=== PATIENT | male | born 1940 | race Caucasian/White ===

== ENCOUNTER 2021-05-03 11:02 | Inpatient (IN) ==
[~2021-05-03 11:02] MED LIST: LORazepam 2 MG/ML VIAL (IM USE) IM STA
--- NOTE | 2021-05-03 11:22 | Emergency Department Note ---
History of Present Illness General Chief complaint: Cardiac Assessment Source: patient and EMS Mode of arrival: EMS History of Present Illness Provider complaint: Dizziness Onset (ago): day(s) Location: head Severity: moderate Pain Consistency: + intermittent Maximum Pain Intensity: 0 Quality: + other (Lightheaded) Relieved By: + none Associated symptoms: no chest pain, no cough, no fever/chills, no headaches, no nausea/vomiting, no shortness of breath or no syncope This is an 80-year-old male who is brought in for a dysrhythmia by EMS. The p atient was altered this morning and so his daughter thought she was having a stroke. She called the ambulance and when paramedics arrived his heart rate was at 240 with a wide-complex rhythm. He was not coherent and his systolic blood pressure was 90 so he was given a synchronized shock with 100 J and he cardioverted back into normal sinus rhythm. He then became awake and alert. They did call for medical command and I did provide this. He was given amiodarone 150 mg IV. He states that he was feeling dizzy yesterday. He felt lightheaded. He otherwise had no symptoms. This morning he is not sure what happened. He denies falling down. He states that he has had no fever, cough or cold symptoms, chest discomfort or pain, shortness of breath, palpitations, abdominal pain, vomiting or urinary symptoms. He is being treated for prostate cancer with radiation. He does state that he had diarrhea last night without hematochezia. He denies any prior history of cardiac disease. He has no symptoms at this time. Home Medications Medication Instructions Recorded Confirmed Type acetaminophen 500 mg tablet 500 mg PO Q6H PRN 01/07/21 05/03/21 History (Tylenol Extra Strength) arginine (L-arginine) 500 mg tablet 850 mg PO DAILY tab 01/07/21 05/03/21 History atorvastatin 20 mg tablet 20 mg PO QAM 01/07/21 05/03/21 History cinnamon bark 500 mg capsule 500 mg PO QAM 01/07/21 05/03/21 History (Cinnamon) glimepiride 1 mg tablet 1 mg PO QAM 01/07/21 05/03/21 History mecobalamin (vitamin B12) 1,000 1,000 mcg SUBLINGUAL DAILY 01/07/21 05/03/21 History mcg disintegrating tablet,sublingual melatonin 10 mg capsule 10 mg PO HS PRN 01/07/21 05/03/21 History metformin 500 mg tablet 1,000 mg PO BID tab 01/07/21 05/03/21 History metoprolol succinate 25 mg 25 mg PO QAM 01/07/21 05/03/21 History tablet,extended release 24 hr leuprolide 7.5 mg (1 month) 7.5 mg SUBCUT ONCE #1 ea 04/13/21 05/03/21 Rx subcutaneous syringe (EliTirendod) leuprolide (3 month) 22.5 mg (3 22.5 mg SUBCUT ONCE #1 ea 04/30/21 05/03/21 Rx month) subcutaneous syringe (EliTirendod) aspirin 81 mg chewable tablet 81 mg PO QAM 05/03/21 05/03/21 History clopidogrel 75 mg tablet 75 mg PO QAM 05/03/21 05/03/21 History fenofibrate micronized 134 mg 134 mg PO QAM 05/03/21 05/03/21 History capsule finasteride 5 mg tablet 5 mg PO QAM 05/03/21 05/03/21 History lisinopril 10 mg tablet 10 mg PO DAILY 05/03/21 05/03/21 History Allergies Allergy/AdvReac Type Severity Reaction Status Date / Time No Known Allergies Allergy Verified 04/26/21 15:15 Past Med/Surg History Medical History CVA (cerebral vascular accident) Diabetes Dyslipidemia Hypertension Incontinence Osteoarthritis Surgical History H/O cystoscopy In 2005 with cryoablation of prostate for prostate cancer History of prostate surgery S/P colonoscopy S/P hernia repair Right inguinal hernia repair Left inguinal hernia repair Umbilical hernia repair S/P rotator cuff surgery Right Family History Father , 83yo Prostate cancer Brother Cancer Pt uncertain of type of cancer Stroke Grandfather Leukemia Grandmother Diabetes Mother , 88yo Diabetes Hypertension Heart disease Daughter Thyroid disorder Brother Cancer Pt uncertain of type of cancer Brother No problems noted. Daughter No problems noted. Son No problems noted. Social History Smoking Status: Current some day smoker Tobacco Type: Cigarettes Cigarettes Per Day: Social smoker when at the bars;Started at 16yo; Hx Alcohol Use: Yes Alcohol type: hard liquor Hx Substance Use: No Preferred Language: Lithuanian Communication Ability: Effective Visual Impairment: No Limitations Hearing Ability: Normal Senior Sous [employer] Required: No Beliefs That Will Affect Care: None marital status: Current Living Situation Comment: Daughter living with him currently current occupational status: retired current occupation: Worked at [employer] Feels Safe at Home: Yes caffeine: Yes (1/2 pot/day) during the past year weight has: remained stable Review of Systems See HPI for pertinent positives & negatives. and A total of 10 systems reviewed and were otherwise negative Physical Exam Vital Signs Vital Signs - 24 hr 05/03/21 11:05 05/03/21 11:17 05/03/21 11:35 Temperature 36.9 C Temperature Source Oral Pulse Rate 75 Pulse Rate [Finger] 86 Pulse Rhythm [Finger] Pulse Strength [Finger] Respiratory Rate 20 20 16 Respiratory Effort / Characteristics Non-Labored Non-Labored Respiratory Depth Normal Normal Respiratory Pattern Blood Pressure 139/78 Blood Pressure [Right Arm] 137/88 151/108 H Blood Pressure Mean 98 Blood Pressure Mean [Right Arm] 104 122 Blood Pressure Position [Right Arm] Pulse Oximetry 97 95 94 Oxygen Delivery Method Room Air Sepsis Recent Fever Within 48 Hours No Sepsis New/Unexplained Change in Mental Status No Sepsis Action Taken by Nursing No Action Required 05/03/21 11:46 05/03/21 13:00 05/03/21 13:35 Temperature Temperature Source Pulse Rate Pulse Rate [Finger] 87 84 72 Pulse Rhythm [Finger] Pulse Strength [Finger] Respiratory Rate 18 16 20 Respiratory Effort / Characteristics Respiratory Depth Respiratory Pattern Blood Pressure Blood Pressure [Right Arm] 152/100 H 146/106 H 165/97 H Blood Pressure Mean Blood Pressure Mean [Right Arm] 117 119 119 Blood Pressure Position [Right Arm] Pulse Oximetry 95 96 96 Oxygen Delivery Method Room Air Sepsis Recent Fever Within 48 Hours Sepsis New/Unexplained Change in Mental Status Sepsis Action Taken by Nursing 05/03/21 14:33 05/03/21 16:30 Temperature Temperature Source Pulse Rate Pulse Rate [Finger] 66 64 Pulse Rhythm [Finger] Regular Pulse Strength [Finger] Normal Respiratory Rate 20 18 Respiratory Effort / Characteristics Non-Labored Non-Labored Respiratory Depth Normal Normal Respiratory Pattern Regular Blood Pressure Blood Pressure [Right Arm] 136/92 136/79 Blood Pressure Mean Blood Pressure Mean [Right Arm] 106 98 Blood Pressure Position [Right Arm] Lying Pulse Oximetry 97 97 Oxygen Delivery Method Room Air Sepsis Recent Fever Within 48 Hours Sepsis New/Unexplained Change in Mental Status Sepsis Action Taken by Nursing Constitutional: Vital signs reviewed. Eyes: Pupils are equal round reactive to light. Conjunctiva are noninjected. ENT: Pharynx is clear without erythema or exudate. Mucous membranes are moist. Neck supple without meningeal signs. Respiratory: Clear to auscultation bilaterally. Breath sounds are equal bilaterally. Cardiovascular: Regular rate and rhythm. No rubs or gallops. GI: Soft, nondistended and nontender. Bowel sounds are present. Musculoskeletal: No peripheral edema. No lower extremity tenderness. Integumentary: No cyanosis. or jaundice. Neurological: The patient is awake and alert. No focal deficits. Psychiatric: Normal affect. Not anxious appearing. Very talkative. Course Administered Medications Discontinued Medications Aspirin (Aspirin 81 Mg Chew) 324 mg PO NOW STA Stop: 05/03/21 12:30 Last Admin: 05/03/21 12:53 Dose: 324 mg Documented by: [id number] Famotidine (Famotidine 20mg/5ml Iv Push) Confirm Administered Dose 20 mg IV .STK-MED ONE Stop: 05/03/21 13:26 Last Admin: 05/03/21 14:39 Dose: Not Given Documented by: [id number] Fentanyl Citrate (Fentanyl Citrate 100 Mcg/2 Ml Vial) Confirm Administered Dose 100 mcg .ROUTE .STK-MED ONE Stop: 05/03/21 15:29 Last Increment: 05/03/21 16:17 Dose: 75 mcg Documented by: [id number] Fentanyl Citrate (Fentanyl Citrate 100 Mcg/2 Ml Vial) Confirm Administered Dose 100 mcg .ROUTE .STK-MED ONE Stop: 05/03/21 16:09 Last Increment: 05/03/21 16:25 Dose: 75 mcg Documented by: [id number] Heparin Sodium (Porcine) (Heparin Sod (Porcine) 1000 Unit/Ml) 1 units IV NOW ONE Stop: 05/03/21 12:45 Last Admin: 05/03/21 12:51 Dose: 6,000 units Documented by: [id number] Cosigned by: [id number] Heparin Sodium/Dextrose (Heparin Iv Adult Wt-Based Standard With Bolus Protocol) 1 ea IV NOW STA; Protocol Stop: 05/03/21 12:30 Last Admin: 05/03/21 13:17 Dose: 1 ea Documented by: [id number] Heparin Sodium/Dextrose (Heparin Sodium/Dextrose) 25,000 units in 500 mls @ 0.02 mls/hr IV .Q24H YUMIKO; Protocol Stop: 06/02/21 12:44 Last Admin: 05/03/21 12:52 Dose: 1,300 units/hr, 26 mls/hr Documented by: [id number] Cosigned by: [id number] Amiodarone HCl/Dextrose (Nexterone / D5w) 360 mg in 200 mls @ 33.333 mls/hr IV ONE ONE; Protocol Stop: 05/03/21 18:28 Last Admin: 05/03/21 12:52 Dose: 1 mg/min, 33.3 mls/hr Documented by: [id number] Cosigned by: [id number] Magnesium Sulfate/Dextrose (Magnesium Sulfate / D5w) 1 gm in 100 mls @ 100 mls/hr IV Q1H YUMIKO Stop: 05/03/21 14:33 Last Admin: 05/03/21 14:40 Dose: 100 mls/hr Documented by: [id number] Infusion: 05/03/21 14:40 Dose: 0 mls/hr Documented by: [id number] Admin: 05/03/21 13:32 Dose: 100 mls/hr Documented by: [id number] Famotidine 20 mg/ Syringe 5 mls @ 2.5 mls/min IV ONE ONE Stop: 05/03/21 13:16 Last Admin: 05/03/21 13:33 Dose: 2.5 mls/min Documented by: [id number] Insulin Human Regular (Novolin-R Insulin Per Unit Charge) 7 units IV NOW STA Stop: 05/03/21 12:34 Last Admin: 05/03/21 13:12 Dose: 7 units Documented by: [id number] Cosigned by: [id number] Lidocaine HCl (Lidocaine 1% Local 20 Ml Vial) Confirm Administered Dose 20 ml .ROUTE .STK-MED ONE Stop: 05/03/21 14:56 Last Admin: 05/03/21 16:12 Dose: 20 ml Documented by: [id number] Lorazepam (Lorazepam 2 Mg/Ml Vial (Im Use)) 2 mg IM NOW STA Stop: 05/03/21 10:57 Last Admin: 05/03/21 11:19 Dose: Not Given Documented by: [id number] Midazolam HCl (Midazolam Hcl 1 Mg/Ml 2ml Vial) Confirm Administered Dose 2 mg .ROUTE .STK-MED ONE Stop: 05/03/21 15:28 Last Admin: 05/03/21 16:18 Dose: 2 mg Documented by: [id number] Nicardipine HCl (Nicardipine Hcl Inj 2.5 Mg/Ml 10 Ml Amp) Confirm Administered Dose 25 mg .ROUTE .STK-MED ONE Stop: 05/03/21 15:28 Last Admin: 05/03/21 16:10 Dose: 25 mg Documented by: [id number] Nitroglycerin/Dextrose (Nitroglycerin/D5w 100mcg/Ml 20ml Syr) Confirm Administered Dose 2,000 mcg .ROUTE .STK-MED ONE Stop: 05/03/21 15:29 Last Admin: 05/03/21 16:10 Dose: 2,000 mcg Documented by: [id number] Critical Care Time Critical Care Time: Yes Total Critical Care Time: 45 I have personally spent approximately 45 minutes of critical care time in the direct management of this patient. This includes bedside care, interpretation of diagnostic studies, and testing, discussion with consultants, patient, and family members, and other required patient management activities. These minutes are in excess of all separately billable procedures. Medical Decision Making Differential Diagnosis Unstable ventricular tachycardia, SVT with aberrancy, metabolic derangement, electrolyte abnormality, ischemic heart disease Medical Records Attestation: I reviewed the patient's medical records. I did perform a limited focused review of portions of the patient's old chart on the electronic medical record. The patient has had no recent pertinent visits to this hospital. He is followed by radiation oncology for treatment of prostate cancer. Home Medications Current Medication List: was personally reviewed by me Laboratory Data Attestation: I reviewed the patient's lab results. Result diagrams: 05/03/21 11:05 05/03/21 12:26 Lab Results 05/03/21 05/03/21 05/03/21 Range/Units 11:05 11:05 11:05 WBC 9.60 (4.8-10.8) K/uL RBC 4.22 L (4.7-6.1) M/uL Hgb 13.1 L (14.0-18.0) g/dL POC Hgb (14.0-18.0) g/dl Hct 41.2 L (42-52) % POC Hct (42-52) % MCV 97.6 (80-100) fL MCH 31.0 (25-34) pg MCHC 31.8 L (32-36) g/dL RDW Std Deviation 52.5 H (36.4-46.3) fL RDW Coeff of Dylan 14.8 H (11.5-14.5) % Plt Count 206 (130-400) K/uL MPV 10.7 H (7.4-10.4) fL Immature Gran % (Auto) 1.6 % Neut % (Auto) 84.5 % Lymph % (Auto) 5.4 % [place] % (Auto) 8.3 % Eos % (Auto) 0.0 % Baso % (Auto) 0.2 % Neut # (Auto) 8.11 H (1.4-6.5) K/uL Lymph # (Auto) 0.52 L (1.2-3.4) K/uL [place] # (Auto) 0.80 H (0.11-0.59) K/uL Eos # (Auto) 0.00 (0-0.5) K/uL Baso # (Auto) 0.02 (0-0.2) K/uL Immature Gran # (Auto) 0.15 H (0.00-0.02) K/uL PT (9.0-12.0) Seconds INR (0.9-1.1) APTT (21.0-31.0) Seconds PTT Ratio POC Sodium (135-144) mmol/L Sodium 137 (136-145) mmol/L POC Potassium (3.3-5.0) mmol/L Potassium (3.5-5.1) mmol/L POC Chloride (101-112) mmol/L Chloride 100 (98-107) mmol/L Carbon Dioxide 17 L (21-32) mmol/L POC Total CO2 (24-31) mmol/L Anion Gap 20 H (3-11) POC Anion Gap (16-25) mmol/L POC BUN (7-18) mg/dl BUN 41 H (6-23) mg/dl Creatinine 1.98 H (0.6-1.4) mg/dl POC Creatinine (0.6-1.3) mg/dl Est Cr Clr Drug Dosing 29.3 ml/min Est GFR ( Amer) 35.9 ml/min Est GFR (Non-Af Amer) 31.0 ml/min BUN/Creatinine Ratio 20.7 H (10-20) Glucose 397 H* (70-99(Fasting)) mg/dl POC Glucose (70-99) mg/dl POC Glucose (other) (70-99) mg/dl Calcium 9.2 (8.5-10.1) mg/dl POC Ioniz Calcium Wolf (1.12-1.32) mmol/l Magnesium 1.6 L (1.7-2.4) mg/dl Total Bilirubin 1.2 H (0.2-1.0) mg/dl AST (13-39) U/L ALT 428 H (7-52) U/L Alkaline Phosphatase 42 (34-104) U/L Troponin I 1.38 H* (0-0.04) ng/ml Total Protein 6.6 (6.0-8.3) gm/dl Albumin 3.8 (3.4-5.0) gm/dl Globulin 2.8 (2.5-4.0) gm/dl Albumin/Globulin Ratio 1.4 (0.9-2) TSH 2.510 (0.300-4.500) uIu/ml SARS-CoV-2, RNA, NAAT (NEGATIVE) 05/03/21 05/03/21 05/03/21 Range/Units 11:05 11:14 11:23 WBC (4.8-10.8) K/uL RBC (4.7-6.1) M/uL Hgb (14.0-18.0) g/dL POC Hgb 14.3 (14.0-18.0) g/dl Hct (42-52) % POC Hct 42 (42-52) % MCV (80-100) fL MCH (25-34) pg MCHC (32-36) g/dL RDW Std Deviation (36.4-46.3) fL RDW Coeff of Dylan (11.5-14.5) % Plt Count (130-400) K/uL MPV (7.4-10.4) fL Immature Gran % (Auto) % Neut % (Auto) % Lymph % (Auto) % [place] % (Auto) % Eos % (Auto) % Baso % (Auto) % Neut # (Auto) (1.4-6.5) K/uL Lymph # (Auto) (1.2-3.4) K/uL [place] # (Auto) (0.11-0.59) K/uL Eos # (Auto) (0-0.5) K/uL Baso # (Auto) (0-0.2) K/uL Immature Gran # (Auto) (0.00-0.02) K/uL PT 14.3 H (9.0-12.0) Seconds INR 1.5 H (0.9-1.1) APTT 27.3 (21.0-31.0) Seconds PTT Ratio 1.0 POC Sodium 138 (135-144) mmol/L Sodium (136-145) mmol/L POC Potassium 5.1 H (3.3-5.0) mmol/L Potassium (3.5-5.1) mmol/L POC Chloride 103 (101-112) mmol/L Chloride (98-107) mmol/L Carbon Dioxide (21-32) mmol/L POC Total CO2 20 L (24-31) mmol/L Anion Gap (3-11) POC Anion Gap 22.0 (16-25) mmol/L POC BUN 48 H (7-18) mg/dl BUN (6-23) mg/dl Creatinine (0.6-1.4) mg/dl POC Creatinine 1.7 H (0.6-1.3) mg/dl Est Cr Clr Drug Dosing ml/min Est GFR ( Amer) ml/min Est GFR (Non-Af Amer) ml/min BUN/Creatinine Ratio (10-20) Glucose (70-99(Fasting)) mg/dl POC Glucose (70-99) mg/dl POC Glucose (other) 383 H* (70-99) mg/dl Calcium (8.5-10.1) mg/dl POC Ioniz Calcium Wolf 1.18 (1.12-1.32) mmol/l Magnesium (1.7-2.4) mg/dl Total Bilirubin (0.2-1.0) mg/dl AST (13-39) U/L ALT (7-52) U/L Alkaline Phosphatase (34-104) U/L Troponin I (0-0.04) ng/ml Total Protein (6.0-8.3) gm/dl Albumin (3.4-5.0) gm/dl Globulin (2.5-4.0) gm/dl Albumin/Globulin Ratio (0.9-2) TSH (0.300-4.500) uIu/ml SARS-CoV-2, RNA, NAAT NEGATIVE (NEGATIVE) 05/03/21 05/03/21 05/03/21 Range/Units 12:26 13:47 13:48 WBC (4.8-10.8) K/uL RBC (4.7-6.1) M/uL Hgb (14.0-18.0) g/dL POC Hgb (14.0-18.0) g/dl Hct (42-52) % POC Hct (42-52) % MCV (80-100) fL MCH (25-34) pg MCHC (32-36) g/dL RDW Std Deviation (36.4-46.3) fL RDW Coeff of Dylan (11.5-14.5) % Plt Count (130-400) K/uL MPV (7.4-10.4) fL Immature Gran % (Auto) % Neut % (Auto) % Lymph % (Auto) % [place] % (Auto) % Eos % (Auto) % Baso % (Auto) % Neut # (Auto) (1.4-6.5) K/uL Lymph # (Auto) (1.2-3.4) K/uL [place] # (Auto) (0.11-0.59) K/uL Eos # (Auto) (0-0.5) K/uL Baso # (Auto) (0-0.2) K/uL Immature Gran # (Auto) (0.00-0.02) K/uL PT (9.0-12.0) Seconds INR (0.9-1.1) APTT (21.0-31.0) Seconds PTT Ratio POC Sodium (135-144) mmol/L Sodium (136-145) mmol/L POC Potassium (3.3-5.0) mmol/L Potassium 4.7 (3.5-5.1) mmol/L POC Chloride (101-112) mmol/L Chloride (98-107) mmol/L Carbon Dioxide (21-32) mmol/L POC Total CO2 (24-31) mmol/L Anion Gap (3-11) POC Anion Gap (16-25) mmol/L POC BUN (7-18) mg/dl BUN (6-23) mg/dl Creatinine (0.6-1.4) mg/dl POC Creatinine (0.6-1.3) mg/dl Est Cr Clr Drug Dosing ml/min Est GFR ( Amer) ml/min Est GFR (Non-Af Amer) ml/min BUN/Creatinine Ratio (10-20) Glucose (70-99(Fasting)) mg/dl POC Glucose 283 H 291 H (70-99) mg/dl POC Glucose (other) (70-99) mg/dl Calcium (8.5-10.1) mg/dl POC Ioniz Calcium Wolf (1.12-1.32) mmol/l Magnesium (1.7-2.4) mg/dl Total Bilirubin (0.2-1.0) mg/dl AST 990 H (13-39) U/L ALT (7-52) U/L Alkaline Phosphatase (34-104) U/L Troponin I (0-0.04) ng/ml Total Protein (6.0-8.3) gm/dl Albumin (3.4-5.0) gm/dl Globulin (2.5-4.0) gm/dl Albumin/Globulin Ratio (0.9-2) TSH (0.300-4.500) uIu/ml SARS-CoV-2, RNA, NAAT (NEGATIVE) Imaging Data Radiologist's Impression: Chest X-Ray 05/03/21 11:14 XR chest 1V portable CLINICAL HISTORY: Dysrhythmia TECHNIQUE: Single frontal radiograph of the chest was obtained. Comparison: Comparison is made to chest one view 03/10/2016 FINDINGS: No lines and tubes are seen. The cardiomediastinal silhouette is normal. The lungs are clear. No evidence of pleural effusion or pneumothorax. IMPRESSION: No acute chest disease. ACT 112: Negative or not required by law. Electronically signed by: Ricco Sheehan M.D. 05/03/2021 11:31 AM ECG Data Attestation: I personally reviewed and interpreted this ECG as follows: Indication: + altered mental status Rate (beats per minute): 86 Rhythm: + normal sinus ECG Intervals/blocks: + First degree AV block and + Prolonged QT ECG ST segments: + ST depression (Lateral) ECG Findings: + PVCs Comparison ECG Date: from (March 12, 2016) Change: the following changes noted (ST depressions are new. Prolonged QT was present previously with a QTC of 520) MDM Narrative I did provide prehospital medical command for the patient my review of the EKG prior to arrival demonstrates ventricular tachycardia at a rate of 234 bpm. He had been electrically cardioverted prior to the phone call with 100 J and is now in normal sinus rhythm. I did recommend treatment with amiodarone and he was given 150 mg prior to arrival here. I did immediately evaluate the patient as noted above. He is awake and alert and without symptoms at this time. He does not even complain of any chest pain even after being cardioverted. He states that his only symptoms recently he was feeling lightheaded yesterday. Additional IV access was established. I did place an order for continuous cardiac monitoring. The monitor showed normal sinus rhythm at a rate of 68 bpm with PVCs. did order and personally review the patient's 12-lead EKG as described above. His EKG is concerning for ST depressions in the lateral leads. He has no ST elevations. He does have PVCs. He also has a prolonged QT which was present on his previous EKG. I did order and personally reviewed the images of the patient's chest x-ray as described above. He has no acute process within the chest. I did order and review the patient's blood work as noted in the electronic medical record. CBC demonstrates a mild anemia with a hemoglobin of 13. He has no leukocytosis or thrombocytopenia. Electrolytes are unremarkable other than a CO2 of 17. BUN and creatinine are elevated at 41 and 1.98 respectively. His last creatinine was 1. Glucose was elevated at 397. LFTs were abnormal with a AST of 990 and an ALT of 428. Troponin was elevated at 1.38. I did discuss case with Dr. Snyder of cardiology. He recommended starting the patient on an amiodarone drip. He felt the risk of torsades did not outweigh the risk of recurrent V. tach. He also recommended heparin. I did discuss this with the patient. He has no prior history of major bleed and denies any black or bloody stools. He is agreeable with heparinization. I did treat him with standard bolus heparin as well as a continuous drip. He was placed on an amiodarone drip at 1 mg/min. He was also given an aspirin p.o. He was also given magnesium 2 g IV. Finally he was given regular insulin 7 units IV for his hyperglycemia. COVID-19 testing was negative. I did discuss case with the hospitalist and case consultant. The patient was seen in emergency department by cardiology and he was eventually taken to the cardiac [facility]. Impression & Plan Ventricular tachycardia, sustained, Non-ST elevation [place] (NSTEMI), ROCKY (acute kidney injury), Hypomagnesemia, Prolonged Q-T interval on ECG, Abnormal LFTs, Acute hyperglycemia Discharge Plan Visit Data Chief Complaint: Cardiac Assessment ED Provider: Rudy Alcocer Discharge Problem: Ventricular tachycardia, sustained, Non-ST elevation [place] (NSTEMI), ROCKY (acute kidney injury), Hypomagnesemia, Prolonged Q-T interval on ECG, Abnormal LFTs, Acute hyperglycemia Patient Disposition: Being Evaluated by Hospitalist Discharge Instructions Interventions: ED Discharge Assessment Last Done: 05/03/21 14:55
[2021-05-03 11:26] LABS: iSTAT Creatinine 1.7 mg/dl (0.6-1.3); iSTAT Hemoglobin 14.3 g/dl (14.0-18.0); iSTAT Ionized Calcium 1.18 mmol/l (1.12-1.32); iSTAT Potassium 5.1 mmol/L (3.3-5.0)
--- NOTE | 2021-05-03 11:33 | XRay Report ---
XR chest 1V portable CLINICAL HISTORY: Dysrhythmia TECHNIQUE: Single frontal radiograph of the chest was obtained. Comparison: Comparison is made to chest one view 03/10/2016 FINDINGS: No lines and tubes are seen. The cardiomediastinal silhouette is normal. The lungs are clear. No evid ence of pleural effusion or pneumothorax. IMPRESSION: No acute chest disease. ACT 112: Negative or not required by law. Electronically signed by: Ricco Sheehan M.D. 05/03/2021 11:31 AM
[2021-05-03 11:34] LABS: Basophils # (auto) 0.02 K/uL (0-0.2); Basophils % (auto) 0.2 %; Hematocrit (blood only) 41.2 % (42-52); Hemoglobin 13.1 g/dL (14.0-18.0); Immature Granulocytes # (auto) 0.15 K/uL (0.00-0.02); Immature Granulocytes % (auto) 1.6 %; Lymphocytes # (auto) 0.52 K/uL (1.2-3.4); Lymphocytes % (auto) 5.4 %; Mean Corpuscular Hgb Conc 31.8 g/dL (32-36); Mean Corpuscular Volume 97.6 fL (80-100); Mean Platelet Volume 10.7 fL (7.4-10.4); Monocytes % (auto) 8.3 %; Neutrophils # (auto) 8.11 K/uL (1.4-6.5); Neutrophils % (auto) 84.5 %; Platelet Count 206 K/uL (130-400); RDW Coefficient of Variation 14.8 % (11.5-14.5); RDW Standard Deviation 52.5 fL (36.4-46.3); Red Blood Count 4.22 M/uL (4.7-6.1)
[2021-05-03 11:53] LABS: Troponin I 1.38 ng/ml (0-0.04)
[2021-05-03 12:22] LABS: Albumin Globulin Ratio 1.4 (0.9-2); Albumin Level 3.8 gm/dl (3.4-5.0); BUN Creatinine Ratio 20.7 (10-20); Bilirubin,Total 1.2 mg/dl (0.2-1.0); Calcium 9.2 mg/dl (8.5-10.1); Creatinine Clr Calc Pharmacy 29.3 ml/min; Est GFR (African American) 35.9 ml/min; Globulin 2.8 gm/dl (2.5-4.0); Magnesium 1.6 mg/dl (1.7-2.4); Total Protein 6.6 gm/dl (6.0-8.3)
[2021-05-03] MEDS ORDERED: AMIODARONE / D5W 360 MG/200 ML BAG IV ONE ×2 (12:29→16:25)
[2021-05-03] MEDS ORDERED: Heparin IV Adult Wt-Based Standard WITH Bolus Protocol IV STA (12:29)
[2021-05-03] MEDS ORDERED: ASPIRIN 81 MG CHEW PO STA (12:29)
[2021-05-03] MEDS ORDERED: 0.2 MICRON FILTER SET 1 EA IV ONE ×2 (12:29→16:25)
[2021-05-03] MEDS ORDERED: NovoLIN-R INSULIN PER UNIT CHARGE IV STA (12:33)
[2021-05-03] MEDS ORDERED: HEPARIN SOD (PORCINE) 1000 UNIT/ML IV ONE (12:44)
[2021-05-03] MEDS ORDERED: HEPARIN SODIUM/DEXTROSE 25,000 UNITS/500 ML BAG IV SCH (12:45)
[2021-05-03 13:06] LABS: Potassium 4.7 mmol/L (3.5-5.1)
[2021-05-03] MEDS ORDERED: FAMOTIDINE 20 MG in SYRINGE 3 ML IV ONE (13:15)
--- NOTE | 2021-05-03 13:24 | History & Physical Report ---
Date of Service May 03, 2021 Assessment & Plan (1) NSTEMI (non-ST elevated myocardial infarction): (2) V-tach: (3) ROCKY (acute kidney injury): (4) Transaminitis: (5) Diabetes: (6) Hypertension: (7) Dyslipidemia: (8) Prostate CA: (9) Hypomagnesemia: Plan: This is an 80-year-old male who has significant past medical history of T2DM, HTN, HLD, history of CVA in 2016, history of recurrent prostate cancer currently under going radiation therapy, alcohol use who presents to ED via EMS secondary to V. tach in the field. Acute coronary Syndrome, NSTEMI Sustained V. tach status post synchronized cardioversion, 100 J Cardiology consulted Echocardiogram ordered -waiting initial interpretation Cardiology to determine cath now or delayed till tomorrow secondary to ROCKY IV amiodarone and IV heparin initiated Continue metoprolol, aspirin Hold statin in setting of transaminitis, lisinopril secondary to ROCKY Cycle troponins ROCKY Baseline creatinine 1, BUN/creatinine 41 and 1.98 Likely in setting of poor perfusion due to arrhythmia Hold Metformin, lisinopril, avoid nephrotoxic agents as able Will receive gentle hydration Transaminitis AST 990, ALT 420, total bili 1.2 Possibly in setting of shock liver due to poor perfusion Obtain right upper quadrant ultrasound after ACS addressed Hold hepatotoxic agents including statin Cycle LFTs T2DM hyperglycemia A1c 02/2021 7.6 On Metformin and glimepiride as outpatient BSG 383 in ED, received 7 units regular insulin Lantus/novolog per protocol, if unable to control will need insulin gtt Hypomagnesemia mag 1.6 2g mag sulfate ordered, keep > 2.0 repeat mag at 1600 Hx of CVA on asa/plavix/statin as OP Prostate ca currently undergoing XRT tx, last 04/19/21. 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 Morgan, please see addendum History of Present Illness Chief Complaint: Dizziness x 1 day; VTACH in field. Primary Care Provider: Lizabeth Ying, DO This is an 80-year-old male who has significant past medical history of T2DM, HTN, HLD, history of CVA in 2016, history of recurrent prostate cancer currently under going radiation therapy, alcohol use who presents to ED via EMS secondary to V. tach in the field. Patient is a poor historian. He states for the past day he has been feeling dizzy and lightheaded and overall, "not well." His daughter found him this morning and felt that he was altered and pale. When EMS arrived the patient he was pale and diaphoretic. His heart rate was in the 240s consistent with V. tach. He underwent synchronized cardioversion at 100 J and returned to normal sinus rhythm. In route EMS was instructed to give 150 mg of amiodarone. Upon arrival to ED patient was awake alert talking normally. Currently he has no acute complaints but does complain of, "heartburn. "He describes as a burning in his central chest. He denies any yfn chest pain, shortness of breath, palpitations, dizziness, lightheadedness, headache, change in vision or hearing, cough, URI symptoms, recent illness, nausea, vomiting, abdominal pain. He has recently had increased urinary frequency secondary to undergoing cancer treatment for prostate cancer. He denies any hematuria, melena or hematochezia. Of significance he is on aspirin and Plavix secondary to history of stroke. He does complain of frequent loose stools approximately 8-10 a day. He attributes it to his Metformin. In ED patient has remained hemodynamically stable with no further evidence of recurrent dysrhythmia. He does have significant lab abnormalities including H&H 13.1 and 41.2, BUN 41, creatinine 1.9, anion gap 20, CO2 17, glucose 397, AST 990, ALT 420, initial troponin I 0.38, magnesium 1.6 His EKG was consistent with lateral ischemia. Cardiology was consulted and echocardiogram was ordered stat. He was started on IV amiodarone drip and IV heparin drip. Allergies Allergy/AdvReac Type Severity Reaction Status Date / Time No Known Allergies Allergy Verified 04/26/21 15:15 Home Medications Medication Instructions Recorded Confirmed Type acetaminophen 500 mg tablet 500 mg PO Q6H PRN 01/07/21 05/03/21 History (Tylenol Extra Strength) arginine (L-arginine) 500 mg tablet 850 mg PO DAILY tab 01/07/21 05/03/21 History atorvastatin 20 mg tablet 20 mg PO QAM 01/07/21 05/03/21 History cinnamon bark 500 mg capsule 500 mg PO QAM 01/07/21 05/03/21 History (Cinnamon) glimepiride 1 mg tablet 1 mg PO QAM 01/07/21 05/03/21 History mecobalamin (vitamin B12) 1,000 1,000 mcg SUBLINGUAL DAILY 01/07/21 05/03/21 History mcg disintegrating tablet,sublingual melatonin 10 mg capsule 10 mg PO HS PRN 01/07/21 05/03/21 History metformin 500 mg tablet 1,000 mg PO BID tab 01/07/21 05/03/21 History metoprolol succinate 25 mg 25 mg PO QAM 01/07/21 05/03/21 History tablet,extended release 24 hr leuprolide 7.5 mg (1 month) 7.5 mg SUBCUT ONCE #1 ea 04/13/21 05/03/21 Rx subcutaneous syringe ([employer]) leuprolide (3 month) 22.5 mg (3 22.5 mg SUBCUT ONCE #1 ea 04/30/21 05/03/21 Rx month) subcutaneous syringe ([employer]) aspirin 81 mg chewable tablet 81 mg PO QAM 05/03/21 05/03/21 History clopidogrel 75 mg tablet 75 mg PO QAM 05/03/21 05/03/21 History fenofibrate micronized 134 mg 134 mg PO QAM 05/03/21 05/03/21 History capsule finasteride 5 mg tablet 5 mg PO QAM 05/03/21 05/03/21 History lisinopril 10 mg tablet 10 mg PO DAILY 05/03/21 05/03/21 History Past Med/Surg History Medical History CVA (cerebral vascular accident) Diabetes Dyslipidemia Hypertension Incontinence Osteoarthritis Surgical History H/O cystoscopy In 2005 with cryoablation of prostate for prostate cancer History of prostate surgery S/P colonoscopy S/P hernia repair Right inguinal hernia repair Left inguinal hernia repair Umbilical hernia repair S/P rotator cuff surgery Right Family History Father , 83yo Prostate cancer Brother Cancer Pt uncertain of type of cancer Stroke Grandfather Leukemia Grandmother Diabetes Mother , 88yo Diabetes Hypertension Heart disease Daughter Thyroid disorder Brother Cancer Pt uncertain of type of cancer Brother No problems noted. Daughter No problems noted. Son No problems noted. Social History Smoking Status: Current some day smoker Tobacco Type: Cigarettes Cigarettes Per Day: Social smoker when at the bars;Started at 16yo; Hx Alcohol Use: Yes Alcohol type: hard liquor Hx Substance Use: No Preferred Language: Amharic Communication Ability: Effective Visual Impairment: No Limitations Hearing Ability: Normal Wellness Rn Required: No Beliefs That Will Affect Care: None marital status: Current Living Situation Comment: Daughter living with him currently current occupational status: retired current occupation: Worked at [employer] Feels Safe at Home: Yes caffeine: Yes (1/2 pot/day) during the past year weight has: remained stable Review of Systems Review of Systems: All systems reviewed & are unremarkable except as noted in HPI & below Physical Exam Physical Exam: Constitutional: WD/WN, Pale, Elderly M, appears critically ill, vitals as above, NAD, sitting up in bed, pleasant, conversing easily Head: Normocephalic, Atraumatic Eyes: PERRL, conjunctivae normal, anicteric sclerae ENMT: external ear and nose normal, oropharynx normal Neck: trachea midline, no thyromegaly normal visual inspection Respiratory: normal respiratory effort, lungs clear to auscultation, no wheeze, rales, rhonchi. Normal insp/exp effort, no accessory muscle use Cardiovascular: RRR, no murmur, no edema Vessels: no JVD or carotid bruit Chest: normal inspection of chest Abdomen: normal bowel sounds, soft, nontender, no hepatosplenomegaly Musculoskeletal: no cyanosis or clubbing, extremities motor strength 5/5 Skin: no rashes, warm and dry normal turgor Neurologic: PERRL, EOMI, accommodation nl, no face palsy, no dysarthria CN's II-XI intact bilaterally and moves all extremities Psychiatric: A+Ox3, euthymic affect Lymphatic: no cervical or axillary lymphadenopathy : deferred Results & Data Results & Data ([facility]) Vital Signs (Past 12 Hours) Vital Signs Temp Pulse Pulse Resp BP BP Pulse Ox 05/03/21 13:00 84 16 146/106 H 96 05/03/21 11:46 87 18 152/100 H 95 05/03/21 11:35 16 151/108 H 94 05/03/21 11:17 86 20 137/88 95 05/03/21 11:05 36.9 C 75 20 139/78 97 Diagnostic Findings Chest X-Ray 05/03/21 11:14 XR chest 1V portable CLINICAL HISTORY: Dysrhythmia TECHNIQUE: Single frontal radiograph of the chest was obtained. Comparison: Comparison is made to chest one view 03/10/2016 FINDINGS: No lines and tubes are seen. The cardiomediastinal silhouette is normal. The lungs are clear. No evidence of pleural effusion or pneumothorax. IMPRESSION: No acute chest disease. ACT 112: Negative or not required by law. Electronically signed by: Ricco Sheehan M.D. 05/03/2021 11:31 AM Medications Administered Medication List Heparin Sodium/Dextrose (Heparin Sodium/Dextrose) 25,000 units in 500 mls @ 0.02 mls/hr IV .Q24H [id number]; Protocol Stop: 06/02/21 12:44 Last Admin: 05/03/21 12:52 Dose: 1,300 units/hr, 26 mls/hr Documented by: [id number] Cosigned by: [id number] Amiodarone HCl/Dextrose (Nexterone / D5w) 360 mg in 200 mls @ 33.333 mls/hr IV ONE ONE; Protocol Stop: 05/03/21 18:28 Last Admin: 05/03/21 12:52 Dose: 1 mg/min, 33.3 mls/hr Documented by: [id number] Cosigned by: [id number] Discontinued Medications Aspirin (Aspirin 81 Mg Chew) 324 mg PO NOW STA Stop: 05/03/21 12:30 Last Admin: 05/03/21 12:53 Dose: 324 mg Documented by: [id number] Heparin Sodium (Porcine) (Heparin Sod (Porcine) 1000 Unit/Ml) 1 units IV NOW ONE Stop: 05/03/21 12:45 Last Admin: 05/03/21 12:51 Dose: 6,000 units Documented by: [id number] Cosigned by: [id number] Heparin Sodium/Dextrose (Heparin Iv Adult Wt-Based Standard With Bolus Protocol) 1 ea IV NOW STA; Protocol Stop: 05/03/21 12:30 Last Admin: 05/03/21 13:17 Dose: 1 ea Documented by: [id number] Insulin Human Regular (Novolin-R Insulin Per Unit Charge) 7 units IV NOW STA Stop: 05/03/21 12:34 Last Admin: 05/03/21 13:12 Dose: 7 units Documented by: [id number] Cosigned by: [id number] Lorazepam (Lorazepam 2 Mg/Ml Vial (Im Use)) 2 mg IM NOW STA Stop: 05/03/21 10:57 Last Admin: 05/03/21 11:19 Dose: Not Given Documented by: [id number] ECG Rate (beats per minute): 87 Rhythm: normal sinus Findings: + ST depression and + prolonged QT Additional Comments: Pt with ST depression laterally, not improved from previous COVID-19 Results Results COVID-19 Adm Lab Results: RBC 4.22 M/uL (4.7-6.1) L 05/03/21 WBC 9.60 K/uL (4.8-10.8) 05/03/21 Hgb 13.1 g/dL (14.0-18.0) L 05/03/21 Hct 41.2 % (42-52) L 05/03/21 Plt Count 206 K/uL (130-400) 05/03/21 Neutrophils (%) (Auto) 84.5 % 05/03/21 Lymphocytes (%) (Auto) 5.4 % 05/03/21 Monocytes # (Auto) 0.80 K/uL (0.11-0.59) H 05/03/21 Eosinophils # (Auto) 0.00 K/uL (0-0.5) 05/03/21 Immature Granulocyte % (Auto) 1.6 % 05/03/21 Neutrophils # (Auto) 8.11 K/uL (1.4-6.5) H 05/03/21 Lymphocytes # (Auto) 0.52 K/uL (1.2-3.4) L 05/03/21 Monocytes # (Auto) 0.80 K/uL (0.11-0.59) H 05/03/21 Eosinophils # (Auto) 0.00 K/uL (0-0.5) 05/03/21 Basophils # (Auto) 0.02 K/uL (0-0.2) 05/03/21 Immature Granulocyte # (Auto) 0.15 K/uL (0.00-0.02) H 05/03/21 Na 137 mmol/L (136-145) 05/03/21 K 4.7 mmol/L (3.5-5.1) 05/03/21 Cl 100 mmol/L (98-107) 05/03/21 CO2 17 mmol/L (21-32) L 05/03/21 Anion Gap 20 (3-11) H 05/03/21 BUN 41 mg/dl (6-23) H 05/03/21 Creatinine 1.98 mg/dl (0.6-1.4) H 05/03/21 BUN/Creatinine Ratio 20.7 (10-20) H 05/03/21 Glucose Level 397 mg/dl (70-99(Fasting)) H* 05/03/21 Ca 9.2 mg/dl (8.5-10.1) 05/03/21 Total Bilirubin 1.2 mg/dl (0.2-1.0) H 05/03/21 AST/SGOT 990 U/L (13-39) H 05/03/21 ALT/SGPT 428 U/L (7-52) H 05/03/21 Alkaline Phosphatase 42 U/L (34-104) 05/03/21 Total Protein 6.6 gm/dl (6.0-8.3) 05/03/21 Albumin 3.8 gm/dl (3.4-5.0) 05/03/21 Globulin 2.8 gm/dl (2.5-4.0) 05/03/21 Albumin/Globulin Ratio 1.4 (0.9-2) 05/03/21 Troponin I 1.38 ng/ml (0-0.04) H* 05/03/21 PTT 27.3 Seconds (21.0-31.0) 05/03/21 INR 1.5 (0.9-1.1) H 05/03/21 SARS-CoV-2, RNA, NAAT NEGATIVE (NEGATIVE) 05/03/21 Chest X-Ray 05/03/21 Code Status & VTE Plan Code Status FULL CODE VTE Prophylaxis Plan VTE Prophylaxis will be ordered: No Supervising Physician Co-Signing Physician Notes Patient is an 80-year-old male with history of diabetes mellitus, hypertension, hyperlipidemia, prostate cancer currently undergoing radiation therapy and other medical problems presents with history of dizziness. He was found to be in V. tach by EMS and underwent synchronized cardioversion and currently in sinus rhythm while in ED. Patient states having dizziness which started yesterday. He denies any chest pain but admits to having heartburn-like sensation. He denies any loss of consciousness, shortness of breath, fever, chills, recent infection. Patient states that he has been having diarrhea multiple times which is usual for him secondary to Metformin. Blood pressure slightly elevated while in ED. Blood work suggestive of ROCKY creatinine 1.98, hypomagnesemia 1.6, anion gap metabolic acidosis with bicarbonate 17. Also noted elevated AST, ALT. EKG showed ST depression in lateral precordial leads. Troponin elevated at 1.38. Hyperglycemia noted at 383. Chest x-ray showed no acute findings. On exam patient is moderately built and nourished, no apparent distress, normocephalic atraumatic, EOMI, clear to auscultation, normal breath sounds, irregularly irregular, no murmur, no pedal edema, abdomen soft, nontender, normal bowel sounds, alert, awake, oriented, grossly no focal deficits. Patient is being admitted for V. tach, NSTEMI, acute kidney injury, anion gap metabolic acidosis, hypomagnesemia. Also transaminitis. Patient is started on amiodarone, IV heparin drip while in ED. Patient is being planned for cardiac catheterization today. Avoid any nephrotoxic agents. Monitor renal function. Obtain right upper quadrant ultrasound and monitor LFTs. Continue aspirin, Plavix, metoprolol. Will trend cardiac enzymes and check resting echo. Will give insulin therapy to manage diabetes mellitus. Replace magnesium. Cardiology consulted. I personally reviewed the record. Patient is interviewed and examined at bedside. Patient's care is coordinated with Pattie Haney PA-C. Please refer to the documentation above for details of patient's presentation and for discussion of other issues.
[2021-05-03] MEDS ORDERED: FAMOTIDINE 20MG/5ML IV PUSH IV ONE (13:25)
[2021-05-03] MEDS: MAGNESIUM SULFATE / D5W 1 GM/100 ML BAG IV SCH ×2 (13:32→14:40)
[2021-05-03 13:51] LABS: INR 1.5 (0.9-1.1); Partial Thromboplastin Time 27.3 Seconds (21.0-31.0); Prothrombin Time 14.3 Seconds (9.0-12.0)
--- NOTE | 2021-05-03 14:22 | Cardiology Consultation ---
Date of Consultation May 03, 2021 Assessment & Plan (1) V-tach: (2) NSTEMI (non-ST elevated myocardial infarction): (3) ROCKY (acute kidney injury): Patient presents with having had onset of dizziness 12 hours prior to being found to be in sustained ventricular tachycardia with very rapid ventricular response of over 200 bpm. He had associated shortness of breath. He underwent synchronized cardioversion to sinus rhythm first-degree AV block, frequent unifocal PVCs, and lateral ST depression consistent with ischemia. His magnesium was mildly low at 1.6 and he has received IV replacement. He describes a vague discomfort in his chest that he describes as "heartburn "with no troponin level of 1.38, AST of 990 units/L, ALT 428 units/L. ROCKY noted, with creatinine level of 1.98, up from his previous baseline of 1 mg/dL in January,. The morphology of the EKG suggests possible right ventricular outflow tract ventricular tachycardia. This would fit well with his history of longstanding frequent PVCs and nonsustained ventricular tachycardia noted back in 2016. He has been on metoprolol in the meantime. He is however at risk for underlying significant underlying coronary heart disease given his risk factors. Bedside echocardiogram reveals moderate concentric left ventricular hypertrophy, moderate global left ventricular hypokinesis with ejection fraction in the range of 30 to 35%. We will plan on discussing the case with interventional cardiology with regards to timing of cardiac catheterization with taking his renal insufficiency into account. I attempted to reach the patient's daughter by phone who had already left the emergency room I was unable to reach her, but will continue to try again. History of Present Illness History of Present Illness Mayito Kiran is an 80 year old male seen in cardiology consultation per the request of Dr Alcocer of Emergency Medicine. Patient was reportedly in his normal state of health and while doing laundry last night at 7 to 8:00 at night he initially noticed dizziness. He had associated difficulty with his breathing. He laid down to go to sleep on the couch and noted heavy perspiration he actually put a cool towel on his head, and slept poorly. His daughter, Annabella, who lives with him, but he was confused and not himself this morning. EMS was subsequently summoned, and upon their arrival, an EKG performed at 1022 this morning revealed the presence of a wide- complex tachycardia with ventricular rate of 234 bpm, consistent with ventricular tachycardia. His systolic blood pressure was in the 90s. After the paramedics discussed his case with medical command, he underwent cardioversion receiving a synchronized shock of 100 J with conversion to sinus rhythm with first-degree AV block, frequent PVCs, and noted [address] segment depression in the lateral precordial leads. The patient was started on amiodarone infusion. Upon arrival to the emergency department repeat EKG was performed at 1108 this morning, with persistent [address] segment depression noted in the lateral precordial leads, and frequent unifocal PVCs including ventricular couplets and short ventricular runs are present at the time of my assessment in the emergency room with the patient currently receiving amiodarone and unfractioned heparin by infusion. The patient notes an ongoing mild midline chest discomfort that he describes as being "heartburn ". His blood pressure is stable with systolic readings in the 150s to 160s at present. No distress. Patient has a history of admission in late 2015 as part of a stroke work-up. Ejection fraction was normal on echo at that time, a follow-up watcher [employer] revealed frequent PVCs and short runs of nonsustained ventricular tachycardia. He was seen once as an outpatient by cardiology, but was lost to follow-up. Recently, he has been followed closely by urology and radiation oncology for recurrent prostate carcinoma and is receiving radiation therapy, most recent treatment 04/19/2020. A PET scan performed 04/07/2021 revealed a small stable lingular pulmonary nodule, with no significant FDG uptake with the exception of in the prostate gland. The patient's past medical history is otherwise notable for type 2 diabetes mellitus, hypertension and dyslipidemia. Allergies Allergy/AdvReac Type Severity Reaction Status Date / Time No Known Allergies Allergy Verified 04/26/21 15:15 Home Medications Medication Instructions Recorded Confirmed Type acetaminophen 500 mg tablet 500 mg PO Q6H PRN 01/07/21 05/03/21 History (Tylenol Extra Strength) arginine (L-arginine) 500 mg tablet 850 mg PO DAILY tab 01/07/21 05/03/21 History atorvastatin 20 mg tablet 20 mg PO QAM 01/07/21 05/03/21 History cinnamon bark 500 mg capsule 500 mg PO QAM 01/07/21 05/03/21 History (Cinnamon) glimepiride 1 mg tablet 1 mg PO QAM 01/07/21 05/03/21 History mecobalamin (vitamin B12) 1,000 1,000 mcg SUBLINGUAL DAILY 01/07/21 05/03/21 History mcg disintegrating tablet,sublingual melatonin 10 mg capsule 10 mg PO HS PRN 01/07/21 05/03/21 History metformin 500 mg tablet 1,000 mg PO BID tab 01/07/21 05/03/21 History metoprolol succinate 25 mg 25 mg PO QAM 01/07/21 05/03/21 History tablet,extended release 24 hr leuprolide 7.5 mg (1 month) 7.5 mg SUBCUT ONCE #1 ea 04/13/21 05/03/21 Rx subcutaneous syringe ([employer]) leuprolide (3 month) 22.5 mg (3 22.5 mg SUBCUT ONCE #1 ea 04/30/21 05/03/21 Rx month) subcutaneous syringe ([employer]) aspirin 81 mg chewable tablet 81 mg PO QAM 05/03/21 05/03/21 History clopidogrel 75 mg tablet 75 mg PO QAM 05/03/21 05/03/21 History fenofibrate micronized 134 mg 134 mg PO QAM 05/03/21 05/03/21 History capsule finasteride 5 mg tablet 5 mg PO QAM 05/03/21 05/03/21 History lisinopril 10 mg tablet 10 mg PO DAILY 05/03/21 05/03/21 History Patient History Medical History CVA (cerebral vascular accident) Diabetes Dyslipidemia Hypertension Incontinence Osteoarthritis Surgical History H/O cystoscopy In 2005 with cryoablation of prostate for prostate cancer History of prostate surgery S/P colonoscopy S/P hernia repair Right inguinal hernia repair Left inguinal hernia repair Umbilical hernia repair S/P rotator cuff surgery Right Family History Father , 83yo Prostate cancer Brother Cancer Pt uncertain of type of cancer Stroke Grandfather Leukemia Grandmother Diabetes Mother , 88yo Diabetes Hypertension Heart disease Daughter Thyroid disorder Brother Cancer Pt uncertain of type of cancer Brother No problems noted. Daughter No problems noted. Son No problems noted. Social History Smoking Status: Current some day smoker Tobacco Type: Cigarettes Cigarettes Per Day: Social smoker when at the bars;Started at 16yo; Hx Alcohol Use: Yes Alcohol type: hard liquor Hx Substance Use: No Preferred Language: Indonesian Communication Ability: Effective Visual Impairment: No Limitations Hearing Ability: Normal [employer] Required: No Beliefs That Will Affect Care: None marital status: Current Living Situation Comment: Daughter living with him currently current occupational status: retired current occupation: Worked at [employer] Feels Safe at Home: Yes caffeine: Yes (1/2 pot/day) during the past year weight has: remained stable Review of Systems Review of Systems: All systems reviewed & are unremarkable except as noted in HPI & below Genitourinary: no dysuria Physical Exam 2 Constitutional: WD/WN, vitals as above Respiratory: normal respiratory effort, lungs clear to auscultation Cardiovascular: Irregular rhythm No murmurs No edema Gastrointestinal (Abdomen): normal bowel sounds, soft, nontender, no hepatosplenomegaly Skin: Patient with skin lesion over his forehead and scalp, that he states is from a previous course of shingles Neurologic: PERRL, EOMI, accommodation nl, no face palsy, no dysarthria Results & Data ([facility]) Vital Signs (Past 12 Hours) Vital Signs Temp Pulse Pulse Resp BP BP Pulse Ox 05/03/21 13:35 72 20 165/97 H 96 05/03/21 13:00 84 16 146/106 H 96 05/03/21 11:46 87 18 152/100 H 95 05/03/21 11:35 16 151/108 H 94 05/03/21 11:17 86 20 137/88 95 05/03/21 11:05 36.9 C 75 20 139/78 97 Laboratory Results EKG tracings as outlined above Cardiac Enzymes 05/03/21 05/03/21 Range/Units 11:05 12:26 AST 990 H (13-39) U/L Troponin I 1.38 H* (0-0.04) ng/ml Coagulation 05/03/21 Range/Units 11:05 PT 14.3 H (9.0-12.0) Seconds APTT 27.3 (21.0-31.0) Seconds CBC 05/03/21 Range/Units 11:05 WBC 9.60 (4.8-10.8) K/uL RBC 4.22 L (4.7-6.1) M/uL Hgb 13.1 L (14.0-18.0) g/dL Hct 41.2 L (42-52) % Plt Count 206 (130-400) K/uL Neut # (Auto) 8.11 H (1.4-6.5) K/uL Lymph # (Auto) 0.52 L (1.2-3.4) K/uL Stone # (Auto) 0.80 H (0.11-0.59) K/uL Eos # (Auto) 0.00 (0-0.5) K/uL Baso # (Auto) 0.02 (0-0.2) K/uL Comprehensive Metabolic Panel 05/03/21 05/03/21 Range/Units 11:05 12:26 Sodium 137 (136-145) mmol/L Potassium 4.7 (3.5-5.1) mmol/L Chloride 100 (98-107) mmol/L Carbon Dioxide 17 L (21-32) mmol/L BUN 41 H (6-23) mg/dl Creatinine 1.98 H (0.6-1.4) mg/dl Glucose 397 H* (70-99(Fasting)) mg/dl Calcium 9.2 (8.5-10.1) mg/dl AST 990 H (13-39) U/L ALT 428 H (7-52) U/L Alkaline Phosphatase 42 (34-104) U/L Total Protein 6.6 (6.0-8.3) gm/dl Albumin 3.8 (3.4-5.0) gm/dl Intake and Output 05/02/21 05/03/21 05/03/21 22:59 06:59 14:59 Other: Weight 77.3 kg Weight Measurement Method Chair Scale Patient Weight 05/04/21 06:59 Weight 77.3 kg
[2021-05-03] MEDS ORDERED: LIDOCAINE 1% LOCAL 20 ML VIAL ONE (14:55)
[2021-05-03] MEDS ORDERED: HEPARIN (PORCINE) 1000 UNIT/ML 10 ML (CATH LAB USE ONLY) ONE (15:27)
[2021-05-03] MEDS ORDERED: niCARdipine HCL INJ 2.5 MG/ML 10 ML AMP ONE (15:27)
[2021-05-03] MEDS ORDERED: MIDAZOLAM HCL 1 MG/ML 2ML VIAL ONE ×2 (15:27→16:08)
[2021-05-03] MEDS ORDERED: fentaNYL citrate 100 MCG/2 ML VIAL ONE ×2 (15:28→16:08)
[2021-05-03] MEDS ORDERED: NITROGLYCERIN/D5W 100MCG/ML 20ML SYR ONE (15:28)
--- NOTE | 2021-05-03 15:53 | Pre Anesthesia Assessment ---
Date of Service May 03, 2021 Pre Sedation Assessment Vital Signs Temp Pulse Pulse Resp BP BP Pulse Ox 05/03/21 14:33 66 20 136/92 97 05/03/21 13:35 72 20 165/97 H 96 05/03/21 13:00 84 16 146/106 H 96 05/03/21 11:46 87 18 152/100 H 95 05/03/21 11:35 16 151/108 H 94 05/03/21 11:17 86 20 137/88 95 05/03/21 11:05 98.4 F 75 20 139/78 97 Cardiovascular RRR, no murmur, no edema Respiratory normal respiratory effort, lungs clear to auscultation Pre-Sedation Airway Assessment Smoking Status: Current some day smoker Hx Sleep Apnea: No Hx Difficult Intubation: No Short, Thick Neck: No Thyromental Distance: > or= 3.5 Finger Breadths Oral Cavity: + WNL Mallampati Class: III ASA: ASA3 Procedure Planning Contraindications for Sedation: none Current Medications Reviewed: Yes Notes The planned sedation has been discussed with the patient. Informed Consent was obtained. I have identified the patient, determined the appropriateness of sedation and have assessed the patient immediately prior to the procedure. All medicine(s) and interventions are by my order.
--- NOTE | 2021-05-03 16:32 | Cardiac Catheterization ---
[facility] Data: Pourer Buggy Ladle Cardiac Status Clinical evaluation leading to the procedure CAD Presenation: Unstable angina Anginal Classification: CCS III Heart Failure: No Cardiogenic Shock within 24 Hours: No Cardiac Arrest within 24 Hours: No Imaging Studies Past 6 Months: Yes Stress Studies Past 6 Months: No Diagnostic Physicians Name: Santosh Anderson MD Status: Elective Closure Device Percutaneous Entry Location: Radial Closure Device: Radial Band Recommendations: Medical Therapy and/or Counseling Intraprocedure Events Significant Disection: No Perforation: No Cardiac Cath Procedure Full Procedure Date May 03, 2021 Pre-Procedure Diagnosis Pre-Procedure Diagnosis: Arrhythmia AUC Score AUC Score: 7 Post-Procedure Diagnosis Post-Procedure Diagnosis: Moderate CAD Procedure(s) Performed Procedure(s) Performed: Coronary Angiography and Ultrasound Guided Vascular Access Director Of Environmental Services Santosh Anderson MD [employer] Enterprise Architect(s) Showers Estimated Blood Loss Estimated Blood Loss: 10 Medication(s) Medication(s): Fentanyl, Lidocaine 1%, Nicardipine, Nitroglycerin and Versed Summary of Findings Indication: Sustained VT Access: 6 Fr right radial artery under ultrasound guidance Catheters: [place] Findings: LM -normal caliber, no significant disease LAD -after takeoff of high D1 60% stenosis with small caliber vessel tapering prior to apex. Large D1 with 40% proximal stenosis Circumflex -medium caliber, 40% mid segment disease, small AV groove distal circumflex without disease. Small high OM1 with 80% proximal stenosis. Medium OM2 50% proximal stenosis. RCA -moderate caliber, dominant, diffuse proximal to mid up to 40% disease, 30% distal disease. PDA without significant disease. Small PLB's with mild diffuse disease. Arterial Closure: TR band Summary: 1. Non-obstructive major epicardial coronary artery disease -60% proximal small LAD. 40% mid circumflex 40% diffuse mid, 30% distal RCA 2. Moderate to severe branch vessel disease 80% small high OM1 -40% proximal large D1 50% proximal medium OM 2 Recommendations: No high-grade CAD to explain ventricular arrhythmia, cardiomyopathy. Antiarrhythmics, guideline directed medical therapy per Dr. Pitt. Hemodynamics Rest Ao:: 121/70/90 Final Ao: 136/83/104 LV: -- Recommendations Recommendations: Medical Therapy and/or Counseling Specimens Specimens: None Radiation Exposure (mGy) 820 Contrast (mls) 35 Fluids (cc crystalloids) Fluids (cc crystalloids): 50 Drains Drains: none Anesthesia moderate 7911-7551 Procedural Complication(s) None Disposition PCU I attest to the content of the Intraoperative Record and any orders documented therein. Any exceptions are noted below. [facility] Card Cath Procedure Codes Cardiac Catheterization Procedure 1: Cardiovascular Cath Procedures: 01265 Coronaries Therapeutic Services & Ancillary Proc Procedure 1: Cardiovascular Tx and Anc Procedures: 82508 Ultrasonic Guidance Vascular Access Moderate Sedation Procedure 1: Sedation/Anesthesia: 12259 Mod Sedation by the same physician;Init15 Min Child Age 5 & Up PG Care Time/CCT Total # of Minutes Spent Total Time Spent with Patient: Total time spent is greater than 50% in coordination of care (as documented) at patient's floor/unit and/or counseling patient:
[2021-05-03] MEDS ORDERED: SODIUM CHLORIDE 0.9% 500 ML IV SCH (16:45)
[2021-05-03] MEDS: Heparin IV Adult Wt-Based Standard WITH Bolus Protocol IV SCH ×2 (17:48→17:49)
[2021-05-03] MEDS ORDERED: PHARMACY GLYCEMIC MGMT CONSULT PRN (17:50)
[2021-05-03] MEDS ORDERED: POLYETHYLENE (MIRALAX) 17 GM PACK PO PRN (17:50)
[2021-05-03] MEDS ORDERED: DEXTROSE 50% 50 ML SYRINGE IV PRN (17:50)
[2021-05-03] MEDS ORDERED: GLUCOSE 10 TABS/TUBE PO PRN (17:50)
[2021-05-03] MEDS ORDERED: MAGNESIUM HYDROXIDE SUSP 30 ML UDC PO PRN (17:50)
[2021-05-03] MEDS ORDERED: GLUCOSE 40% GEL 15 GM TUBE PO PRN (17:50)
[2021-05-03] MEDS ORDERED: ONDANSETRON INJ 2 MG/ML 2 ML VIAL IV PRN (17:50)
[2021-05-03] MEDS ORDERED: ALUMINUM/MAGNESIUM SUSP 30 ML UDC PO PRN (17:50)
[2021-05-03] MEDS ORDERED: CARBOHYDRATES FOR HYPOGLYCEMIA PO PRN (17:50)
[2021-05-03] MEDS ORDERED: GLUCAGON FOR INJ 1 MG VIAL SQ PRN (17:50)
[2021-05-03 18:09] LABS: BUN Creatinine Ratio 25.3 (10-20); Calcium 9.3 mg/dl (8.5-10.1); Creatinine Clr Calc Pharmacy 34.1 ml/min; Est GFR (African American) 43.2 ml/min; Est GFR (Non-African American) 37.3 ml/min; Potassium 4.6 mmol/L (3.5-5.1)
[2021-05-03 18:12] LABS: Troponin I 5.12 ng/ml (0-0.04)
--- NOTE | 2021-05-03 18:12 | Communication Note ---
Date of Service: May 03, 2021 Updated patient's daughter,Annabella, by phone with regards to catheterization results. Proceed with ongoing medication management. Heparin discontinued. Amiodarone metoprolol ordered.
[2021-05-03] MEDS: AMIODARONE / D5W 360 MG/200 ML BAG IV SCH (18:49)
[2021-05-03] MEDS: SODIUM CHLORIDE 0.9% 1000ML 1,000 ML IV SCH (18:50)
[2021-05-03] MEDS: INSULIN ASPART PER UNIT SC SCH (18:51)
[2021-05-03] MEDS ORDERED: INSULIN GLARGINE SOLOSTAR 100 UNITS/ML 3 ML PEN SC SCH (21:00)
[2021-05-03] MEDS ORDERED: Nursing to Pharmacy Communication SCH (22:30)
[2021-05-03 22:45] LABS: Troponin I 6.11 ng/ml (0-0.04)
--- NOTE | 2021-05-03 23:00 | Electrocardiogram Report ---
Test Reason : Blood Pressure : / mmHG Vent. Rate : 086 BPM Atrial Rate : 086 BPM P-R Int : 256 ms QRS Dur : 094 ms QT Int : 426 ms P-R-T Axes : 000 057 118 degrees QTc Int : 509 ms Sinus rhythm with 1st degree A-V block with occasional Premature ventricular complexes and Fusion com plexes Prolonged QT Abnormal ECG When compared with ECG of 12-MAR-2016 07:34, Fusion complexes are now Present ST now depressed in Lateral leads Nonspecific T wave abnormality, improved in Inferior leads T wave amplitude has increased in Anterior leads T wave inversion now evident in Lateral leads Confirmed by Samir Husain ([id number]) on 05/03/2021 10:59:49 PM Referred By: Confirmed By:Samir Husain
[2021-05-03] MEDS: METOPROLOL TARTRATE 25 MG TAB PO SCH (23:02)
[2021-05-03 23:05] LABS: BUN Creatinine Ratio 26.7 (10-20); Creatinine Clr Calc Pharmacy 33.7 ml/min; Est GFR (African American) 42.6 ml/min; Est GFR (Non-African American) 36.7 ml/min; Potassium 4.2 mmol/L (3.5-5.1)
--- NOTE | 2021-05-03 23:08 | Electrocardiogram Report ---
Test Reason : Blood Pressure : / mmHG Vent. Rate : 087 BPM Atrial Rate : 088 BPM P-R Int : 000 ms QRS Dur : 092 ms QT Int : 412 ms P-R-T Axes : 000 052 124 degrees QTc Int : 495 ms Sinus rhythm with 1st degree A-V block with premature ventricular or aberrantly conducted complexes Prolonged QT Abnormal ECG When compared with ECG of 03-MAY-2021 11:08, (unconfirmed) OK interval has increased Confirmed by Samir Husain ([id number]) on 05/03/2021 11:08:36 PM Referred By: ED Confirmed By:Samir Husain
[2021-05-04] MEDS: INSULIN ASPART PER UNIT SC SCH ×5 (00:24→21:29)
[2021-05-04] MEDS: AMIODARONE / D5W 360 MG/200 ML BAG IV SCH (05:16)
[2021-05-04] MEDS: SODIUM CHLORIDE 0.9% 1000ML 1,000 ML IV SCH (05:30)
[2021-05-04 07:40] LABS: Basophils # (auto) 0.03 K/uL (0-0.2); Basophils % (auto) 0.5 %; Eosinophils # (auto) 0.02 K/uL (0-0.5); Eosinophils % (auto) 0.3 %; Hematocrit (blood only) 35.1 % (42-52); Hemoglobin 11.6 g/dL (14.0-18.0); Immature Granulocytes # (auto) 0.03 K/uL (0.00-0.02); Immature Granulocytes % (auto) 0.5 %; Lymphocytes # (auto) 0.46 K/uL (1.2-3.4); Lymphocytes % (auto) 7.1 %; Mean Corpuscular Hemoglobin 31.1 pg (25-34); Mean Corpuscular Volume 94.1 fL (80-100); Mean Platelet Volume 10.4 fL (7.4-10.4); Monocytes # (auto) 0.52 K/uL (0.11-0.59); Neutrophils # (auto) 5.41 K/uL (1.4-6.5); Neutrophils % (auto) 83.6 %; Platelet Count 153 K/uL (130-400); RDW Coefficient of Variation 14.9 % (11.5-14.5); Red Blood Count 3.73 M/uL (4.7-6.1); White Blood Count 6.47 K/uL (4.8-10.8)
[2021-05-04 07:43] LABS: BUN Creatinine Ratio 32.8 (10-20); Calcium 8.6 mg/dl (8.5-10.1); Creatinine Clr Calc Pharmacy 42.3 ml/min; Est GFR (African American) 56.1 ml/min; Est GFR (Non-African American) 48.4 ml/min
[2021-05-04 07:55] LABS: Albumin Globulin Ratio 1.4 (0.9-2); Albumin Level 3.3 gm/dl (3.4-5.0); Bilirubin Direct 0.3 mg/dl (0-0.2); Bilirubin,Total 0.7 mg/dl (0.2-1.0); Chol HDL Ratio 3.5 (0-5); Estimated Average Glucose 186 mg/dl; Globulin 2.4 gm/dl (2.5-4.0); Hemoglobin A1C 8.1 % (4.5-5.6); Magnesium 1.9 mg/dl (1.7-2.4); Total Protein 5.7 gm/dl (6.0-8.3)
[2021-05-04] MEDS: FINASTERIDE 5 MG TAB PO SCH (07:59)
[2021-05-04] MEDS: METOPROLOL TARTRATE 25 MG TAB PO SCH (07:59)
[2021-05-04] MEDS: ASPIRIN 81 MG CHEW PO SCH (07:59)
[2021-05-04] MEDS: CLOPIDOGREL BISULFATE 75 MG TAB PO SCH (07:59)
[2021-05-04] MEDS: HEPARIN SOD 5,000 UNIT/0.5 ML VIAL SQ SCH ×2 (08:00→20:19)
[2021-05-04] MEDS ORDERED: METOPROLOL SUCC 25MG EXT REL TAB PO SCH (09:00)
--- NOTE | 2021-05-04 09:14 | Gastrointestinal Consultation ---
Date of Consultation May 04, 2021 Assessment & Plan (1) Abnormal LFTs: 80 year old male admitted w/ sustained vtach - GI asked to evaluate this AM given transaminisits overnight. Suspect shock liver ABD US pending Can check acute hepatitis, CMV, EBV Can continue diet as tolerated. Recall GI as needed. Thank you for allowing us to participate in the care of this patient. Please call with any acute changes, questions or concerns. Please see addendum below with additional recommendation from my supervising physician. Supervising Physician Co-Signing Physician Notes I have personally seen and examined the patient with RAEANN Badillo. Her note reflects my exam and findings. I agree with her impression and plan. Most c/w shock liver from VT and cardioversion. They liver tests should improve conservatively in a few days. Follow mental status. Adonay Mathis M.D. History of Present Illness Reason for Consultation: elevated LFTs Requesting Physician: Freya Attending Physician: Angella Pillai MD History of Present Illness 80 year old male with history of T2DM, HTN, HLD, history of CVA in 2016, history of recurrent prostate cancer currently under going radiation therapy, alcohol use who presents to ED via EMS secondary to V. tach in the field, ACS, NSTEMI s/p cardiac cath GI asked to evaluate this AM for elevated LFTs. Pt was seen and evaluated, chart reviewed. No abd pain. Feeling great! No nausea, vomiting. Tolerating PO intake. Denies black or bloody stools. No fever, chills, CP, SOB. TB 0.7 AST 2459 ALT 1580 ALKP 33 ABD US 2021: pending Allergies Allergy/AdvReac Type Severity Reaction Status Date / Time No Known Allergies Allergy Verified 04/26/21 15:15 Home Medications Medication Instructions Recorded Confirmed Type acetaminophen 500 mg tablet 500 mg PO Q6H PRN 01/07/21 05/03/21 History (Tylenol Extra Strength) arginine (L-arginine) 500 mg tablet 850 mg PO DAILY tab 01/07/21 05/03/21 History atorvastatin 20 mg tablet 20 mg PO QAM 01/07/21 05/03/21 History cinnamon bark 500 mg capsule 500 mg PO QAM 01/07/21 05/03/21 History (Cinnamon) glimepiride 1 mg tablet 1 mg PO QAM 01/07/21 05/03/21 History mecobalamin (vitamin B12) 1,000 1,000 mcg SUBLINGUAL DAILY 01/07/21 05/03/21 History mcg disintegrating tablet,sublingual melatonin 10 mg capsule 10 mg PO HS PRN 01/07/21 05/03/21 History metformin 500 mg tablet 1,000 mg PO BID tab 01/07/21 05/03/21 History metoprolol succinate 25 mg 25 mg PO QAM 01/07/21 05/03/21 History tablet,extended release 24 hr leuprolide 7.5 mg (1 month) 7.5 mg SUBCUT ONCE #1 ea 04/13/21 05/03/21 Rx subcutaneous syringe (Sodraft) leuprolide (3 month) 22.5 mg (3 22.5 mg SUBCUT ONCE #1 ea 04/30/21 05/03/21 Rx month) subcutaneous syringe (Sodraft) aspirin 81 mg chewable tablet 81 mg PO QAM 05/03/21 05/03/21 History clopidogrel 75 mg tablet 75 mg PO QAM 05/03/21 05/03/21 History fenofibrate micronized 134 mg 134 mg PO QAM 05/03/21 05/03/21 History capsule finasteride 5 mg tablet 5 mg PO QAM 05/03/21 05/03/21 History lisinopril 10 mg tablet 10 mg PO DAILY 05/03/21 05/03/21 History Patient History Medical History CVA (cerebral vascular accident) Diabetes Dyslipidemia Hypertension Incontinence Osteoarthritis Surgical History H/O cystoscopy In 2005 with cryoablation of prostate for prostate cancer History of prostate surgery S/P colonoscopy S/P hernia repair Right inguinal hernia repair Left inguinal hernia repair Umbilical hernia repair S/P rotator cuff surgery Right Family History Father , 83yo Prostate cancer Brother Cancer Pt uncertain of type of cancer Stroke Grandfather Leukemia Grandmother Diabetes Mother , 88yo Diabetes Hypertension Heart disease Daughter Thyroid disorder Brother Cancer Pt uncertain of type of cancer Brother No problems noted. Daughter No problems noted. Son No problems noted. Social History Smoking Status: Current some day smoker Tobacco Type: Cigarettes Cigarettes Per Day: Social smoker when at the bars;Started at 16yo; Hx Alcohol Use: Yes Alcohol type: beer Hx Substance Use: Yes Last Used Substance: Days (ago) Preferred Language: Kazakh Communication Ability: Effective Visual Impairment: No Limitations Hearing Ability: Normal Instructional Resource Teacher Required: No Beliefs That Will Affect Care: None marital status: Current Living Situation: Family Current Living Situation Comment: Lives with daughterAnnabella current occupational status: retired current occupation: Worked at [employer] Safe at Home: Yes caffeine: Yes (1/2 pot/day) during the past year weight has: remained stable Assistive Devices: Glasses Review of Systems Review of Systems: All systems reviewed & are unremarkable except as noted in HPI & below Physical Exam Constitutional: WD/WN, vitals as above Neck: trachea midline, no thyromegaly Respiratory: normal respiratory effort, lungs clear to auscultation Cardiovascular: Rate/Rhythm: regular rate Gastrointestinal (Abdomen): normal bowel sounds, soft, nontender, no hepatosplenomegaly Skin: no rashes, warm and dry Results & Data ([facility]) Vital Signs (Past 12 Hours) Vital Signs Temp Pulse Pulse Resp BP Pulse Ox 05/04/21 07:54 37.8 C H 83 18 154/97 H 95 05/04/21 07:41 69 05/04/21 03:57 36.5 C 62 18 104/63 91 05/04/21 01:27 68 124/65 98 05/04/21 01:24 32 L 05/04/21 01:02 66 05/03/21 23:28 36.8 C 64 18 118/81 96 05/03/21 21:29 68 16 142/78 H 97 Laboratory Results 05/04/21 05/04/21 05/04/21 Range/Units 07:04 07:03 06:46 WBC (4.8-10.8) K/uL RBC (4.7-6.1) M/uL Hgb (14.0-18.0) g/dL POC Hgb (14.0-18.0) g/dl Hct (42-52) % POC Hct (42-52) % MCV (80-100) fL MCH (25-34) pg MCHC (32-36) g/dL RDW Std Deviation (36.4-46.3) fL RDW Coeff of Dylan (11.5-14.5) % Plt Count (130-400) K/uL MPV (7.4-10.4) fL Immature Gran % (Auto) % Neut % (Auto) % Lymph % (Auto) % [place] % (Auto) % Eos % (Auto) % Baso % (Auto) % Neut # (Auto) (1.4-6.5) K/uL Lymph # (Auto) (1.2-3.4) K/uL [place] # (Auto) (0.11-0.59) K/uL Eos # (Auto) (0-0.5) K/uL Baso # (Auto) (0-0.2) K/uL Immature Gran # (Auto) (0.00-0.02) K/uL PT (9.0-12.0) Seconds INR (0.9-1.1) APTT (21.0-31.0) Seconds PTT Ratio POC Sodium (135-144) mmol/L Sodium (136-145) mmol/L POC Potassium (3.3-5.0) mmol/L Potassium (3.5-5.1) mmol/L POC Chloride (101-112) mmol/L Chloride (98-107) mmol/L Carbon Dioxide (21-32) mmol/L POC Total CO2 (24-31) mmol/L Anion Gap (3-11) POC Anion Gap (16-25) mmol/L POC BUN (7-18) mg/dl BUN (6-23) mg/dl Creatinine (0.6-1.4) mg/dl POC Creatinine (0.6-1.3) mg/dl Est Cr Clr Drug Dosing ml/min Est GFR ( Amer) ml/min Est GFR (Non-Af Amer) ml/min BUN/Creatinine Ratio (10-20) Glucose (70-99(Fasting)) mg/dl POC Glucose 73 63 L* (70-99) mg/dl POC Glucose (other) (70-99) mg/dl Estimat Average Glucose 186 mg/dl Hemoglobin A1c 8.1 H (4.5-5.6) % Calcium (8.5-10.1) mg/dl POC Ioniz Calcium Wolf (1.12-1.32) mmol/l Magnesium (1.7-2.4) mg/dl Total Bilirubin (0.2-1.0) mg/dl Direct Bilirubin (0-0.2) mg/dl AST (13-39) U/L ALT (7-52) U/L Alkaline Phosphatase (34-104) U/L Troponin I (0-0.04) ng/ml Total Protein (6.0-8.3) gm/dl Albumin (3.4-5.0) gm/dl Globulin (2.5-4.0) gm/dl Albumin/Globulin Ratio (0.9-2) Triglycerides (0-150) mg/dl Cholesterol (0-200) mg/dl LDL Cholesterol, Calc mg/dl VLDL Cholesterol, Calc (0-30) mg/dl HDL Cholesterol mg/dl Cholesterol/HDL Ratio (0-5) TSH (0.300-4.500) uIu/ml SARS-CoV-2, RNA, NAAT (NEGATIVE) 05/04/21 05/04/21 05/04/21 Range/Units 06:46 06:46 00:49 WBC 6.47 (4.8-10.8) K/uL RBC 3.73 L (4.7-6.1) M/uL Hgb 11.6 L (14.0-18.0) g/dL POC Hgb (14.0-18.0) g/dl Hct 35.1 L (42-52) % POC Hct (42-52) % MCV 94.1 (80-100) fL MCH 31.1 (25-34) pg MCHC 33.0 (32-36) g/dL RDW Std Deviation 51.0 H (36.4-46.3) fL RDW Coeff of Dylan 14.9 H (11.5-14.5) % Plt Count 153 (130-400) K/uL MPV 10.4 (7.4-10.4) fL Immature Gran % (Auto) 0.5 % Neut % (Auto) 83.6 % Lymph % (Auto) 7.1 % [place] % (Auto) 8.0 % Eos % (Auto) 0.3 % Baso % (Auto) 0.5 % Neut # (Auto) 5.41 (1.4-6.5) K/uL Lymph # (Auto) 0.46 L (1.2-3.4) K/uL [place] # (Auto) 0.52 (0.11-0.59) K/uL Eos # (Auto) 0.02 (0-0.5) K/uL Baso # (Auto) 0.03 (0-0.2) K/uL Immature Gran # (Auto) 0.03 H (0.00-0.02) K/uL PT (9.0-12.0) Seconds INR (0.9-1.1) APTT (21.0-31.0) Seconds PTT Ratio POC Sodium (135-144) mmol/L Sodium 137 (136-145) mmol/L POC Potassium (3.3-5.0) mmol/L Potassium 4.0 (3.5-5.1) mmol/L POC Chloride (101-112) mmol/L Chloride 106 (98-107) mmol/L Carbon Dioxide 22 (21-32) mmol/L POC Total CO2 (24-31) mmol/L Anion Gap 9 (3-11) POC Anion Gap (16-25) mmol/L POC BUN (7-18) mg/dl BUN 45 H (6-23) mg/dl Creatinine 1.37 D (0.6-1.4) mg/dl POC Creatinine (0.6-1.3) mg/dl Est Cr Clr Drug Dosing 42.3 ml/min Est GFR ( Amer) 56.1 ml/min Est GFR (Non-Af Amer) 48.4 ml/min BUN/Creatinine Ratio 32.8 H (10-20) Glucose 68 L (70-99(Fasting)) mg/dl POC Glucose 136 H (70-99) mg/dl POC Glucose (other) (70-99) mg/dl Estimat Average Glucose mg/dl Hemoglobin A1c (4.5-5.6) % Calcium 8.6 (8.5-10.1) mg/dl POC Ioniz Calcium Wolf (1.12-1.32) mmol/l Magnesium 1.9 (1.7-2.4) mg/dl Total Bilirubin 0.7 D (0.2-1.0) mg/dl Direct Bilirubin 0.3 H (0-0.2) mg/dl AST 2459 H (13-39) U/L ALT 1580 H (7-52) U/L Alkaline Phosphatase 33 L (34-104) U/L Troponin I (0-0.04) ng/ml Total Protein 5.7 L (6.0-8.3) gm/dl Albumin 3.3 L (3.4-5.0) gm/dl Globulin 2.4 L (2.5-4.0) gm/dl Albumin/Globulin Ratio 1.4 (0.9-2) Triglycerides 97 (0-150) mg/dl Cholesterol 84 (0-200) mg/dl LDL Cholesterol, Calc 41 mg/dl VLDL Cholesterol, Calc 19 (0-30) mg/dl HDL Cholesterol 24 mg/dl Cholesterol/HDL Ratio 3.5 (0-5) TSH (0.300-4.500) uIu/ml SARS-CoV-2, RNA, NAAT (NEGATIVE) 05/04/21 05/04/21 05/04/21 Range/Units 00:27 00:11 00:10 WBC (4.8-10.8) K/uL RBC (4.7-6.1) M/uL Hgb (14.0-18.0) g/dL POC Hgb (14.0-18.0) g/dl Hct (42-52) % POC Hct (42-52) % MCV (80-100) fL MCH (25-34) pg MCHC (32-36) g/dL RDW Std Deviation (36.4-46.3) fL RDW Coeff of Dylan (11.5-14.5) % Plt Count (130-400) K/uL MPV (7.4-10.4) fL Immature Gran % (Auto) % Neut % (Auto) % Lymph % (Auto) % [place] % (Auto) % Eos % (Auto) % Baso % (Auto) % Neut # (Auto) (1.4-6.5) K/uL Lymph # (Auto) (1.2-3.4) K/uL [place] # (Auto) (0.11-0.59) K/uL Eos # (Auto) (0-0.5) K/uL Baso # (Auto) (0-0.2) K/uL Immature Gran # (Auto) (0.00-0.02) K/uL PT (9.0-12.0) Seconds INR (0.9-1.1) APTT (21.0-31.0) Seconds PTT Ratio POC Sodium (135-144) mmol/L Sodium (136-145) mmol/L POC Potassium (3.3-5.0) mmol/L Potassium (3.5-5.1) mmol/L POC Chloride (101-112) mmol/L Chloride (98-107) mmol/L Carbon Dioxide (21-32) mmol/L POC Total CO2 (24-31) mmol/L Anion Gap (3-11) POC Anion Gap (16-25) mmol/L POC BUN (7-18) mg/dl BUN (6-23) mg/dl Creatinine (0.6-1.4) mg/dl POC Creatinine (0.6-1.3) mg/dl Est Cr Clr Drug Dosing ml/min Est GFR ( Amer) ml/min Est GFR (Non-Af Amer) ml/min BUN/Creatinine Ratio (10-20) Glucose (70-99(Fasting)) mg/dl POC Glucose 60 L* 53 L* 64 L* (70-99) mg/dl POC Glucose (other) (70-99) mg/dl Estimat Average Glucose mg/dl Hemoglobin A1c (4.5-5.6) % Calcium (8.5-10.1) mg/dl POC Ioniz Calcium Wolf (1.12-1.32) mmol/l Magnesium (1.7-2.4) mg/dl Total Bilirubin (0.2-1.0) mg/dl Direct Bilirubin (0-0.2) mg/dl AST (13-39) U/L ALT (7-52) U/L Alkaline Phosphatase (34-104) U/L Troponin I (0-0.04) ng/ml Total Protein (6.0-8.3) gm/dl Albumin (3.4-5.0) gm/dl Globulin (2.5-4.0) gm/dl Albumin/Globulin Ratio (0.9-2) Triglycerides (0-150) mg/dl Cholesterol (0-200) mg/dl LDL Cholesterol, Calc mg/dl VLDL Cholesterol, Calc (0-30) mg/dl HDL Cholesterol mg/dl Cholesterol/HDL Ratio (0-5) TSH (0.300-4.500) uIu/ml SARS-CoV-2, RNA, NAAT (NEGATIVE) 05/03/21 05/03/21 05/03/21 Range/Units 22:09 21:02 17:42 WBC (4.8-10.8) K/uL RBC (4.7-6.1) M/uL Hgb (14.0-18.0) g/dL POC Hgb (14.0-18.0) g/dl Hct (42-52) % POC Hct (42-52) % MCV (80-100) fL MCH (25-34) pg MCHC (32-36) g/dL RDW Std Deviation (36.4-46.3) fL RDW Coeff of Dylan (11.5-14.5) % Plt Count (130-400) K/uL MPV (7.4-10.4) fL Immature Gran % (Auto) % Neut % (Auto) % Lymph % (Auto) % [place] % (Auto) % Eos % (Auto) % Baso % (Auto) % Neut # (Auto) (1.4-6.5) K/uL Lymph # (Auto) (1.2-3.4) K/uL [place] # (Auto) (0.11-0.59) K/uL Eos # (Auto) (0-0.5) K/uL Baso # (Auto) (0-0.2) K/uL Immature Gran # (Auto) (0.00-0.02) K/uL PT (9.0-12.0) Seconds INR (0.9-1.1) APTT (21.0-31.0) Seconds PTT Ratio POC Sodium (135-144) mmol/L Sodium 138 (136-145) mmol/L POC Potassium (3.3-5.0) mmol/L Potassium 4.2 (3.5-5.1) mmol/L POC Chloride (101-112) mmol/L Chloride 105 (98-107) mmol/L Carbon Dioxide 21 (21-32) mmol/L POC Total CO2 (24-31) mmol/L Anion Gap 12 H (3-11) POC Anion Gap (16-25) mmol/L POC BUN (7-18) mg/dl BUN 46 H (6-23) mg/dl Creatinine 1.72 H (0.6-1.4) mg/dl POC Creatinine (0.6-1.3) mg/dl Est Cr Clr Drug Dosing 33.7 ml/min Est GFR ( Amer) 42.6 ml/min Est GFR (Non-Af Amer) 36.7 ml/min BUN/Creatinine Ratio 26.7 H (10-20) Glucose 121 H (70-99(Fasting)) mg/dl POC Glucose 147 H 239 H (70-99) mg/dl POC Glucose (other) (70-99) mg/dl Estimat Average Glucose mg/dl Hemoglobin A1c (4.5-5.6) % Calcium 9.0 (8.5-10.1) mg/dl POC Ioniz Calcium Wolf (1.12-1.32) mmol/l Magnesium (1.7-2.4) mg/dl Total Bilirubin (0.2-1.0) mg/dl Direct Bilirubin (0-0.2) mg/dl AST (13-39) U/L ALT (7-52) U/L Alkaline Phosphatase (34-104) U/L Troponin I 6.11 H* (0-0.04) ng/ml Total Protein (6.0-8.3) gm/dl Albumin (3.4-5.0) gm/dl Globulin (2.5-4.0) gm/dl Albumin/Globulin Ratio (0.9-2) Triglycerides (0-150) mg/dl Cholesterol (0-200) mg/dl LDL Cholesterol, Calc mg/dl VLDL Cholesterol, Calc (0-30) mg/dl HDL Cholesterol mg/dl Cholesterol/HDL Ratio (0-5) TSH (0.300-4.500) uIu/ml SARS-CoV-2, RNA, NAAT (NEGATIVE) 05/03/21 05/03/21 05/03/21 Range/Units 17:24 17:24 13:48 WBC (4.8-10.8) K/uL RBC (4.7-6.1) M/uL Hgb (14.0-18.0) g/dL POC Hgb (14.0-18.0) g/dl Hct (42-52) % POC Hct (42-52) % MCV (80-100) fL MCH (25-34) pg MCHC (32-36) g/dL RDW Std Deviation (36.4-46.3) fL RDW Coeff of Dylan (11.5-14.5) % Plt Count (130-400) K/uL MPV (7.4-10.4) fL Immature Gran % (Auto) % Neut % (Auto) % Lymph % (Auto) % [place] % (Auto) % Eos % (Auto) % Baso % (Auto) % Neut # (Auto) (1.4-6.5) K/uL Lymph # (Auto) (1.2-3.4) K/uL [place] # (Auto) (0.11-0.59) K/uL Eos # (Auto) (0-0.5) K/uL Baso # (Auto) (0-0.2) K/uL Immature Gran # (Auto) (0.00-0.02) K/uL PT (9.0-12.0) Seconds INR (0.9-1.1) APTT (21.0-31.0) Seconds PTT Ratio POC Sodium (135-144) mmol/L Sodium 137 (136-145) mmol/L POC Potassium (3.3-5.0) mmol/L Potassium 4.6 (3.5-5.1) mmol/L POC Chloride (101-112) mmol/L Chloride 103 (98-107) mmol/L Carbon Dioxide 21 (21-32) mmol/L POC Total CO2 (24-31) mmol/L Anion Gap 13 H (3-11) POC Anion Gap (16-25) mmol/L POC BUN (7-18) mg/dl BUN 43 H (6-23) mg/dl Creatinine 1.70 H (0.6-1.4) mg/dl POC Creatinine (0.6-1.3) mg/dl Est Cr Clr Drug Dosing 34.1 ml/min Est GFR ( Amer) 43.2 ml/min Est GFR (Non-Af Amer) 37.3 ml/min BUN/Creatinine Ratio 25.3 H (10-20) Glucose 265 H (70-99(Fasting)) mg/dl POC Glucose 291 H (70-99) mg/dl POC Glucose (other) (70-99) mg/dl Estimat Average Glucose mg/dl Hemoglobin A1c (4.5-5.6) % Calcium 9.3 (8.5-10.1) mg/dl POC Ioniz Calcium Wolf (1.12-1.32) mmol/l Magnesium 2.1 (1.7-2.4) mg/dl Total Bilirubin (0.2-1.0) mg/dl Direct Bilirubin (0-0.2) mg/dl AST (13-39) U/L ALT (7-52) U/L Alkaline Phosphatase (34-104) U/L Troponin I 5.12 H* (0-0.04) ng/ml Total Protein (6.0-8.3) gm/dl Albumin (3.4-5.0) gm/dl Globulin (2.5-4.0) gm/dl Albumin/Globulin Ratio (0.9-2) Triglycerides (0-150) mg/dl Cholesterol (0-200) mg/dl LDL Cholesterol, Calc mg/dl VLDL Cholesterol, Calc (0-30) mg/dl HDL Cholesterol mg/dl Cholesterol/HDL Ratio (0-5) TSH (0.300-4.500) uIu/ml SARS-CoV-2, RNA, NAAT (NEGATIVE) 05/03/21 05/03/21 05/03/21 Range/Units 13:47 12:26 11:23 WBC (4.8-10.8) K/uL RBC (4.7-6.1) M/uL Hgb (14.0-18.0) g/dL POC Hgb (14.0-18.0) g/dl Hct (42-52) % POC Hct (42-52) % MCV (80-100) fL MCH (25-34) pg MCHC (32-36) g/dL RDW Std Deviation (36.4-46.3) fL RDW Coeff of Dylan (11.5-14.5) % Plt Count (130-400) K/uL MPV (7.4-10.4) fL Immature Gran % (Auto) % Neut % (Auto) % Lymph % (Auto) % [place] % (Auto) % Eos % (Auto) % Baso % (Auto) % Neut # (Auto) (1.4-6.5) K/uL Lymph # (Auto) (1.2-3.4) K/uL [place] # (Auto) (0.11-0.59) K/uL Eos # (Auto) (0-0.5) K/uL Baso # (Auto) (0-0.2) K/uL Immature Gran # (Auto) (0.00-0.02) K/uL PT (9.0-12.0) Seconds INR (0.9-1.1) APTT (21.0-31.0) Seconds PTT Ratio POC Sodium (135-144) mmol/L Sodium (136-145) mmol/L POC Potassium (3.3-5.0) mmol/L Potassium 4.7 (3.5-5.1) mmol/L POC Chloride (101-112) mmol/L Chloride (98-107) mmol/L Carbon Dioxide (21-32) mmol/L POC Total CO2 (24-31) mmol/L Anion Gap (3-11) POC Anion Gap (16-25) mmol/L POC BUN (7-18) mg/dl BUN (6-23) mg/dl Creatinine (0.6-1.4) mg/dl POC Creatinine (0.6-1.3) mg/dl Est Cr Clr Drug Dosing ml/min Est GFR ( Amer) ml/min Est GFR (Non-Af Amer) ml/min BUN/Creatinine Ratio (10-20) Glucose (70-99(Fasting)) mg/dl POC Glucose 283 H (70-99) mg/dl POC Glucose (other) (70-99) mg/dl Estimat Average Glucose mg/dl Hemoglobin A1c (4.5-5.6) % Calcium (8.5-10.1) mg/dl POC Ioniz Calcium Wolf (1.12-1.32) mmol/l Magnesium (1.7-2.4) mg/dl Total Bilirubin (0.2-1.0) mg/dl Direct Bilirubin (0-0.2) mg/dl AST 990 H (13-39) U/L ALT (7-52) U/L Alkaline Phosphatase (34-104) U/L Troponin I (0-0.04) ng/ml Total Protein (6.0-8.3) gm/dl Albumin (3.4-5.0) gm/dl Globulin (2.5-4.0) gm/dl Albumin/Globulin Ratio (0.9-2) Triglycerides (0-150) mg/dl Cholesterol (0-200) mg/dl LDL Cholesterol, Calc mg/dl VLDL Cholesterol, Calc (0-30) mg/dl HDL Cholesterol mg/dl Cholesterol/HDL Ratio (0-5) TSH (0.300-4.500) uIu/ml SARS-CoV-2, RNA, NAAT NEGATIVE (NEGATIVE) 05/03/21 05/03/21 05/03/21 Range/Units 11:14 11:05 11:05 WBC (4.8-10.8) K/uL RBC (4.7-6.1) M/uL Hgb (14.0-18.0) g/dL POC Hgb 14.3 (14.0-18.0) g/dl Hct (42-52) % POC Hct 42 (42-52) % MCV (80-100) fL MCH (25-34) pg MCHC (32-36) g/dL RDW Std Deviation (36.4-46.3) fL RDW Coeff of Dylan (11.5-14.5) % Plt Count (130-400) K/uL MPV (7.4-10.4) fL Immature Gran % (Auto) % Neut % (Auto) % Lymph % (Auto) % [place] % (Auto) % Eos % (Auto) % Baso % (Auto) % Neut # (Auto) (1.4-6.5) K/uL Lymph # (Auto) (1.2-3.4) K/uL [place] # (Auto) (0.11-0.59) K/uL Eos # (Auto) (0-0.5) K/uL Baso # (Auto) (0-0.2) K/uL Immature Gran # (Auto) (0.00-0.02) K/uL PT 14.3 H (9.0-12.0) Seconds INR 1.5 H (0.9-1.1) APTT 27.3 (21.0-31.0) Seconds PTT Ratio 1.0 POC Sodium 138 (135-144) mmol/L Sodium (136-145) mmol/L POC Potassium 5.1 H (3.3-5.0) mmol/L Potassium (3.5-5.1) mmol/L POC Chloride 103 (101-112) mmol/L Chloride (98-107) mmol/L Carbon Dioxide (21-32) mmol/L POC Total CO2 20 L (24-31) mmol/L Anion Gap (3-11) POC Anion Gap 22.0 (16-25) mmol/L POC BUN 48 H (7-18) mg/dl BUN (6-23) mg/dl Creatinine (0.6-1.4) mg/dl POC Creatinine 1.7 H (0.6-1.3) mg/dl Est Cr Clr Drug Dosing ml/min Est GFR ( Amer) ml/min Est GFR (Non-Af Amer) ml/min BUN/Creatinine Ratio (10-20) Glucose (70-99(Fasting)) mg/dl POC Glucose (70-99) mg/dl POC Glucose (other) 383 H* (70-99) mg/dl Estimat Average Glucose mg/dl Hemoglobin A1c (4.5-5.6) % Calcium (8.5-10.1) mg/dl POC Ioniz Calcium Wolf 1.18 (1.12-1.32) mmol/l Magnesium (1.7-2.4) mg/dl Total Bilirubin (0.2-1.0) mg/dl Direct Bilirubin (0-0.2) mg/dl AST (13-39) U/L ALT (7-52) U/L Alkaline Phosphatase (34-104) U/L Troponin I (0-0.04) ng/ml Total Protein (6.0-8.3) gm/dl Albumin (3.4-5.0) gm/dl Globulin (2.5-4.0) gm/dl Albumin/Globulin Ratio (0.9-2) Triglycerides (0-150) mg/dl Cholesterol (0-200) mg/dl LDL Cholesterol, Calc mg/dl VLDL Cholesterol, Calc (0-30) mg/dl HDL Cholesterol mg/dl Cholesterol/HDL Ratio (0-5) TSH 2.510 (0.300-4.500) uIu/ml SARS-CoV-2, RNA, NAAT (NEGATIVE) 05/03/21 05/03/21 Range/Units 11:05 11:05 WBC 9.60 (4.8-10.8) K/uL RBC 4.22 L (4.7-6.1) M/uL Hgb 13.1 L (14.0-18.0) g/dL POC Hgb (14.0-18.0) g/dl Hct 41.2 L (42-52) % POC Hct (42-52) % MCV 97.6 (80-100) fL MCH 31.0 (25-34) pg MCHC 31.8 L (32-36) g/dL RDW Std Deviation 52.5 H (36.4-46.3) fL RDW Coeff of Dylan 14.8 H (11.5-14.5) % Plt Count 206 (130-400) K/uL MPV 10.7 H (7.4-10.4) fL Immature Gran % (Auto) 1.6 % Neut % (Auto) 84.5 % Lymph % (Auto) 5.4 % [place] % (Auto) 8.3 % Eos % (Auto) 0.0 % Baso % (Auto) 0.2 % Neut # (Auto) 8.11 H (1.4-6.5) K/uL Lymph # (Auto) 0.52 L (1.2-3.4) K/uL [place] # (Auto) 0.80 H (0.11-0.59) K/uL Eos # (Auto) 0.00 (0-0.5) K/uL Baso # (Auto) 0.02 (0-0.2) K/uL Immature Gran # (Auto) 0.15 H (0.00-0.02) K/uL PT (9.0-12.0) Seconds INR (0.9-1.1) APTT (21.0-31.0) Seconds PTT Ratio POC Sodium (135-144) mmol/L Sodium 137 (136-145) mmol/L POC Potassium (3.3-5.0) mmol/L Potassium (3.5-5.1) mmol/L POC Chloride (101-112) mmol/L Chloride 100 (98-107) mmol/L Carbon Dioxide 17 L (21-32) mmol/L POC Total CO2 (24-31) mmol/L Anion Gap 20 H (3-11) POC Anion Gap (16-25) mmol/L POC BUN (7-18) mg/dl BUN 41 H (6-23) mg/dl Creatinine 1.98 H (0.6-1.4) mg/dl POC Creatinine (0.6-1.3) mg/dl Est Cr Clr Drug Dosing 29.3 ml/min Est GFR ( Amer) 35.9 ml/min Est GFR (Non-Af Amer) 31.0 ml/min BUN/Creatinine Ratio 20.7 H (10-20) Glucose 397 H* (70-99(Fasting)) mg/dl POC Glucose (70-99) mg/dl POC Glucose (other) (70-99) mg/dl Estimat Average Glucose mg/dl Hemoglobin A1c (4.5-5.6) % Calcium 9.2 (8.5-10.1) mg/dl POC Ioniz Calcium Wolf (1.12-1.32) mmol/l Magnesium 1.6 L (1.7-2.4) mg/dl Total Bilirubin 1.2 H (0.2-1.0) mg/dl Direct Bilirubin (0-0.2) mg/dl AST (13-39) U/L ALT 428 H (7-52) U/L Alkaline Phosphatase 42 (34-104) U/L Troponin I 1.38 H* (0-0.04) ng/ml Total Protein 6.6 (6.0-8.3) gm/dl Albumin 3.8 (3.4-5.0) gm/dl Globulin 2.8 (2.5-4.0) gm/dl Albumin/Globulin Ratio 1.4 (0.9-2) Triglycerides (0-150) mg/dl Cholesterol (0-200) mg/dl LDL Cholesterol, Calc mg/dl VLDL Cholesterol, Calc (0-30) mg/dl HDL Cholesterol mg/dl Cholesterol/HDL Ratio (0-5) TSH (0.300-4.500) uIu/ml SARS-CoV-2, RNA, NAAT (NEGATIVE)
--- NOTE | 2021-05-04 09:48 | Ultrasound Report ---
US abdomen limited CLINICAL HISTORY: liver TECHNIQUE: Multiple real-time sonographic images of the right upper quadrant were obtained. Comparison: None available at the time of this dictation. FINDINGS: The liver is diffusely echogenic in appearance with poor ultrasound penetration, with normal contour, which is consistent with fatty infiltration. No focal mass lesions are seen. No intrahepatic jessica herminia dilatation is seen. Sludge and stones are seen in the gallbladder. There is thickening of the ga llbladder wall measuring between 4 to 8 mm. A sonographic Herring's sign was not elicited by the sonog rapher. The common duct measures 0.4 cm in diameter at the level of the hepatic artery. The visual ized portions of the pancreas appear normal. The right kidney shows normal echogenicity, cortical thickness and renal contour. The right kidney sh ows no evidence of hydronephrosis or mass. There is a nonobstructive stone in the lower pole. A parap elvic cyst is seen. No ascites or free fluid is seen in Monsivais's pouch. IMPRESSION: 1. Hepatic steatosis. 2. Gallbladder wall thickening with stones. Negative Herring's sign would reduce the suspicion for ac tommie cholecystitis, however this finding is not reliable if the patient has received pain medication. Alternatively, thickening may be secondary to adjacent inflammation. ACT 112: Negative or not required by law. Electronically signed by: Ricco Sheehan M.D. 05/04/2021 9:47 AM
--- NOTE | 2021-05-04 10:30 | Electrocardiogram Report ---
Test Reason : Blood Pressure : / mmHG Vent. Rate : 070 BPM Atrial Rate : 070 BPM P-R Int : 318 ms QRS Dur : 092 ms QT Int : 456 ms P-R-T Axes : 078 016 133 degrees QTc Int : 492 ms Sinus rhythm with 1st degree A-V block with Premature supraventricular complexes and with occasional Premature ventricular complexes Low voltage QRS Prolonged QT Abnormal ECG When compared with ECG of 03-MAY-2021 12:42, Premature ventricular complexes are now Present Premature supraventricular complexes are now Present T wave inversion less evident in Lateral leads Confirmed by Rolo Pulido ([id number] on 05/04/2021 10:30:20 AM Referred By: REFERRED SELF Confirmed By:Rolo Pulido
--- NOTE | 2021-05-04 11:19 | Electrocardiogram Report ---
Test Reason : Blood Pressure : / mmHG Vent. Rate : 058 BPM Atrial Rate : 044 BPM P-R Int : 000 ms QRS Dur : 094 ms QT Int : 492 ms P-R-T Axes : 000 019 158 degrees QTc Int : 482 ms Sinus rhythm with Premature atrial complexes and Premature ventricular complexes Prolonged QT Abnormal ECG When compared with ECG of 04-MAY-2021 04:57, No significant change Confirmed by Rolo Pulido ([id number]) on 05/04/2021 11:19:12 AM Referred By: REFERRED SELF Confirmed By:Rolo Pulido
--- NOTE | 2021-05-04 11:54 | Pharmacy Report ---
Pharmacy Glycemic Short Note 2 - Date of Service May 04, 2021 - Glycemic Short BSG Results (Last 24 hours): 05/03/21 05/03/21 05/03/21 11:05 13:47 13:48 Glucose 397 H* POC Glucose 283 H 291 H 05/03/21 05/03/21 05/03/21 17:24 17:42 21:02 Glucose 265 H POC Glucose 239 H 147 H 05/03/21 05/04/21 05/04/21 22:09 00:10 00:11 Glucose 121 H POC Glucose 64 L* 53 L* 05/04/21 05/04/21 05/04/21 00:27 00:49 06:46 Glucose 68 L POC Glucose 60 L* 136 H 05/04/21 05/04/21 05/04/21 07:03 07:04 11:34 Glucose POC Glucose 63 L* 73 93 OUTPATIENT ANTIDIABETIC REGIMEN: * glimepiride, metformin * A1c 8.1% ASSESSMENT: * 80-year-old male who has significant past medical history of T2DM, HTN, HLD, history of recurrent prostate cancer currently under going radiation therapy. Concerns for NSTEMI, now s/p asset availability leader * Pharmacy consulted for glycemic management. Patient only on oral agents at home for diabetes. BSGs elevated on arrival yesterday, however trending down quickly after IV inulin in the ER. BSG low overnight, then 63 mg/dL this AM. Had given 7 units of basal insulin for higher BSG * Plan to loosen scale for novolog as BSGs this AM on lower side. Likely will hold basal insulin for now until PO intake improves PLAN FOR INPATIENT GLYCEMIC CONTROL: * Hold outpatient oral diabetes medications * Basal insulin * Lantus - not warranted * Bolus insulin * NovoLog per scale ACHS or Q6hrs while NPO * Goal Range: Low 120 mg/dL - High 160 mg/dL * Correction Factor: 30 mg/dL/unit * Nutritional / Prandial insulin per carb ratio of 1 unit per 20 grams CHO consumed PLAN FOR DISCHARGE: * tbd
--- NOTE | 2021-05-04 13:41 | Cardiology Progress Note ---
Date of Service May 04, 2021 Assessment & Plan (1) Ventricular tachycardia, sustained: Plan: Present EKG consistent with sustained ventricular tachycardia likely originating from the right ventricular outflow tract (RVOT VT). This is often brought on by catecholamine surge. Patient responded to synchronized direct-current cardioversion, prehospital by EMS, and was placed on amiodarone. While in sinus rhythm, long first-degree AV block noted. Transient bradycardia down to the 40s noted, and although some of the telemetry strips suggest junctional rhythm or slow atrial fibrillation, rhythm may reflect sinus rhythm, with frequent premature ventricular contractions frequent premature atrial contractions. For now, amiodarone on hold. Metoprolol on hold. Although echocardiogram revealed moderate left ventricular systolic dysfunction, ejection fraction of 30-35% yesterday, this may have been falsely low as the patient was likely in sustained ventricular arrhythmia for upwards of 12 hours and the echo was performed about 2 hours after electrical cardioversion. We will plan on repeating echocardiogram tomorrow for reassessment of LVEF. Medical therapy somewhat limited due to underlying conduction system disease. Although ablation therapy, likely the most ideal treatment, in the setting of the pandemic, having this procedure performed at a tertiary center in the short- term might not be practical. (2) Non-ST elevation NE (NSTEMI): Plan: Due to mild elevation in troponin, lateral ST changes once in sinus rhythm, patient underwent cardiac catheterization 05/03/2021, revealing minimal coronary heart disease. No substrate for ischemia to be the cause of the VT. Coronary disease does not explain the mild elevation in troponin which was likely fairly rate related and related to cardioversion. In the long-term, statin therapy indicated for mild coronary disease, dyslipidemia, but on hold for now given elevated LFTs. (3) Prolonged Q-T interval on ECG: Plan: I do not think the patient's ventricular tachycardia is due to an acquired or congenital prolonged QT syndrome. I believe the computer interpretation of the QT interval is falsely overestimated due to significant lateral T wave changes. Replace electrolytes including maintaining adequate magnesium level. (4) ROCKY (acute kidney injury): Plan: Trending toward improvement. Discontinue IV fluids. Likely due to hemodynamic effect of hours of tachycardia. Blood pressure better today. (5) Abnormal LFTs: Plan: Elevated AST ALT consistent with shock liver presentation likely from systemic hypoperfusion from the hemodynamic effects of the tachycardia. Hepatic steatosis noted on ultrasound. Patient does have longstanding history of at least moderate alcohol use. May still need to use amiodarone for VT, but will proceed with caution and trend LFTs. Recheck INR tomorrow. Admission and Anticipated Discharge Date Admission Date: May 03, 2021 Subjective Patient seen in cardiology follow-up. Patient feels great. He certainly has a good appetite for his chicken lunch. Overnight last night he remained on amiodarone infusion as well as normal saline at 80 mL's per hour. Sinus rhythm noted on telemetry overnight with occasional PVCs and ventricular couplets, no recurrent ventricular tachycardia. 5-10 PVCs were noted per hour per the automated telemetry summary. Transient bradycardia then noted, prompting discontinuation of his amiodarone and oral metoprolol. Review of Systems Review of Systems: All systems reviewed & are unremarkable except as noted in HPI & below Physical Exam Physical Exam: Temp Pulse Resp BP Pulse Ox 36.6 C 56 L 18 146/75 H 96 05/04/21 12:03 05/04/21 12:03 05/04/21 12:03 05/04/21 12:03 05/04/21 12:03 Cardiovascular: RRR, no murmur, no edema Gastrointestinal (Abdomen): normal bowel sounds, soft, nontender, no hepatosplenomegaly Neurologic: PERRL, EOMI, accommodation nl, no face palsy, no dysarthria Results & Data ([facility]) Vital Signs (Past 12 Hours) Vital Signs Temp Pulse Pulse Resp BP Pulse Ox 05/04/21 12:03 36.6 C 56 L 18 146/75 H 96 05/04/21 07:54 37.8 C H 83 18 154/97 H 95 05/04/21 07:41 69 05/04/21 03:57 36.5 C 62 18 104/63 91 Laboratory Results Hemoglobin 11.6 Magnesium level 1.9 Troponin I: 1.38--> 6.11 AST 990--> 2459 ALT 428--> 1580 Creatinine 1.98--> 1.37 Diagnostic Findings EKG performed this morning 05/04/2021 4:57 AM and reviewed independently: Sinus rhythm with long first-degree AV block, OH interval [address] abnormality, unchanged compared to previous from the day before 1 PVC noted Repeat tracing 05/04/2021: 10:13 AM: Sinus rhythm with long first-degree AV block, premature atrial contractions, premature ventricular contractions, lateral ST changes
[2021-05-04] MEDS ORDERED: MAGNESIUM OXIDE 400 MG TAB PO ONE (14:15)
[2021-05-04] MEDS: MAGNESIUM OXIDE 400 MG TAB PO SCH (20:21)
--- NOTE | 2021-05-04 23:59 | Hospitalist Progress Note ---
Date of Service May 04, 2021 Assessment & Plan (1) NSTEMI (non-ST elevated myocardial infarction): (2) V-tach: (3) ROCKY (acute kidney injury): (4) Transaminitis: (5) Diabetes: (6) Hypertension: (7) Dyslipidemia: (8) Prostate CA: (9) Hypomagnesemia: Plan: This is an 80-year-old male who has significant past medical history of T2DM, HTN, HLD, history of CVA in 2016, history of recurrent prostate cancer currently under going radiation therapy, alcohol use who presents to ED via EMS secondary to V. tach in the field. Ventricular tachycardia, sustained EKG showed sustained ventricular tachycardia S/P successful synchronized cardioversion, 100 J Amiodarone an d Metoprolol on hold due to transient bradycardia Cardiology on board Continue medical management Non-ST elevation NC (NSTEMI): Troponin on admission 1.38, then peaked to 6.11 S/P cardiac cath with non-obstructive major epicardial coronary artery disease with 60% proximal small LAD, 40% mid circumflex, 40% diffuse mid and 30% distal RCA. Moderate to severe branch vessel disease with 80% small high OM1, 40% proximal large D1 and 50% proximal medium OM 2 Continue aspirin, Plavix and Metoprolol Transaminitis Due to shock liver due to poor perfusion AST 990, ALT 420, total bili 1.2 on admission LFT worsening with AST 2459, ALT 1580, ALK 33 Gastro on board U/S showed abdomen showed hepatic steatosis. Gallbladder wall thickening with stones. Negative Herring's sign would reduce the suspicion for acute cholecystitis Avoid hepatotoxic agent Continue monitor Continue monitor Liver enzymes Prolonged Q-T interval on ECG: Will avoid medication that increase QT prolongation ROCKY Creatinine 1.3 today, Baseline creatinine 1 Likely in setting of poor perfusion due to arrhythmia Continue to hold Metformin, lisinopril avoid nephrotoxic agents Continue monitor BMP T2DM hyperglycemia A1c 8.1 on 04/23 Continue to hold Metformin and glimepiride as outpatient Continue Lantus/novolog per protocol Hypomagnesemia Mag 1.6on admission Mg 1.9 today Stable Hx of CVA on asa/plavix/statin as OP Prostate ca currently undergoing XRT tx, last 04/19/21. DVT ppx: On Heparin subq FULL CODE PCP: Deonna Admission and Anticipated Discharge Date Admission Date: May 03, 2021 Subjective Pt was seen and examined for follow up of Vtach Lying in bed with no acute distress Pt said that he feels ok Denies any chest pain, palpitation, dizziness and SOB Review of Systems Review of Systems: All systems reviewed & are unremarkable except as noted in Subjective Physical Exam Physical Exam: General- No acute distress Head- atraumatic Eyes- PERRL, EOMI, ENT- oropharynx clear Neck- supple, no JVD Lungs- clear to auscultation Heart- regular rhythm; no murmur Abdomen- normal bowel sounds, soft, nontender Extremities- no calf tenderness Neuro- alert, oriented x 3; PERRL, EOMI; no facial palsy; no dysarthria Skin- warm & dry Results & Data Results & Data ([facility]) Vital Signs (Past 12 Hours) Vital Signs Temp Pulse Resp BP BP Pulse Ox 05/04/21 23:36 36.6 C 74 18 158/94 H 98 05/04/21 20:00 36.9 C 78 20 170/80 H 98 05/04/21 15:28 36.8 C 59 L 18 144/79 H 92 05/04/21 12:03 36.6 C 56 L 18 146/75 H 96
[2021-05-05 05:31] LABS: Appearance Urine Clear (Clear); Bacteria Urine Automated Negative (Negative); Bilirubin Urine Negative (Negative); Blood Urine 1+ (Negative); Cast Urine Automated 0 /lpf (0-5); Color Urine Yellow; Glucose Urine UA Negative (Negative); Ketones Urine Negative (Negative); Leukocyte Esterase Urine Negative (Negative); Nitrite Urine Negative (Negative); Protein Urine Negative (Negative); Specific Gravity Urine 1.013 (1.000-1.030); Urobilinogen Urine Negative (Negative); pH Urine 5.5 (4.5-7.5)
[2021-05-05] MEDS: CLOPIDOGREL BISULFATE 75 MG TAB PO SCH (07:46)
[2021-05-05] MEDS: MAGNESIUM OXIDE 400 MG TAB PO SCH ×2 (07:46→21:00)
[2021-05-05] MEDS: ASPIRIN 81 MG CHEW PO SCH (07:46)
[2021-05-05] MEDS: INSULIN ASPART PER UNIT SC SCH ×4 (07:47→20:57)
[2021-05-05] MEDS: HEPARIN SOD 5,000 UNIT/0.5 ML VIAL SQ SCH ×2 (07:47→20:59)
[2021-05-05] MEDS: FINASTERIDE 5 MG TAB PO SCH (07:47)
[2021-05-05 08:04] LABS: Hemoglobin 12.2 g/dL (14.0-18.0); Mean Corpuscular Hemoglobin 31.9 pg (25-34); Mean Corpuscular Hgb Conc 33.9 g/dL (32-36); Mean Platelet Volume 10.7 fL (7.4-10.4); Platelet Count 159 K/uL (130-400); RDW Standard Deviation 51.1 fL (36.4-46.3); Red Blood Count 3.83 M/uL (4.7-6.1); White Blood Count 5.54 K/uL (4.8-10.8)
[2021-05-05 08:20] LABS: INR 1.4 (0.9-1.1); Prothrombin Time 13.5 Seconds (9.0-12.0)
[2021-05-05 08:37] LABS: Albumin Globulin Ratio 1.3 (0.9-2); Albumin Level 3.3 gm/dl (3.4-5.0); Bilirubin,Total 1.3 mg/dl (0.2-1.0); Globulin 2.6 gm/dl (2.5-4.0); Magnesium 1.5 mg/dl (1.7-2.4); Total Protein 5.9 gm/dl (6.0-8.3)
[2021-05-05 08:46] LABS: BUN Creatinine Ratio 31.3 (10-20); Calcium 8.7 mg/dl (8.5-10.1); Creatinine Clr Calc Pharmacy 58.5 ml/min; Est GFR (Non-African American) 71.6 ml/min
[2021-05-05 10:08] LABS: Hepatitis B Surf Ag Rflx Conf Neg (Neg)
[2021-05-05 10:37] LABS: Hepatitis C IgG 13Yrs+Old_Rflx Neg (Neg)
--- NOTE | 2021-05-05 11:23 | Hospitalist Progress Note ---
Date of Service May 05, 2021 Assessment & Plan (1) V-tach: (2) ROCKY (acute kidney injury): (3) Transaminitis: (4) Diabetes: (5) Hypertension: (6) Dyslipidemia: (7) Prostate CA: (8) Hypomagnesemia: (9) Elevated troponin: Plan: 80-year-old male who has significant past medical history of T2DM, HTN, HLD, history of CVA in 2016, history of recurrent prostate cancer currently under going radiation therapy, alcohol use who presents to ED via EMS secondary to V. tach in the field. Ventricular tachycardia, sustained EKG showed sustained ventricular tachycardia S/P successful synchronized cardioversion, 100 J Amiodarone and Metoprolol on hold due to transient bradycardia Tele showed Afib, PVC, 3.1s pause this morning Trim Mounter on board. EP consulted Elevated troponin Troponin on admission 1.38, then peaked to 6.11 S/P cardiac cath with non-obstructive major epicardial coronary artery disease with 60% proximal small LAD, 40% mid circumflex, 40% diffuse mid and 30% distal RCA. Moderate to severe branch vessel disease with 80% small high OM1, 40% proximal large D1 and 50% proximal medium OM 2 Findings did not explain dysrhythmia Card's eval noted Elevated troponin likely due to cardioversion than NSTEMI Continue aspirin and Plavix Transaminitis Due to shock liver AST 990, ALT 420, total bili 1.2 on admission LFT worsening with AST 2459, ALT 1580, ALK 33 Gastro ealuatieon noted U/S showed abdomen showed hepatic steatosis. Gallbladder wall thickening with stones. Negative Herring's sign would reduce the suspicion for acute cholecystitis Avoid hepatotoxic agent Continue monitor Follow up hepatitis labs Prolonged Q-T interval on ECG: Will avoid medication that increase QT prolongation ROCKY Creatinine was 1.98 on admission, Baseline creatinine 1 Cr is down to 0.99. ROCKY resolved Continue to hold Metformin Plan to resume lisinopril if possible tomorrow Avoid nephrotoxic agents Continue monitor BMP T2DM hyperglycemia A1c 8.1 on 2/4 Continue to hold Metformin and glimepiride as outpatient Continue Lantus/novolog per protocol Hypomagnesemia Mag 1.6 on admission Mg 1.5 today Replete and monitor Hx of CVA On asa/plavix as OP Statin on hold for now in view of elevated LFT Prostate ca Currently undergoing XRT tx, last 04/19/21. OK for radiation therapy today DVT ppx: On Heparin subq FULL CODE PCP: Deonna Admission and Anticipated Discharge Date Admission Date: May 03, 2021 Subjective Patient seen and examined. Denies any new complaints. Denies any chest pain, nausea, vomiting, palpitations Denies any abdominal pain, diarrhea, Denies dysuria, frequency, urgency, incontinence Physical Exam Constitutional: + well hydrated; no acute distress Eyes: PERRL, conjunctivae normal, anicteric sclerae ENMT: external ear and nose normal, oropharynx normal Respiratory: normal respiratory effort, lungs clear to auscultation Cardiovascular: Rate/Rhythm: + irregularly irregular S1 S2 Gastrointestinal (Abdomen): normal bowel sounds, soft, nontender, no hep atosplenomegaly Neurologic: PERRL, EOMI, accommodation nl, no face palsy, no dysarthria Psychiatric: A+Ox3, euthymic affect Results & Data Results & Data ([facility]) Vital Signs (Past 12 Hours) Vital Signs Temp Pulse Resp BP BP Pulse Ox 05/05/21 07:30 36.5 C 73 18 166/85 H 98 05/05/21 03:35 36.7 C 66 18 160/85 H 98 05/04/21 23:36 36.6 C 74 18 158/94 H 98 Laboratory Results Abnormal lab results 05/05/21 05/05/21 05/05/21 Range/Units 05:17 07:31 07:35 RBC 3.83 L (4.7-6.1) M/uL Hgb 12.2 L (14.0-18.0) g/dL Hct 36.0 L (42-52) % RDW Std Deviation 51.1 H (36.4-46.3) fL RDW Coeff of Dylan 15.0 H (11.5-14.5) % MPV 10.7 H (7.4-10.4) fL PT (9.0-12.0) Seconds INR (0.9-1.1) BUN (6-23) mg/dl BUN/Creatinine Ratio (10-20) POC Glucose 102 H (70-99) mg/dl Magnesium (1.7-2.4) mg/dl Total Bilirubin (0.2-1.0) mg/dl AST (13-39) U/L ALT (7-52) U/L Total Protein (6.0-8.3) gm/dl Albumin (3.4-5.0) gm/dl Urine Blood 1+ H (Negative) Urine RBC (Auto) 5-10 H (0-4) /hpf U Epithel Cells (Auto) 5-10 H (0-5) /lpf 05/05/21 05/05/21 05/05/21 Range/Units 07:35 07:35 11:19 RBC (4.7-6.1) M/uL Hgb (14.0-18.0) g/dL Hct (42-52) % RDW Std Deviation (36.4-46.3) fL RDW Coeff of Dylan (11.5-14.5) % MPV (7.4-10.4) fL PT 13.5 H (9.0-12.0) Seconds INR 1.4 H (0.9-1.1) BUN 31 H (6-23) mg/dl BUN/Creatinine Ratio 31.3 H (10-20) POC Glucose 149 H (70-99) mg/dl Magnesium 1.5 L (1.7-2.4) mg/dl Total Bilirubin 1.3 H D (0.2-1.0) mg/dl AST 1283 H (13-39) U/L ALT 1422 H (7-52) U/L Total Protein 5.9 L (6.0-8.3) gm/dl Albumin 3.3 L (3.4-5.0) gm/dl Urine Blood (Negative) Urine RBC (Auto) (0-4) /hpf U Epithel Cells (Auto) (0-5) /lpf
--- NOTE | 2021-05-05 12:01 | Cardiology Progress Note ---
Date of Service May 05, 2021 Assessment & Plan (1) Ventricular tachycardia, sustained: Plan: 80-year-old male with past history of frequent asymptomatic PVCs, presented with symptomatic hypotension, likely 12 hours of sustained ventricular tachycardia with very rapid ventricular rate > 200 bpm, twelve-lead EKG consistent with right ventricular outflow tract origin. Cardiac catheterization revealed minimal coronary artery disease. Echocardiogram x2 with moderate global left ventricular hypokinesis LVEF 30 to 35%. 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 Ejection fraction has been normal at time of assessment in 2016, no interval testing prior to this hospital stay. Patient had been treated with IV amiodarone overnight on the first hospital night, and has elevated LFTs consistent with hepatic hypoperfusion, with background history of alcohol use (ceased 3 weeks ago). Intermittent accelerated junctional rhythm noted, overall ventricular rates stable however in the 70s to 80s. One asymptomatic 3.1 second pause this am. Continue to proceed off of amiodarone and metoprolol pending improvement in liver function tests. Perhaps we are seeing long-lasting effects of the amiodarone which is metabolized hepatically. RV outflow tract ventricular tachycardia is typically not associated with sudden cardiac , and the patient did not present with syncope nor does he have a past episode of syncope. Case has been discussed at length with electrophysiology. Future considerations include EP study and RVOT PVC/VT ablation as outpatient. As noted, for now, observe off of amiodarone and beta-kurtis. Fortunately he has not had any recurrent VT. Admission and Anticipated Discharge Date Admission Date: May 03, 2021 Subjective Patient seen in cardiology follow-up. He feels well. No cardiac complaints. No chest discomfort or shortness of breath. No lightheadedness or dizziness. Physical Exam Physical Exam: Temp Pulse Resp BP Pulse Ox 36.5 C 73 18 166/85 H 98 05/05/21 07:30 05/05/21 07:30 05/05/21 07:30 05/05/21 07:30 05/05/21 07:30 Constitutional: WD/WN, vitals as above Respiratory: normal respiratory effort, lungs clear to auscultation Cardiovascular: Rate/Rhythm: + irregularly irregular Gastrointestinal (Abdomen): normal bowel sounds, soft, nontender, no hepatosplenomegaly Neurologic: PERRL, EOMI, accommodation nl, no face palsy, no dysarthria Results & Data ([facility]) Vital Signs (Past 12 Hours) Vital Signs Temp Pulse Resp BP BP Pulse Ox 05/05/21 07:30 36.5 C 73 18 166/85 H 98 05/05/21 03:35 36.7 C 66 18 160/85 H 98 Laboratory Results Bilirubin 1.3 AST: 2459--> 1283 ALT: 1580--> 1422 INR: 1.5--> 1.4 Magnesium: 1.5 Diagnostic Findings EKG this morning: Although initial computer interpretation suggests the presence of atrial fibrillation, findings appear more consistent with an accelerated junctional rhythm in the 70s with ongoing PVCs and PACs.
[2021-05-05] MEDS ORDERED: MAGNESIUM SULFATE / D5W 1 GM/100 ML BAG IV ONE (12:30)
--- NOTE | 2021-05-05 14:14 | Electrocardiogram Report ---
Test Reason : Blood Pressure : / mmHG Vent. Rate : 074 BPM Atrial Rate : 182 BPM P-R Int : 000 ms QRS Dur : 100 ms QT Int : 444 ms P-R-T Axes : 000 -02 162 degrees QTc Int : 492 ms Suspect sinus rhythm with sinus arrhythmia and first degree AV block, vs atrial fibrillation with premature ventricular or aberrantly conducted complexes Prolonged QT Abnormal ECG When compared with ECG of 04-MAY-2021 10:13, No significant change Confirmed by Samir Husain ([id number]) on 05/05/2021 2:13:59 PM Referred By: REFERRED SELF Confirmed By:Samir Hsuain
--- NOTE | 2021-05-05 14:49 | Cardiology Consultation ---
Date of Consultation May 05, 2021 Assessment & Plan (1) Ventricular tachycardia, sustained: consider RVOT EPS and ablation as an outpt Discussed the procedure and potential risks pt wants to think about it I would stop amiodarone given the junctional rhythm and the markedly elevated LF Ts Restart home metoprolol History of Present Illness Reason for Consultation: VT Requesting Physician: Yoandy Attending Physician: Ai Figueroa MD History of Present Illness Pt admitted a few days ago due to palpitations and lightheadedness found to be in VT probably orginiating from the RVOT; cath was negative for any interention; he was started on amiodarone but then went junctional Pt has elevated LFTs and history of ETOH use He denies any symptoms since being in the hospital; he is eager to go home Allergies Allergy/AdvReac Type Severity Reaction Status Date / Time No Known Allergies Allergy Verified 04/26/21 15:15 Home Medications Medication Instructions Recorded Confirmed Type acetaminophen 500 mg tablet 500 mg PO Q6H PRN 01/07/21 05/03/21 History (Tylenol Extra Strength) arginine (L-arginine) 500 mg tablet 850 mg PO DAILY tab 01/07/21 05/03/21 History atorvastatin 20 mg tablet 20 mg PO QAM 01/07/21 05/03/21 History cinnamon bark 500 mg capsule 500 mg PO QAM 01/07/21 05/03/21 History (Cinnamon) glimepiride 1 mg tablet 1 mg PO QAM 01/07/21 05/03/21 History mecobalamin (vitamin B12) 1,000 1,000 mcg SUBLINGUAL DAILY 01/07/21 05/03/21 History mcg disintegrating tablet,sublingual melatonin 10 mg capsule 10 mg PO HS PRN 01/07/21 05/03/21 History metformin 500 mg tablet 1,000 mg PO BID tab 01/07/21 05/03/21 History metoprolol succinate 25 mg 25 mg PO QAM 01/07/21 05/03/21 History tablet,extended release 24 hr leuprolide 7.5 mg (1 month) 7.5 mg SUBCUT ONCE #1 ea 04/13/21 05/03/21 Rx subcutaneous syringe ([facility]) leuprolide (3 month) 22.5 mg (3 22.5 mg SUBCUT ONCE #1 ea 04/30/21 05/03/21 Rx month) subcutaneous syringe (Eligard) aspirin 81 mg chewable tablet 81 mg PO QAM 05/03/21 05/03/21 History clopidogrel 75 mg tablet 75 mg PO QAM 05/03/21 05/03/21 History fenofibrate micronized 134 mg 134 mg PO QAM 05/03/21 05/03/21 History capsule finasteride 5 mg tablet 5 mg PO QAM 05/03/21 05/03/21 History lisinopril 10 mg tablet 10 mg PO DAILY 05/03/21 05/03/21 History Patient History Medical History CVA (cerebral vascular accident) Diabetes Dyslipidemia Hypertension Incontinence Osteoarthritis Surgical History H/O cystoscopy In 2005 with cryoablation of prostate for prostate cancer History of prostate surgery S/P colonoscopy S/P hernia repair Right inguinal hernia repair Left inguinal hernia repair Umbilical hernia repair S/P rotator cuff surgery Right Family History Father , 83yo Prostate cancer Brother Cancer Pt uncertain of type of cancer Stroke Grandfather Leukemia Grandmother Diabetes Mother , 88yo Diabetes Hypertension Heart disease Daughter Thyroid disorder Brother Cancer Pt uncertain of type of cancer Brother No problems noted. Daughter No problems noted. Son No problems noted. Social History Smoking Status: Current some day smoker Tobacco Type: Cigarettes Cigarettes Per Day: Social smoker when at the bars;Started at 16yo; Hx Alcohol Use: Yes Alcohol type: beer Hx Substance Use: Yes Last Used Substance: Days (ago) Preferred Language: Frisian Communication Ability: Effective Visual Impairment: No Limitations Hearing Ability: Normal Model Maker Plastic Required: No Beliefs That Will Affect Care: None marital status: Current Living Situation: Family Current Living Situation Comment: Lives with Annabella spivey current occupational status: retired current occupation: Worked at [employer] Feels Safe at Home: Yes caffeine: Yes (1/2 pot/day) during the past year weight has: remained stable Assistive Devices: Glasses Review of Systems Review of Systems: All systems reviewed & are unremarkable except as noted in HPI & below Physical Exam Physical Exam: aaox3, NAD NC/AT, EOMI Supple No JVD Nrl S1/S2, No murmur CTA b/l no w/r/r soft nt/nd no LE edema b/l skin intact no focal deficits Results & Data ([facility]) Vital Signs (Past 12 Hours) Vital Signs Temp Pulse Resp BP BP Pulse Ox 05/05/21 12:09 36.5 C 75 18 143/89 H 96 05/05/21 07:30 36.5 C 73 18 166/85 H 98 05/05/21 03:35 36.7 C 66 18 160/85 H 98 Laboratory Results Abnormal Lab Results 05/04/21 05/04/21 05/05/21 16:26 21:27 05:17 WBC RBC Hgb Hct MCV MCH MCHC RDW Std Deviation RDW Coeff of Dylan Plt Count MPV PT INR Sodium Potassium Chloride Carbon Dioxide Anion Gap BUN Creatinine Est Cr Clr Drug Dosing Est GFR ( Amer) Est GFR (Non-Af Amer) BUN/Creatinine Ratio Glucose POC Glucose 70 90 Calcium Magnesium Total Bilirubin AST ALT Alkaline Phosphatase Total Protein Albumin Globulin Albumin/Globulin Ratio Urine Color Yellow Urine Appearance Clear Urine pH 5.5 Ur Specific [place] 1.013 Urine Protein Negative Urine Glucose (UA) Negative Urine Ketones Negative Urine Blood 1+ H Urine Nitrite Negative Urine Bilirubin Negative Urine Urobilinogen Negative Ur Leukocyte Esterase Negative Urine WBC (Auto) 1-5 Urine RBC (Auto) 5-10 H U Hyaline Cast (Auto) 0 U Epithel Cells (Auto) 5-10 H Urine Bacteria (Auto) Negative Hep Bs Antigen Hepatitis C Antibody 05/05/21 05/05/21 05/05/21 07:31 07:35 07:35 WBC 5.54 RBC 3.83 L Hgb 12.2 L Hct 36.0 L MCV 94.0 MCH 31.9 MCHC 33.9 RDW Std Deviation 51.1 H RDW Coeff of Dylan 15.0 H Plt Count 159 MPV 10.7 H PT INR Sodium 136 Potassium 4.0 Chloride 101 Carbon Dioxide 30 Anion Gap 5 BUN 31 H Creatinine 0.99 D Est Cr Clr Drug Dosing 58.5 Est GFR ( Amer) 83.0 Est GFR (Non-Af Amer) 71.6 BUN/Creatinine Ratio 31.3 H Glucose 84 POC Glucose 102 H Calcium 8.7 Magnesium 1.5 L Total Bilirubin 1.3 H D AST 1283 H ALT 1422 H Alkaline Phosphatase 41 Total Protein 5.9 L Albumin 3.3 L Globulin 2.6 Albumin/Globulin Ratio 1.3 Urine Color Urine Appearance Urine pH Ur Specific [place] Urine Protein Urine Glucose (UA) Urine Ketones Urine Blood Urine Nitrite Urine Bilirubin Urine Urobilinogen Ur Leukocyte Esterase Urine WBC (Auto) Urine RBC (Auto) U Hyaline Cast (Auto) U Epithel Cells (Auto) Urine Bacteria (Auto) Hep Bs Antigen Hepatitis C Antibody 05/05/21 05/05/21 05/05/21 07:35 07:35 11:19 WBC RBC Hgb Hct MCV MCH MCHC RDW Std Deviation RDW Coeff of Dylan Plt Count MPV PT 13.5 H INR 1.4 H Sodium Potassium Chloride Carbon Dioxide Anion Gap BUN Creatinine Est Cr Clr Drug Dosing Est GFR ( Amer) Est GFR (Non-Af Amer) BUN/Creatinine Ratio Glucose POC Glucose 149 H Calcium Magnesium Total Bilirubin AST ALT Alkaline Phosphatase Total Protein Albumin Globulin Albumin/Globulin Ratio Urine Color Urine Appearance Urine pH Ur Specific [place] Urine Protein Urine Glucose (UA) Urine Ketones Urine Blood Urine Nitrite Urine Bilirubin Urine Urobilinogen Ur Leukocyte Esterase Urine WBC (Auto) Urine RBC (Auto) U Hyaline Cast (Auto) U Epithel Cells (Auto) Urine Bacteria (Auto) Hep Bs Antigen Neg Hepatitis C Antibody Neg
[2021-05-05] MEDS ORDERED: CALCIUM CARBONATE 500 MG CHEWABLE TAB PO PRN (23:54)
[2021-05-06 07:10] LABS: INR 1.3 (0.9-1.1); Prothrombin Time 12.7 Seconds (9.0-12.0)
[2021-05-06 07:25] LABS: BUN Creatinine Ratio 30.6 (10-20); Calcium 8.5 mg/dl (8.5-10.1); Creatinine Clr Calc Pharmacy 68.2 ml/min; Est GFR (African American) 95.4 ml/min; Est GFR (Non-African American) 82.3 ml/min; Potassium 3.8 mmol/L (3.5-5.1)
[2021-05-06 07:31] LABS: Albumin Globulin Ratio 1.2 (0.9-2); Albumin Level 3.2 gm/dl (3.4-5.0); Bilirubin,Total 1.6 mg/dl (0.2-1.0); Globulin 2.6 gm/dl (2.5-4.0); Magnesium 1.4 mg/dl (1.7-2.4); Total Protein 5.8 gm/dl (6.0-8.3)
[2021-05-06] MEDS: ASPIRIN 81 MG CHEW PO SCH (07:43)
[2021-05-06] MEDS: HEPARIN SOD 5,000 UNIT/0.5 ML VIAL SQ SCH ×2 (07:43→20:18)
[2021-05-06] MEDS: CLOPIDOGREL BISULFATE 75 MG TAB PO SCH (07:43)
[2021-05-06] MEDS: FINASTERIDE 5 MG TAB PO SCH (07:43)
[2021-05-06] MEDS: INSULIN ASPART PER UNIT SC SCH ×4 (07:44→20:02)
[2021-05-06] MEDS ORDERED: MAGNESIUM SULFATE / D5W 1 GM/100 ML BAG IV SCH (09:15)
--- NOTE | 2021-05-06 10:43 | Hospitalist Progress Note ---
Date of Service May 06, 2021 Assessment & Plan (1) V-tach: (2) ROCKY (acute kidney injury): (3) Transaminitis: (4) Diabetes: (5) Hypertension: (6) Dyslipidemia: (7) Prostate CA: (8) Hypomagnesemia: (9) Elevated troponin: Plan: 80-year-old male who has significant past medical history of T2DM, HTN, HLD, history of CVA in 2016, history of recurrent prostate cancer currently under going radiation therapy, alcohol use who presents to ED via EMS secondary to V. tach in the field. Ventricular tachycardia, sustained EKG showed sustained ventricular tachycardia S/P successful synchronized cardioversion, 100 J Amiodarone on hold due to transient bradycardia and elevated LFTx Legal Billing Specialist and EP recs noted Low Elevated troponin Troponin on admission 1.38, then peaked to 6.11 S/P cardiac cath with non-obstructive major epicardial coronary artery disease with 60% proximal small LAD, 40% mid circumflex, 40% diffuse mid and 30% distal RCA. Moderate to severe branch vessel disease with 80% small high OM1, 40% proximal large D1 and 50% proximal medium OM 2 Findings did not explain dysrhythmia Card's eval noted Elevated troponin likely due to cardioversion than NSTEMI Continue aspirin and Plavix Will follow up with Cards about resuming lisinopril Transaminitis Due to shock liver AST 990-->2459-->443 ALT 420-->>1580-->>1049 Total bili 1.2-->>1.6 Gastro evaluation noted U/S showed abdomen showed hepatic steatosis. Gallbladder wall thickening with stones. Negative Herring's sign would reduce the suspicion for acute cholecystitis Continue to hold amiodarone Avoid hepatotoxic agents Follow outstanding hepatitis labs ROCKY Creatinine was 1.98 on admission, Baseline creatinine 1 Cr is down to 0.85. ROCKY resolved Avoid nephrotoxic agents Continue monitor BMP T2DM hyperglycemia A1c 8.1 on 2/4 Continue to hold Metformin and glimepiride as outpatient Continue Lantus/novolog per protocol Hypomagnesemia Mag 1.6 on admission Mg 1.4 today Replete IV and started on po mag Monitor Hx of CVA On asa/plavix as OP Statin on hold for now in view of elevated LFT Prostate ca Currently undergoing XRT tx, DVT ppx: On Heparin subq FULL CODE PCP: Deonna Called daughter and updated her Admission and Anticipated Discharge Date Admission Date: May 03, 2021 Subjective Patient seen and examined. Denies any complaints. Denies any chest pain, nausea, vomiting, palpitations Denies any abdominal pain, diarrhea, Denies dysuria, frequency, urgency, incontinence Physical Exam Constitutional: + well hydrated; no acute distress Eyes: PERRL, conjunctivae normal, anicteric sclerae ENMT: external ear and nose normal, oropharynx normal Respiratory: normal respiratory effort, lungs clear to auscultation Cardiovascular: Rate/Rhythm: + irregularly irregular S1 S2 Gastrointestinal (Abdomen): normal bowel sounds, soft, nontender, no hepatosplenomegaly Musculoskeletal: No pedal edema Neurologic: PERRL, EOMI, accommodation nl, no face palsy, no dysarthria Psychiatric: A+Ox3, euthymic affect Results & Data Results & Data ([facility]) Vital Signs (Past 12 Hours) Vital Signs Temp Pulse Pulse Resp BP BP Pulse Ox 05/06/21 07:13 36.7 C 83 19 178/93 H 99 05/06/21 03:46 36.4 C L 67 16 164/82 H 97 05/06/21 00:03 64 05/05/21 23:14 36.4 C L 64 20 172/83 H 97 Laboratory Results Abnormal lab results 05/06/21 05/06/21 05/06/21 Range/Units 06:19 06:19 07:16 PT 12.7 H (9.0-12.0) Seconds INR 1.3 H (0.9-1.1) Sodium 133 L (136-145) mmol/L BUN 26 H (6-23) mg/dl BUN/Creatinine Ratio 30.6 H (10-20) Glucose 139 H (70-99(Fasting)) mg/dl POC Glucose 136 H (70-99) mg/dl Magnesium 1.4 L (1.7-2.4) mg/dl Total Bilirubin 1.6 H (0.2-1.0) mg/dl AST 443 H (13-39) U/L ALT 1049 H (7-52) U/L Total Protein 5.8 L (6.0-8.3) gm/dl Albumin 3.2 L (3.4-5.0) gm/dl 05/06/21 Range/Units 11:10 PT (9.0-12.0) Seconds INR (0.9-1.1) Sodium (136-145) mmol/L BUN (6-23) mg/dl BUN/Creatinine Ratio (10-20) Glucose (70-99(Fasting)) mg/dl POC Glucose 199 H (70-99) mg/dl Magnesium (1.7-2.4) mg/dl Total Bilirubin (0.2-1.0) mg/dl AST (13-39) U/L ALT (7-52) U/L Total Protein (6.0-8.3) gm/dl Albumin (3.4-5.0) gm/dl
[2021-05-06] MEDS: MAGNESIUM SULFATE / D5W 1 GM/100 ML BAG IV SCH ×2 (11:04→12:05)
[2021-05-06] MEDS: MAGNESIUM CHLORIDE 64MG DELAYED REL TAB PO SCH ×2 (11:04→20:16)
--- NOTE | 2021-05-06 12:17 | Cardiology Progress Note ---
Date of Service May 06, 2021 Assessment & Plan (1) Ventricular tachycardia, sustained: Plan: Previous history of asymptomatic frequent unifocal PVCs, noted on cardiac cath lab manager 2017, normal LVEF at that time, treated with metoprolol succinate 25 mg daily since 2017. Presented 05/03/2021, with 12 hours of shortness of breath, lightheadedness, upon arrival of EMS, twelve-lead EKG findings of sustained ventricular tachycardia, rate 234 bpm, axis consistent with right ventricular outflow tract origin for which the patient underwent synchronized direct-current cardioversion with successful conversion to sinus bradycardia long first-degree AV block, [place] interval 300 ms, marked lateral repolarization changes once in sinus rhythm, prompting emergent cardiac catheterization, without culprit coronary heart disease LVEF this admission~30-35%, but this may be acutely low in setting of recent prolonged arrhythmia. 05/06/2021, EKG revealing sinus rhythm at 69 bpm with long first-degree AV block, frequent PVCs, ongoing lateral repolarization changes. -Remains off amiodarone due to transient asymptomatic bradycardia, elevated LFTs. -Cautiously resume beta-kurtis, short acting metoprolol tartrate 12.5 mg twice daily -EP input noted and appreciated, tentative plan for outpatient electrophysiology study, ablation 05/26/2021. (2) Hypomagnesemia: Plan: Magnesium level 1.4 today, replace IV and orally. (3) Abnormal LFTs: Plan: -History of alcohol use, shock liver presentation with prolonged interval of hypotension prior to the arrival of EMS, also received around 12 hours of amiodarone therapy Total bilirubin 1.6 today, AST, ALT, trending down. INR 1.3. Remain off of amiodarone. (4) ROCKY (acute kidney injury): Plan: ROCKY with peak creatinine 1.98, normalized 0.85 today. DVT prophylaxis: Subcutaneous heparin. Remains on clopidogrel and aspirin due to past history of stroke. Although telemetry reveals occasional irregular rhythm, no definite evidence of atrial fibrillation thus far. Proceed without anticoagulation. Admission and Anticipated Discharge Date Admission Date: May 03, 2021 Subjective Patient seen in follow-up. No complaints. Kept his regular prostate cancer radiation therapy treatment yesterday, 05/05/2021. Denies lightheadedness, dizziness, palpitations, or exertional shortness of breath. Has occasional outpatient diarrhea at baseline, but this has not been an issue. Review of Systems Review of Systems: All systems reviewed & are unremarkable except as noted in HPI & below Physical Exam Constitutional: WD/WN, vitals as above Respiratory: normal respiratory effort, lungs clear to auscultation Cardiovascular: Irregular rhythm, no murmurs, no edema Gastrointestinal (Abdomen): normal bowel sounds, soft, nontender, no hepatosplenomegaly Neurologic: PERRL, EOMI, accommodation nl, no face palsy, no dysarthria Results & Data ([facility]) Vital Signs (Past 12 Hours) Vital Signs Temp Pulse Resp BP BP Pulse Ox 05/06/21 11:11 36.6 C 76 19 104/77 97 05/06/21 07:13 36.7 C 83 19 178/93 H 99 05/06/21 03:46 36.4 C L 67 16 164/82 H 97
[2021-05-06] MEDS ORDERED: INSULIN GLARGINE SOLOSTAR 100 UNITS/ML 3 ML PEN SC SCH (13:15)
[2021-05-06] MEDS: METOPROLOL TARTRATE 25 MG TAB PO SCH ×2 (13:23→20:17)
--- NOTE | 2021-05-06 13:46 | Electrocardiogram Report ---
Test Reason : Blood Pressure : / mmHG Vent. Rate : 069 BPM Atrial Rate : 156 BPM P-R Int : 000 ms QRS Dur : 096 ms QT Int : 468 ms P-R-T Axes : 000 -04 187 degrees QTc Int : 501 ms Atrial fibrillation vs. sinus rhtyhm with first degree A-V block and PACs Marked ST abnormality, possible anterior subendocardial injury Prolonged QT Abnormal ECG When compared with ECG of 05-MAY-2021 05:56, No significant change Confirmed by Rolo Pulido ([id number]) on 05/06/2021 1:45:55 PM Referred By: REFERRED SELF Confirmed By:Rolo Pulido
[2021-05-07 06:53] LABS: BUN Creatinine Ratio 33.8 (10-20); Calcium 8.3 mg/dl (8.5-10.1); Creatinine Clr Calc Pharmacy 81.6 ml/min; Est GFR (African American) 102.7 ml/min; Est GFR (Non-African American) 88.6 ml/min; Potassium 3.9 mmol/L (3.5-5.1)
[2021-05-07 07:12] LABS: Albumin Globulin Ratio 1.1 (0.9-2); Bilirubin,Total 1.4 mg/dl (0.2-1.0); Globulin 2.7 gm/dl (2.5-4.0); Magnesium 1.6 mg/dl (1.7-2.4); Total Protein 5.7 gm/dl (6.0-8.3)
[2021-05-07] MEDS: INSULIN ASPART PER UNIT SC SCH ×2 (07:25→12:54)
[2021-05-07] MEDS: MAGNESIUM CHLORIDE 64MG DELAYED REL TAB PO SCH (07:48)
[2021-05-07] MEDS: FINASTERIDE 5 MG TAB PO SCH (07:49)
[2021-05-07] MEDS: METOPROLOL TARTRATE 25 MG TAB PO SCH (07:49)
[2021-05-07] MEDS: CLOPIDOGREL BISULFATE 75 MG TAB PO SCH (07:49)
[2021-05-07] MEDS: HEPARIN SOD 5,000 UNIT/0.5 ML VIAL SQ SCH (07:50)
[2021-05-07] MEDS: ASPIRIN 81 MG CHEW PO SCH (07:55)
[2021-05-07] MEDS: MAGNESIUM SULFATE / D5W 1 GM/100 ML BAG IV SCH ×2 (10:20→11:38)
[2021-05-07] MEDS ORDERED: APIXABAN 5 MG TABLET PO SCH (12:00)
--- NOTE | 2021-05-07 12:03 | Cardiology Progress Note ---
Date of Service May 07, 2021 Assessment & Plan (1) Ventricular tachycardia, sustained: Plan: Previous history of asymptomatic frequent unifocal PVCs, noted on vehicle monitor technician 2016, normal LVEF at that time, treated with metoprolol succinate 25 mg daily since 2017. Presented 05/03/2021, with 12 hours of shortness of breath, lightheadedness, upon arrival of EMS, twelve-lead EKG findings of sustained ventricular tachycardia, rate 234 bpm, axis consistent with right ventricular outflow tract origin for which the patient underwent synchronized direct-current cardioversion with successful conversion to sinus bradycardia long first-degree AV block, [place] interval 300 ms, marked lateral repolarization changes once in sinus rhythm, prompting emergent cardiac catheterization, without culprit coronary heart disease LVEF this admission~30-35%, but this may be acutely low in setting of recent prolonged arrhythmia. 05/06/2021, EKG revealing sinus rhythm at 69 bpm with long first-degree AV block, frequent PVCs, ongoing lateral repolarization changes. 05/07/21, EKG reveals AF with ventricular rate of 58 bpm, freqent PVCs. 05/07/21: telemetry AF, occasional unifocal PVCs, episodes of ventricular bigeminy, occasional ventricular couplets , no recurrent VT. -EP input noted and appreciated, tentative plan for outpatient electrophysiology study, ablation 05/26/2021, with EP outpatient follow up on week of 05/19. -Stable for discharge on FREIGHT BRAKEMAN metoprolol succinate 25 mg daily. -Patient did not present with syncope, and it is felt that this RVOT VT poses a low risk of sudden cardiac , ICD not indicated at present, instead treating with medications/ ablation, with thoughts LVEF will normalized. (2) Atrial fibrillation with normal ventricular rate: Plan: metoprolol. DC clopidogrel (on since CVA in 2017) DC on ASA 81 mg and Eliquis 5 mg BID, first dose today, next dose am of 05/08. (3) Hypomagnesemia: Plan: Magnesium level 1.6 today, replace IV and orally. Question of related to diarrhea from Metformin, plan is to change to XR formulation. Perhaps related to prostate CA, with ongoing radiation therapy. DC on magnesium supplementation. (4) Abnormal LFTs: Plan: -History of alcohol use, shock liver presentation with prolonged interval of hypotension prior to the arrival of EMS, also received around 12 hours of amiodarone therapy -Remain off of amiodarone. -Hold statin therapy at discharge, follow up LFTs as outpatient and resume st atin accordingly. (5) ROCKY (acute kidney injury): Plan: ROCKY with peak creatinine 1.98, normalized 0.71 today. (6) CAD (coronary artery disease): Plan: Moderate nonobstructive and branch vessel CAD at time of cardiac cath, 05/03/21. Does not explain patient's VT or LV systolic dysfunction. Medical Rx with ASA, metoprolol. As noted atorvastatin on hold pending reassessment of LFTs as outpatient. Plan: Summary: Stable for DC on the following medications: Metoprolol succinate 25 mg daily Lisinopril 10 mg daily ASA 81 mg daily Eliquis 5 mg BID (new medication $30 out of pocket cost) Magnesium chloride 64 mg BID Finasteride 5 mg daily I called the outpatient cardiology office to request his follow up visits. I called his daughter, Annabella, (number in [employer] incorrect, to be edited), and updated her with regards to findings and plan. Questions answered to her satisfaction. Admission and Anticipated Discharge Date Admission Date: May 03, 2021 Subjective Mr Kiran is seen in cardiology follow up today. He feels well. Denies any symptoms. Telemetry now reveals rate controlled AF. Physical Exam Constitutional: WD/WN, vitals as above Respiratory: normal respiratory effort, lungs clear to auscultation Cardiovascular: RRR, no murmur, no edema Rate/Rhythm: + irregularly irregular Gastrointestinal (Abdomen): normal bowel sounds, soft, nontender, no hepatosplenomegaly Neurologic: PERRL, EOMI, accommodation nl, no face palsy, no dysarthria Results & Data ([facility]) Vital Signs (Past 12 Hours) Vital Signs Temp Pulse Pulse Resp BP Pulse Ox 05/07/21 07:37 36.6 C 72 18 153/82 H 97 05/07/21 06:45 68 05/07/21 03:50 36.6 C 54 L 15 170/82 H 96 Laboratory Results Cardiac Enzymes 05/07/21 Range/Units 05:34 AST 147 H (13-39) U/L Comprehensive Metabolic Panel 05/07/21 Range/Units 05:34 Sodium 135 L (136-145) mmol/L Potassium 3.9 (3.5-5.1) mmol/L Chloride 104 (98-107) mmol/L Carbon Dioxide 26 (21-32) mmol/L BUN 24 H (6-23) mg/dl Creatinine 0.71 (0.6-1.4) mg/dl Glucose 79 (70-99(Fasting)) mg/dl Calcium 8.3 L (8.5-10.1) mg/dl AST 147 H (13-39) U/L ALT 637 H (7-52) U/L Alkaline Phosphatase 41 (34-104) U/L Total Protein 5.7 L (6.0-8.3) gm/dl Albumin 3.0 L (3.4-5.0) gm/dl Intake and Output 05/06/21 05/07/21 05/07/21 22:59 06:59 14:59 Intake Total 240 / 1100 120 / 1100 Balance 240 / 1100 120 / 1100 Intake: IV Magnesium Sulfate / D5w 1 gm In 100 ml @ 50 mls/hr IV Q2H [facility] Rx#:[id number] Oral 240 / 900 120 / 900 Other: # Unmeasured Voids 1 2 Weight 71.9 kg Weight Measurement Method Built in [facility]
[2021-05-07 12:09] VITALS: TEMP 98.2; O2SAT 96
[2021-05-07 13:31] LABS: CMV IgM Antibody <30.00 AU/mL; EBV Virus Capsid Ag IgG Ab >750.00 U/mL; Hepatitis A Antibody IgM NON-REACTIVE (NON-REACTIVE); Hepatitis B Core Antibody IgM NON-REACTIVE (NON-REACTIVE)
--- NOTE | 2021-05-07 14:25 | Discharge Summary ---
Date of Service May 07, 2021 Admission HPI Per Admitting Provider This is an 80-year-old male who has significant past medical history of T2DM, HTN, HLD, history of CVA in 2016, history of recurrent prostate cancer currently under going radiation therapy, alcohol use who presents to ED via EMS secondary to V. tach in the field. Patient is a poor historian. He states for the past day he has been feeling dizzy and lightheaded and overall, "not well." His daughter found him this morning and felt that he was altered and pale. When EMS arrived the patient he was pale and diaphoretic. His heart rate was in the 240s consistent with V. tach. He underwent synchronized cardioversion at 100 J and returned to normal sinus rhythm. In route EMS was instructed to give 150 mg of amiodarone. Upon arrival to ED patient was awake alert talking normally. Currently he has no acute complaints but does complain of, "heartburn. "He describes as a burning in his central chest. He denies any yfn chest pain, shortness of breath, palpitations, dizziness, lightheadedness, headache, change in vision or hearing, cough, URI symptoms, recent illness, nausea, vomiting, abdominal pain. He has recently had increased urinary frequency secondary to undergoing cancer treatment for prostate cancer. He denies any hematuria, melena or hematochezia. Of significance he is on aspirin and Plavix secondary to history of stroke. He does complain of frequent loose stools approximately 8-10 a day. He attributes it to his Metformin. In ED patient has remained hemodynamically stable with no further evidence of recurrent dysrhythmia. He does have significant lab abnormalities including H&H 13.1 and 41.2, BUN 41, creatinine 1.9, anion gap 20, CO2 17, glucose 397, AST 990, ALT 420, initial troponin I 0.38, magnesium 1.6 His EKG was consistent with lateral ischemia. Cardiology was consulted and echocardiogram was ordered stat. He was started on IV amiodarone drip and IV heparin drip. Admission Exam Per Admitting Provider Constitutional: WD/WN, Pale, Elderly M, appears critically ill, vitals as above, NAD, sitting up in bed, pleasant, conversing easily Head: Normocephalic, Atraumatic Eyes: PERRL, conjunctivae normal, anicteric sclerae ENMT: external ear and nose normal, oropharynx normal Neck: trachea midline, no thyromegaly normal visual inspection Respiratory: normal respiratory effort, lungs clear to auscultation, no wheeze, rales, rhonchi. Normal insp/exp effort, no accessory muscle use Cardiovascular: RRR, no murmur, no edema Vessels: no JVD or carotid bruit Chest: normal inspection of chest Abdomen: normal bowel sounds, soft, nontender, no hepatosplenomegaly Musculoskeletal: no cyanosis or clubbing, extremities motor strength 5/5 Skin: no rashes, warm and dry normal turgor Neurologic: PERRL, EOMI, accommodation nl, no face palsy, no dysarthria CN's II-XI intact bilaterally and moves all extremities Psychiatric: A+Ox3, euthymic affect Lymphatic: no cervical or axillary lymphadenopathy : deferred Principal Diagnosis Sustained ventricular tachycardia Atrial fibrillation Dysrhythmias Acute kidney injury Elevated liver enzymes Hypomagnesemia Discharge Exam Constitutional + well hydrated; no acute distress Eyes PERRL, conjunctivae normal, anicteric sclerae ENMT external ear and nose normal, oropharynx normal Respiratory normal respiratory effort, lungs clear to auscultation Cardiovascular Rate/Rhythm: + irregularly irregular S1 S2 Gastrointestinal (Abdomen) normal bowel sounds, soft, nontender, no hepatosplenomegaly Musculoskeletal no cyanosis or clubbing, extremities motor strength 5/5 Neurologic PERRL, EOMI, accommodation nl, no face palsy, no dysarthria Psychiatric A+Ox3, euthymic affect Discharge Data Allergies Allergy/AdvReac Type Severity Reaction Status Date / Time No Known Allergies Allergy Verified 04/26/21 15:15 Consultations 05/03/21 12:16 ED Decision to Admit Stat 05/03/21 13:17 Consult Cardiology Routine 05/04/21 08:31 Consult Gastroenterology Routine Procedures Performed Operation Date: 05/03/21 15:00 Actual Procedures s Cineradiography w/Routine Exam - Aashish nAderson MD p Cath, Coronaries ONLY (no LV) - Aashish Anderson MD Ordered Studies 05/03/21 13:17 US abdomen limited Routine 05/03/21 14:52 CL Cath Imgs for PACS use only Stat Hospital Course (1) V-tach: (2) ROCKY (acute kidney injury): (3) Transaminitis: (4) Diabetes: (5) Hypertension: (6) Dyslipidemia: (7) Prostate CA: (8) Hypomagnesemia: (9) Elevated troponin: 80-year-old male who has significant past medical history of T2DM, HTN, HLD, history of CVA in 2016, history of recurrent prostate cancer currently under going radiation therapy, alcohol use who presents to ED via EMS secondary to V. tach in the field. Ventricular tachycardia, sustained EKG showed sustained ventricular tachycardia S/P successful synchronized cardioversion, 100 J Was monitored on telemetry inpatient Had dysrhythmias including Atrial fibrillation Started on eliquis. Plavix was discontinued Continue metoprolol succinate Continue aspirin Elevated troponin Troponin on admission 1.38, then peaked to 6.11 S/P cardiac cath with non-obstructive major epicardial coronary artery disease with 60% proximal small LAD, 40% mid circumflex, 40% diffuse mid and 30% distal RCA. Moderate to severe branch vessel disease with 80% small high OM1, 40% proximal large D1 and 50% proximal medium OM 2 Findings did not explain dysrhythmia Was evaluated by Cardiology and EP Planned for outpatient EP study. Will follow up with Dr Loera on 05/18 [facility], patient arrival time 4:15 pm Will follow up with Dr Pitt 06/17/21 [place], arrival 9:45 am Transaminitis Due to shock liver AST 990-->2459-->147 ALT 420-->>1580-->>637 Total bili 1.2-->>1.6 Was evaluated by GI U/S showed abdomen showed hepatic steatosis. Gallbladder wall thickening with stones. Negative Herring's sign would reduce the suspicion for acute cholecys titis Avoid hepatotoxic agents Stop atorvastatin and fenofibrate for now until LFT normalize ROCKY Creatinine was 1.98 on admission, Baseline creatinine 1 Cr is down to 0.71. ROCKY resolved Avoid nephrotoxic agents DM2 A1c 8.1 on 04/23 Patient reports diarrhea associated with metformin. Changed to ER metformin Continue glimepiride PCP to follow up Hypomagnesemia Mag 1.6 on admission Required multiple repletion Started on po magnesium on discharge Prostate cancer Currently undergoing XRT tx Underwent radiation while inpatient Total Time Total Time Spent Total Time Spent (In Minutes): 50 Total Time Includes: Examination of the Patient, Discharge Planning, Medication Reconciliation, Communication With Other Providers and Other (called daughter and updated her) Discharge Plan Discharge Items Patient Disposition: Home - Self-Care Reason For Visit: Feeling unwell and dizzy Discharge Diagnosis: Sustained ventricular tachycardia Dysrhythmias Acute kidney injury Elevated liver enzymes Hypomagnesemia Activity: Resume your previous activity Non-emergency contact: Primary Care Provider and Laundry Marker Supervisor Call non-emergency contact if: you have any medication questions and your symptoms worsen Follow-up/Referrals: Mayito Pitt DO [Laundry Marker Supervisor] - 06/17/21 9:45 am (Appt. is at [facility] in [facility]) Lizabeth Ying DO [Primary Care Provider] - Dora Loera DO [Physician] - 05/18/21 4:15 pm Diet: Carb Consistent or DM2 and Heart Healthy Addtl Attending Provider Instructions: Mr Kiran. You came to the hospital due to feeling unwell and dizzy. You were evaluated and found to have abnormal heart rhythms. You also had elevated liver enzymes, acute kidney injury, low magnesium levels. Certain medication adjustments were made as follows: -Stop taking atorvastatin and fenofibrate for now due to elevated liver enzymes until your doctor reevaluate outpatient. -Stop taking clopidogrel for now as you are started on eliquis -Start taking eliquis/apixaban which is a blood thinner. -Start taking magnesium tabs -Your metformin immediate release was changed to metformin extended release which is less likely to cause diarrhea. It is very important that you follow up with Laundry Marker Supervisor for the outpatient Electrophysiology study planned. Please ensure follow up with your Primary Doctor. It was a pleasure taking care of you. Pending Studies at Discharge: No Stand-Alone Forms: My [facility]QuejaSuma, Smoking Cessation Medications and DC Order Prescriptions: New Eliquis 5 mg tablet 5 mg PO BID Qty: 60 RF: 0 Mag 64 64 mg Tablet,Delayed Release (Dr/Ec) 64 mg PO BID Qty: 60 RF: 0 metformin 500 mg tablet,ER sam.retention 24 hr 1,000 mg PO DAILY Qty: 60 RF: 0 Continued glimepiride 1 mg tablet 1 mg PO QAM RF: 0 arginine (L-arginine) 500 mg tablet 850 mg PO DAILY RF: 0 melatonin 10 mg capsule 10 mg PO HS PRN (Reason: Sleep) RF: 0 metoprolol succinate 25 mg tablet extended release 24 hr 25 mg PO QAM RF: 0 acetaminophen [Tylenol Extra Strength] 500 mg tablet 500 mg PO Q6H PRN (Reason: Pain) RF: 0 mecobalamin (vitamin B12) 1,000 mcg tablet,disintegrating 1,000 mcg sublingual DAILY RF: 0 cinnamon bark [Cinnamon] 500 mg capsule 500 mg PO QAM RF: 0 Eligard 7.5 mg (1 month) syringe 7.5 mg subcut ONCE Qty: 1 RF: 0 Eligard (3 month) 22.5 mg syringe 22.5 mg subcut ONCE Qty: 1 RF: 0 aspirin 81 mg Tablet,Chewable 81 mg PO QAM RF: 0 finasteride 5 mg tablet 5 mg PO QAM RF: 0 lisinopril 10 mg tablet 10 mg PO DAILY RF: 0 Discontinued atorvastatin 20 mg tablet 20 mg PO QAM RF: 0 metformin 500 mg tablet 1,000 mg PO BID RF: 0 clopidogrel 75 mg tablet 75 mg PO QAM RF: 0 fenofibrate micronized 134 mg capsule 134 mg PO QAM RF: 0 Discharge Orders: Discharge Order (Routine); Ordered 05/07/21 Ordered By: Ai Ward/Other Patient Handouts: Managing Type 2 Diabetes, 5 Steps for Eating Healthier, Hypomagnesemia Dc, Special Foot Care for Diabetes Admission Data Admit Date/Time: 05/03/21 15:01 Attending Provider: Ai Figueroa I. Admit Provider: Alvin Morgan Primary Care Provider: Lizabeth Ying Other Providers: Mayito Pitt ; Alvin Morgan ; Sharmaine Ruiz ; Angella Pillai Other Interventions: Discharge Summary Assessment (RN) Last Done: 05/07/21 16:32
[2021-05-07 15:02] VITALS: BP 118/82
--- NOTE | 2021-05-07 15:36 | Electrocardiogram Report ---
Test Reason : Blood Pressure : / mmHG Vent. Rate : 058 BPM Atrial Rate : 326 BPM P-R Int : 000 ms QRS Dur : 092 ms QT Int : 462 ms P-R-T Axes : 000 005 204 degrees QTc Int : 453 ms Atrial fibrillation with slow ventricular response with premature ventricular or aberrantly conducted complexes Marked ST abnormality, possible anterolateral subendocardial injury Abnormal ECG When compared with ECG of 06-MAY-2021 10:19, No significant change was found Confirmed by Samir Husain ([id number]) on 05/07/2021 3:36:17 PM Referred By: REFERRED SELF Confirmed By:Samir Husain
[2021-05-07 16:34] VITALS: PULSE 76
[2021-05-08] MEDS ORDERED: lisinopril 10 MG TAB PO SCH (09:00)
[2021-05-08] MEDS ORDERED: METOPROLOL SUCC 25MG EXT REL TAB PO SCH (09:00)
== END 2021-05-07 16:31 | disposition home or self-care (01) | DRG 286 ==
LOC: ED 11:02 → CC 15:00 → SUATTDRO 15:01 → 2S 15:01
PROC: CLB.CCO (2021-05-03 15:00)
DX: I44.0 Atrioventricular block, first degree; I25.110 Atherosclerotic heart disease of native coronary artery with unstable angina pectoris; I42.8 Other cardiomyopathies; R79.89 Other specified abnormal findings of blood chemistry; I10 Essential (primary) hypertension; E83.42 Hypomagnesemia; R74.01 Elevation of levels of liver transaminase levels; Z83.3 Family history of diabetes mellitus; C61 Malignant neoplasm of prostate; Z79.82 Long term (current) use of aspirin; I47.2 Ventricular tachycardia; Z72.89 Other problems related to lifestyle; F17.210 Nicotine dependence, cigarettes, uncomplicated; Z79.02 Long term (current) use of antithrombotics/antiplatelets; Z86.73 Personal history of transient ischemic attack (TIA), and cerebral infarction without residual deficits; E11.65 Type 2 diabetes mellitus with hyperglycemia; Z92.3 Personal history of irradiation; E78.5 Hyperlipidemia, unspecified; N17.9 Acute kidney failure, unspecified; R74.8 Abnormal levels of other serum enzymes; E87.2 Acidosis; Z79.84 Long term (current) use of oral hypoglycemic drugs; K72.00 Acute and subacute hepatic failure without coma

== ENCOUNTER 2025-03-06 21:15 | Inpatient (IN) ==
[2025-03-06] MEDS ORDERED: 0.2 MICRON FILTER SET 1 EACH IV STA (22:23)
[2025-03-06] MEDS: AMIODARONE / D5W 150 MG/100 ML BAG IV STA (22:52)
[2025-03-06] MEDS: AMIODARONE IV BOLUS & DRIP IV STA (22:58)
[2025-03-06] MEDS: STAT IV Infusion **Titration per Protocol STA (22:58)
--- NOTE | 2025-03-06 23:04 | Emergency Department Note ---
Impression & Plan NSVT (nonsustained ventricular tachycardia), Acute on chronic urinary retention ED Provider Note NAME: KESHIA ARRIAGA AGE: 84 SEX: M : 1940 ARRIVES VIA: Ambulance INFORMANT: Patient, ED PROVIDER(S): Charis Bocanegra MD CHIEF COMPLAINT: Blocked Michelle catheter HPI: This is a 84-year-old male presenting for blocked Michelle catheter. Patient notes that he was here previously and had Michelle catheter placement. Today he notes dribbling around the catheter as well as burning. He has abdominal pain with this. He reports no chest pain, shortness of breath, fainting. ROS: See above HPI for pertinent positives & negatives. A total of 10 systems reviewed and were otherwise negative. PAST MEDICAL HISTORY: See Below PAST SURGICAL HISTORY: See Below FAMILY HISTORY: See Below SOCIAL HISTORY: See Below HOME MEDICATIONS: See Below ALLERGIES: See Below VITALS: See Below PHYSICAL EXAMINATION: General: resting comfortably in no acute distress Head: Normocephalic and atraumatic Eyes: Normal inspection, extraocular muscles intact Ear, nose, throat: Normal external exam Neck: Normal range of motion Respiratory: lungs clear to auscultation bilaterally Cardiovascular: Regular rate/rhythm, no murmur GI: soft, nontender, no guarding or rebound Extremities: nontender, moves all extremities Neuro: The patient awake and alert, appropriately conversive, no focal deficits, symmetric faces Skin: Warm, dry, and intact MEDICAL DECISION MAKING: This is an 84-year-old male sent for blocked Michelle catheter. Will attempt to irrigate catheter. This was replaced recently within a week. He has not shown signs of overt sepsis clinically. Will send urine sample. -There are multiple events where patient has NSVT with episodes lasting under 10 seconds that self resolved. Patient recently had medication changes including stopping metoprolol. -Patient started on amiodarone bolus and drip due to these episodes of NSVT. He is asymptomatic during this without hypotension or syncope. -Bloodwork is reviewed showing no significant leukocytosis, anemia, electrolyte or creatinine abnormality. Negative troponin -Due to patient's episodes of frequent PVCs/NSVT, will admit to the hospitalist service for cardiac evaluation. Differential diagnosis: NSVT, V. tach, UTI, hematuria Diagnostics interpreted by me: ECG: ECG independently interpreted by me with junctional rhythm at a rate of 64, normal QRS, normal QTc, no ST segment elevations consistent with STEMI criteria Cardiac Monitoring: An order was placed for continuous cardiac monitoring. The monitor shows a rate of 45 with junctional rhythm. Critical Care Note: I have personally spent 35 minutes of critical care time in the direct management of this patient. This includes bedside care, interpretation of diagnostic studies, and testing, discussion with consultants, patient, and family members, and other required patient management activities. This 35 minutes is in excess of all separately billable procedures. Past Med/Surg History Problem List (Updated 03/07/25 @ 06:44 by Charis Bocanegra MD) Acute on chronic urinary retention (Acute) NSVT (nonsustained ventricular tachycardia) (Acute) Nonsustained ventricular tachycardia Bradycardia Incomplete bladder emptying Bladder stones Michelle catheter in place (Acute) Frequency of urination CAD (coronary artery disease) Atrial fibrillation with normal ventricular rate Elevated troponin 04/2021; cath showed no high grade CAD Prolonged Q-T interval on ECG (Acute) Hypomagnesemia (Acute) 04/2021 Non-ST elevation CT (NSTEMI) (Acute) pt had elevated troponin and mild EKG changes during 04/2021 [facility] admission; cath showed no high grade CAD (pt dx with LVOT VT) Ventricular tachycardia, sustained (Acute) [facility] admission 04/2021; now following with [facility] cardio Transaminitis NSTEMI (non-ST elevated myocardial infarction) H/O cystoscopy In 2005 with cryoablation of prostate for prostate cancer Hypertension Dyslipidemia Incontinence (Acute) Prostate CA (Chronic) Diagnosed in 2005 Diabetes Medical History Prolonged QT interval Carotid artery disease PVD (peripheral vascular disease) Chronic heart failure NICM (nonischemic cardiomyopathy) Afib 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) NSTEMI (non-ST elevated myocardial infarction) Bladder stones Hx of migraines Michelle catheter in place History of hypertension History of atrial fibrillation Hx of hyperlipidemia Hx of coronary artery disease Diabetes mellitus, type 2 History of prostate cancer Osteoarthritis CVA (cerebral vascular accident) Surgical History Hx of cystoscopy Hx of cardiac cath History of prostate surgery S/P rotator cuff surgery (2001) S/P colonoscopy S/P hernia repair Family History Father Prostate cancer Brother Cancer Stroke Grandfather Leukemia Grandmother Diabetes Mother Diabetes Hypertension Heart disease Daughter Thyroid disorder Brother Cancer Brother No problems noted. Daughter No problems noted. Son No problems noted. Social History Smoking Status: Current every day smoker Tobacco Type: Cigarettes and E-cigarettes / Vaping Cigarettes Per Day: daily vape "a lot", occ cigs; Second Hand Exposure: No; Do You Dip or Chew Tobacco: No; Hx Alcohol Use: No Hx Substance Use: No Preferred Language: Czech Communication Ability: Effective Visual Impairment: No Limitations Hearing Ability: Normal Pot Firer Required: No Beliefs That Will Affect Care: None marital status: Current Living Situation: Family Current Living Situation Comment: Pt's lives with his daughter current occupational status: retired current occupation: Worked at [employer] Other Information That Helps Us Care for You: No Feels Safe at Home: Yes Safety Concerns: Feels Safe At This Time Diet: regular caffeine: Yes (1/2 pot/day) during the past year weight has: remained stable Assistive Devices: Cane, Glasses and Walker Allergies Allergies Allergy/AdvReac Type Severity Reaction Status Date / Time No Known Allergies Allergy Verified 03/07/25 00:31 Home Meds Home Medications Medication Instructions Recorded Confirmed acetaminophen 500 mg tablet 500 mg PO Q4H PRN Pain 01/07/21 03/07/25 (Tylenol Extra Strength) finasteride 5 mg tablet 5 mg PO QAM 05/03/21 03/07/25 atorvastatin 20 mg tablet 20 mg PO QAM 09/17/21 03/07/25 amiodarone 200 mg tablet 200 mg PO QAM 07/24/24 03/07/25 L-Arginine Tabs 850 mg PO DAILY 02/20/25 03/07/25 amino acids 1 tab PO DAILY 02/20/25 03/07/25 aspirin 81 mg tablet,delayed 81 mg PO DAILY 02/20/25 03/07/25 release cyanocobalamin (vitamin B-12) 500 500 mcg PO DAILY 02/20/25 03/07/25 mcg tablet (Vitamin B-12) empagliflozin 25 mg tablet 25 mg PO QAM 02/20/25 03/07/25 (Jardiance) fluticasone propionate 50 2 spray intranasal DAILY 02/20/25 03/07/25 mcg/actuation nasal spray,suspension lisinopril 20 mg tablet 20 mg PO DAILY 02/20/25 03/07/25 metformin 500 mg tablet,extended 1,500 mg PO DAILY 02/20/25 03/07/25 release 24 hr Previous Rx's Medication Instructions Recorded apixaban 5 mg tablet (Eliquis) 5 mg PO BID #60 tabs 05/07/21 magnesium chloride 64 mg 64 mg PO BID #60 tabs 05/07/21 (magnesium chloride) tablet,delayed release (Mag 64) solifenacin 10 mg tablet 10 mg PO DAILY #90 tabs 08/28/24 vibegron 75 mg tablet (Gemtesa) 75 mg PO DAILY #30 tabs 03/05/25 Results & Data (ED) Vital Signs Vital Signs - 24 hr 03/06/25 21:21 03/06/25 21:47 03/06/25 21:48 Temperature 36.5 C Temperature Source Temporal Artery Scan Pulse Rate 73 101 H 74 Pulse Rate [Apical] Pulse Rate from SpO2 Sensor Respiratory Rate 18 Respiratory Effort / Characteristics Non-Labored Spontaneous Respiratory Depth Normal Respiratory Pattern Regular Blood Pressure 167/79 H Blood Pressure [Right Arm] Blood Pressure Mean 108 Blood Pressure Mean [Right Arm] Pulse Oximetry 96 Oxygen Delivery Method Room Air Sepsis Recent Fever Within 48 Hours No Sepsis New/Unexplained Change in Mental Status No Sepsis Action Taken by Nursing No Action Required 03/06/25 21:53 03/06/25 22:00 03/06/25 22:30 Temperature Temperature Source Pulse Rate 65 57 L Pulse Rate [Apical] Pulse Rate from SpO2 Sensor 65 59 L Respiratory Rate 14 19 Respiratory Effort / Characteristics Respiratory Depth Respiratory Pattern Blood Pressure 142/72 H 134/71 158/82 H Blood Pressure [Right Arm] Blood Pressure Mean 88 92 107 Blood Pressure Mean [Right Arm] Pulse Oximetry 97 98 Oxygen Delivery Method Room Air Room Air Sepsis Recent Fever Within 48 Hours Sepsis New/Unexplained Change in Mental Status Sepsis Action Taken by Nursing 03/06/25 23:00 03/06/25 23:00 03/06/25 23:30 Temperature Temperature Source Pulse Rate 56 L 50 L Pulse Rate [Apical] 49 L Pulse Rate from SpO2 Sensor 63 54 L Respiratory Rate 16 20 18 Respiratory Effort / Characteristics Non-Labored Spontaneous Respiratory Depth Normal Respiratory Pattern Regular Blood Pressure 159/89 H 153/72 H Blood Pressure [Right Arm] 159/89 H Blood Pressure Mean 112 99 Blood Pressure Mean [Right Arm] 112 Pulse Oximetry 98 99 98 Oxygen Delivery Method Room Air Room Air Sepsis Recent Fever Within 48 Hours Sepsis New/Unexplained Change in Mental Status Sepsis Action Taken by Nursing 03/07/25 00:00 03/07/25 00:30 03/07/25 01:06 Temperature Temperature Source Pulse Rate 50 L 63 47 L Pulse Rate [Apical] Pulse Rate from SpO2 Sensor Respiratory Rate 20 18 21 Respiratory Effort / Characteristics Respiratory Depth Respiratory Pattern Blood Pressure 155/75 H 169/81 H Blood Pressure [Right Arm] Blood Pressure Mean 101 110 Blood Pressure Mean [Right Arm] Pulse Oximetry 98 97 98 Oxygen Delivery Method Room Air Room Air Room Air Sepsis Recent Fever Within 48 Hours Sepsis New/Unexplained Change in Mental Status Sepsis Action Taken by Nursing 03/07/25 01:12 Temperature Temperature Source Pulse Rate 39 L Pulse Rate [Apical] Pulse Rate from SpO2 Sensor Respiratory Rate 19 Respiratory Effort / Characteristics Respiratory Depth Respiratory Pattern Blood Pressure 159/70 H Blood Pressure [Right Arm] Blood Pressure Mean 99 Blood Pressure Mean [Right Arm] Pulse Oximetry 95 Oxygen Delivery Method Room Air Sepsis Recent Fever Within 48 Hours Sepsis New/Unexplained Change in Mental Status Sepsis Action Taken by Nursing Laboratory Data 03/06/25 22:45 03/06/25 22:45 Lab Results 03/06/25 03/06/25 Range/Units 22:35 22:45 WBC 8.75 (4.8-10.8) K/ul RBC 4.16 L (4.70-6.10) M/uL Hgb 13.2 L (14.0-18.0) g/dL Hct 39.3 L (42.0-52.0) % MCV 94.5 (80.0-100.0) fL MCH 31.7 (25.0-34.0) pg MCHC 33.6 (32.0-36.0) g/dL RDW Std Deviation 49.2 H (36.4-46.3) fL RDW Coeff of Dylan 14.1 (11.5-14.5) % Plt Count 173 (130-400) K/uL MPV 10.9 (9.4-12.4) fL Immature Gran % (Auto) 0.5 % Neut % (Auto) 79.0 % Lymph % (Auto) 12.7 % Sargent % (Auto) 7.0 % Eos % (Auto) 0.1 % Baso % (Auto) 0.7 % Neut # (Auto) 6.92 H (1.40-6.50) K/uL Lymph # (Auto) 1.11 L (1.20-3.40) K/uL Sargent # (Auto) 0.61 H (0.11-0.59) K/uL Eos # (Auto) 0.01 (0.00-0.50) K/uL Baso # (Auto) 0.06 (0.00-0.20) K/uL Immature Gran # (Auto) 0.04 (0.01-0.20) K/uL Sodium 141 (136-145) mmol/L Potassium 4.3 (3.5-5.1) mmol/L Chloride 107 (98-107) mmol/L Carbon Dioxide 27 (21-32) mmol/L Anion Gap 7 (3-11) BUN 19 (6-23) mg/dl Creatinine 0.90 (0.6-1.4) mg/dl Est Cr Clr Drug Dosing 48.6 ml/min eGFR 84.22 BUN/Creatinine Ratio 21.1 H (10-20) Glucose 182 H (70-99(Fasting)) mg/dl Calcium 8.5 L (8.6-10.3) mg/dl Magnesium 1.5 L (1.7-2.4) mg/dl Total Bilirubin 0.5 (0.2-1.0) mg/dl AST 12 L (13-39) U/L ALT 10 (7-52) U/L Alkaline Phosphatase 98 (34-104) U/L Troponin I High Sens 11.3 (0-20) pg/ml Total Protein 6.4 (6.0-8.3) gm/dl Albumin 3.4 (3.4-5.0) gm/dl Globulin 3.0 (2.5-4.0) gm/dl Albumin/Globulin Ratio 1.1 (0.9-2) Lipase 14 (11-82) U/L TSH 1.997 (0.300-4.500) uIu/ml Urine Color Yellow Urine Appearance Clear (Clear) Urine pH 5.0 (4.5-7.5) Ur Specific [place] 1.032 H (1.000-1.030) Urine Protein 1+ H (Negative) Urine Glucose (UA) 3+ H (Negative) Urine Ketones Negative (Negative) Urine Blood 2+ H (Negative) Urine Nitrite Negative (Negative) Urine Bilirubin Negative (Negative) Urine Urobilinogen Negative (Negative) Ur Leukocyte Esterase Trace H (Negative) Urine WBC (Auto) 21-50 H (0-5) /hpf Urine RBC (Auto) >20 H (0-2) /hpf U Hyaline Cast (Auto) 0-2 (0-2) /lpf U Epithel Cells (Auto) 0-2 (0-2) /hpf Urine Bacteria (Auto) None Seen (None Seen) Urine Yeast Present A (None Prsent) Urine Comment Administered Medications Amiodarone HCl/Dextrose (Nexterone / D5w) 360 mg in 200 mls @ 16.667 mls/hr IV .Q12H [facility] Stop: 04/06/25 04:29 Last Admin: 03/07/25 03:32 Dose: Not Given Documented By: DM Discontinued Medications Amiodarone HCl (Amiodarone Iv Bolus & Drip) 1 each IV NOW STA; Protocol Stop: 03/06/25 22:24 Last Admin: 03/06/25 22:58 Dose: Not Given Documented By: DEMI Amiodarone HCl/Dextrose (Nexterone / D5w) 150 mg in 100 mls @ 600 mls/hr IV NOW STA Stop: 03/06/25 22:32 Last Infusion: 03/06/25 23:05 Dose: Infused Documented By: JAISON Co-signed By: CAROLA Admin: 03/06/25 22:52 Dose: 600 mls/hr Documented By: DEMI Co-signed By: SCOT Amiodarone HCl/Dextrose (Nexterone / D5w) 360 mg in 200 mls @ 33.333 mls/hr IV ONE ONE Stop: 03/07/25 04:32 Last Infusion: 03/07/25 01:20 Dose: Infused Documented By: JOYCE Co-signed By: JAISON Admin: 03/06/25 23:05 Dose: 1 mg/min, 33.3 mls/hr Documented By: DEMI Co-signed By: KLS Magnesium Sulfate/Dextrose (Magnesium Sulfate / D5w) 1 gm in 100 mls @ 50 mls/hr IV Q2H [id number] Stop: 03/07/25 04:59 Last Infusion: 03/07/25 05:19 Dose: Infused Documented By: Admin: 03/07/25 03:19 Dose: 50 mls/hr Documented By: Infusion: 03/07/25 03:19 Dose: Infused Documented By: Admin: 03/07/25 01:25 Dose: 50 mls/hr Documented By: JOYCE Calcium Gluconate () 1,000 mg in 60 mls @ 240 mls/hr IV NOW STA Stop: 03/07/25 01:10 Last Infusion: 03/07/25 01:40 Dose: Infused Documented By: Admin: 03/07/25 01:25 Dose: 240 mls/hr Documented By: JOYCE Miscellaneous (Stat Iv Infusion Titration Per Protocol) 1 each N/A NOW STA Stop: 03/06/25 22:24 Last Admin: 03/06/25 22:58 Dose: Not Given Documented By: DEMI Discharge Plan Visit Data Chief Complaint: Catheter Replacement Stated Complaint: BLOCKED CATH TUBE ED Provider: Charis Bocanegra Discharge Problem: NSVT (nonsustained ventricular tachycardia), Acute on chronic urinary retention Patient Disposition: Admitted As Inpatient Condition: Fair Discharge Instructions Interventions: ED Discharge Assessment Last Done: 03/07/25 01:57
[2025-03-06] MEDS: AMIODARONE / D5W 360 MG/200 ML BAG IV ONE (23:05)
[2025-03-06 23:08] LABS: Hematocrit (blood only) 39.3 % (42.0-52.0); Hemoglobin 13.2 g/dL (14.0-18.0); Immature Granulocytes # (auto) 0.04 K/uL (0.01-0.20); Immature Granulocytes % (auto) 0.5 %; Mean Corpuscular Hemoglobin 31.7 pg (25.0-34.0); Mean Corpuscular Volume 94.5 fL (80.0-100.0); Platelet Count 173 K/uL (130-400); RDW Standard Deviation 49.2 fL (36.4-46.3); Red Blood Count 4.16 M/uL (4.70-6.10); White Blood Count 8.75 K/ul (4.8-10.8)
[2025-03-06 23:28] LABS: Appearance Urine Clear (Clear); Bacteria Urine Automated None Seen (None Seen); Cast Urine Automated 0-2 /lpf (0-2); Epithelial Cell Urine Auto 0-2 /hpf (0-2); Glucose Urine UA 3+ (Negative); RBC Urine Automated >20 /hpf (0-2); WBC Urine Automated 21-50 /hpf (0-5)
[2025-03-06 23:38] LABS: Alanine Aminotransferase 10.0 U/L (7-52); Albumin Globulin Ratio 1.1 (0.9-2); Albumin Level 3.4 gm/dl (3.4-5.0); Alkaline Phosphatase 98.0 U/L (34-104); Anion Gap 7.0 (3-11); Bilirubin,Total 0.5 mg/dl (0.2-1.0); Blood Urea Nitrogen 19.0 mg/dl (6-23); Calcium 8.5 mg/dl (8.6-10.3); Carbon Dioxide 27.0 mmol/L (21-32); Chloride 107.0 mmol/L (98-107); Creatinine Clr Calc Pharmacy 48.6 ml/min; Globulin 3.0 gm/dl (2.5-4.0); Glucose 182.0 mg/dl (70-99(Fasting)); Lipase 14.0 U/L (11-82); Sodium 141.0 mmol/L (136-145); Total Protein 6.4 gm/dl (6.0-8.3)
[2025-03-06 23:45] LABS: Potassium 4.3 mmol/L (3.5-5.1)
--- NOTE | 2025-03-07 00:46 | History & Physical Report ---
Date of Service March 07, 2025 Assessment & Plan (1) Nonsustained ventricular tachycardia: (2) Hypomagnesemia: (3) Michelle catheter in place: Plan addendum 0125 - amiodarone drip held due to HR 35 bmp. addendum 0210 - patient with approximately 30 seconds episode of bradycardia with rate as low as 27 while sleeping. Upon arousal recovered to mid 40s-50s and patient remained asymptomatic. Will make NPO and hold Eliquis + asa for possible pacemaker placement. Last dose of Eliquis PM 03/06. Patient is an 84-year-old male with a past medical history of A-fib, CAD, PVD, type II DM, prostate cancer, LUTS with chronic Michelle. Patient presented to the ED for catheter replacement as his was not draining properly. While in the ED patient was found to have several episodes of nonsustained V. tach lasting 10 to 20 seconds, rhythm strip reviewed and questionable V. tach versus aberrancy. Patient remained completely asymptomatic. He was started on an amiodarone bolus and drip. #nonsustained V. tach/hypomagnesemia several episodes of nonsustained V. tach reported in the ED, rhythm strip reviewed and questionable aberrancy. K+ 4.3, Ca 8.5, mag 1.5 1G IV calcium gluconate and 2G IV magnesium ordered TSH ordered; WNL Started on amiodarone bolus and drip in ED, continue Hold a.m. p.o. amiodarone Echocardiogram ordered Cardiology consulted Monitor on telemetry #Prostate CA/LUTS/chronic indwelling FoleyFoley catheter changed in ED. UA with 1+ protein, trace LE, 21-50 WBC, >20 RBC no bacteria noted. - Daily catheter care Continue solifenacin and vibegron - continue to follow with urology in outpatient setting #A-fibcontinue Eliquis, amiodarone drip as above - note that the patient was in Mobitz type I second-degree AV heart block on 02/28 and discontinued off metoprolol succinate 12.5 mg daily #HTNcontinue lisinopril #Type II DMcontinue Jardiance and metformin, no acute need for SSI #HLDcontinue statin and baby aspirin VTE ppx: continue home Eliquis Dispo: PCU Admission and Anticipated Discharge Date Admission Date: 03/07/25 History of Present Illness Chief Complaint: catheter replacement Primary Care Provider: Lizabeth Ying DO Patient is an 84-year-old male with a past medical history of A-fib, CAD, PVD, type II DM, prostate cancer, LUTS with chronic Michelle. Patient presented to the ED for catheter replacement as his was not draining properly. While in the ED patient was found to have several episodes of nonsustained V. tach lasting 10 to 20 seconds, rhythm strip reviewed and questionable V. tach versus aberrancy. Patient remained completely asymptomatic. He was started on an amiodarone bolus and drip. Patient seen at bedside. He stated he is feeling well and denies any chest pain, shortness of breath, dizziness/lightheadedness. His only complaint this evening was that his catheter was not draining properly which was replaced in the ED. Note that patient patient was seen in the ED on 02/28 for catheter replacement and was found to be in Mobitz type I second-degree AV heart block, he was evaluated by cardiology and discontinued off metoprolol succinate 12 5 mg daily. He was to continue with amiodarone 200 mg daily which he endorses doing. He stated he is not due for any evening medications. He wishes to be DNR/DNI. Note the [facility] coming to [facility] due to insurance changes. Limited previous medical records. Allergies Allergy/AdvReac Type Severity Reaction Status Date / Time No Known Allergies Allergy Verified 03/07/25 00:31 Home Medications Medication Instructions Recorded Confirmed Type acetaminophen 500 mg tablet 500 mg PO Q4H PRN Pain 01/07/21 03/07/25 History (Tylenol Extra Strength) finasteride 5 mg tablet 5 mg PO QAM 05/03/21 03/07/25 History apixaban 5 mg tablet (Eliquis) 5 mg PO BID #60 tabs 05/07/21 03/07/25 Rx magnesium chloride 64 mg 64 mg PO BID #60 tabs 05/07/21 03/07/25 Rx (magnesium chloride) tablet,delayed release (Mag 64) atorvastatin 20 mg tablet 20 mg PO QAM 09/17/21 03/07/25 History amiodarone 200 mg tablet 200 mg PO QAM 07/24/24 03/07/25 History solifenacin 10 mg tablet 10 mg PO DAILY #90 tabs 08/28/24 03/07/25 Rx L-Arginine Tabs 850 mg PO DAILY 02/20/25 03/07/25 History amino acids 1 tab PO DAILY 02/20/25 03/07/25 History aspirin 81 mg tablet,delayed 81 mg PO DAILY 02/20/25 03/07/25 History release cyanocobalamin (vitamin B-12) 500 500 mcg PO DAILY 02/20/25 03/07/25 History mcg tablet (Vitamin B-12) empagliflozin 25 mg tablet 25 mg PO QAM 02/20/25 03/07/25 History (Jardiance) fluticasone propionate 50 2 spray intranasal DAILY 02/20/25 03/07/25 History mcg/actuation nasal spray,suspension lisinopril 20 mg tablet 20 mg PO DAILY 02/20/25 03/07/25 History metformin 500 mg tablet,extended 1,500 mg PO DAILY 02/20/25 03/07/25 History release 24 hr vibegron 75 mg tablet (Gemtesa) 75 mg PO DAILY #30 tabs 03/05/25 03/07/25 Rx Past Med/Surg History Problem List Acute on chronic urinary retention (Acute) NSVT (nonsustained ventricular tachycardia) (Acute) Nonsustained ventricular tachycardia Bradycardia Incomplete bladder emptying Bladder stones Michelle catheter in place (Acute) Frequency of urination CAD (coronary artery disease) Atrial fibrillation with normal ventricular rate Elevated troponin 04/2021; cath showed no high grade CAD Prolonged Q-T interval on ECG (Acute) Hypomagnesemia (Acute) 04/2021 Non-ST elevation NV (NSTEMI) (Acute) pt had elevated troponin and mild EKG changes during 04/2021 [facility] admission; cath showed no high grade CAD (pt dx with LVOT VT) Ventricular tachycardia, sustained (Acute) [facility] admission 04/2021; now following with [facility] Transaminitis NSTEMI (non-ST elevated myocardial infarction) H/O cystoscopy In 2005 with cryoablation of prostate for prostate cancer Hypertension Dyslipidemia Incontinence (Acute) Prostate CA (Chronic) Diagnosed in 2005 Diabetes Medical History Prolonged QT interval 07/09/24 EKG: Prolonged QT (QTc: 480ms) Carotid artery disease PVD (peripheral vascular disease) Chronic heart failure NICM (nonischemic cardiomyopathy) Afib 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, sustained > cardiac cath at [facility], no stents; f/u [facility] cardio NSTEMI (non-ST elevated myocardial infarction) pt had elevated troponin and mild EKG changes during 04/2021 [facility] admission; cath showed no high grade CAD (pt dx with LVOT VT) Bladder stones Hx of migraines only around age 12 [address] History of hypertension History of atrial fibrillation currently on eliquis; f/u cy[facility] s Hx of hyperlipidemia Hx of coronary artery disease Diabetes mellitus, type 2 dx 1964, NIDDM History of prostate cancer dx 1995; s/p prostatectomy; xrt in 2020 Osteoarthritis CVA (cerebral vascular accident) 2015, no residual effects Surgical History Hx of cystoscopy In 2005 with cryoablation of prostate for prostate cancer Hx of cardiac cath 2021, [facility], no stents; f/u [facility] History of prostate surgery S/P rotator cuff surgery (2001) Right S/P colonoscopy S/P hernia repair Right inguinal hernia repair 1962 Left inguinal hernia repair and Umbilical hernia repair 1997 Family History Father , 83yo Prostate cancer Brother Cancer Pt uncertain of type of cancer Stroke Grandfather Leukemia Grandmother Diabetes Mother , 88yo Diabetes Hypertension Heart disease Daughter Thyroid disorder Brother Cancer Pt uncertain of type of cancer Brother No problems noted. Daughter No problems noted. Son No problems noted. Social History Smoking Status: Current every day smoker Tobacco Type: Cigarettes and E-cigarettes / Vaping Cigarettes Per Day: daily vape "a lot", occ cigs; Second Hand Exposure: No; Do You Dip or Chew Tobacco: No; Hx Alcohol Use: No Hx Substance Use: No Preferred Language: Upper Sorbian Communication Ability: Effective Visual Impairment: No Limitations Hearing Ability: Normal Refrigeration Repair Supervisor Required: No Beliefs That Will Affect Care: None marital status: Current Living Situation: Family Current Living Situation Comment: Pt's lives with his daughter current occupational status: retired current occupation: Worked at [employer] Other Information That Helps Us Care for You: No Feels Safe at Home: Yes Safety Concerns: Feels Safe At This Time Diet: regular caffeine: Yes (1/2 pot/day) during the past year weight has: remained stable Assistive Devices: Cane, Glasses and Walker Review of Systems Review of Systems: see HPI Physical Exam Physical Exam: The patient is awake, alert and oriented 3, well developed and well nourished, normocephalic and atraumatic, in no acute distress. Non-toxic appearing. HEENT- EOMI, mucous membranes moist. Hearing grossly intact. Heart-normal S1 and S2. No murmurs, rubs or gallops. Lungs-clear bilaterally, no respiratory distress, no accessory muscle use. Abdomen-normal bowel sounds and soft. No ascites noted. Non-tender. Extremities- no clubbing, cyanosis, or edema. Rheumatologic-normal range of motion. Psychiatric-normal affect. Results & Data Results & Data Vital Signs (Past 12 Hours) Vital Signs Temp Pulse Pulse Resp BP BP Pulse Ox 03/06/25 23:00 49 L 16 159/89 H 98 03/06/25 21:48 74 03/06/25 21:47 101 H 03/06/25 21:21 36.5 C 73 18 167/79 H 96 O2 Del Method 03/06/25 23:00 03/06/25 21:48 03/06/25 21:47 03/06/25 21:21 Room Air Laboratory Results Reviewed CBC, CMP, troponin, UA Ordered TSH and magnesium Medications Administered EDamiodarone bolus and drip ECG Additional Comments: junctional rhythm, rate 64 QTc 482 Code Status & VTE Plan Code Status DNR/DNI VTE Prophylaxis Plan VTE Prophylaxis will be ordered: Yes Supervising Physician Co-Signing Physician Notes Patient seen and examined, chart reviewed, case discussed with NATY Good and I agree with the assessment and plan as above Patient with episodes of NSVT noted in the ER Started on Amiodarone gtt which resulted in bradycardic - junctional with rates in the 30-40's Electrolytes repleted Patient resting comfortably, NAD +S1/S2, irregular, bradycardic Lungs CTA Abd soft, NT/ND Labs and images reviewed Assessment/Plan -Hold ASA and Eliquis for possible pacer in AM -Electrolyte repletion -Cardiology consultation appreciated -Check 2D echo -Remainder as above PG Care Time/CCT Total # of Minutes Spent Total Time Spent with Patient: Total time spent is greater than 50% in coordination of care (as documented) at patient's floor/unit and/or counseling patient: Coding Level of Care Code 76389 INT INP/OBS CARE 3/75MIN Diagnoses Nonsustained ventricular tachycardia I47.29 Hypomagnesemia E83.[address] Z97.8
[2025-03-07 00:53] LABS: Magnesium 1.5 mg/dl (1.7-2.4)
[2025-03-07 01:11] LABS: Thyroid Stimulating Hormone 1.997 uIu/ml (0.300-4.500)
[2025-03-07] MEDS: MAGNESIUM SULFATE / D5W 1 GM/100 ML BAG IV SCH (01:25)
[2025-03-07] MEDS: CALCIUM GLUCONATE 1,000 MG/60 ML BAG IV STA (01:25)
[2025-03-07] MEDS ORDERED: DOCUSATE SODIUM 100 MG CAP PO PRN (02:32)
[2025-03-07] MEDS ORDERED: ONDANSETRON INJ 2 MG/ML 2 ML VIAL IV PRN (02:32)
[2025-03-07] MEDS: AMIODARONE / D5W 360 MG/200 ML BAG IV SCH (03:32)
[2025-03-07 07:30] LABS: Hematocrit (blood only) 38.7 % (42.0-52.0); Hemoglobin 12.9 g/dL (14.0-18.0); Mean Corpuscular Hemoglobin 31.0 pg (25.0-34.0); Mean Corpuscular Volume 93.0 fL (80.0-100.0); Platelet Count 160 K/uL (130-400); RDW Standard Deviation 48.7 fL (36.4-46.3); Red Blood Count 4.16 M/uL (4.70-6.10); White Blood Count 8.12 K/ul (4.8-10.8)
[2025-03-07 07:54] LABS: Anion Gap 8.0 (3-11); Blood Urea Nitrogen 15.0 mg/dl (6-23); Calcium 8.2 mg/dl (8.6-10.3); Carbon Dioxide 25.0 mmol/L (21-32); Chloride 107.0 mmol/L (98-107); Creatinine Clr Calc Pharmacy 68.0 ml/min; Glucose 136.0 mg/dl (70-99(Fasting)); Magnesium 1.9 mg/dl (1.7-2.4); Potassium 4.0 mmol/L (3.5-5.1); Sodium 140.0 mmol/L (136-145)
[2025-03-07] MEDS: FINASTERIDE 5 MG TAB PO SCH (08:06)
[2025-03-07] MEDS: EMPAGLIFLOZIN 25 MG TAB PO SCH (08:06)
[2025-03-07] MEDS: VIBEGRON 75 MG TAB PO SCH (08:06)
[2025-03-07] MEDS: MAGNESIUM CHLORIDE W/CALCIUM 64MG DELAYED REL TAB PO SCH (08:06)
[2025-03-07] MEDS: ATORVASTATIN 20 MG TAB PO SCH (08:07)
[2025-03-07] MEDS: FLUTICASONE PROPIONATE NA SPR 16 GM BTL SCH (08:07)
--- NOTE | 2025-03-07 09:07 | XCELERA ---
[id number] [id number]
[2025-03-07] MEDS: OXYBUTYNIN CHLORIDE XL 5 MG TABCR PO SCH (09:12)
--- NOTE | 2025-03-07 09:19 | Cardiology Consultation ---
Date of Consultation March 07, 2025 History of Present Illness Reason for Consultation: Non-sustained VT Requesting Physician: Rony hospitalist Attending Physician: Lynda Bashir MD History of Present Illness HPI: Patient is a 84 year old male with PMHx as outlined below that presented to the ER with acute concerns of urinary catheter issues not draining properly. While in the ED it was reported that the patient had several episodes of nonsustained VD lasting 10-20 seconds Patient was seen in our cardiology office yesterday by Kevin Tesfaye PA-C, awaiting ZIO results. mag 1.5--supplemented --repeat 1.9. Urine cx pending Cardiac Problem List: RVOT VT PAF started on amiodarone and Eliquis diagnosed 04/2021 [id number] (age, HTN, DM, CHF) NICM 30-35% diagnosed in 04/2021, improved to 50-54% 05/2021 Chronic heart failure with reduced EF, NYHA Class II, improved LVEF by repeat echo H/O CVA HLD HTN DM PVD Hx of Prostate CA, LUTS with chronic Michelle Carotid disease Borderline tachybrady with sinus sumi and intermittent 2nd degree AV block type I Mild Allergies Allergy/AdvReac Type Severity Reaction Status Date / Time No Known Allergies Allergy Verified 03/07/25 00:31 Home Medications Medication Instructions Recorded Confirmed Type acetaminophen 500 mg tablet 500 mg PO Q4H PRN Pain 01/07/21 03/07/25 History (Tylenol Extra Strength) finasteride 5 mg tablet 5 mg PO QAM 05/03/21 03/07/25 History apixaban 5 mg tablet (Eliquis) 5 mg PO BID #60 tabs 05/07/21 03/07/25 Rx magnesium chloride 64 mg 64 mg PO BID #60 tabs 05/07/21 03/07/25 Rx (magnesium chloride) tablet,delayed release (Mag 64) atorvastatin 20 mg tablet 20 mg PO QAM 09/17/21 03/07/25 History amiodarone 200 mg tablet 200 mg PO QAM 07/24/24 03/07/25 History solifenacin 10 mg tablet 10 mg PO DAILY #90 tabs 08/28/24 03/07/25 Rx L-Arginine Tabs 850 mg PO DAILY 02/20/25 03/07/25 History amino acids 1 tab PO DAILY 02/20/25 03/07/25 History aspirin 81 mg tablet,delayed 81 mg PO DAILY 02/20/25 03/07/25 History release cyanocobalamin (vitamin B-12) 500 500 mcg PO DAILY 02/20/25 03/07/25 History mcg tablet (Vitamin B-12) empagliflozin 25 mg tablet 25 mg PO QAM 02/20/25 03/07/25 History (Jardiance) fluticasone propionate 50 2 spray intranasal DAILY 02/20/25 03/07/25 History mcg/actuation nasal spray,suspension lisinopril 20 mg tablet 20 mg PO DAILY 02/20/25 03/07/25 History metformin 500 mg tablet,extended 1,500 mg PO DAILY 02/20/25 03/07/25 History release 24 hr vibegron 75 mg tablet (Gemtesa) 75 mg PO DAILY #30 tabs 03/05/25 03/07/25 Rx Patient History Medical History Prolonged QT interval Carotid artery disease PVD (peripheral vascular disease) Chronic heart failure NICM (nonischemic cardiomyopathy) Afib 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) NSTEMI (non-ST elevated myocardial infarction) Bladder stones Hx of migraines Michelle catheter in place History of hypertension History of atrial fibrillation Hx of hyperlipidemia Hx of coronary artery disease Diabetes mellitus, type 2 History of prostate cancer Osteoarthritis CVA (cerebral vascular accident) Surgical History Hx of cystoscopy Hx of cardiac cath History of prostate surgery S/P rotator cuff surgery (2001) S/P colonoscopy S/P hernia repair Family History Father Prostate cancer Brother Cancer Stroke Grandfather Leukemia Grandmother Diabetes Mother Diabetes Hypertension Heart disease Daughter Thyroid disorder Brother Cancer Brother No problems noted. Daughter No problems noted. Son No problems noted. Social History Smoking Status: Current every day smoker Tobacco Type: Cigarettes and E-cigarettes / Vaping Cigarettes Per Day: daily vape "a lot", occ cigs; Second Hand Exposure: No; Do You Dip or Chew Tobacco: No; Hx Alcohol Use: No Hx Substance Use: No Preferred Language: Occitan Communication Ability: Effective Visual Impairment: No Limitations Hearing Ability: Normal Brake Drum Molder Required: No Beliefs That Will Affect Care: None marital status: Current Living Situation: Family Current Living Situation Comment: Pt's lives with his daughter current occupational status: retired current occupation: Worked at [employer] Other Information That Helps Us Care for You: No Feels Safe at Home: Yes Safety Concerns: Feels Safe At This Time Diet: regular caffeine: Yes (1/2 pot/day) during the past year weight has: remained stable Assistive Devices: Cane, Glasses and Walker Results & Data Vital Signs (Past 12 Hours) Vital Signs Temp Pulse Pulse Resp BP BP Pulse Ox 03/07/25 07:43 29 L 03/07/25 07:40 36.7 C 45 L 16 153/62 H 96 03/07/25 02:57 45 L 03/07/25 02:32 03/07/25 02:00 36.5 C 56 L 18 173/77 H 99 03/07/25 01:58 27 L 03/07/25 01:57 46 L 16 153/64 H 98 03/07/25 01:50 38 L 03/07/25 01:33 31 L 03/07/25 01:30 32 L 18 165/65 H 98 03/07/25 01:12 39 L 19 159/70 H 95 03/07/25 01:06 47 L 21 98 03/07/25 00:30 63 18 169/81 H 97 03/07/25 00:00 50 L 20 155/75 H 98 03/06/25 23:30 50 L 18 153/72 H 98 03/06/25 23:00 56 L 20 159/89 H 99 03/06/25 23:00 49 L 16 159/89 H 98 03/06/25 22:30 57 L 19 158/82 H 98 03/06/25 22:00 65 14 134/71 97 03/06/25 21:53 142/72 H 03/06/25 21:48 74 03/06/25 21:47 101 H 03/06/25 21:21 36.5 C 73 18 167/79 H 96 Pulse Ox O2 Del Method O2 Del Method 03/07/25 07:43 03/07/25 07:40 Room Air 03/07/25 02:57 03/07/25 02:32 99 Room Air 03/07/25 02:00 Room Air 03/07/25 01:58 03/07/25 01:57 Room Air 03/07/25 01:50 03/07/25 01:33 03/07/25 01:30 Room Air 03/07/25 01:12 Room Air 03/07/25 01:06 Room Air 03/07/25 00:30 Room Air 03/07/25 00:00 Room Air 03/06/25 23:30 Room Air 03/06/25 23:00 Room Air 03/06/25 23:00 03/06/25 22:30 Room Air 03/06/25 22:00 Room Air 03/06/25 21:53 03/06/25 21:48 03/06/25 21:47 03/06/25 21:21 Room Air PG Care Time/CCT Total # of Minutes Spent Total Time Spent with Patient: Total time spent is greater than 50% in coordination of care (as documented) at patient's floor/unit and/or counseling patient: Coding
[2025-03-07] MEDS: MAGNESIUM SULFATE / D5W 1 GM/100 ML BAG IV ONE (10:27)
--- NOTE | 2025-03-07 10:58 | Cardiology Consultation ---
Date of Consultation March 07, 2025 Assessment & Plan (1) Bradycardia: (2) Nonsustained ventricular tachycardia: (3) Acute on chronic urinary retention: Plan Complex 84-year-old male with longstanding arrhythmic issues including paroxysmal ventricular tachycardia and paroxysmal atrial fibrillation. Last evening sought ER evaluation for Michelle catheter obstruction and noted to have salvos of nonsustained ventricular tachycardia on telemetry. Transient course of IV amiodarone following bolus discontinued after bradycardia arrhythmias observed. Issues addressed as follows 1. 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 Usually catecholamine induced and beta-kurtis responsive. Generally not associated with need for defibrillator Recent discontinuation of metoprolol due to bradycardia noted during urologic evaluations LV systolic function normal 2. Paroxysmal atrial fibrillation on chronic amiodarone therapy. 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 Bradycardia arrhythmias more profound following IV amiodarone bolus last evening. Suspect patient will require pacemaker for long-term management Will reach out to EP regarding timing No further amiodarone. Maintain telemetry. Hold apixaban 3. 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 Currently observed on telemetry. No atrial fibrillation. Plan as above History of Present Illness Reason for Consultation: Tachycardia, bradycardia Requesting Physician: Elbert Roman hospitalist Attending Physician: Lynda Bashir MD History of Present Illness Patient is a complex 84-year-old male with cardiac concerns as below and as outlined on recent cardiology clinic visit RVOT VT , Longstanding dating back to 2016 PAF started on amiodarone and Eliquis diagnosed 04/2021 [id number] (age, HTN, DM, CHF) NICM 30-35% diagnosed in 04/2021, improved to 50-54% 05/2021 Chronic heart failure with reduced EF, NYHA Class II, improved LVEF by repeat echo H/O CVA HLD HTN DM PVD Carotid disease Borderline tachybrady with sinus sumi and intermittent 2nd degree AV block type I Mild Patiently recently assessed for slower heart rates at which time beta-blockers were reduced and discontinued. Patient continued on amiodarone. Outpatient monitors and EKGs demonstrate intermittent Mobitz type I AV block and long first-degree AV block. Patient presented to ER last night for noncardiac concerns with partial Michelle catheter obstruction. Noted to have Hemodynamically stable, wide-complex tachycardia intermittently on telemetry and was begun on IV amiodarone with bolus Infusion discontinued due to significant bradycardia, Mobitz type I second- degree AV block. Patient without cardiac complaint. Denies chest pains, dizziness, lightheadedness not aware of tachypalpitations. Main complaint irritation at Michelle site. No fevers chills unexplained infections. Echocardiogram today demonstrates improved LV systolic function in comparison to prior studies. EF 55 to 60% with moderate left hypertrophy and mild aortic stenosis Allergies Allergy/AdvReac Type Severity Reaction Status Date / Time No Known Allergies Allergy Verified 03/07/25 00:31 Home Medications Medication Instructions Recorded Confirmed Type acetaminophen 500 mg tablet 500 mg PO Q4H PRN Pain 01/07/21 03/07/25 History (Tylenol Extra Strength) finasteride 5 mg tablet 5 mg PO QAM 05/03/21 03/07/25 History apixaban 5 mg tablet (Eliquis) 5 mg PO BID #60 tabs 05/07/21 03/07/25 Rx magnesium chloride 64 mg 64 mg PO BID #60 tabs 05/07/21 03/07/25 Rx (magnesium chloride) tablet,delayed release (Mag 64) atorvastatin 20 mg tablet 20 mg PO QAM 09/17/21 03/07/25 History amiodarone 200 mg tablet 200 mg PO QAM 07/24/24 03/07/25 History solifenacin 10 mg tablet 10 mg PO DAILY #90 tabs 08/28/24 03/07/25 Rx L-Arginine Tabs 850 mg PO DAILY 02/20/25 03/07/25 History amino acids 1 tab PO DAILY 02/20/25 03/07/25 History aspirin 81 mg tablet,delayed 81 mg PO DAILY 02/20/25 03/07/25 History release cyanocobalamin (vitamin B-12) 500 500 mcg PO DAILY 02/20/25 03/07/25 History mcg tablet (Vitamin B-12) empagliflozin 25 mg tablet 25 mg PO QAM 02/20/25 03/07/25 History (Jardiance) fluticasone propionate 50 2 spray intranasal DAILY 02/20/25 03/07/25 History mcg/actuation nasal spray,suspension lisinopril 20 mg tablet 20 mg PO DAILY 02/20/25 03/07/25 History metformin 500 mg tablet,extended 1,500 mg PO DAILY 02/20/25 03/07/25 History release 24 hr vibegron 75 mg tablet (Gemtesa) 75 mg PO DAILY #30 tabs 03/05/25 03/07/25 Rx Patient History Medical History Prolonged QT interval 07/09/24 EKG: Prolonged QT (QTc: 480ms) Carotid artery disease PVD (peripheral vascular disease) Chronic heart failure NICM (nonischemic cardiomyopathy) Afib 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, sustained > cardiac cath at [facility], no stents; f/u [facility] cardio NSTEMI (non-ST elevated myocardial infarction) pt had elevated troponin and mild EKG changes during 04/2021 [facility] admission; cath showed no high grade CAD (pt dx with LVOT VT) Bladder stones Hx of migraines only around age 12 [address] History of hypertension History of atrial fibrillation currently on eliquis; f/u [facility] Hx of hyperlipidemia Hx of coronary artery disease Diabetes mellitus, type 2 dx 1964, NIDDM History of prostate cancer dx 1995; s/p prostatectomy; xrt in 2020 Osteoarthritis CVA (cerebral vascular accident) 2015, no residual effects Surgical History Hx of cystoscopy In 2005 with cryoablation of prostate for prostate cancer Hx of cardiac cath 2021, [facility], no stents; f/u [facility] History of prostate surgery S/P rotator cuff surgery (2001) Right S/P colonoscopy S/P hernia repair Right inguinal hernia repair 1962 Left inguinal hernia repair and Umbilical hernia repair 1997 Family History Father , 83yo Prostate cancer Brother Cancer Pt uncertain of type of cancer Stroke Grandfather Leukemia Grandmother Diabetes Mother , 88yo Diabetes Hypertension Heart disease Daughter Thyroid disorder Brother Cancer Pt uncertain of type of cancer Brother No problems noted. Daughter No problems noted. Son No problems noted. Social History Smoking Status: Current every day smoker Tobacco Type: Cigarettes and E-cigarettes / Vaping Cigarettes Per Day: daily vape "a lot", occ cigs; Second Hand Exposure: No; Do You Dip or Chew Tobacco: No; Hx Alcohol Use: No Hx Substance Use: No Preferred Language: Arabic Communication Ability: Effective Visual Impairment: No Limitations Hearing Ability: Normal [employer]ov[employer]ic Fabrication Technician Required: No Beliefs That Will Affect Care: None marital status: Current Living Situation: Family Current Living Situation Comment: Pt's lives with his daughter current occupational status: retired current occupation: Worked at [employer] Other Information That Helps Us Care for You: No Feels Safe at Home: Yes Safety Concerns: Feels Safe At This Time Diet: regular caffeine: Yes (1/2 pot/day) during the past year weight has: remained stable Assistive Devices: Cane, Glasses and Walker Physical Exam Constitutional: + thin; no acute distress Eyes: PERRL, conjunctivae normal, anicteric sclerae ENMT: external ear and nose normal, oropharynx normal Neck: trachea midline, no thyromegaly Respiratory: normal respiratory effort, lungs clear to auscultation Cardiovascular: Rate/Rhythm: regular rate and + bradycardic Heart Sounds: normal S1, normal S2 and + murmur (Grade 1/6 systolic murmur) Vessels: no JVD Extremities: no edema Gastrointestinal (Abdomen): normal bowel sounds, soft, nontender, no hepatosplenomegaly Michelle in place Results & Data Vital Signs (Past 12 Hours) Vital Signs Temp Pulse Pulse Resp BP BP Pulse Ox 03/07/25 10:45 36.6 C 49 L 16 146/76 H 98 03/07/25 09:25 03/07/25 07:43 29 L 03/07/25 07:40 36.7 C 45 L 16 153/62 H 96 03/07/25 02:57 45 L 03/07/25 02:32 03/07/25 02:00 36.5 C 56 L 18 173/77 H 99 03/07/25 01:58 27 L 03/07/25 01:57 46 L 16 153/64 H 98 03/07/25 01:50 38 L 03/07/25 01:33 31 L 03/07/25 01:30 32 L 18 165/65 H 98 03/07/25 01:12 39 L 19 159/70 H 95 03/07/25 01:06 47 L 21 98 03/07/25 00:30 63 18 169/81 H 97 03/07/25 00:00 50 L 20 155/75 H 98 03/06/25 23:30 50 L 18 153/72 H 98 03/06/25 23:00 56 L 20 159/89 H 99 03/06/25 23:00 49 L 16 159/89 H 98 Pulse Ox O2 Del Method O2 Del Method 03/07/25 10:45 Room Air 03/07/25 09:25 Room Air 03/07/25 07:43 03/07/25 07:40 Room Air 03/07/25 02:57 03/07/25 02:32 99 Room Air 03/07/25 02:00 Room Air 03/07/25 01:58 03/07/25 01:57 Room Air 03/07/25 01:50 03/07/25 01:33 03/07/25 01:30 Room Air 03/07/25 01:12 Room Air 03/07/25 01:06 Room Air 03/07/25 00:30 Room Air 03/07/25 00:00 Room Air 03/06/25 23:30 Room Air 03/06/25 23:00 Room Air 03/06/25 23:00 Laboratory Results Laboratory Results - last 24 hr 03/06/25 03/06/25 03/07/25 22:35 22:45 07:17 WBC 8.75 8.12 RBC 4.16 L 4.16 L Hgb 13.2 L 12.9 L Hct 39.3 L 38.7 L MCV 94.5 93.0 MCH 31.7 31.0 MCHC 33.6 33.3 RDW Std Deviation 49.2 H 48.7 H RDW Coeff of Dylan 14.1 14.3 Plt Count 173 160 MPV 10.9 9.8 Immature Gran % (Auto) 0.5 Neut % (Auto) 79.0 Lymph % (Auto) 12.7 [place] % (Auto) 7.0 Eos % (Auto) 0.1 Baso % (Auto) 0.7 Neut # (Auto) 6.92 H Lymph # (Auto) 1.11 L [place] # (Auto) 0.61 H Eos # (Auto) 0.01 Baso # (Auto) 0.06 Immature Gran # (Auto) 0.04 Sodium 141 140 Potassium 4.3 4.0 Chloride 107 107 Carbon Dioxide 27 25 Anion Gap 7 8 BUN 19 15 Creatinine 0.90 0.62 Est Cr Clr Drug Dosing 48.6 68.0 eGFR 84.22 94.25 BUN/Creatinine Ratio 21.1 H 24.2 H Glucose 182 H 136 H Calcium 8.5 L 8.2 L Magnesium 1.5 L 1.9 Total Bilirubin 0.5 AST 12 L ALT 10 Alkaline Phosphatase 98 Troponin I High Sens 11.3 Total Protein 6.4 Albumin 3.4 Globulin 3.0 Albumin/Globulin Ratio 1.1 Lipase 14 TSH 1.997 Urine Color Yellow Urine Appearance Clear Urine pH 5.0 Ur Specific [place] 1.032 H Urine Protein 1+ H Urine Glucose (UA) 3+ H Urine Ketones Negative Urine Blood 2+ H Urine Nitrite Negative Urine Bilirubin Negative Urine Urobilinogen Negative Ur Leukocyte Esterase Trace H Urine WBC (Auto) 21-50 H Urine RBC (Auto) >20 H U Hyaline Cast (Auto) 0-2 U Epithel Cells (Auto) 0-2 Urine Bacteria (Auto) None Seen Urine Yeast Present A Urine Comment Diagnostic Findings Laboratory Results - last 24 hr 03/06/25 03/06/25 03/07/25 22:35 22:45 07:17 WBC 8.75 8.12 RBC 4.16 L 4.16 L Hgb 13.2 L 12.9 L Hct 39.3 L 38.7 L MCV 94.5 93.0 MCH 31.7 31.0 MCHC 33.6 33.3 RDW Std Deviation 49.2 H 48.7 H RDW Coeff of Dylan 14.1 14.3 Plt Count 173 160 MPV 10.9 9.8 Immature Gran % (Auto) 0.5 Neut % (Auto) 79.0 Lymph % (Auto) 12.7 [place] % (Auto) 7.0 Eos % (Auto) 0.1 Baso % (Auto) 0.7 Neut # (Auto) 6.92 H Lymph # (Auto) 1.11 L [place] # (Auto) 0.61 H Eos # (Auto) 0.01 Baso # (Auto) 0.06 Immature Gran # (Auto) 0.04 Sodium 141 140 Potassium 4.3 4.0 Chloride 107 107 Carbon Dioxide 27 25 Anion Gap 7 8 BUN 19 15 Creatinine 0.90 0.62 Est Cr Clr Drug Dosing 48.6 68.0 eGFR 84.22 94.25 BUN/Creatinine Ratio 21.1 H 24.2 H Glucose 182 H 136 H Calcium 8.5 L 8.2 L Magnesium 1.5 L 1.9 Total Bilirubin 0.5 AST 12 L ALT 10 Alkaline Phosphatase 98 Troponin I High Sens 11.3 Total Protein 6.4 Albumin 3.4 Globulin 3.0 Albumin/Globulin Ratio 1.1 Lipase 14 TSH 1.997 Urine Color Yellow Urine Appearance Clear Urine pH 5.0 Ur Specific [place] 1.032 H Urine Protein 1+ H Urine Glucose (UA) 3+ H Urine Ketones Negative Urine Blood 2+ H Urine Nitrite Negative Urine Bilirubin Negative Urine Urobilinogen Negative Ur Leukocyte Esterase Trace H Urine WBC (Auto) 21-50 H Urine RBC (Auto) >20 H U Hyaline Cast (Auto) 0-2 U Epithel Cells (Auto) 0-2 Urine Bacteria (Auto) None Seen Urine Yeast Present A Urine Comment PG Care Time/CCT Total # of Minutes Spent Total Time Spent with Patient: Total time spent is greater than 50% in coordination of care (as documented) at patient's floor/unit and/or counseling patient: Coding Level of Care Code 78704 IN/OBS CONSULT LVL 5,80M Diagnoses Bradycardia R00.1 Nonsustained ventricular tachycardia I47.29 Acute on chronic urinary retention R33.9
--- NOTE | 2025-03-07 11:55 | History & Physical Bridge Note ---
Date of Service March 07, 2025 History & Physical Bridge Note I have examined the patient, reviewed the History & Physical and in the interval since the performance of the History & Physical I have noted the following changes of clinical significance: Patient reports he came back to the ER because he continues to have leaking around his Michelle catheter and had it exchanged. He is completely unaware of any of his cardiac arrhythmias. He denies any lightheadedness or passing out. No chest pains or heart palpitations. I discussed his care with Dr. Rankin of cardiology as well as the urology on-call EDEL. Telemetry with junctional rhythm and Mobitz type I with rates as low as the 20s and as high as the 50s. Vitals reviewed Gen: AAOx3, NAD, thin HEENT: Anicteric sclerae, EOMI CV: Bradycardic, regular rhythm, 2/6 ELLYN at the RUSB Pulm: Very distant breath sounds throughout, no wheezes crackles or rhonchi Abd: +BS soft NT ND no masses or hernias Ext: No edema Skin: No rashes, warm/dry Neuro: Full strength throughout CBC, BMP, magnesium, urine culture, and bladder ultrasound reviewed 84-year-old male here with leaking Michelle secondary to bladder spasms, as well as nonsustained ventricular tachycardia and second-degree heart block with bradycardia. Mostly admitted for need for cardiac workup and likely permanent pacemaker placement. No vocational childcare teacher is available today for pacemaker placement - Continue PCU with telemetry monitoring - Keep electrolytes replete-give 1 g IV magnesium sulfate and follow BMP, magnesium in the a.m. - UA somewhat abnormal with blood and WBCs, no bacteria- no definite infection, urine culture pending-hold off on antibiotics at this time - Urinary leakage of Michelle likely secondary to bladder spasms as per my discussion with urology-bladder ultrasound shows that Michelle catheter is in place-add Flomax for bladder spasms and monitor, follow-up with urology as an outpatient
--- NOTE | 2025-03-07 15:11 | Ultrasound Report ---
ULTRASOUND OF THE BLADDER CLINICAL HISTORY: Leakage around the Michelle catheter.. COMPARISON STUDY: Abdominal CT dated 04/14/2020 TECHNIQUE: Real-time, grayscale, and color flow sonography of bladder is performed. Images are review ed in the transverse and longitudinal planes. FINDINGS: The bladder is largely decompressed around a Michelle catheter. The catheter is located within the bladder lumen. The bladder wall appears thickened/trabeculated indicating chronic outlet obstruc tion. Ureteral jets could not be assessed. IMPRESSION: 1. The bladder is largely decompressed around a Michelle catheter. The catheter appears appropriately po sitioned. 2. There is evidence of chronic bladder outlet obstruction. ACT 112: Negative or not required by law. Electronically signed by: Hipolito Muller M.D. 03/07/2025 3:10 PM
--- NOTE | 2025-03-07 15:46 | Communication Note ---
Date of Service: March 07, 2025 Patient currently comfortable. Records all reviewed. Full assessment as noted in consultation but 84-year-old male with paroxysmal atrial and ventricular arrhythmias. Treatment now limited by asymptomatic bradycardia increasing AV block following IV amiodarone. Impression: 1. Tachybradycardia syndrome with paroxysmal atrial and ventricular arrhyt hmias. Will hold all AV kristel blocking medications including amiodarone and metoprolol. Anticipate pacemaker insertion Monday morning If SUSTAINED ventricular tachycardia develops would use IV metoprolol as initial therapy
--- NOTE | 2025-03-07 19:24 | Electrocardiogram Report ---
Test Reason : Blood Pressure : */* mmHG Vent. Rate : 66 BPM Atrial Rate : * BPM P-R Int : 408 ms QRS Dur : 102 ms QT Int : 470 ms P-R-T Axes : * 7 75 degrees QTcB Int : 492 ms Sinus rhythm with 1st degree A-V block Prolonged QT Abnormal ECG When compared with ECG of 28-Feb-2025 06:19, 1st degree AV block has replaced Mobitz I QT has lengthened Confirmed by Ariel Hylton ([id number]) on 03/07/2025 7:23:52 PM Referred By: REFERRED SELF Confirmed By: Ariel Hylton
--- NOTE | 2025-03-07 19:26 | Electrocardiogram Report ---
Test Reason : Blood Pressure : */* mmHG Vent. Rate : 41 BPM Atrial Rate : * BPM P-R Int : * ms QRS Dur : 100 ms QT Int : 500 ms P-R-T Axes : * 4 71 degrees QTcB Int : 413 ms Sinus bradycardia with 2nd degree A-V block (Mobitz I) Low voltage QRS Nonspecific T wave abnormality Abnormal ECG When compared with ECG of 06-Mar-2025 22:09, Mobitz I has replaced 1st degree AV block Vent. rate has decreased by 23 bpm Nonspecific T wave abnormality now evident in Inferior leads Confirmed by Ariel Hylton ([id number]) on 03/07/2025 7:25:52 PM Referred By: REFERRED SELF Confirmed By: Ariel Hylton
[2025-03-08 06:52] LABS: Hematocrit (blood only) 38.3 % (42.0-52.0); Hemoglobin 12.8 g/dL (14.0-18.0); Immature Granulocytes # (auto) 0.06 K/uL (0.01-0.20); Immature Granulocytes % (auto) 0.7 %; Mean Corpuscular Hemoglobin 31.0 pg (25.0-34.0); Mean Corpuscular Volume 92.7 fL (80.0-100.0); Platelet Count 166 K/uL (130-400); RDW Standard Deviation 48.0 fL (36.4-46.3); Red Blood Count 4.13 M/uL (4.70-6.10); White Blood Count 8.73 K/ul (4.8-10.8)
[2025-03-08 07:09] LABS: Anion Gap 6.0 (3-11); Blood Urea Nitrogen 15.0 mg/dl (6-23); Calcium 8.0 mg/dl (8.6-10.3); Carbon Dioxide 27.0 mmol/L (21-32); Chloride 105.0 mmol/L (98-107); Creatinine Clr Calc Pharmacy 50.6 ml/min; Glucose 100.0 mg/dl (70-99(Fasting)); Iron 41.0 mcg/dl (35-175); Magnesium 1.8 mg/dl (1.7-2.4); Potassium 4.2 mmol/L (3.5-5.1); Sodium 138.0 mmol/L (136-145); Total Iron Binding Cap Calc 183.0 mcg/dl (250-450); Transferrin 131.0 mg/dl (200-360); Transferrin (FE) Percent Satur 22.0 % (20-50)
[2025-03-08 07:18] LABS: INR 1.2 (0.9-1.1); Prothrombin Time 12.4 Seconds (9.0-12.0)
[2025-03-08 07:27] LABS: Ferritin 61.5 ng/ml (8-388)
[2025-03-08 07:37] LABS: Folate (Folic Acid),Ser orPlas 9.78 ng/ml (>5.38)
[2025-03-08 07:38] LABS: Vitamin B12 722.0 pg/ml (180-914)
[2025-03-08 08:28] LABS: Hemoglobin A1C 6.6 % (4.5-5.6)
[2025-03-08] MEDS: MAGNESIUM SULFATE / D5W 1 GM/100 ML BAG IV ONE (08:58)
--- NOTE | 2025-03-08 12:42 | Hospitalist Progress Note ---
Date of Service March 08, 2025 Assessment & Plan (1) Nonsustained ventricular tachycardia: (2) Bradycardia: (3) Severe protein-calorie malnutrition: (4) Incomplete bladder emptying: Plan Patient is an 84-year-old male with a past medical history of A-fib, CAD, PVD, type II DM, prostate cancer, LUTS with chronic Michelle. Patient presented to the ED for catheter replacement as his was not draining properly. While in the ED patient was found to have several episodes of nonsustained V. tach lasting 10 to 20 seconds, rhythm strip reviewed and questionable V. tach versus aberrancy. Patient remained completely asymptomatic. He was started on an amiodarone bolus and drip. #Nonsustained V. tach/second-degree Mobitz 1 heart block/PAF on Eliquisrepeated episodes of nonsustained V. tach ongoing on telemetry, also with frequent secondary heart block and possibly third-degree heart block with rates in the 20s to 50s. Patient is completely asymptomatic. He previously was on a beta- kurtis which controlled his VTE, but this was held due to severe bradycardia. He was placed on IV amiodarone in the ED for repeated V. tach but this was stopped due to heart block and bradycardia. Echocardiogram here with normal LV function. TSH normal. Appreciate cardiology consultation -Continue telemetry monitoring, can use IV Lopressor as needed for sustained V. tach as per cardiology - Plan for permanent pacemaker placement on 03/10-keep n.p.o. after midnight on 03/09 - Holding home Eliquis and aspirin for procedure #Hypomagnesemia-magnesium low on admission and was replaced. Now low normal at 1.8 - Give 1 g IV magnesium sulfate given ongoing nonsustained VT - Follow BMP and magnesium in the a.m. and keep electrolytes replete/optimal #Prostate CA/LUTS/chronic indwelling Michelle for urinary retentionFoley catheter changed in ED for what was thought to be a malfunctioning Michelle catheter. Bladder ultrasound here shows the catheter is in the correct place despite leakage. I discussed his care with the urology team-they think he is having leakage due to bladder spasms.he was recently prescribed Gemtesa and was told to stop his Vesicare. UA with 1+ protein, trace LE, 21-50 WBC, >20 RBC no bacteria noted. Urine culture is pending - Daily catheter care Continue Gemtesa and add Flomax as per urology recommendation for bladder spasms - continue to follow with urology in outpatient setting #Severe protein calorie malnutrition/underweight BMI 18.7-appreciate nutrition consultation. The patient has lost 40% of his body weight in the last year or more unintentionally. He has been dealing with issues with his prostate and has a long history of smoking perhaps contributing? Does have mild anemia but it is not iron deficiency-would not suspect GI malignancy but is a consideration - Follow-up with PCP as an outpatient for referral to GI for EGD and colonoscopy - Add boost supplement shakes twice daily - Liberalize diet-remove heart healthy portion - Add multivitamin with minerals once daily #Anemia-Hgb mildly low at 12.8, normocytic. Iron studies, B12, folate, TSH all normal. Likely anemia of chronic disease. No bleeding from anywhere - Follow CBC #HTN/history of CVA/nonobstructive CAD-cardiac catheterization in 2021 with nonobstructive CAD with 60% proximal small LAD, 40% mid CX, 40% diffuse mid and 30% distal RCA, 80% small high OM1, 40% proximal large D1, 50% proximal medium OM 2. BPs here have been controlled -continue lisinopril, but recently stopped beta-kurtis due to bradycardia - Holding home aspirin and Eliquis for upcoming pacemaker #Type II DM HgbA1c controlled at 6.6%, he has had tremendous amount of weight loss. Is only on Jardiance and metformin at home - Holding home metformin - Continue Jardiance DVT prophylaxis-holding home Eliquis, continues on SCDs Dispo: Continued stay PCU Admission and Anticipated Discharge Date Admission Date: March 07, 2025 Subjective Patient had some leaking around his Michelle catheter today. Otherwise he feels well. He denies any lightheadedness or chest pains or heart palpitations. Telemetry with frequent runs of nonsustained V. tach, mostly in Mobitz type I secondary heart block versus complete heart block with rates in the 20s to 50s. He had one 4.5-second pauses in the last 24 hours Physical Exam Constitutional: + thin; no acute distress Respiratory: normal respiratory effort Auscultation: + diminished lung sounds (Throughout); no crackles, no rales and no rhonchi Cardiovascular: Rate/Rhythm: regular rhythm and + bradycardic Heart Sounds: + murmur (2/6 systolic murmur at the RUSB) Gastrointestinal (Abdomen): normal bowel sounds, soft, nontender, no hepatosplenomegaly Psychiatric: A+Ox3, euthymic affect Genitourinary: + penis abnormality (Michelle catheter in p lace) Results & Data Results & Data Vital Signs (Past 12 Hours) Vital Signs Temp Pulse Pulse Resp BP Pulse Ox Pulse Ox 03/08/25 11:31 36.6 C 48 L 18 120/67 98 03/08/25 11:00 39 L 03/08/25 08:00 03/08/25 07:55 36.4 C L 62 17 129/68 97 03/08/25 03:15 36.9 C 47 L 16 139/66 96 03/08/25 02:32 94 O2 Del Method O2 Del Method 03/08/25 11:31 Room Air 03/08/25 11:00 03/08/25 08:00 Room Air 03/08/25 07:55 Room Air 03/08/25 03:15 Room Air 03/08/25 02:32 Room Air Laboratory Results CBC, BMP, HgbA1c, magnesium, iron studies, B12, folate, urine culture reviewed PG Care Time/CCT Total # of Minutes Spent Total Time Spent with Patient: Total time spent is greater than 50% in coordination of care (as documented) at patient's floor/unit and/or counseling patient: Coding Level of Care Code 00003 SUB INP/OBS CARE 2/35MIN Diagnoses Nonsustained ventricular tachycardia I47.29 Bradycardia R00.1 Severe protein-calorie malnutrition E43 Incomplete bladder emptying R33.9
[2025-03-08] MEDS: TAMSULOSIN HCL 0.4 MG CAP PO ONE (14:34)
--- NOTE | 2025-03-08 15:25 | Cardiology Progress Note ---
Date of Service March 08, 2025 Assessment & Plan (1) Bradycardia: (2) Nonsustained ventricular tachycardia: (3) Acute on chronic urinary retention: Plan Complex 84-year-old male with longstanding arrhythmic issues including paroxysmal ventricular tachycardia and paroxysmal atrial fibrillation. Last evening sought ER evaluation for Michelle catheter obstruction and noted to have salvos of nonsustained ventricular tachycardia on telemetry. Transient course of IV amiodarone following bolus discontinued after bradycardia arrhythmias observed. Issues addressed as follows 1. 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 Usually catecholamine induced and beta-kurtis responsive. Generally not associated with need for defibrillator Recent discontinuation of metoprolol due to bradycardia noted during urologic evaluations LV systolic function normal 2. Paroxysmal atrial fibrillation on chronic amiodarone therapy. 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 Bradycardia arrhythmias more profound following IV amiodarone bolus last evening. Suspect patient will require pacemaker for long-term management Will reach out to EP regarding timing No further amiodarone. Maintain telemetry. Hold apixaban 3. 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 Currently observed on telemetry. No atrial fibrillation. 03/08/2025: -patient remains asymptomatic from a cardiac perspective. -REview of telemetry shows sinus bradycardia with intermittent Mobitz I second degree AVB. No recurrence of NSVT overnight -Patient is to be NPO after midnight on Monday03/09/25 for pacemaker placement 03/10/[address] cabrera. -Medication management as outlined above. Case has been discussed with Dr. Holley. Further recommendations regarding plan of care as per her assessment. I spent a total of 30 minutes on the date of service in preparation, delivery, documentation of the care provided to the patient excluding any time spent in the performance of separately billed services. RAEANN Barker [facility] Admission and Anticipated Discharge Date Admission Date: March 07, 2025 Supervising Physician Co-Signing Physician Notes I have reviewed the advanced practitioner's documentation on the date of service referenced in note, and I agree with, and take responsibility for the plan of care. I spent a total of [15] minutes coordinating, documenting, and providing care for this patient excluding time spent in the performance of separately billed services or time spent by another provider. Telemetry brief episodes Mobitz 1 block. Sick sinus syndrome plan for pacemaker on Monday Subjective 03/08/2025: Patient seen and examined in follow up today. Feeling well from a cardiac perspective. Offers no acute cardiac concerns. Continues to endorse some urinary catheter issues. Labs, vitals, diagnostics, telemetry and documentation reviewed. Telemetry reviewed showing SB/Mobitz I AVB rates 27-mid-50's. patient remains asymptomatic. No VT on telemetry overnight. Review of Systems Review of Systems: All systems reviewed & are unremarkable except as noted in HPI & below Physical Exam Constitutional: + thin; no acute distress Neck: normal visual inspection and trachea midline Respiratory: normal respiratory effort, lungs clear to auscultation Cardiovascular: Rate/Rhythm: + bradycardic Heart Sounds: normal S1 and normal S2 Vessels: dorsalis pedis pulses present; no JVD Extremities: no edema Skin: no rashes, warm and dry Psychiatric: A+Ox3, euthymic affect Results & Data Vital Signs (Past 12 Hours) Vital Signs Temp Pulse Pulse Resp BP Pulse Ox O2 Del Method 03/08/25 15:15 36.5 C 52 L 20 136/73 98 Room Air 03/08/25 11:31 36.6 C 48 L 18 120/67 98 Room Air 03/08/25 11:00 39 L 03/08/25 08:00 Room Air 03/08/25 07:55 36.4 C L 62 17 129/68 97 Room Air Laboratory Results Coagulation 03/08/25 Range/Units 06:35 PT 12.4 H (9.0-12.0) Seconds CBC 03/08/25 Range/Units 06:35 WBC 8.73 (4.8-10.8) K/ul RBC 4.13 L (4.70-6.10) M/uL Hgb 12.8 L (14.0-18.0) g/dL Hct 38.3 L (42.0-52.0) % Plt Count 166 (130-400) K/uL Neut # (Auto) 6.65 H (1.40-6.50) K/uL Lymph # (Auto) 1.22 (1.20-3.40) K/uL [place] # (Auto) 0.66 H (0.11-0.59) K/uL Eos # (Auto) 0.05 (0.00-0.50) K/uL Baso # (Auto) 0.09 (0.00-0.20) K/uL Comprehensive Metabolic Panel 03/08/25 Range/Units 06:35 Sodium 138 (136-145) mmol/L Potassium 4.2 (3.5-5.1) mmol/L Chloride 105 (98-107) mmol/L Carbon Dioxide 27 (21-32) mmol/L BUN 15 (6-23) mg/dl Creatinine 0.86 (0.6-1.4) mg/dl Glucose 100 H (70-99(Fasting)) mg/dl Calcium 8.0 L (8.6-10.3) mg/dl Intake and Output 03/08/25 03/08/25 03/08/25 06:59 14:59 22:59 Intake Total 340 / 340 Output Total 400 / 1500 500 / 500 Balance -400 / -1160 -160 / -160 Intake: IV 100 / 100 Magnesium Sulfate / D5w 1 gm In 100 / 100 100 ml @ 50 mls/hr IV ONE ONE Rx#:[id number] Oral 240 / 240 Output: Urine Amount (Catheter) 400 / 1500 500 / 500 Michelle/Indwelling 400 / 1500 500 / 500 Other: Other Intake Source Sips Weight 55.9 kg Weight Measurement Method Built in [facility] Care Time/CCT Total # of Minutes Spent Total Time Spent with Patient: Total time spent is greater than 50% in coordination of care (as documented) at patient's floor/unit and/or counseling patient: Coding Level of Care Code 63729 SUB INP/OBS CARE 3/50MIN Diagnoses Bradycardia R00.1 Nonsustained ventricular tachycardia I47.29 Acute on chronic urinary retention R33.9 Time Spent (min) 30
[2025-03-08] MEDS ORDERED: DEXTROSE 50% 50 ML SYRINGE IV PRN (20:45)
[2025-03-08] MEDS ORDERED: GLUCOSE 40% GEL 15 GM TUBE PO PRN (20:45)
[2025-03-08] MEDS ORDERED: GLUCOSE 10 TAB/TUBE PO PRN (20:45)
[2025-03-08] MEDS ORDERED: GLUCAGON FOR INJ 1 MG VIAL SQ PRN (20:45)
[2025-03-08] MEDS ORDERED: CARBOHYDRATES FOR HYPOGLYCEMIA PO PRN (20:45)
[2025-03-08] MEDS: INSULIN ASPART PER UNIT CHARGE SC SCH (21:05)
[2025-03-09 07:15] LABS: Anion Gap 7.0 (3-11); Blood Urea Nitrogen 22.0 mg/dl (6-23); Calcium 8.1 mg/dl (8.6-10.3); Carbon Dioxide 26.0 mmol/L (21-32); Chloride 104.0 mmol/L (98-107); Creatinine Clr Calc Pharmacy 58.3 ml/min; Glucose 129.0 mg/dl (70-99(Fasting)); Magnesium 1.8 mg/dl (1.7-2.4); Potassium 4.2 mmol/L (3.5-5.1); Sodium 137.0 mmol/L (136-145)
[2025-03-09] MEDS: CEROVITE ADV FORMULA TAB PO SCH (08:47)
[2025-03-09] MEDS: MAGNESIUM SULFATE / D5W 1 GM/100 ML BAG IV ONE (09:29)
--- NOTE | 2025-03-09 09:31 | Electrocardiogram Report ---
Test Reason : Blood Pressure : */* mmHG Vent. Rate : 64 BPM Atrial Rate : * BPM P-R Int : * ms QRS Dur : 106 ms QT Int : 468 ms P-R-T Axes : * 20 66 degrees QTcB Int : 482 ms Poor data quality, interpretation may be adversely affected Junctional rhythm Abnormal ECG When compared with ECG of 06-Mar-2025 21:54, Junctional rhythm has replaced Sinus rhythm Confirmed by Clarence Santacruz [id number]) on 03/09/2025 9:31:15 AM Referred By: REFERRED SELF Confirmed By: Clarence Santacruz
--- NOTE | 2025-03-09 12:22 | Cardiology Progress Note ---
Date of Service March 09, 2025 Assessment & Plan (1) Bradycardia: (2) Nonsustained ventricular tachycardia: (3) Acute on chronic urinary retention: Plan Complex 84-year-old male with longstanding arrhythmic issues including paroxysmal ventricular tachycardia and paroxysmal atrial fibrillation. Last evening sought ER evaluation for Michelle catheter obstruction and noted to have salvos of nonsustained ventricular tachycardia on telemetry. Transient course of IV amiodarone following bolus discontinued after bradycardia arrhythmias observed. Issues addressed as follows 1. 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 Usually catecholamine induced and beta-kurtis responsive. Generally not associated with need for defibrillator Recent discontinuation of metoprolol due to bradycardia noted during urologic evaluations LV systolic function normal 2. Paroxysmal atrial fibrillation on chronic amiodarone therapy. 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 Bradycardia arrhythmias more profound following IV amiodarone bolus last evening. Suspect patient will require pacemaker for long-term management Will reach out to EP regarding timing No further amiodarone. Maintain telemetry. Hold apixaban 3. 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 Currently observed on telemetry. No atrial fibrillation. 03/08/2025: -patient remains asymptomatic from a cardiac perspective. -REview of telemetry shows sinus bradycardia with intermittent Mobitz I second degree AVB. No recurrence of NSVT overnight -Patient is to be NPO after midnight on Monday03/09/25 for pacemaker placement 03/10/[address] loera. -Medication management as outlined above. 03/09/2025: -patient remains asymptomatic from a cardiac perspective. Ongoing intermittent Mobitz I and episode of non-sustained VT overnight. -Patient will be NPO after midnight for plans for a pacemaker placement tomorrow 03/10/[address] Loera. Patient is aware and procedure is noted on board. -medication management as outlined above. Avoid use of Amiodarone. Darryl on hold. Case has been discussed with Dr. Hollye. Further recommendations regarding plan of care as per her assessment. I spent a total of 30 minutes on the date of service in preparation, delivery, documentation of the care provided to the patient excluding any time spent in the performance of separately billed services. RAEANN Barker [facility] Admission and Anticipated Discharge Date Admission Date: March 07, 2025 Supervising Physician Co-Signing Physician Notes I have reviewed the advanced practitioner's documentation on the date of service referenced in note, and I agree with, and take responsibility for the plan of care. I spent a total of [1] minutes coordinating, documenting, and providing care for this patient excluding time spent in the performance of separately billed services or time spent by another provider. Sick sinus syndrome plan for pacemaker on Monday NPO tonight Subjective 03/09/2025: Patient seen and examined in follow up today. Feeling well from a cardiac perspective. Resting comfortably in bed offers no acute cardiac concnerns. Labs, vitals, diagnostics, telemetry and documentation reviewed. Telemetry reviewed showing Sinus sumi with intermittent Mobitz I AV block. rates 50's Patient exhibited a run of non-sustained VT at 0326 (approx 45 seconds), sleeping and denied any knowledge of the event. Review of Systems Review of Systems: All systems reviewed & are unremarkable except as noted in HPI & below Physical Exam Constitutional: + thin; no acute distress Neck: normal visual inspection and trachea midline Respiratory: normal respiratory effort, lungs clear to auscultation Cardiovascular: Rate/Rhythm: + bradycardic Heart Sounds: normal S1 and normal S2 Vessels: dorsalis pedis pulses present; no JVD Extremities: no edema Skin: no rashes, warm and dry Psychiatric: A+Ox3, euthymic affect Results & Data Vital Signs (Past 12 Hours) Vital Signs Temp Pulse Pulse Resp BP Pulse Ox O2 Del Method 03/09/25 11:31 36.6 C 93 H 19 146/75 H 99 Room Air 03/09/25 09:15 39 L 03/09/25 07:42 36.4 C L 54 L 19 116/73 95 Room Air 03/09/25 03:57 36.4 C L 49 L 17 117/62 95 Room Air 03/09/25 03:21 122 H Laboratory Results Comprehensive Metabolic Panel 03/09/25 Range/Units 06:34 Sodium 137 (136-145) mmol/L Potassium 4.2 (3.5-5.1) mmol/L Chloride 104 (98-107) mmol/L Carbon Dioxide 26 (21-32) mmol/L BUN 22 (6-23) mg/dl Creatinine 0.74 (0.6-1.4) mg/dl Glucose 129 H (70-99(Fasting)) mg/dl Calcium 8.1 L (8.6-10.3) mg/dl Intake and Output 03/08/25 03/09/25 03/09/25 22:59 06:59 14:59 Intake Total 100 / 100 Output Total 900 / 1800 400 / 1800 Balance -900 / -1460 -400 / -1460 100 / 100 Intake: IV 100 / 100 Magnesium Sulfate / D5w 1 gm In 100 / 100 100 ml @ 50 mls/hr IV ONE ONE Rx#:[id number] Output: Urine Amount (Catheter) 900 / 1800 400 / 1800 Michelle/Indwelling 900 / 1800 400 / 1800 Other: Weight 55.5 kg PG Care Time/CCT Total # of Minutes Spent Total Time Spent with Patient: Total time spent is greater than 50% in coordination of care (as documented) at patient's floor/unit and/or counseling patient: Coding Level of Care Code 61769 SUB INP/OBS CARE 3/50MIN Diagnoses Bradycardia R00.1 Nonsustained ventricular tachycardia I47.29 Acute on chronic urinary retention R33.9 Time Spent (min) 30
--- NOTE | 2025-03-09 12:59 | Hospitalist Progress Note ---
Date of Service March 09, 2025 Assessment & Plan (1) Nonsustained ventricular tachycardia: (2) Bradycardia: (3) Severe protein-calorie malnutrition: (4) Incomplete bladder emptying: Plan Patient is an 84-year-old male with a past medical history of RVOT paroxysmal ventricular tachycardia, paroxysmal A-fib, CAD, PVD, type II DM, prostate cancer, LUTS with chronic Michelle. Patient presented to the ED for catheter replacement as his was not draining properly. While in the ED patient was found to have several episodes of nonsustained V. tach lasting 10 to 20 seconds, patient remained completely asymptomatic. He was started on an amiodarone bolus and drip and then had profound bradycardia with the Mobitz 1 second-degree heart block. He is admitted for permanent pacemaker placement. #Nonsustained V. tach/second-degree Mobitz 1 heart block/PAF on Eliquis continues to have repeated episodes of nonsustained V. tach as long as 45 seconds/66 beats, also with frequent secondary heart block and possibly third- degree heart block with rates in the 20s to 50s. Patient is completely asymptomatic. He previously was on a beta-kurtis which controlled his VTE, but this was held due to severe bradycardia hence why he is having more frequent VT. He was placed on IV amiodarone in the ED for repeated V. tach but this was stopped due to heart block and bradycardia. Echocardiogram here with normal LV function. TSH normal. Appreciate cardiology consultation -Continue telemetry monitoring, can use IV Lopressor as needed for sustained V. tach as per cardiology - Plan for permanent pacemaker placement on 03/10-keep n.p.o. after midnight on 03/09 - Holding home Eliquis and aspirin for procedure #Hypomagnesemia-magnesium low on admission and was replaced. Now remains low normal at 1.8 - Give 1 g IV magnesium sulfate given ongoing nonsustained VT - Follow BMP and magnesium in the a.m. and keep electrolytes replete/optimal with K at 4.0, mag at 2.0 #Prostate CA/LUTS/chronic indwelling Michelle for urinary retentionFoley catheter changed in ED for what was thought to be a malfunctioning Michelle catheter. He has been having frequent leakage of urine around the Michelle catheter despite it being in the correct position. Bladder ultrasound here shows the catheter is in the correct place despite leakage. I discussed his care with the urology team- they think he is having leakage due to bladder spasms. He was recently prescribed Gemtesa and was told to stop his Vesicare. UA with 1+ protein, trace LE, 21-50 WBC, >20 RBC no bacteria noted. Urine culture is growing Jennifer albicans which is likely a colonizer. - Continue Daily catheter care, flush as needed Continue Gemtesa and added Flomax as per urology recommendation for bladder spasms - continue to follow with urology in outpatient setting #Severe protein calorie malnutrition/underweight BMI 18.7-appreciate nutrition consultation. The patient has lost 40% of his body weight in the last year or more unintentionally. He has been dealing with issues with his prostate and has a long history of smoking perhaps contributing? Does have mild anemia but it is not iron deficiency-would not suspect GI malignancy but is a consideration - Follow-up with PCP as an outpatient for referral to GI for EGD and colonoscopy - Added boost supplement shakes twice daily - Liberalize diet-removed heart healthy portion - Added multivitamin with minerals once daily #Anemia-Hgb mildly low at 12.8, normocytic. Iron studies, B12, folate, TSH all normal. Likely anemia of chronic disease. No bleeding from anywhere - Follow CBC #HTN/history of CVA/nonobstructive CAD-cardiac catheterization in 2021 with nonobstructive CAD with 60% proximal small LAD, 40% mid CX, 40% diffuse mid and 30% distal RCA, 80% small high OM1, 40% proximal large D1, 50% proximal medium OM 2. BPs here have been controlled -continue lisinopril, but recently stopped beta-kurtis due to bradycardia-plan to add beta-kurtis back on after pacemaker in place - Holding home aspirin and Eliquis for upcoming pacemaker-resume when okay with cardiology after procedure #Type II DM HgbA1c controlled at 6.6%, he has had tremendous amount of weight loss. Is only on Jardiance and metformin at home - Holding home metformin - Continue Jardiance and supplemental NovoLog as needed - Diabetic diet, BSG's ACHS DVT prophylaxis-holding home Eliquis, continues on SCDs Dispo: Continued stay PCU, likely discharge to home on 03/11 the day after pacemaker placed Admission and Anticipated Discharge Date Admission Date: March 07, 2025 Subjective Patient had a 66 beat run of V. tach overnight for about 45 seconds but he was sleeping and does not recall this. Otherwise denies chest pains or heart palpitations or lightheadedness. No urinary leakage that he knows of this morning but nursing reports he was wet on his pad in the morning Telemetry otherwise with mostly Mobitz type I secondary heart block and rates in the 50s Physical Exam Constitutional: + thin; no acute distress Respiratory: normal respiratory effort Auscultation: + diminished lung sounds (Throughout); no crackles, no rales and no rhonchi Cardiovascular: Rate/Rhythm: regular rhythm and + bradycardic Heart Sounds: + murmur (2/6 systolic murmur at the RUSB) Gastrointestinal (Abdomen): normal bowel sounds, soft, nontender, no hepatosplenomegaly Skin: + rash (Scrotum and right inguinal regio n with mild erythematous rash) Psychiatric: A+Ox3, euthymic affect Genitourinary: + penis abnormality (Michelle catheter in p lace) Results & Data Results & Data Vital Signs (Past 12 Hours) Vital Signs Temp Pulse Pulse Resp BP Pulse Ox O2 Del Method 03/09/25 11:31 36.6 C 93 H 19 146/75 H 99 Room Air 03/09/25 09:15 39 L 03/09/25 07:42 36.4 C L 54 L 19 116/73 95 Room Air 03/09/25 03:57 36.4 C L 49 L 17 117/62 95 Room Air 03/09/25 03:21 122 H Laboratory Results BMP, magnesium reviewed PG Care Time/CCT Total # of Minutes Spent Total Time Spent with Patient: Total time spent is greater than 50% in coordination of care (as documented) at patient's floor/unit and/or counseling patient: Coding Level of Care Code 41955 SUB INP/OBS CARE 2/35MIN Diagnoses Nonsustained ventricular tachycardia I47.29 Bradycardia R00.1 Severe protein-calorie malnutrition E43 Incomplete bladder emptying R33.9
[2025-03-09] MEDS: TAMSULOSIN HCL 0.4 MG CAP PO SCH (20:04)
[2025-03-10] MEDS: INSULIN ASPART PER UNIT CHARGE SC SCH ×2 (05:39→21:02)
[2025-03-10 07:25] LABS: Anion Gap 6.0 (3-11); Blood Urea Nitrogen 26.0 mg/dl (6-23); Calcium 8.2 mg/dl (8.6-10.3); Carbon Dioxide 27.0 mmol/L (21-32); Chloride 103.0 mmol/L (98-107); Creatinine Clr Calc Pharmacy 54.9 ml/min; Glucose 146.0 mg/dl (70-99(Fasting)); Magnesium 1.8 mg/dl (1.7-2.4); Potassium 4.4 mmol/L (3.5-5.1); Sodium 136.0 mmol/L (136-145)
[2025-03-10 08:07] LABS: Hematocrit (blood only) 41.0 % (42.0-52.0); Hemoglobin 13.5 g/dL (14.0-18.0); Immature Granulocytes # (auto) 0.07 K/uL (0.01-0.20); Immature Granulocytes % (auto) 0.7 %; Mean Corpuscular Hemoglobin 30.8 pg (25.0-34.0); Mean Corpuscular Volume 93.4 fL (80.0-100.0); Platelet Count 184 K/uL (130-400); RDW Standard Deviation 47.9 fL (36.4-46.3); Red Blood Count 4.39 M/uL (4.70-6.10); White Blood Count 10.60 K/ul (4.8-10.8)
--- NOTE | 2025-03-10 09:38 | Pre Anesthesia Assessment ---
Date of Service March 10, 2025 Pre Sedation Assessment Vital Signs Temp Pulse Pulse Pulse Resp BP Pulse Ox 03/10/25 09:14 71 18 133/73 98 03/10/25 07:00 60 03/10/25 07:00 36.5 C 69 16 133/73 97 03/10/25 03:55 36.4 C L 59 L 17 145/81 H 97 03/10/25 00:07 36.5 C 62 18 130/72 96 03/09/25 19:58 36.4 C L 57 L 16 129/61 96 03/09/25 19:37 03/09/25 18:12 39 L 03/09/25 15:10 36.6 C 60 18 135/72 94 03/09/25 11:31 36.6 C 93 H 19 146/75 H 99 O2 Del Method 03/10/25 09:14 Room Air 03/10/25 07:00 03/10/25 07:00 Room Air 03/10/25 03:55 Room Air 03/10/25 00:07 Room Air 03/09/25 19:58 Room Air 03/09/25 19:37 Room Air 03/09/25 18:12 03/09/25 15:10 Room Air 03/09/25 11:31 Room Air Cardiovascular RRR, no murmur, no edema Respiratory normal respiratory effort, lungs clear to auscultation Pre-Sedation Airway Assessment Smoking Status: Current every day smoker Hx Sleep Apnea: No Hx Difficult Intubation: No Short, Thick Neck: No Thyromental Distance: > or= 3.5 Finger Breadths Oral Cavity: + Dental Abnormalities Mallampati Class: II ASA: ASA3 NPO Status Date of Last Intake of Fluids: 03/09/25 Date of Last Intake of Solid Food: 03/09/25 Procedure Planning Contraindications for Sedation: none Current Medications Reviewed: Yes Notes The planned sedation has been discussed with the patient. Informed Consent was obtained. I have identified the patient, determined the appropriateness of sedation and have assessed the patient immediately prior to the procedure. All medicine(s) and interventions are by my order.
--- NOTE | 2025-03-10 09:38 | History & Physical Bridge Note ---
Date of Service March 10, 2025 History & Physical Bridge Note I have examined the patient, reviewed the History & Physical and in the interval since the performance of the History & Physical I have noted the following changes of clinical significance: pt with TBS recommended a pacemaker prior to hospital discharge; I discussed the procedure and potential risks with the patient; he expressed an understanding and consents signed
--- NOTE | 2025-03-10 10:13 | Cardiology Progress Note ---
Date of Service March 10, 2025 Assessment & Plan (1) Bradycardia: (2) Nonsustained ventricular tachycardia: (3) Acute on chronic urinary retention: Plan Complex 84-year-old male with longstanding arrhythmic issues including paroxysmal ventricular tachycardia and paroxysmal atrial fibrillation. Last evening sought ER evaluation for Michelle catheter obstruction and noted to have salvos of nonsustained ventricular tachycardia on telemetry. Transient course of IV amiodarone following bolus discontinued after bradycardia arrhythmias observed. Issues addressed as follows 1. 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 Usually catecholamine induced and beta-kurtis responsive. Generally not associated with need for defibrillator Recent discontinuation of metoprolol due to bradycardia noted during urologic evaluations LV systolic function normal 2. Paroxysmal atrial fibrillation on chronic amiodarone therapy. 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 Bradycardia arrhythmias more profound following IV amiodarone bolus last evening. Suspect patient will require pacemaker for long-term management Will reach out to EP regarding timing No further amiodarone. Maintain telemetry. Hold apixaban 3. 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 Currently observed on telemetry. No atrial fibrillation. 03/08/2025: -patient remains asymptomatic from a cardiac perspective. -REview of telemetry shows sinus bradycardia with intermittent Mobitz I second degree AVB. No recurrence of NSVT overnight -Patient is to be NPO after midnight on Monday03/09/25 for pacemaker placement 03/10/[address] loera. -Medication management as outlined above. 03/09/2025: -patient remains asymptomatic from a cardiac perspective. Ongoing intermittent Mobitz I and episode of non-sustained VT overnight. -Patient will be NPO after midnight for plans for a pacemaker placement tomorrow 03/10/[address] Loera. Patient is aware and procedure is noted on board. -medication management as outlined above. Avoid use of Amiodarone. Darryl on hold. Case has been discussed with Dr. Holley. Further recommendations regarding plan of care as per her assessment. I spent a total of 30 minutes on the date of service in preparation, delivery, documentation of the care provided to the patient excluding any time spent in the performance of separately billed services. RAEANN Barker [facility] Admission and Anticipated Discharge Date Admission Date: March 07, 2025 Results & Data Vital Signs (Past 12 Hours) Vital Signs Temp Pulse Pulse Pulse Resp BP Pulse Ox 03/10/25 09:14 71 18 133/73 98 03/10/25 07:00 60 03/10/25 07:00 36.5 C 69 16 133/73 97 03/10/25 03:55 36.4 C L 59 L 17 145/81 H 97 03/10/25 00:07 36.5 C 62 18 130/72 96 O2 Del Method 03/10/25 09:14 Room Air 03/10/25 07:00 03/10/25 07:00 Room Air 03/10/25 03:55 Room Air 03/10/25 00:07 Room Air PG Care Time/CCT Total # of Minutes Spent Total Time Spent with Patient: Total time spent is greater than 50% in coordination of care (as documented) at patient's floor/unit and/or counseling patient: Coding Diagnoses Bradycardia R00.1 Nonsustained ventricular tachycardia I47.29 Acute on chronic urinary retention R33.9
[2025-03-10] MEDS: LIDOCAINE 1% LOCAL 20 ML VIAL ONE (10:27)
[2025-03-10] MEDS: VANCOMYCIN HCL 1000MG/20ML VIAL ONE (10:27)
[2025-03-10] MEDS: BUPIVACAINE 0.25% PF 30 ML VIAL ONE (10:27)
[2025-03-10] MEDS: WATER, STERILE FOR INJ 10 ML VIAL ONE (10:28)
[2025-03-10] MEDS: ceFAZolin 330 MG/ML 1 GM VIAL ONE (10:28)
[2025-03-10] MEDS: AMIODARONE 360MG / 200ML D5W IV ONE (11:29)
[2025-03-10] MEDS: MIDAZOLAM HCL 5 MG/ML 1 ML VIAL ONE (11:32)
--- NOTE | 2025-03-10 11:39 | Post Anesthesia Assessment ---
Date of Service March 10, 2025 Post Sedation Assessment Vital Signs Temp Pulse Pulse Pulse Resp BP Pulse Ox 03/10/25 09:14 71 18 133/73 98 03/10/25 07:00 60 03/10/25 07:00 36.5 C 69 16 133/73 97 03/10/25 03:55 36.4 C L 59 L 17 145/81 H 97 03/10/25 00:07 36.5 C 62 18 130/72 96 03/09/25 19:58 36.4 C L 57 L 16 129/61 96 03/09/25 19:37 03/09/25 18:12 39 L 03/09/25 15:10 36.6 C 60 18 135/72 94 O2 Del Method 03/10/25 09:14 Room Air 03/10/25 07:00 03/10/25 07:00 Room Air 03/10/25 03:55 Room Air 03/10/25 00:07 Room Air 03/09/25 19:58 Room Air 03/09/25 19:37 Room Air 03/09/25 18:12 03/09/25 15:10 Room Air Recovery Score Activity: Moves 4 extremities Respiration: Deep Breath/Cough Circulation: +/-20% PreAnes Value Consciousness: Fully Awake Oxygen Saturation: > 92% On Room Air Discharge Sedation Level of Care: Fast Track Phase II Post Sedation Plan On clinical assessment, the patient appears to have tolerated the sedation without complications. Patient is recovering as anticipated. Patient will continue to be monitored by nursing and may be discharged when sedation discharge criteria are met per below protocol. Upon Completions of procedure up to 15 minutes continue every 5 minute vital signs and the P.A.R. score; then discharge to a Phase I or Fast Track to Phase II per the following guidelines: * Discharge Patient to appropriate Phase II area if PAR is 8 or greater or return to pre- procedure baseline. The post - procedure orders will be as directed. * If PAR score is less than 8 or not return to pre-procedure baseline then patient will follow Phase I monitoring till PAR is reached for Phase II. The Phase I may be done in procedure room or may call to secure a Phase I area. * If naloxone or flumazenil are used for reversal, hold in Phase I for continued monitoring from when last reversal dose was given for a minimum of 60 minutes or longer pending the nurse and/or physician discretion of patient condition before discharge to Phase II. Please call the Sedation Physician to re-evaluate and complete post-note for discharge to Phase II area. Do NOT discharge from procedure sedation or Phase 1 until post- sedation evaluation note is complete by procedure /sedation MD Sedation Discharge Instructions to be given to the patient at discharge to home.
--- NOTE | 2025-03-10 11:46 | Operative Report ---
Post Operative Report DATE OF PROCEDURE: 03/10/2025 PREOPERATIVE DIAGNOSES: intermittent Complete heart block POSTOPERATIVE DIAGNOSIS: Same PROCEDURE: A dual-chamber rate responsive permanent pacemaker, along with a peripheral venogram under fluoroscopic guidance. SURGEON: Dora Loera DO ASSISTANTS: None. ANESTHESIA: Monitored conscious sedation administered under my supervision by Theo Quezada. Start time 10:11, end time 11:32, a total of 2 mg of Versed and 75 mcg of fentanyl. INTRAVENOUS FLUIDS: 250 mL. CONTRAST: 20 mL. ANTIBIOTICS: 1 grams of Ancef. ADDITIONAL MEDICATIONS: 1None BLOOD LOSS: 50 mL. URINE OUTPUT: Not applicable. SPECIMENS: None. FINDINGS: See below. DRAINS: None. COMPLICATIONS: None. CONDITION: Stable. 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 He presented to [facility] due to urinary problems with his chronic Micehlle on presentation he was in RVOT VT; he got IV amiodarone and then was profoundly bradycardic in Sinus so amio was stopped and he was recommended a pacemaker prior to hospital discharge due to his worsening TBS. CONSENT: Consent was obtained prior to the patient going into the electrophysiology lab. The patient was informed of the risks, benefits, and alternatives to the procedure. Risks include, but not limited to, sudden cardiac , cardiac arrhythmias, cerebrovascular accident, myocardial infarction, injury to his blood vessels, chamber of the heart and lung, bleeding and infection. The patient understood these risks and agreed to the procedure as planned. Informed consent was obtained. DESCRIPTION OF PROCEDURE: The patient was brought into electrophysiology lab in a fasting state. He was connected to continuous cardiac monitoring. A timeout was performed to ensure the patient's identity and procedure correctly. He was prepped and draped in the left infraclavicular space in normal surgical standard fashion. Monitored conscious sedation was given throughout the procedure for the patient's comfort level. Scobey precautions were maintained throughout the procedure. Prophylactic antibiotics were given prior to incision. A 20 mL of 1% lidocaine and bupivacaine mixture were given in the left deltopectoral groove. An incision was made in the left deltopectoral groove. Blunt dissection was performed down to the pectoralis muscle. Then, using blunt dissection over the pectoralis muscle within the pectoral fascia, a pacemaker pocket was created. Then, a peripheral venogram was performed to identify the axillary vein. Venous axillary access was obtained through a needlestick without any problems. A guidewire was inserted without any resistance. A 6- Trinidadian sheath was inserted over the guidewire without any resistance. Dilator was removed and a second guidewire was inserted through the sheath to allow for retained venous access. Then a 9 Trinidadian sheath was inserted over one of the guidewires. The guidewire and dilator were removed. Then, the [employer]ter 3D medium curved sheath was inserted through the 9-Trinidadian sheath over a Glidewire into the right ventricle. The Glidewire and dilator were removed. Then, the left bundle lead was advanced through the sheath and intracardiac electrogram His bundle recordings were estimated when the camera was in VENEGAS 10. Once I had an idea where the His bundle was-as I could not see a clear HIS. I then moved the camera to VENEGAS 30 and marked where I estimated the His bundle was on my fluoroscopy screen. I came down about 2 cm from this in a line that would extend out to the apex and then started coming on pacing. Once I found an area where I had a nice W formed pace complex in my lead V1, I then moved the camera to NIGERIEN 30. Then the helix wa s extended into the septum. Then the helix locking tool was placed. Then the lead was screwed further into the septum while pacing by giving slow clockwise turns. The paced complex changed to a nice R' in V1 and the pacing stim to peak QRS in V6 was good. I did need to reposition the lead a three times before it advanced nicely after swapping out to a large curved [employer]ter sheath. I then gave contrast through the sheath to see how far the lead was into the septum and then I slit the C[employer]ter 3D large sheath under fluoroscopic guidance and left the 9-Trinidadian sheath in while I positioned the right atrial lead. A 6-Trinidadian sheath was inserted over the retained guidewire, the guidewire and dilator removed. The right atrial lead was then advanced into right atrium and positioned into right atrial appendage under fluoroscopic guidance. There was adequate pacing and sensing thresholds and no diaphragmatic stimulation with high output pacing.The lead did dislodge when I put the straight stylet back in so I ended up using a larger preformed J curve which was successful. The 6- Trinidadian sheath was peeled away and the lead was fixated to the pectoralis muscle using 0 silk suture. The 9-Trinidadian sheath around the left bundle lead was peeled away and the lead was fixated to pectoralis muscle using 0 silk suture. The pocket was flushed with copious amounts of vancomycin and saline wash and inspected for hemostasis. The leads were then attached to the pulse generator making sure the pins were in appropriate position, passed set screws, and set screws were all tightened. Pulse generator was then placed in the pocket, making sure the leads were lying flat beneath the device. The incision was closed in a 3-layer fashion using 2-0 Vicryl interrupted suture, followed by 3-0 Vicryl interrupted suture, followed by 4-0 Monocryl running stitch. Then a primaseal dressing was placed EQUIPMENT: 1. Pulse generator is a Screenhero MRI Model Number [id number] SN: [id number] 2. Right atrial lead, COH UlitPace [id number] SN: [id number] 3. Left bundle lead, COH UltiPace LPA [id number] SN: [id number] INTRAPROCEDURAL FINDINGS: 1. Right atrial lead, P waves 3.0 millivolts, impedance 800 ohms, threshold 2.8 volts at 0.5 milliseconds. 2. Left bundle lead, R waves 6.0 millivolts, impedance 620 ohms, threshold 1.0 volts at 0.5 milliseconds. FINAL MEASUREMENTS THROUGH THE DEVICE: 1. Right atrial lead, P waves 3.6millivolts, impedance 890 ohms, threshold 2.0 volt at 0.4 milliseconds. 2. Left bundle lead, R waves 5.0 millivolts, impedance 610 ohms, threshold 1.0 volts at 0.4 milliseconds. FINAL PARAMETERS: DDDR 60/115, right atrial amplitude 3.5 volts, pulse width 0.4 milliseconds, sensitivity 0.3 millivolts. Left bundle lead amplitude 3.5 volts, pulse width 0.4 milliseconds, sensitivity 2 millivolts. IMPRESSION: Successful dual chamber rate responsive permanent pacemaker under fluoroscopic guidance along with peripheral venogram, all under fluoroscopic guidance secondary to TBS PLAN: Monitor the patient post-procedure. A 12-lead ECG, chest x-ray. He is not to lift the left elbow or left shoulder for 1 month. He cannot lift more than 10 pounds with the left arm for 2 weeks. He is to keep the dressing on and dry until his wound check in 10 days. Restart amiodarone infusion for one bag and start amiodarone 200mg BID PO.
[2025-03-10] MEDS ORDERED: 0.2 MICRON FILTER SET 1 EACH IV ONE (13:30)
--- NOTE | 2025-03-10 13:33 | XRay Report ---
XR chest 1V portable HISTORY: 84 years-old Male s/p ppm ensure no PTX status post placement of a left subclavian pacer COMPARISON: Chest radiographs 07/09/2024 TECHNIQUE: AP view of the chest FINDINGS: Has been placed in the interval. Left lateral chest wall skin folds are noted without pneumothorax, f ocal airspace consolidation, pleural effusion or overt pulmonary edema. Degenerative changes of the s houlders and spine. IMPRESSION: Status post placement of a left subclavian pacer. No pneumothorax identified. ACT 112: Negative or not required by law. The above report was generated using voice recognition software. It may contain grammatical, syntax o r spelling errors. Electronically signed by: Dominguez Erazo M.D. 03/10/2025 1:31 PM
[2025-03-10] MEDS: AMIODARONE 200 MG TAB PO SCH (13:34)
[2025-03-10] MEDS: AMIODARONE / D5W 360 MG/200 ML BAG IV SCH (13:54)
--- NOTE | 2025-03-10 15:07 | Hospitalist Progress Note ---
Date of Service March 10, 2025 Assessment & Plan (1) Nonsustained ventricular tachycardia: (2) Bradycardia: (3) Severe protein-calorie malnutrition: (4) Incomplete bladder emptying: Plan Patient is an 84-year-old male with a past medical history of RVOT paroxysmal ventricular tachycardia, paroxysmal A-fib, CAD, PVD, type II DM, prostate cancer, LUTS with chronic Michelle. Patient presented to the ED for catheter replacement as his was not draining properly. While in the ED patient was found to have several episodes of nonsustained V. tach lasting 10 to 20 seconds, patient remained completely asymptomatic. He was started on an amiodarone bolus and drip and then had profound bradycardia with the Mobitz 1 second-degree heart block. He is admitted for permanent pacemaker placement. #Nonsustained V. tach/second-degree Mobitz 1 heart block/PAF on Eliquis continues to have repeated episodes of nonsustained V. tach as long as 45 seconds/66 beats, also with frequent secondary heart block and possibly third- degree heart block with rates in the 20s to 50s. Patient is completely asymptomatic. He previously was on a beta-kurtis which controlled his VTE, but this was held due to severe bradycardia hence why he is having more frequent VT. He was placed on IV amiodarone in the ED for repeated V. tach but this was stopped due to heart block and bradycardia. Echocardiogram here with normal LV function. TSH normal. Appreciate cardiology consultation - Pacemaker per cardiology, routine postoperative cares - Continue telemetry monitoring, can use IV Lopressor as needed for sustained V. tach as per cardiology - Holding home Eliquis and aspirin for procedure, resume post op #Hypomagnesemia-magnesium low on admission and was replaced. Now remains low normal at 1.8 - AM recheck #Prostate CA/LUTS/chronic indwelling Michelle for urinary retentionFoley catheter changed in ED for what was thought to be a malfunctioning Michelle catheter. He has been having frequent leakage of urine around the Michelle catheter despite it being in the correct position. Bladder ultrasound here shows the catheter is in the correct place despite leakage. I discussed his care with the urology team- they think he is having leakage due to bladder spasms. He was recently prescribed Gemtesa and was told to stop his Vesicare. UA with 1+ protein, trace LE, 21-50 WBC, >20 RBC no bacteria noted. Urine culture is growing Jennifer albicans which is likely a colonizer. - Continue Daily catheter care, flush as needed Continue Gemtesa and added Flomax as per urology recommendation for bladder spasms, still some leakage noted, will continue to monitor, he already had a 20 guage catheter placed this last exchange with no improvement - continue to follow with urology in outpatient setting #Severe protein calorie malnutrition/underweight BMI 18.7-appreciate nutrition consultation. The patient has lost 40% of his body weight in the last year or more unintentionally. He has been dealing with issues with his prostate and has a long history of smoking perhaps contributing? Does have mild anemia but it is not iron deficiency-would not suspect GI malignancy but is a consideration - Follow-up with PCP as an outpatient for referral to GI for EGD and colonoscopy - Added boost supplement shakes twice daily - Liberalize diet-removed heart healthy portion - Added multivitamin with minerals once daily #Anemia-Hgb mildly low at 12.8, normocytic. Iron studies, B12, folate, TSH all normal. Likely anemia of chronic disease. No bleeding from anywhere - Follow CBC #HTN/history of CVA/nonobstructive CAD-cardiac catheterization in 2021 with nonobstructive CAD with 60% proximal small LAD, 40% mid CX, 40% diffuse mid and 30% distal RCA, 80% small high OM1, 40% proximal large D1, 50% proximal medium OM 2. BPs here have been controlled -continue lisinopril, but recently stopped beta-kurtis due to bradycardia-plan to add beta-kurtis back on after pacemaker in place - Holding home aspirin and Eliquis for upcoming pacemaker-resume when okay with cardiology after procedure #Type II DM HgbA1c controlled at 6.6%, he has had tremendous amount of weight loss. Is only on Jardiance and metformin at home - Holding home metformin - Continue Jardiance and supplemental NovoLog as needed - Diabetic diet, BSG's ACHS DVT prophylaxis-holding home Eliquis, continues on SCDs Dispo: Continued stay PCU, likely discharge to home on 03/11 the day after andreas corbett placed Admission and Anticipated Discharge Date Admission Date: March 07, 2025 Subjective Pacemaker placed by cardiology this morning. Doing well postoperatively. Mostly concerned with urinary leakage around his catheter. Arm in sling, no dizziness, SOB or chest pain. Physical Exam Constitutional: + thin; no acute distress Respiratory: normal respiratory effort Auscultation: + diminished lung sounds (Throughout); no crackles, no rales and no rhonchi Cardiovascular: Rate/Rhythm: regular rhythm and + bradycardic Heart Sounds: + murmur (2/6 systolic murmur at the RUSB) Pacer site on left chest. CDI Gastrointestinal (Abdomen): normal bowel sounds, soft, nontender, no hepatosplenomegaly Musculoskeletal: Left Arm in Sling Skin: + rash (Scrotum and right inguinal regio n with mild erythematous rash) Psychiatric: A+Ox3, euthymic affect Genitourinary: + penis abnormality (Michelle catheter in p lace) Results & Data Results & Data Vital Signs (Past 12 Hours) Vital Signs Temp Pulse Pulse Pulse Resp BP BP 03/10/25 14:54 36.5 C 73 18 106/72 03/10/25 13:47 36.3 C L 97 H 18 92/59 L 03/10/25 12:32 36.2 C L 77 18 121/69 03/10/25 12:13 36.4 C L 93 H 18 132/80 03/10/25 11:45 76 16 121/79 03/10/25 09:14 71 18 133/73 03/10/25 07:00 60 03/10/25 07:00 36.5 C 69 16 133/73 03/10/25 03:55 36.4 C L 59 L 17 145/81 H Pulse Ox O2 Del Method 03/10/25 14:54 96 Room Air 03/10/25 13:47 96 Room Air 03/10/25 12:32 97 Room Air 03/10/25 12:13 95 Room Air 03/10/25 11:45 96 Room Air 03/10/25 09:14 98 Room Air 03/10/25 07:00 03/10/25 07:00 97 Room Air 03/10/25 03:55 97 Room Air PG Care Time/CCT Total # of Minutes Spent Total Time Spent with Patient: Total time spent is greater than 50% in coordination of care (as documented) at patient's floor/unit and/or counseling patient: Coding Level of Care Code 33822 SUB INP/OBS CARE 2/35MIN Diagnoses Nonsustained ventricular tachycardia I47.29 Bradycardia R00.1 Severe protein-calorie malnutrition E43 Incomplete bladder emptying R33.9
[2025-03-10] MEDS ORDERED: Nursing to Pharmacy Communication SCH (17:45)
[2025-03-11] MEDS: ACETAMINOPHEN 325 MG TAB PO PRN (05:11)
[2025-03-11 06:15] LABS: Hematocrit (blood only) 40.5 % (42.0-52.0); Hemoglobin 13.4 g/dL (14.0-18.0); Immature Granulocytes # (auto) 0.07 K/uL (0.01-0.20); Immature Granulocytes % (auto) 0.7 %; Mean Corpuscular Hemoglobin 31.1 pg (25.0-34.0); Mean Corpuscular Volume 94.0 fL (80.0-100.0); Platelet Count 196 K/uL (130-400); RDW Standard Deviation 48.4 fL (36.4-46.3); Red Blood Count 4.31 M/uL (4.70-6.10); White Blood Count 9.64 K/ul (4.8-10.8)
[2025-03-11 06:27] LABS: Anion Gap 7.0 (3-11); Blood Urea Nitrogen 24.0 mg/dl (6-23); Calcium 8.5 mg/dl (8.6-10.3); Carbon Dioxide 28.0 mmol/L (21-32); Chloride 101.0 mmol/L (98-107); Creatinine Clr Calc Pharmacy 53.2 ml/min; Glucose 154.0 mg/dl (70-99(Fasting)); Magnesium 1.8 mg/dl (1.7-2.4); Potassium 4.1 mmol/L (3.5-5.1); Sodium 136.0 mmol/L (136-145)
[2025-03-11] MEDS ORDERED: 0.2 MICRON FILTER SET 1 EACH IV STA (08:50)
[2025-03-11] MEDS ORDERED: STAT IV Infusion **Titration per Protocol STA (08:50)
[2025-03-11] MEDS: AMIODARONE / D5W 150 MG/100 ML BAG IV STA (09:28)
[2025-03-11] MEDS: AMIODARONE IV BOLUS & DRIP IV STA (09:34)
[2025-03-11] MEDS: AMIODARONE / D5W 360 MG/200 ML BAG IV ONE (09:43)
--- NOTE | 2025-03-11 14:43 | Cardiology Progress Note ---
Date of Service March 11, 2025 Assessment & Plan (1) Bradycardia: Plan: s/p PPM (2) Nonsustained ventricular tachycardia: (3) Acute on chronic urinary retention: Plan 84-year-old male with longstanding arrhythmic issues including paroxysmal ventricular tachycardia and paroxysmal atrial fibrillation. Patient initially sought ER evaluation for Michelle catheter obstruction and was noted to have salvos of nonsustained ventricular tachycardia on telemetry. Transient course of IV amiodarone following bolus discontinued after bradycardia arrhythmias observed. 1. 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 Usually catecholamine induced and beta-kurtis responsive. Generally not associated with need for defibrillator Recent discontinuation of metoprolol due to bradycardia noted during urologic evaluations LV systolic function normal 2. Paroxysmal atrial fibrillation on chronic amiodarone therapy. 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 Bradycardia arrhythmias more profound following IV amiodarone bolus last evening. Suspect patient will require pacemaker for long-term management. 3. 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 4. s/p Dual chamber PPM PPM interrogation - PPM parameters ok; noted to have slow NSVT. Started in IV Amiodarone infusion -> will transition to PO Amiodarone. Will decrease Lisinopril dose to give room for metoprolol XL to be restarted, now that he has a PPM [facility] Admission and Anticipated Discharge Date Admission Date: March 07, 2025 Subjective Patient on exam is lying in bed in NAD; no c/o cp, sob, palpitations, dizziness, LOC, cough, fever, nausea, vomiting, abdominal pain s/p PPM; LUE in a sling; PPM interrogated - slow NSVT, PPM parameters ok Review of Systems Review of Systems: as per hpi Physical Exam Constitutional: + thin; no acute distress Eyes: PERRL, conjunctivae normal, anicteric sclerae ENMT: Mallampati Class: II Neck: trachea midline, no thyromegaly normal visual inspection and trachea midline Respiratory: normal respiratory effort, lungs clear to auscultation Cardiovascular: RRR, no murmur, no edema Rate/Rhythm: regular rate and + bradycardic Heart Sounds: normal S1, normal S2 and + murmur (Grade 1/6 systolic murmur) Vessels: dorsalis pedis pulses present; no JVD Extremities: no edema Chest (Breasts): Additional Comments: PPM sit is intact with no sig hematoma, bleeding, discharge; LUE in a sling Gastrointestinal (Abdomen): normal bowel sounds, soft, nontender, no hepatosplenomegaly Skin: no rashes, warm and dry Psychiatric: A+Ox3, euthymic affect Results & Data Vital Signs (Past 12 Hours) Vital Signs Temp 36.2 C L 03/11/25 10:59 Pulse 96 H 03/11/25 10:59 Resp 18 03/11/25 10:59 BP 101/56 L 03/11/25 10:59 Pulse Ox 95 03/11/25 10:59 O2 Del Method Room Air 03/11/25 10:59 Intake & Output 03/10/25 03/11/25 03/11/25 18:59 06:59 18:59 Intake Total 300 / 820.000 520.000 / 820.000 100 / 100 Output Total 902 / 1602 700 / 1602 375 / 375 Balance -602 / -782.000 -180.000 / -782.000 -275 / -275 Weight 54.7 kg 54.7 kg Intake: IV 200.000 / 200.000 100 / 100 Amiodarone / D5w 150 mg In 100 100 / 100 ml @ 600 mls/hr IV NOW STA Rx#: [id number] Amiodarone / D5w 360 mg In 200 200.000 / 200.000 ml @ 0.5 MG/MIN 16.667 mls/hr IV .Q12H [facility] Rx#:[id number] Oral 300 / 620 320 / 620 Output: Urine Amount (Catheter) 900 / 1600 700 / 1600 375 / 375 Michelle/Indwelling 900 / 1600 700 / 1600 375 / 375 # Bowel Movements 2 / 2 Other: Weight Measurement Method [facility] Vital Signs Temp Pulse Pulse Resp BP BP Pulse Ox 03/11/25 10:59 36.2 C L 96 H 18 101/56 L 95 03/11/25 07:27 36.4 C L 75 20 107/68 96 03/11/25 06:05 78 03/11/25 03:00 36.4 C L 76 18 135/79 98 O2 Del Method 03/11/25 10:59 Room Air 03/11/25 07:27 Room Air 03/11/25 06:05 03/11/25 03:00 Room Air Laboratory Results Laboratory Results WBC 9.64 K/ul (4.8-10.8) 03/11/25 05:37 RBC 4.31 M/uL (4.70-6.10) L 03/11/25 05:37 Hgb 13.4 g/dL (14.0-18.0) L 03/11/25 05:37 Hct 40.5 % (42.0-52.0) L 03/11/25 05:37 MCV 94.0 fL (80.0-100.0) 03/11/25 05:37 MCH 31.1 pg (25.0-34.0) 03/11/25 05:37 MCHC 33.1 g/dL (32.0-36.0) 03/11/25 05:37 RDW Std Deviation 48.4 fL (36.4-46.3) H 03/11/25 05:37 RDW Coeff of Dylan 13.9 % (11.5-14.5) 03/11/25 05:37 Plt Count 196 K/uL (130-400) 03/11/25 05:37 MPV 10.3 fL (9.4-12.4) 03/11/25 05:37 Immature Gran % (Auto) 0.7 % 03/11/25 05:37 Neut % (Auto) 77.8 % 03/11/25 05:37 Lymph % (Auto) 12.1 % 03/11/25 05:37 [place] % (Auto) 8.2 % 03/11/25 05:37 Eos % (Auto) 0.5 % 03/11/25 05:37 Baso % (Auto) 0.7 % 03/11/25 05:37 Neut # (Auto) 7.49 K/uL (1.40-6.50) H 03/11/25 05:37 Lymph # (Auto) 1.17 K/uL (1.20-3.40) L 03/11/25 05:37 [place] # (Auto) 0.79 K/uL (0.11-0.59) H 03/11/25 05:37 Eos # (Auto) 0.05 K/uL (0.00-0.50) 03/11/25 05:37 Baso # (Auto) 0.07 K/uL (0.00-0.20) 03/11/25 05:37 Immature Gran # (Auto) 0.07 K/uL (0.01-0.20) 03/11/25 05:37 Absolute Nucleated RBC Cancelled 03/10/25 06:04 Nucleated RBC % (auto) Cancelled 03/10/25 06:04 Neutrophils % (Manual) Cancelled 03/10/25 06:04 Band Neutrophils % Cancelled 03/10/25 06:04 Lymphocytes % (Manual) Cancelled 03/10/25 06:04 Prolymphocyte % Cancelled 03/10/25 06:04 Reactive Lymphs % (Man) Cancelled 03/10/25 06:04 Monocytes % (Manual) Cancelled 03/10/25 06:04 Eosinophils % (Manual) Cancelled 03/10/25 06:04 Basophils % (Manual) Cancelled 03/10/25 06:04 Metamyelocytes % (Man) Cancelled 03/10/25 06:04 Myelocytes % (Man) Cancelled 03/10/25 06:04 Promyelocytes % (Man) Cancelled 03/10/25 06:04 Blast Cells % (Manual) Cancelled 03/10/25 06:04 Plasma Cell % (Manual) Cancelled 03/10/25 06:04 Other Cells % Cancelled 03/10/25 06:04 Nucleated RBC % Cancelled 03/10/25 06:04 Neutrophils # (Manual) Cancelled 03/10/25 06:04 Band Neutrophils # Cancelled 03/10/25 06:04 Total Absolute Neuts Cancelled 03/10/25 06:04 Lymphocytes # (Manual) Cancelled 03/10/25 06:04 Prolymphocyte # Cancelled 03/10/25 06:04 Reactive Lymphs # Cancelled 03/10/25 06:04 Total Abs Lymphocytes Cancelled 03/10/25 06:04 Monocytes # (Manual) Cancelled 03/10/25 06:04 Eosinophils # (Manual) Cancelled 03/10/25 06:04 Basophils # (Manual) Cancelled 03/10/25 06:04 Metamyelocytes # (Man) Cancelled 03/10/25 06:04 Myelocytes # (Manual) Cancelled 03/10/25 06:04 Promyelocytes # (Man) Cancelled 03/10/25 06:04 Blast Cells # (Man) Cancelled 03/10/25 06:04 Plasma Cell # (Manual) Cancelled 03/10/25 06:04 Other Cells # Cancelled 03/10/25 06:04 Nucleated RBCs # (Man) Cancelled 03/10/25 06:04 Hypersegmented Neuts Cancelled 03/10/25 06:04 Hyposegmented Neuts Cancelled 03/10/25 06:04 Hypogranular Neuts Cancelled 03/10/25 06:04 Large Granular Lymphs Cancelled 03/10/25 06:04 # Lrg Granular Lymphs Cancelled 03/10/25 06:04 Hairy Cells Cancelled 03/10/25 06:04 Smudge Cells Cancelled 03/10/25 06:04 Toxic Granulation Cancelled 03/10/25 06:04 Toxic Vacuolation Cancelled 03/10/25 06:04 Dohle Bodies Cancelled 03/10/25 06:04 Devang Rods Cancelled 03/10/25 06:04 Platelet Estimate Cancelled 03/10/25 06:04 Hypogranular Platelets Cancelled 03/10/25 06:04 Giant Platelets Cancelled 03/10/25 06:04 Platelet Satelliting Cancelled 03/10/25 06:04 RBC Morphology Cancelled 03/10/25 06:04 Polychromasia Cancelled 03/10/25 06:04 Hypochromasia Cancelled 03/10/25 06:04 Poikilocytosis Cancelled 03/10/25 06:04 Basophilic Stippling Cancelled 03/10/25 06:04 Anisocytosis Cancelled 03/10/25 06:04 Microcytosis Cancelled 03/10/25 06:04 Macrocytosis Cancelled 03/10/25 06:04 Spherocytes Cancelled 03/10/25 06:04 Pappenheimer Bodies Cancelled 03/10/25 06:04 Sickle Cells Cancelled 03/10/25 06:04 Target Cells Cancelled 03/10/25 06:04 Tear Drop Cells Cancelled 03/10/25 06:04 Ovalocytes Cancelled 03/10/25 06:04 Stomatocytes Cancelled 03/10/25 06:04 [place] Bodies Cancelled 03/10/25 06:04 Echinocytes Cancelled 03/10/25 06:04 Acanthocytes (Spur) Cancelled 03/10/25 06:04 Rouleaux Cancelled 03/10/25 06:04 RBC Agglutinates Cancelled 03/10/25 06:04 Schistocytes Cancelled 03/10/25 06:04 Sezary Cell Cancelled 03/10/25 06:04 PT 12.4 Seconds (9.0-12.0) H 03/08/25 06:35 INR 1.2 (0.9-1.1) H 03/08/25 06:35 Sodium 136 mmol/L (136-145) 03/11/25 05:37 Potassium 4.1 mmol/L (3.5-5.1) 03/11/25 05:37 Chloride 101 mmol/L (98-107) 03/11/25 05:37 Carbon Dioxide 28 mmol/L (21-32) 03/11/25 05:37 Anion Gap 7 (3-11) 03/11/25 05:37 BUN 24 mg/dl (6-23) H 03/11/25 05:37 Creatinine 0.80 mg/dl (0.6-1.4) 03/11/25 05:37 Est Cr Clr Drug Dosing 53.2 ml/min 03/11/25 05:37 eGFR 87.27 03/11/25 05:37 BUN/Creatinine Ratio 30.0 (10-20) H 03/11/25 05:37 Glucose 154 mg/dl (70-99(Fasting)) H 03/11/25 05:37 POC Glucose 202 mg/dl (70-99) H 03/11/25 11:05 Estimat Average Glucose 143 mg/dl 03/08/25 06:35 Hemoglobin A1c 6.6 % (4.5-5.6) H 03/08/25 06:35 Calcium 8.5 mg/dl (8.6-10.3) L 03/11/25 05:37 Magnesium 1.8 mg/dl (1.7-2.4) 03/11/25 05:37 Iron 41 mcg/dl (35-175) 03/08/25 06:35 TIBC 183 mcg/dl (250-450) L 03/08/25 06:35 Transferrin 131 mg/dl (200-360) L 03/08/25 06:35 Transferrin % Sat 22 % (20-50) 03/08/25 06:35 Ferritin 61.5 ng/ml (8-388) 03/08/25 06:35 Total Bilirubin 0.5 mg/dl (0.2-1.0) 03/06/25 22:45 AST 12 U/L (13-39) L 03/06/25 22:45 ALT 10 U/L (7-52) 03/06/25 22:45 Alkaline Phosphatase 98 U/L (34-104) 03/06/25 22:45 Troponin I High Sens 11.3 pg/ml (0-20) 03/06/25 22:45 Total Protein 6.4 gm/dl (6.0-8.3) 03/06/25 22:45 Albumin 3.4 gm/dl (3.4-5.0) 03/06/25 22:45 Globulin 3.0 gm/dl (2.5-4.0) 03/06/25 22:45 Albumin/Globulin Ratio 1.1 (0.9-2) 03/06/25 22:45 Lipase 14 U/L (11-82) 03/06/25 22:45 Vitamin B12 722 pg/ml (180-914) 03/08/25 06:35 Folate 9.78 ng/ml (>5.38) 03/08/25 06:35 TSH 1.997 uIu/ml (0.300-4.500) 03/06/25 22:45 Urine Color Yellow 03/06/25 22:35 Urine Appearance Clear (Clear) 03/06/25 22:35 Urine pH 5.0 (4.5-7.5) 03/06/25 22:35 Ur Specific [place] 1.032 (1.000-1.030) H 03/06/25 22:35 Urine Protein 1+ (Negative) H 03/06/25 22:35 Urine Glucose (UA) 3+ (Negative) H 03/06/25 22:35 Urine Ketones Negative (Negative) 03/06/25 22:35 Urine Blood 2+ (Negative) H 03/06/25 22:35 Urine Nitrite Negative (Negative) 03/06/25 22:35 Urine Bilirubin Negative (Negative) 03/06/25 22:35 Urine Urobilinogen Negative (Negative) 03/06/25 22:35 Ur Leukocyte Esterase Trace (Negative) H 03/06/25 22:35 Urine WBC (Auto) 21-50 /hpf (0-5) H 03/06/25 22:35 Urine RBC (Auto) >20 /hpf (0-2) H 03/06/25 22:35 U Hyaline Cast (Auto) 0-2 /lpf (0-2) 03/06/25 22:35 U Epithel Cells (Auto) 0-2 /hpf (0-2) 03/06/25 22:35 Urine Bacteria (Auto) None Seen (None Seen) 03/06/25 22:35 Urine Yeast Present (None Prsent) A 03/06/25 22:35 Urine Comment 03/06/25 22:35 Blood Parasites ID Cancelled 03/10/25 06:04 Impressions Bladder Ultrasound 03/07/25 12:27 ULTRASOUND OF THE BLADDER CLINICAL HISTORY: Leakage around the Michelle catheter.. COMPARISON STUDY: Abdominal CT dated 04/14/2020 TECHNIQUE: Real-time, grayscale, and color flow sonography of bladder is performed. Images are reviewed in the transverse and longitudinal planes. FINDINGS: The bladder is largely decompressed around a Michelle catheter. The catheter is located within the bladder lumen. The bladder wall appears thickened/trabeculated indicating chronic outlet obstruction. Ureteral jets could not be assessed. IMPRESSION: 1. The bladder is largely decompressed around a Michelle catheter. The catheter appears appropriately positioned. 2. There is evidence of chronic bladder outlet obstruction. ACT 112: Negative or not required by law. Electronically signed by: Hipolito Muller M.D. 03/07/2025 3:10 PM Chest X-Ray 03/10/25 13:30 XR chest 1V portable HISTORY: 84 years-old Male s/p ppm ensure no PTX status post placement of a left subclavian pacer COMPARISON: Chest radiographs 07/09/2024 TECHNIQUE: AP view of the chest FINDINGS: Has been placed in the interval. Left lateral chest wall skin folds are noted without pneumothorax, focal airspace consolidation, pleural effusion or overt pulmonary edema. Degenerative changes of the shoulders and spine. IMPRESSION: Status post placement of a left subclavian pacer. No pneumothorax identified. ACT 112: Negative or not required by law. The above report was generated using voice recognition software. It may contain grammatical, syntax or spelling errors. Electronically signed by: Dominguez Erazo M.D. 03/10/2025 1:31 PM Diagnostic Findings CBC 03/11/25 Range/Units 05:37 WBC 9.64 (4.8-10.8) K/ul RBC 4.31 L (4.70-6.10) M/uL Hgb 13.4 L (14.0-18.0) g/dL Hct 40.5 L (42.0-52.0) % Plt Count 196 (130-400) K/uL Neut # (Auto) 7.49 H (1.40-6.50) K/uL Lymph # (Auto) 1.17 L (1.20-3.40) K/uL [place] # (Auto) 0.79 H (0.11-0.59) K/uL Eos # (Auto) 0.05 (0.00-0.50) K/uL Baso # (Auto) 0.07 (0.00-0.20) K/uL Comprehensive Metabolic Panel 03/11/25 Range/Units 05:37 Sodium 136 (136-145) mmol/L Potassium 4.1 (3.5-5.1) mmol/L Chloride 101 (98-107) mmol/L Carbon Dioxide 28 (21-32) mmol/L BUN 24 H (6-23) mg/dl Creatinine 0.80 (0.6-1.4) mg/dl Glucose 154 H (70-99(Fasting)) mg/dl Calcium 8.5 L (8.6-10.3) mg/dl Intake and Output 03/10/25 03/11/25 03/11/25 22:59 06:59 14:59 Intake Total 500.000 / 820.000 200 / 820.000 100 / 100 Output Total 602 / 1602 450 / 1602 375 / 375 Balance -102.000 / -782.000 -250 / -782.000 -275 / -275 Intake: IV 200.000 / 200.000 100 / 100 Amiodarone / D5w 150 mg In 100 100 / 100 ml @ 600 mls/hr IV NOW STA Rx#: [id number] Amiodarone / D5w 360 mg In 200 200.000 / 200.000 ml @ 0.5 MG/MIN 16.667 mls/hr IV .Q12H [facility] Rx#:[id number] Oral 300 / 620 200 / 620 Output: Urine Amount (Catheter) 600 / 1600 450 / 1600 375 / 375 Michelle/Indwelling 600 / 1600 450 / 1600 375 / 375 # Bowel Movements 2 / 2 Other: Weight 54.7 kg 54.7 kg Weight Measurement Method [facility] Patient Weight 03/12/25 06:59 Weight 54.7 kg Medications Administered Home Medications Medication Instructions Recorded Confirmed Last Taken acetaminophen 500 mg tablet 500 mg PO Q4H PRN Pain 01/07/21 03/07/25 07/29/24 04:00 (Tylenol Extra Strength) finasteride 5 mg tablet 5 mg PO QAM 05/03/21 03/07/25 03/06/25 apixaban 5 mg tablet (Eliquis) 5 mg PO BID #60 tabs 05/07/21 03/07/25 03/06/25 magnesium chloride 64 mg 64 mg PO BID #60 tabs 05/07/21 03/07/25 03/06/25 (magnesium chloride) tablet,delayed release (Mag 64) atorvastatin 20 mg tablet 20 mg PO QAM 09/17/21 03/07/25 03/06/25 amiodarone 200 mg tablet 200 mg PO QAM 07/24/24 03/07/25 03/06/25 solifenacin 10 mg tablet 10 mg PO DAILY #90 tabs 08/28/24 03/07/25 03/06/25 L-Arginine Tabs 850 mg PO DAILY 02/20/25 03/07/25 03/06/25 amino acids 1 tab PO DAILY 02/20/25 03/07/25 03/06/25 aspirin 81 mg tablet,delayed 81 mg PO DAILY 02/20/25 03/07/25 03/06/25 release cyanocobalamin (vitamin B-12) 500 500 mcg PO DAILY 02/20/25 03/07/25 03/06/25 mcg tablet (Vitamin B-12) empagliflozin 25 mg tablet 25 mg PO QAM 02/20/25 03/07/25 03/06/25 (Jardiance) fluticasone propionate 50 2 spray intranasal DAILY 02/20/25 03/07/25 03/06/25 mcg/actuation nasal spray,suspension lisinopril 20 mg tablet 20 mg PO DAILY 02/20/25 03/07/25 03/06/25 metformin 500 mg tablet,extended 1,500 mg PO DAILY 02/20/25 03/07/25 03/06/25 release 24 hr vibegron 75 mg tablet (Gemtesa) 75 mg PO DAILY #30 tabs 03/05/25 03/07/25 Unknown Active Medications Generic Name Dose Route Start Last Admin Trade Name Freq PRN Reason Stop Dose Admin Acetaminophen 650 mg 03/07/25 02:32 03/11/25 05:11 Acetaminophen 325 Mg Tab PO 04/06/25 02:31 650 mg Q4H PRN Administration Pain or Fever Amiodarone HCl 200 mg 03/10/25 13:00 03/11/25 08:53 Amiodarone 200 Mg Tab PO 04/09/25 12:59 200 mg BID YUMIKO Administration Atorvastatin Calcium 20 mg 03/07/25 09:00 03/11/25 08:52 Atorvastatin 20 Mg Tab PO 04/06/25 08:59 20 mg QAM YUMIKO Administration Empagliflozin 25 mg 03/07/25 09:00 03/11/25 08:53 Empagliflozin 25 Mg Tab PO 04/06/25 08:59 25 mg QAM YUMIKO Administration Finasteride 5 mg 03/07/25 09:00 03/11/25 08:52 Finasteride 5 Mg Tab PO 04/06/25 08:59 5 mg QAM YUMIKO Administration Fluticasone Propionate 2 sprays 03/07/25 09:00 03/11/25 08:53 Fluticasone Propionate Na Spr 16 Gm Btl NA 04/06/25 08:59 2 sprays DAILY YUMIKO Administration Amiodarone HCl/Dextrose 360 mg in 200 mls @ 33.333 mls/hr 03/11/25 09:00 03/11/25 09:43 Nexterone / D5w IV 03/11/25 14:59 1 mg/min ONE ONE 33.3 mls/hr Administration 1 MG/MIN Insulin Aspart 0 units 03/10/25 21:00 03/11/25 11:52 Insulin Aspart Per Unit Charge SC 04/09/25 05:59 1 units ACHS YUMIKO Administration Lisinopril 20 mg 03/07/25 09:00 03/11/25 08:52 Lisinopril 20 Mg Tab PO 04/06/25 08:59 20 mg DAILY YUMIKO Administration Magnesium Chloride 64 mg 03/07/25 09:00 03/11/25 08:52 Magnesium Chloride W/Calcium 64mg Delayed Rel Tab PO 04/06/25 08:59 64 mg BID YUMIKO Administration Multivitamins/Minerals 1 tab 03/09/25 09:00 03/11/25 08:52 Cerovite Adv Formula Tab PO 04/08/25 08:59 1 tab QAM YUMIKO Administration Tamsulosin HCl 0.4 mg 03/09/25 21:00 03/10/25 20:15 Tamsulosin Hcl 0.4 Mg Cap PO 04/08/25 20:59 0.4 mg HS YUMIKO Administration Vibegron 75 mg 03/07/25 09:00 03/11/25 08:52 Vibegron 75 Mg Tab PO 04/06/25 08:59 75 mg DAILY YMUIKO Administration PG Care Time/CCT Total # of Minutes Spent Total Time Spent with Patient: Total time spent is greater than 50% in coordination of care (as documented) at patient's floor/unit and/or counseling patient: Coding Level of Care Code 53828 SUB INP/OBS CARE 3/50MIN Diagnoses Bradycardia R00.1 Nonsustained ventricular tachycardia I47.29 Acute on chronic urinary retention R33.9
[2025-03-11] MEDS: AMIODARONE / D5W 360 MG/200 ML BAG IV SCH (15:43)
--- NOTE | 2025-03-11 17:44 | Hospitalist Progress Note ---
Date of Service March 11, 2025 Assessment & Plan (1) Nonsustained ventricular tachycardia: (2) Bradycardia: (3) Severe protein-calorie malnutrition: (4) Incomplete bladder emptying: Plan Patient is an 84-year-old male with a past medical history of RVOT paroxysmal ventricular tachycardia, paroxysmal A-fib, CAD, PVD, type II DM, prostate cancer, LUTS with chronic Michelle. Patient presented to the ED for catheter replacement as his was not draining properly. While in the ED patient was found to have several episodes of nonsustained V. tach lasting 10 to 20 seconds, patient remained completely asymptomatic. He was started on an amiodarone bolus and drip and then had profound bradycardia with the Mobitz 1 second-degree heart block. He is admitted for permanent pacemaker placement. #Nonsustained V. tach/second-degree Mobitz 1 heart block/PAF on Eliquis continues to have repeated episodes of nonsustained V. tach as long as 45 seconds/66 beats, also with frequent secondary heart block and possibly third- degree heart block with rates in the 20s to 50s. Patient is completely asymptomatic. He previously was on a beta-kurtis which controlled his VTE, but this was held due to severe bradycardia hence why he is having more frequent VT. He was placed on IV amiodarone in the ED for repeated V. tach but this was stopped due to heart block and bradycardia. Echocardiogram here with normal LV function. TSH normal. Appreciate cardiology consultation - Pacemaker per cardiology, routine postoperative cares - Continue telemetry monitoring, can use IV Lopressor as needed for sustained V. tach as per cardiology - Holding home Eliquis and aspirin for procedure, resume post op - Regularly paced per telemetry. Asymptomatic although he has not been up and about very much after pacemaker placement - postoperative activity per cardiology, Appreciate recommendations #Hypomagnesemia-magnesium low on admission and was replaced. Now remains low normal at 1.8 - AM recheck WNL, repeat tomorrow #Prostate CA/LUTS/chronic indwelling Michelle for urinary retentionFoley catheter changed in ED for what was thought to be a malfunctioning Michelle catheter. He has been having frequent leakage of urine around the Michelle catheter despite it being in the correct position. Bladder ultrasound here shows the catheter is in the correct place despite leakage. I discussed his care with the urology team- they think he is having leakage due to bladder spasms. He was recently prescribed Gemtesa and was told to stop his Vesicare. UA with 1+ protein, trace LE, 21-50 WBC, >20 RBC no bacteria noted. Urine culture is growing Jennifer albicans which is likely a colonizer. - Continue Daily catheter care, flush as needed Continue Gemtesa and added Flomax as per urology recommendation for bladder spasms, still some leakage noted, will continue to monitor, he already had a 20 guage catheter placed this last exchange with no improvement - continue to follow with urology in outpatient setting #Severe protein calorie malnutrition/underweight BMI 18.7-appreciate nutrition consultation. The patient has lost 40% of his body weight in the last year or more unintentionally. He has been dealing with issues with his prostate and has a long history of smoking perhaps contributing? Does have mild anemia but it is not iron deficiency-would not suspect GI malignancy but is a consideration - Follow-up with PCP as an outpatient for referral to GI for EGD and colonoscopy - Added boost supplement shakes twice daily - Liberalize diet-removed heart healthy portion - Added multivitamin with minerals once daily #Anemia-Hgb mildly low at 12.8, normocytic. Iron studies, B12, folate, TSH all normal. Likely anemia of chronic disease. No bleeding from anywhere - Follow CBC #HTN/history of CVA/nonobstructive CAD-cardiac catheterization in 2021 with nonobstructive CAD with 60% proximal small LAD, 40% mid CX, 40% diffuse mid and 30% distal RCA, 80% small high OM1, 40% proximal large D1, 50% proximal medium OM 2. BPs here have been controlled -continue lisinopril, but recently stopped beta-kurtis due to bradycardia-plan to add beta-kurtis back on after pacemaker in place - Holding home aspirin and Eliquis for upcoming pacemaker-resume when okay with cardiology after procedure #Type II DM HgbA1c controlled at 6.6%, he has had tremendous amount of weight loss. Is only on Jardiance and metformin at home - Holding home metformin - Continue Jardiance and supplemental NovoLog as needed - Diabetic diet, BSG's ACHS DVT prophylaxis-holding home Eliquis, continues on SCDs Dispo: Continued stay PCU, likely discharge to home on 03/11 the day after pacemaker placed Admission and Anticipated Discharge Date Admission Date: March 07, 2025 Subjective resting comfortably during my visit with him this morning. He has not been up walking in the halls much as of yet. Brief visits to the bathroom. Just at the bedside in the chair. No issues with breakfast. No shortness of breath, Diaphoresis or dizziness noted. Physical Exam Constitutional: + thin; no acute distress Respiratory: normal respiratory effort Auscultation: + diminished lung sounds (Throughout); no crackles, no rales and no rhonchi Cardiovascular: Rate/Rhythm: regular rhythm and + bradycardic Heart Sounds: + murmur (2/6 systolic murmur at the RUSB) Pacer site on left chest. CDI Gastrointestinal (Abdomen): normal bowel sounds, soft, nontender, no hepatosplenomegaly Musculoskeletal: Left Arm in Sling Skin: + rash (Scrotum and right inguinal regio n with mild erythematous rash) Psychiatric: A+Ox3, euthymic affect Genitourinary: + penis abnormality (Michelle catheter in p lace) Results & Data Results & Data Vital Signs (Past 12 Hours) Vital Signs Temp Pulse Pulse Resp BP Pulse Ox O2 Del Method 03/11/25 16:49 85 92/56 L 97 Room Air 03/11/25 16:21 36.4 C L 92 H 18 105/60 96 Room Air 03/11/25 16:19 87/59 L 03/11/25 16:17 71/39 L 03/11/25 10:59 36.2 C L 96 H 18 101/56 L 95 Room Air 03/11/25 07:27 36.4 C L 75 20 107/68 96 Room Air 03/11/25 06:05 78 Laboratory Results 03/11/25 03/11/25 03/11/25 16:22 11:05 07:33 WBC RBC Hgb Hct MCV MCH MCHC RDW Std Deviation RDW Coeff of Dylan Plt Count MPV Immature Gran % (Auto) Neut % (Auto) Lymph % (Auto) Imperial % (Auto) Eos % (Auto) Baso % (Auto) Neut # (Auto) Lymph # (Auto) Imperial # (Auto) Eos # (Auto) Baso # (Auto) Immature Gran # (Auto) Sodium Potassium Chloride Carbon Dioxide Anion Gap BUN Creatinine Est Cr Clr Drug Dosing eGFR BUN/Creatinine Ratio Glucose POC Glucose 191 H 202 H 135 H Calcium Magnesium 03/11/25 03/10/25 05:37 20:23 WBC 9.64 RBC 4.31 L Hgb 13.4 L Hct 40.5 L MCV 94.0 MCH 31.1 MCHC 33.1 RDW Std Deviation 48.4 H RDW Coeff of Dylan 13.9 Plt Count 196 MPV 10.3 Immature Gran % (Auto) 0.7 Neut % (Auto) 77.8 Lymph % (Auto) 12.1 Imperial % (Auto) 8.2 Eos % (Auto) 0.5 Baso % (Auto) 0.7 Neut # (Auto) 7.49 H Lymph # (Auto) 1.17 L Imperial # (Auto) 0.79 H Eos # (Auto) 0.05 Baso # (Auto) 0.07 Immature Gran # (Auto) 0.07 Sodium 136 Potassium 4.1 Chloride 101 Carbon Dioxide 28 Anion Gap 7 BUN 24 H Creatinine 0.80 Est Cr Clr Drug Dosing 53.2 eGFR 87.27 BUN/Creatinine Ratio 30.0 H Glucose 154 H POC Glucose 258 H Calcium 8.5 L Magnesium 1.8 PG Care Time/CCT Total # of Minutes Spent Total Time Spent with Patient: Total time spent is greater than 50% in coordination of care (as documented) at patient's floor/unit and/or counseling patient: Coding Level of Care Code 94834 SUB INP/OBS CARE 2/35MIN Diagnoses Nonsustained ventricular tachycardia I47.29 Bradycardia R00.1 Severe protein-calorie malnutrition E43 Incomplete bladder emptying R33.9
[2025-03-11] MEDS: METOPROLOL SUCC 25MG EXT REL TAB PO SCH (20:18)
[2025-03-11] MEDS: APIXABAN 5 MG TABLET PO SCH (20:19)
--- NOTE | 2025-03-11 20:32 | Communication Note ---
Date of Service: March 11, 2025 Alerted by staff early in the evening that pt persistently hypotensive to 90/60s. He is scheduled to get metoprolol, continue IV amio, and po amio tonig ht. Pt just had pacemaker. HR 90s. Appears to be sinus at this time. Contacted worksite wellness practitioner cardiology via TT to discuss. Advised to D/C amio IV and hold metoprolol per hold parameters and give po amiodarone dose. Relayed plan to nurse and adjusted orders. Resident Activity Tracking Resident Involvement: Resident Care Provided Care Provided: Adult Hospital Medicine
[2025-03-12 06:40] LABS: Hematocrit (blood only) 38.8 % (42.0-52.0); Hemoglobin 13.2 g/dL (14.0-18.0); Immature Granulocytes # (auto) 0.07 K/uL (0.01-0.20); Immature Granulocytes % (auto) 0.7 %; Mean Corpuscular Hemoglobin 31.7 pg (25.0-34.0); Mean Corpuscular Volume 93.0 fL (80.0-100.0); Platelet Count 198 K/uL (130-400); RDW Standard Deviation 47.8 fL (36.4-46.3); Red Blood Count 4.17 M/uL (4.70-6.10); White Blood Count 9.64 K/ul (4.8-10.8)
[2025-03-12 07:27] LABS: Anion Gap 6.0 (3-11); Blood Urea Nitrogen 36.0 mg/dl (6-23); Calcium 8.3 mg/dl (8.6-10.3); Carbon Dioxide 29.0 mmol/L (21-32); Chloride 102.0 mmol/L (98-107); Creatinine Clr Calc Pharmacy 37.9 ml/min; Glucose 166.0 mg/dl (70-99(Fasting)); Magnesium 1.9 mg/dl (1.7-2.4); Potassium 4.4 mmol/L (3.5-5.1); Sodium 137.0 mmol/L (136-145)
[2025-03-12] MEDS: MAGNESIUM SULFATE / D5W 1 GM/100 ML BAG IV ONE (08:29)
--- NOTE | 2025-03-12 10:47 | Hospitalist Progress Note ---
Date of Service March 12, 2025 Assessment & Plan (1) Nonsustained ventricular tachycardia: (2) Bradycardia: (3) Severe protein-calorie malnutrition: (4) Incomplete bladder emptying: Plan Patient is an 84-year-old male with a past medical history of RVOT paroxysmal ventricular tachycardia, paroxysmal A-fib, CAD, PVD, type II DM, prostate cancer, LUTS with chronic Michelle. Patient presented to the ED for catheter replacement as his was not draining properly. While in the ED patient was found to have several episodes of nonsustained V. tach lasting 10 to 20 seconds, patient remained completely asymptomatic. He was started on an amiodarone bolus and drip and then had profound bradycardia with the Mobitz 1 second-degree heart block. He is admitted for permanent pacemaker placement. #Nonsustained V. tach/second-degree Mobitz 1 heart block/PAF on Eliquis continues to have repeated episodes of nonsustained V. tach as long as 1 minute, mildly symptomatic with lightheadedness. Also with frequent secondary heart block and possibly third-degree heart block with rates in the 20s to 50s prior to getting pacemaker. No history of syncope. He previously was on a beta-kurtis which controlled his VTE, but this was held due to severe bradycardia hence why he is having more frequent VT. He was placed on IV amiodarone in the ED for repeated V. tach but this was stopped due to heart block and bradycardia. Echocardiogram here with normal LV function. TSH normal. Appreciate cardiology consultation Now s/p permanent pacemaker placement on 03/10 and metoprolol restarted along with p.o. amiodarone - Postoperative care as per cardiology-LUE restrictions, sling in place - Continue telemetry monitoring - Resumed home Eliquis and aspirin postprocedure - Continue amiodarone 200 mg p.o. twice daily - Started Toprol-XL 25 mg p.o. twice daily #Hypomagnesemia-magnesium low on admission and was replaced. Now remains low normal at 1.9 - Give magnesium sulfate 1 g IV x 1 to keep mag optimal at 2.0 given frequent VT - Check magnesium level in the a.m. #Prostate CA/LUTS/chronic indwelling Michelle for urinary retention/bladder spasms Michelle catheter changed in ED for what was thought to be a malfunctioning Michelle catheter. He has been having frequent leakage of urine around the Michelle catheter despite it being in the correct position. Bladder ultrasound here shows the catheter is in the correct place despite leakage. I discussed his care with the urology team-they think he is having leakage due to bladder spasms. He was recently prescribed Gemtesa and was told to stop his Vesicare. UA with 1+ protein, trace LE, 21-50 WBC, >20 RBC no bacteria noted. Urine culture is growing Jennifer albicans which is likely a colonizer. Urology also suggested starting Flomax for bladder spasms - Continue Daily catheter care, flush as needed Continue Gemtesa and added Flomax as per urology recommendation for bladder spasms, still some leakage noted, will continue to monitor, he already had a 20 gauge catheter placed this last exchange with no improvement - continue to follow with urology in outpatient setting within 2 weeks after discharge #Severe protein calorie malnutrition/underweight BMI 18.7-appreciate nutrition consultation. The patient has lost 40% of his body weight in the last year or more unintentionally. He has been dealing with issues with his prostate and has a long history of smoking perhaps contributing? Does have mild anemia but it is not iron deficiency-would not suspect GI malignancy but is a consideration - Follow-up with PCP as an outpatient for referral to GI for EGD and colonoscopy - Added boost supplement shakes twice daily - Liberalize diet-removed heart healthy portion - Added multivitamin with minerals once daily #Anemia-Hgb mildly low at 12.8, normocytic. Iron studies, B12, folate, TSH all normal. Likely anemia of chronic disease. No bleeding from anywhere - Follow CBC periodically #HTN/history of CVA/nonobstructive CAD-cardiac catheterization in 2021 with nonobstructive CAD with 60% proximal small LAD, 40% mid CX, 40% diffuse mid and 30% distal RCA, 80% small high OM1, 40% proximal large D1, 50% proximal medium OM 2. BPs here have been controlled and actually were hypotensive the day after his pacemaker was placed after starting metoprolol with taking lisinopril - Discontinue lisinopril -Started Toprol-XL 25 mg p.o. twice daily -Resume home aspirin and Eliquis #Type II DM HgbA1c controlled at 6.6%, he has had tremendous amount of weight loss. Is only on Jardiance and metformin at home - Holding home metformin - Continue Jardiance and supplemental NovoLog as needed - Diabetic diet, BSG's ACHS DVT prophylaxis-Eliquis, SCDs Dispo: Continued stay PCU, not yet medically stable given ongoing nonsustained ventricular tachycardia. Eventually will go to rehab, but needs PT/OT- evaluations ordered and will need insurance authorization after PT/OT evaluations completed. Admission and Anticipated Discharge Date Admission Date: March 07, 2025 Subjective Patient does report he felt a little lightheaded for about 10 seconds this morn ing when he was having a 1 minute run of slow VT. Otherwise his biggest complaint continues to be ongoing urinary leakage around his Michelle catheter. Telemetry with 1 minute of VT in the 100s, paced rhythm in the 90s And another 1 minute run of VT. Physical Exam Constitutional: + thin; no acute distress Respiratory: normal respiratory effort Auscultation: + diminished lung sounds (Throughout); no crackles, no rales and no rhonchi Cardiovascular: Rate/Rhythm: regular rhythm Heart Sounds: + murmur (2/6 systolic murmur at the RUSB) Chest (Breasts): Chest: + pacemaker (Left anterior chest wall with dressing clean dry and intact) Gastrointestinal (Abdomen): normal bowel sounds, soft, nontender, no hepatosplenomegaly Skin: + rash (Scrotum and right inguinal regio n with mild erythematous rash) Psychiatric: A+Ox3, euthymic affect Genitourinary: + penis abnormality (Michelle catheter in p lace) Results & Data Results & Data Vital Signs (Past 12 Hours) Vital Signs Temp Pulse Pulse Resp BP BP Pulse Ox 03/12/25 08:14 80 123/65 03/12/25 07:17 36.4 C L 78 18 90/52 L 97 03/12/25 03:32 36.5 C 76 20 94/55 L 96 03/11/25 22:56 94 H O2 Del Method 03/12/25 08:14 03/12/25 07:17 Room Air 03/12/25 03:32 Room Air 03/11/25 22:56 Laboratory Results CBC, BMP, magnesium reviewed PG Care Time/CCT Total # of Minutes Spent Total Time Spent with Patient: Total time spent is greater than 50% in coordination of care (as documented) at patient's floor/unit and/or counseling patient: Coding Level of Care Code 02690 SUB INP/OBS CARE 235MIN Diagnoses Nonsustained ventricular tachycardia I47.29 Bradycardia R00.1 Severe protein-calorie malnutrition E43 Incomplete bladder emptying R33.9
--- NOTE | 2025-03-12 11:13 | Electrocardiogram Report ---
Test Reason : Blood Pressure : */* mmHG Vent. Rate : 96 BPM Atrial Rate : * BPM P-R Int : * ms QRS Dur : 140 ms QT Int : 430 ms P-R-T Axes : * 49 225 degrees QTcB Int : 543 ms idioventricular rhythm with occasional capture/fusion beats Left bundle branch block Abnormal ECG Confirmed by Santosh Sanon ([id number] on 03/12/2025 11:12:49 AM Referred By: REFERRED SELF Confirmed By: Santosh Sanon
[2025-03-12] MEDS: ASPIRIN 81 MG ECTAB PO SCH (11:57)
--- NOTE | 2025-03-12 16:16 | Cardiology Progress Note ---
Date of Service March 12, 2025 Assessment & Plan (1) Bradycardia: Plan: s/p PPM (2) Nonsustained ventricular tachycardia: (3) Acute on chronic urinary retention: Plan 84-year-old male with longstanding arrhythmic issues including paroxysmal ventricular tachycardia and paroxysmal atrial fibrillation. Patient initially sought ER evaluation for Michelle catheter obstruction and was noted to have salvos of nonsustained ventricular tachycardia on telemetry. Transient course of IV amiodarone following bolus discontinued after bradycardia arrhythmias observed. 1. 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 Usually catecholamine induced and beta-kurtis responsive. Generally not associated with need for defibrillator Recent discontinuation of metoprolol due to bradycardia noted during urologic evaluations LV systolic function normal 2. Paroxysmal atrial fibrillation on chronic amiodarone therapy. 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 Bradycardia arrhythmias more profound following IV amiodarone bolus last evening. Suspect patient will require pacemaker for long-term management. 3. 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 4. s/p Dual chamber PPM PPM interrogation - PPM parameters ok; noted to have slow NSVT. PO Amiodarone. Will DC Lisinopril to give room for metoprolol XL to be uptitrated, now that he has a PPM Uptitrate metoprolol xl keeping systolic BP between 100-14 mmHg increase po fluid intake avoid hypovolemia cont Eliquis f/u with Urology awaiting [facility] Admission and Anticipated Discharge Date Admission Date: March 07, 2025 Subjective Patient on exam is lying in bed in NAD; no c/o cp, sob, palpitations, dizziness, LOC, cough, fever, nausea, vomiting, abdominal pain; c/o leakage around Michelle cath - defer to hospitalist, urologist Patient had an episode of lightheadedness for about 10 seconds in AM today associated with about 1 minute of slow NSVT. Review of Systems Review of Systems: as per hpi Physical Exam Constitutional: + thin; no acute distress Eyes: PERRL, conjunctivae normal, anicteric sclerae ENMT: Mallampati Class: II Neck: trachea midline, no thyromegaly normal visual inspection and trachea midline Respiratory: normal respiratory effort, lungs clear to auscultation Cardiovascular: RRR, no murmur, no edema Rate/Rhythm: regular rate and + bradycardic Heart Sounds: normal S1, normal S2 and + murmur (Grade 1/6 systolic murmur) Vessels: dorsalis pedis pulses present; no JVD Extremitie s: no edema Gastrointestinal (Abdomen): normal bowel sounds, soft, nontender, no hepatosplenomegaly Skin: no rashes, warm and dry Psychiatric: A+Ox3, euthymic affect Results & Data Vital Signs (Past 12 Hours) Vital Signs Temp Pulse Pulse Resp BP BP Pulse Ox 03/12/25 15:31 36.3 C L 92 H 18 111/73 98 03/12/25 13:01 87 03/12/25 11:11 36.5 C 103 H 18 96/62 L 96 03/12/25 08:14 80 123/65 03/12/25 07:17 36.4 C L 78 18 90/52 L 97 O2 Del Method 03/12/25 15:31 Room Air 03/12/25 13:01 03/12/25 11:11 Room Air 03/12/25 08:14 03/12/25 07:17 Room Air Laboratory Results Laboratory Results WBC 9.64 K/ul (4.8-10.8) 03/12/25 06:10 RBC 4.17 M/uL (4.70-6.10) L 03/12/25 06:10 Hgb 13.2 g/dL (14.0-18.0) L 03/12/25 06:10 Hct 38.8 % (42.0-52.0) L 03/12/25 06:10 MCV 93.0 fL (80.0-100.0) 03/12/25 06:10 MCH 31.7 pg (25.0-34.0) 03/12/25 06:10 MCHC 34.0 g/dL (32.0-36.0) 03/12/25 06:10 RDW Std Deviation 47.8 fL (36.4-46.3) H 03/12/25 06:10 RDW Coeff of Dylan 14.0 % (11.5-14.5) 03/12/25 06:10 Plt Count 198 K/uL (130-400) 03/12/25 06:10 MPV 10.6 fL (9.4-12.4) 03/12/25 06:10 Immature Gran % (Auto) 0.7 % 03/12/25 06:10 Neut % (Auto) 77.5 % 03/12/25 06:10 Lymph % (Auto) 11.6 % 03/12/25 06:10 [place] % (Auto) 8.9 % 03/12/25 06:10 Eos % (Auto) 0.6 % 03/12/25 06:10 Baso % (Auto) 0.7 % 03/12/25 06:10 Neut # (Auto) 7.46 K/uL (1.40-6.50) H 03/12/25 06:10 Lymph # (Auto) 1.12 K/uL (1.20-3.40) L 03/12/25 06:10 [place] # (Auto) 0.86 K/uL (0.11-0.59) H 03/12/25 06:10 Eos # (Auto) 0.06 K/uL (0.00-0.50) 03/12/25 06:10 Baso # (Auto) 0.07 K/uL (0.00-0.20) 03/12/25 06:10 Immature Gran # (Auto) 0.07 K/uL (0.01-0.20) 03/12/25 06:10 Absolute Nucleated RBC Cancelled 03/10/25 06:04 Nucleated RBC % (auto) Cancelled 03/10/25 06:04 Neutrophils % (Manual) Cancelled 03/10/25 06:04 Band Neutrophils % Cancelled 03/10/25 06:04 Lymphocytes % (Manual) Cancelled 03/10/25 06:04 Prolymphocyte % Cancelled 03/10/25 06:04 Reactive Lymphs % (Man) Cancelled 03/10/25 06:04 Monocytes % (Manual) Cancelled 03/10/25 06:04 Eosinophils % (Manual) Cancelled 03/10/25 06:04 Basophils % (Manual) Cancelled 03/10/25 06:04 Metamyelocytes % (Man) Cancelled 03/10/25 06:04 Myelocytes % (Man) Cancelled 03/10/25 06:04 Promyelocytes % (Man) Cancelled 03/10/25 06:04 Blast Cells % (Manual) Cancelled 03/10/25 06:04 Plasma Cell % (Manual) Cancelled 03/10/25 06:04 Other Cells % Cancelled 03/10/25 06:04 Nucleated RBC % Cancelled 03/10/25 06:04 Neutrophils # (Manual) Cancelled 03/10/25 06:04 Band Neutrophils # Cancelled 03/10/25 06:04 Total Absolute Neuts Cancelled 03/10/25 06:04 Lymphocytes # (Manual) Cancelled 03/10/25 06:04 Prolymphocyte # Cancelled 03/10/25 06:04 Reactive Lymphs # Cancelled 03/10/25 06:04 Total Abs Lymphocytes Cancelled 03/10/25 06:04 Monocytes # (Manual) Cancelled 03/10/25 06:04 Eosinophils # (Manual) Cancelled 03/10/25 06:04 Basophils # (Manual) Cancelled 03/10/25 06:04 Metamyelocytes # (Man) Cancelled 03/10/25 06:04 Myelocytes # (Manual) Cancelled 03/10/25 06:04 Promyelocytes # (Man) Cancelled 03/10/25 06:04 Blast Cells # (Man) Cancelled 03/10/25 06:04 Plasma Cell # (Manual) Cancelled 03/10/25 06:04 Other Cells # Cancelled 03/10/25 06:04 Nucleated RBCs # (Man) Cancelled 03/10/25 06:04 Hypersegmented Neuts Cancelled 03/10/25 06:04 Hyposegmented Neuts Cancelled 03/10/25 06:04 Hypogranular Neuts Cancelled 03/10/25 06:04 Large Granular Lymphs Cancelled 03/10/25 06:04 # Lrg Granular Lymphs Cancelled 03/10/25 06:04 Hairy Cells Cancelled 03/10/25 06:04 Smudge Cells Cancelled 03/10/25 06:04 Toxic Granulation Cancelled 03/10/25 06:04 Toxic Vacuolation Cancelled 03/10/25 06:04 Dohle Bodies Cancelled 03/10/25 06:04 Devang Rods Cancelled 03/10/25 06:04 Platelet Estimate Cancelled 03/10/25 06:04 Hypogranular Platelets Cancelled 03/10/25 06:04 Giant Platelets Cancelled 03/10/25 06:04 Platelet Satelliting Cancelled 03/10/25 06:04 RBC Morphology Cancelled 03/10/25 06:04 Polychromasia Cancelled 03/10/25 06:04 Hypochromasia Cancelled 03/10/25 06:04 Poikilocytosis Cancelled 03/10/25 06:04 Basophilic Stippling Cancelled 03/10/25 06:04 Anisocytosis Cancelled 03/10/25 06:04 Microcytosis Cancelled 03/10/25 06:04 Macrocytosis Cancelled 03/10/25 06:04 Spherocytes Cancelled 03/10/25 06:04 Pappenheimer Bodies Cancelled 03/10/25 06:04 Sickle Cells Cancelled 03/10/25 06:04 Target Cells Cancelled 03/10/25 06:04 Tear Drop Cells Cancelled 03/10/25 06:04 Ovalocytes Cancelled 03/10/25 06:04 Stomatocytes Cancelled 03/10/25 06:04 Morgan-Prince Bodies Cancelled 03/10/25 06:04 Echinocytes Cancelled 03/10/25 06:04 Acanthocytes (Spur) Cancelled 03/10/25 06:04 Rouleaux Cancelled 03/10/25 06:04 RBC Agglutinates Cancelled 03/10/25 06:04 Schistocytes Cancelled 03/10/25 06:04 Sezary Cell Cancelled 03/10/25 06:04 PT 12.4 Seconds (9.0-12.0) H 03/08/25 06:35 INR 1.2 (0.9-1.1) H 03/08/25 06:35 Sodium 137 mmol/L (136-145) 03/12/25 06:10 Potassium 4.4 mmol/L (3.5-5.1) 03/12/25 06:10 Chloride 102 mmol/L (98-107) 03/12/25 06:10 Carbon Dioxide 29 mmol/L (21-32) 03/12/25 06:10 Anion Gap 6 (3-11) 03/12/25 06:10 BUN 36 mg/dl (6-23) H 03/12/25 06:10 Creatinine 1.14 mg/dl (0.6-1.4) D 03/12/25 06:10 Est Cr Clr Drug Dosing 37.9 ml/min 03/12/25 06:10 eGFR 63.42 12/24/25 06:10 BUN/Creatinine Ratio 31.6 (10-20) H 03/12/25 06:10 Glucose 166 mg/dl (70-99(Fasting)) H 03/12/25 06:10 POC Glucose 240 mg/dl (70-99) H 03/12/25 11:13 Estimat Average Glucose 143 mg/dl 03/08/25 06:35 Hemoglobin A1c 6.6 % (4.5-5.6) H 03/08/25 06:35 Calcium 8.3 mg/dl (8.6-10.3) L 03/12/25 06:10 Magnesium 1.9 mg/dl (1.7-2.4) 03/12/25 06:10 Iron 41 mcg/dl (35-175) 03/08/25 06:35 TIBC 183 mcg/dl (250-450) L 03/08/25 06:35 Transferrin 131 mg/dl (200-360) L 03/08/25 06:35 Transferrin % Sat 22 % (20-50) 03/08/25 06:35 Ferritin 61.5 ng/ml (8-388) 03/08/25 06:35 Total Bilirubin 0.5 mg/dl (0.2-1.0) 03/06/25 22:45 AST 12 U/L (13-39) L 03/06/25 22:45 ALT 10 U/L (7-52) 03/06/25 22:45 Alkaline Phosphatase 98 U/L (34-104) 03/06/25 22:45 Troponin I High Sens 11.3 pg/ml (0-20) 03/06/25 22:45 Total Protein 6.4 gm/dl (6.0-8.3) 03/06/25 22:45 Albumin 3.4 gm/dl (3.4-5.0) 03/06/25 22:45 Globulin 3.0 gm/dl (2.5-4.0) 03/06/25 22:45 Albumin/Globulin Ratio 1.1 (0.9-2) 03/06/25 22:45 Lipase 14 U/L (11-82) 03/06/25 22:45 Vitamin B12 722 pg/ml (180-914) 03/08/25 06:35 Folate 9.78 ng/ml (>5.38) 03/08/25 06:35 TSH 1.997 uIu/ml (0.300-4.500) 03/06/25 22:45 Urine Color Yellow 03/06/25: Urine Appearance Clear (Clear) 03/06/25: Urine pH 5.0 (4.5-7.5) 03/06/25: Ur Specific [place] 1.032 (1.000-1.030) H 03/06/25:35 Urine Protein 1+ (Negative) H 03/06/25: Urine Glucose (UA) 3+ (Negative) H 03/06/25: Urine Ketones Negative (Negative) 03/06/25: Urine Blood 2+ (Negative) H 03/06/25: Urine Nitrite Negative (Negative) 03/06/25: Urine Bilirubin Negative (Negative) 03/06/25: Urine Urobilinogen Negative (Negative) 03/06/25: Ur Leukocyte Esterase Trace (Negative) H 03/06/25 22:35 Urine WBC (Auto) 21-50 /hpf (0-5) H 03/06/25:35 Urine RBC (Auto) >20 /hpf (0-2) H 03/06/25: U Hyaline Cast (Auto) 0-2 /lpf (0-2) 03/06/25:35 U Epithel Cells (Auto) 0-2 /hpf (0-2) 03/06/25: Urine Bacteria (Auto) None Seen (None Seen) 03/06/25: Urine Yeast Present (None Prsent) A 03/06/25:35 Urine Comment 03/06/25: Blood Parasites ID Cancelled 03/10/25 06:04 Impressions Bladder Ultrasound 03/07/25 12:27 ULTRASOUND OF THE BLADDER CLINICAL HISTORY: Leakage around the Michelle catheter.. COMPARISON STUDY: Abdominal CT dated 04/14/2020 TECHNIQUE: Real-time, grayscale, and color flow sonography of bladder is performed. Images are reviewed in the transverse and longitudinal planes. FINDINGS: The bladder is largely decompressed around a Michelle catheter. The catheter is located within the bladder lumen. The bladder wall appears thickened/trabeculated indicating chronic outlet obstruction. Ureteral jets could not be assessed. IMPRESSION: 1. The bladder is largely decompressed around a Michelle catheter. The catheter appears appropriately positioned. 2. There is evidence of chronic bladder outlet obstruction. ACT 112: Negative or not required by law. Electronically signed by: Hipolito Muller M.D. 03/07/2025 3:10 PM Chest X-Ray 03/10/25 13:30 XR chest 1V portable HISTORY: 84 years-old Male s/p ppm ensure no PTX status post placement of a left subclavian pacer COMPARISON: Chest radiographs 07/09/2024 TECHNIQUE: AP view of the chest FINDINGS: Has been placed in the interval. Left lateral chest wall skin folds are noted without pneumothorax, focal airspace consolidation, pleural effusion or overt pulmonary edema. Degenerative changes of the shoulders and spine. IMPRESSION: Status post placement of a left subclavian pacer. No pneumothorax identified. ACT 112: Negative or not required by law. The above report was generated using voice recognition software. It may contain grammatical, syntax or spelling errors. Electronically signed by: Dominguez Erazo M.D. 03/10/2025 1:31 PM Diagnostic Findings CBC 03/12/25 Range/Units 06:10 WBC 9.64 (4.8-10.8) K/ul RBC 4.17 L (4.70-6.10) M/uL Hgb 13.2 L (14.0-18.0) g/dL Hct 38.8 L (42.0-52.0) % Plt Count 198 (130-400) K/uL Neut # (Auto) 7.46 H (1.40-6.50) K/uL Lymph # (Auto) 1.12 L (1.20-3.40) K/uL [place] # (Auto) 0.86 H (0.11-0.59) K/uL Eos # (Auto) 0.06 (0.00-0.50) K/uL Baso # (Auto) 0.07 (0.00-0.20) K/uL Comprehensive Metabolic Panel 03/12/25 Range/Units 06:10 Sodium 137 (136-145) mmol/L Potassium 4.4 (3.5-5.1) mmol/L Chloride 102 (98-107) mmol/L Carbon Dioxide 29 (21-32) mmol/L BUN 36 H (6-23) mg/dl Creatinine 1.14 D (0.6-1.4) mg/dl Glucose 166 H (70-99(Fasting)) mg/dl Calcium 8.3 L (8.6-10.3) mg/dl Intake and Output 03/12/25 03/12/25 03/12/25 06:59 14:59 22:59 Intake Total 500 / 1903.5 325 / 325 Output Total 900 / 1926 500 / 500 Balance -400 / -22.5 -175 / -175 Intake: IV 100 / 100 Magnesium Sulfate / D5w 1 gm In 100 / 100 100 ml @ 50 mls/hr IV ONE ONE Rx#:[id number] Oral 500 / 1520 225 / 225 Output: Urine Amount (Catheter) 900 / 1925 500 / 500 Michelle/Indwelling 900 / 1925 500 / 500 Other: Weight 55.5 kg Weight Measurement Method Built in [facility] Medications Administered Home Medications Medication Instructions Recorded Confirmed Last Taken acetaminophen 500 mg tablet 500 mg PO Q4H PRN Pain 01/07/21 03/07/25 07/29/24 04:00 (Tylenol Extra Strength) finasteride 5 mg tablet 5 mg PO QAM 05/03/21 03/07/25 03/06/25 apixaban 5 mg tablet (Eliquis) 5 mg PO BID #60 tabs 05/07/21 03/07/25 03/06/25 magnesium chloride 64 mg 64 mg PO BID #60 tabs 05/07/21 03/07/25 03/06/25 (magnesium chloride) tablet,delayed release (Mag 64) atorvastatin 20 mg tablet 20 mg PO QAM 09/17/21 03/07/25 03/06/25 amiodarone 200 mg tablet 200 mg PO QAM 07/24/24 03/07/25 03/06/25 solifenacin 10 mg tablet 10 mg PO DAILY #90 tabs 08/28/24 03/07/25 03/06/25 L-Arginine Tabs 850 mg PO DAILY 02/20/25 03/07/25 03/06/25 amino acids 1 tab PO DAILY 02/20/25 03/07/25 03/06/25 aspirin 81 mg tablet,delayed 81 mg PO DAILY 02/20/25 03/07/25 03/06/25 release cyanocobalamin (vitamin B-12) 500 500 mcg PO DAILY 02/20/25 03/07/25 03/06/25 mcg tablet (Vitamin B-12) empagliflozin 25 mg tablet 25 mg PO QAM 02/20/25 03/07/25 03/06/25 (Jardiance) fluticasone propionate 50 2 spray intranasal DAILY 02/20/25 03/07/25 03/06/25 mcg/actuation nasal spray,suspension lisinopril 20 mg tablet 20 mg PO DAILY 02/20/25 03/07/25 03/06/25 metformin 500 mg tablet,extended 1,500 mg PO DAILY 02/20/25 03/07/25 03/06/25 release 24 hr vibegron 75 mg tablet (Gemtesa) 75 mg PO DAILY #30 tabs 03/05/25 03/07/25 Unknown Active Medications Generic Name Dose Route Start Last Admin Trade Name Freq PRN Reason Stop Dose Admin Acetaminophen 650 mg 03/07/25 02:32 03/11/25 05:11 Acetaminophen 325 Mg Tab PO 04/06/25 02:31 650 mg Q4H PRN Administration Pain or Fever Amiodarone HCl 200 mg 03/10/25 13:00 03/12/25 08:17 Amiodarone 200 Mg Tab PO 04/09/25 12:59 200 mg BID YUMIKO Administration Apixaban 5 mg 03/11/25 20:00 03/12/25 08:17 Apixaban 5 Mg Tablet PO 04/10/25 19:59 5 mg BID@0800,2000 YUMIKO Administration Aspirin 81 mg 03/12/25 10:45 03/12/25 11:57 Aspirin 81 Mg Ectab PO 04/11/25 10:44 81 mg DAILY YUMIKO Administration Atorvastatin Calcium 20 mg 03/07/25 09:00 03/12/25 08:16 Atorvastatin 20 Mg Tab PO 04/06/25 08:59 20 mg QAM YUMIKO Administration Empagliflozin 25 mg 03/07/25 09:00 03/12/25 08:16 Empagliflozin 25 Mg Tab PO 04/06/25 08:59 25 mg QAM YUMIKO Administration Finasteride 5 mg 03/07/25 09:00 03/12/25 08:16 Finasteride 5 Mg Tab PO 04/06/25 08:59 5 mg QAM YUMIKO Administration Fluticasone Propionate 2 sprays 03/07/25 09:00 03/12/25 08:19 Fluticasone Propionate Na Spr 16 Gm Btl NA 04/06/25 08:59 2 sprays DAILY YUMIKO Administration Insulin Aspart 0 units 03/10/25 21:00 03/12/25 11:57 Insulin Aspart Per Unit Charge SC 04/09/25 05:59 3 units ACHS YUMIKO Administration Magnesium Chloride 64 mg 03/07/25 09:00 03/12/25 08:16 Magnesium Chloride W/Calcium 64mg Delayed Rel Tab PO 04/06/25 08:59 64 mg BID YUMIKO Administration Metoprolol Succinate 25 mg 03/11/25 21:00 03/12/25 08:17 Metoprolol Succ 25mg Ext Rel Tab PO 04/10/25 20:59 25 mg BID YUMIKO Administration Multivitamins/Minerals 1 tab 03/09/25 09:00 03/12/25 08:16 Cerovite Adv Formula Tab PO 04/08/25 08:59 1 tab QAM YUMIKO Administration Tamsulosin HCl 0.4 mg 03/09/25 21:00 03/11/25 20:20 Tamsulosin Hcl 0.4 Mg Cap PO 04/08/25 20:59 0.4 mg HS YUMIKO Administration Vibegron 75 mg 03/07/25 09:00 03/12/25 08:16 Vibegron 75 Mg Tab PO 04/06/25 08:59 75 mg DAILY YUMIKO Administration PG Care Time/CCT Total # of Minutes Spent Total Time Spent with Patient: Total time spent is greater than 50% in coordination of care (as documented) at patient's floor/unit and/or counseling patient: Coding Level of Care Code 45813 SUB INP/OBS CARE 3/50MIN Diagnoses Bradycardia R00.1 Nonsustained ventricular tachycardia I47.29 Acute on chronic urinary retention R33.9
[2025-03-12] MEDS: MELATONIN 3 MG TAB PO PRN (21:31)
[2025-03-13 07:36] LABS: Anion Gap 6.0 (3-11); Blood Urea Nitrogen 39.0 mg/dl (6-23); Calcium 8.2 mg/dl (8.6-10.3); Carbon Dioxide 26.0 mmol/L (21-32); Chloride 106.0 mmol/L (98-107); Creatinine Clr Calc Pharmacy 49.5 ml/min; Glucose 163.0 mg/dl (70-99(Fasting)); Magnesium 2.0 mg/dl (1.7-2.4); Potassium 4.4 mmol/L (3.5-5.1); Sodium 138.0 mmol/L (136-145)
[2025-03-13] MEDS: CYANOCOBALAMIN (B-12) 500 MCG TABLET PO SCH (08:07)
--- NOTE | 2025-03-13 11:09 | Hospitalist Progress Note ---
Date of Service March 13, 2025 Assessment & Plan (1) Nonsustained ventricular tachycardia: (2) Bradycardia: (3) Severe protein-calorie malnutrition: (4) Incomplete bladder emptying: Plan Patient is an 84-year-old male with a past medical history of RVOT paroxysmal ventricular tachycardia, paroxysmal A-fib, CAD, PVD, type II DM, prostate cancer, LUTS with chronic Michelle. Patient presented to the ED for catheter replacement as his was not draining properly. While in the ED patient was found to have several episodes of nonsustained V. tach lasting 10 to 20 seconds, patient remained completely asymptomatic. He was started on an amiodarone bolus and drip and then had profound bradycardia with the Mobitz 1 second-degree heart block. He is admitted for permanent pacemaker placement. #Nonsustained V. tach/second-degree Mobitz 1 heart block/PAF on Eliquis continued to have repeated episodes of nonsustained V. tach as long as 1 minute, mildly symptomatic with lightheadedness. Also with frequent secondary heart block and possibly third-degree heart block with rates in the 20s to 50s prior to getting pacemaker. No history of syncope. He previously was on a beta-kurtis which controlled his VTE, but this was held due to severe bradycardia hence why he is having more frequent VT. He was placed on IV amiodarone in the ED for repeated V. tach but this was stopped due to heart block and bradycardia. Echocardiogram here with normal LV function. TSH normal. Appreciate cardiology consultation Now s/p permanent pacemaker placement on 03/10 and metoprolol restarted along with p.o. amiodarone. Since metoprolol and amiodarone resumed, the V. tach is significantly reduced in frequency. Pacemaker is functioning properly. - Postoperative care as per cardiology-LUE restrictions, sling in place - Continue telemetry monitoring - Resumed home Eliquis and aspirin postprocedure - Continue amiodarone 200 mg p.o. twice daily - Started Toprol-XL 25 mg p.o. twice daily and titrate up as BP allows #Hypomagnesemia-magnesium low on admission and was replaced. Magnesium now optimal at 2.0 -No need to check further magnesium level on a daily basis #Prostate CA/LUTS/chronic indwelling Michelle for urinary retention/bladder spasms Michelle catheter changed in ED for what was thought to be a malfunctioning Michelle catheter. He has been having frequent leakage of urine around the Michelle catheter despite it being in the correct position. Bladder ultrasound here shows the catheter is in the correct place despite leakage. I discussed his care with the urology team-they think he is having leakage due to bladder spasms. He was recently prescribed Gemtesa and was told to stop his Vesicare. UA with 1+ protein, trace LE, 21-50 WBC, >20 RBC no bacteria noted. Urine culture is growing Jennifer albicans which is likely a colonizer. Urology also suggested starting Flomax for bladder spasms - Continue Daily catheter care, flush as needed Continue Gemtesa and added Flomax as per urology recommendation for bladder spasms, still some leakage noted, will continue to monitor, he already had a 20 gauge catheter placed this last exchange with no improvement - continue to follow with urology in outpatient setting within 2 weeks after discharge #Severe protein calorie malnutrition/underweight BMI 18.7-appreciate nutrition consultation. The patient has lost 40% of his body weight in the last year or more unintentionally. He has been dealing with issues with his prostate and has a long history of smoking perhaps contributing? Does have mild anemia but it is not iron deficiency-would not suspect GI malignancy but is a consideration - Follow-up with PCP as an outpatient for referral to GI for EGD and colonoscopy - Added boost supplement shakes twice daily - Liberalize diet-removed heart healthy portion - Added multivitamin with minerals once daily #Anemia-Hgb mildly low at 12.8, normocytic. Iron studies, B12, folate, TSH all normal. Likely anemia of chronic disease. No bleeding from anywhere - Follow CBC periodically #HTN/history of CVA/nonobstructive CAD-cardiac catheterization in 2021 with n onobstructive CAD with 60% proximal small LAD, 40% mid CX, 40% diffuse mid and 30% distal RCA, 80% small high OM1, 40% proximal large D1, 50% proximal medium OM 2. BPs here have been controlled and actually were hypotensive the day after his pacemaker was placed after starting metoprolol with taking lisinopril - Discontinued lisinopril completely to allow room for titration of beta-kurtis -Started Toprol-XL 25 mg p.o. twice daily-titrate up as blood pressure allows for VT -Resumed home aspirin and Eliquis #Type II DM HgbA1c controlled at 6.6%, he has had tremendous amount of weight loss. Is only on Jardiance and metformin at home - Holding home metformin - Continue Jardiance and supplemental NovoLog as needed - Diabetic diet, BSG's ACHS DVT prophylaxis-Darryl SCDs Dispo: Continued stay PCU, improving, less frequent VT. Needs to go to rehab as recommended by PT-case management working on referral and needs insurance authorization after the iday Admission and Anticipated Discharge Date Admission Date: March 07, 2025 Subjective Patient reports pain in the heel where it is resting on the bed. Continues to complain of leakage of urine around his Michelle catheter and says that he will not go home until that problem is fixed. He worked with physical therapy and was able to ambulate in the halls but feels weak. Telemetry with paced rhythm with rates in the 80s to 90s, and only 2 7 beat runs of VT-huge improvement from before Physical Exam Constitutional: + thin; no acute distress Respiratory: normal respiratory effort Auscultation: + diminished lung sounds (Throughout); no crackles, no rales and no rhonchi Cardiovascular: Rate/Rhythm: regular rhythm Heart Sounds: + murmur (2/6 systolic murmur at the RUSB) Chest (Breasts): Chest: + pacemaker (Left anterior chest wall with dressing clean dry and intact) Gastrointestinal (Abdomen): normal bowel sounds, soft, nontender, no hepatosplenomegaly Skin: + rash (Scrotum and right inguinal regio n with mild erythematous rash) Psychiatric: A+Ox3, euthymic affect Genitourinary: + penis abnormality (Michelle catheter in p lace) Results & Data Results & Data Vital Signs (Past 12 Hours) Vital Signs Temp Pulse Pulse Resp BP Pulse Ox O2 Del Method 03/13/25 08:46 89 03/13/25 07:15 36.4 C L 104 H 18 98/69 L 96 Room Air 03/13/25 03:38 Room Air 03/13/25 03:35 36.8 C 103 H 20 105/67 95 Room Air 03/13/25 00:05 95 H 03/12/25 23:53 36.5 C 91 H 21 101/60 96 Room Air Laboratory Results BMP, magnesium reviewed PG Care Time/CCT Total # of Minutes Spent Total Time Spent with Patient: Total time spent is greater than 50% in coordination of care (as documented) at patient's floor/unit and/or counseling patient: Coding Level of Care Code 80817 SUB INP/OBS CARE 2/35MIN Diagnoses Nonsustained ventricular tachycardia I47.29 Bradycardia R00.1 Severe protein-calorie malnutrition E43 Incomplete bladder emptying R33.9
--- NOTE | 2025-03-13 17:17 | Cardiology Progress Note ---
Date of Service March 13, 2025 Assessment & Plan (1) Bradycardia: Plan: s/p PPM (2) Nonsustained ventricular tachycardia: (3) Acute on chronic urinary retention: Plan 84-year-old male with longstanding arrhythmic issues including paroxysmal ventricular tachycardia and paroxysmal atrial fibrillation. Patient initially sought ER evaluation for Michelle catheter obstruction and was noted to have salvos of nonsustained ventricular tachycardia on telemetry. Transient course of IV amiodarone following bolus discontinued after bradycardia arrhythmias observed. 1. 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 Usually catecholamine induced and beta-kurtis responsive. Generally not associated with need for defibrillator Recent discontinuation of metoprolol due to bradycardia noted during urologic evaluations LV systolic function normal 2. Paroxysmal atrial fibrillation on chronic amiodarone therapy. 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 Bradycardia arrhythmias more profound following IV amiodarone bolus last evening. Suspect patient will require pacemaker for long-term management. 3. 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 4. s/p Dual chamber PPM PPM interrogation - PPM parameters ok; noted to have slow NSVT. Continue PO Amiodarone Off Lisinopril to give room for metoprolol XL to be uptitrated, now that he has a PPM continue metoprolol xl increase po fluid intake avoid hypovolemia cont Eliquis f/u with Urology stable from cardiac standpoint for FREDDY f/u with EP post discharge Admission and Anticipated Discharge Date Admission Date: March 07, 2025 Subjective Patient on exam is lying in bed in NAD; no c/o cp, sob, palpitations, dizziness, LOC; c/o leakage of urine around his Michelle catheter; ambulatory with PT Telemetry - paced rhythm; NSVT x 2 - 7 beats significantly less episodes of NSVT Review of Systems Review of Systems: as per hpi Physical Exam Constitutional: + thin; no acute distress Eyes: PERRL, conjunctivae normal, anicteric sclerae ENMT: Mallampati Class: II Neck: trachea midline, no thyromegaly normal visual inspection and trachea midline Respiratory: normal respiratory effort, lungs clear to auscultation Cardiovascular: RRR, no murmur, no edema Rate/Rhythm: regular rate and + bradycardic Heart Sounds: normal S1, normal S2 and + murmur (Grade 1/6 systolic murmur) Vessels: dorsalis pedis pulses present; no JVD Extremities: no edema Gastrointestinal (Abdomen): normal bowel sounds, soft, nontender, no hepatosplenomegaly Skin: no rashes, warm and dry Psychiatric: A+Ox3, euthymic affect Results & Data Vital Signs (Past 12 Hours) Vital Signs Temp Pulse Pulse Resp BP BP Pulse Ox 03/13/25 15:07 36.3 C L 88 18 101/62 96 03/13/25 11:07 36.2 C L 72 18 114/72 99 03/13/25 08:46 89 03/13/25 07:15 36.4 C L 104 H 18 98/69 L 96 O2 Del Method 03/13/25 15:07 Room Air 03/13/25 11:07 Room Air 03/13/25 08:46 03/13/25 07:15 Room Air Laboratory Results Laboratory Results WBC 9.64 K/ul (4.8-10.8) 03/12/25 06:10 RBC 4.17 M/uL (4.70-6.10) L 03/12/25 06:10 Hgb 13.2 g/dL (14.0-18.0) L 03/12/25 06:10 Hct 38.8 % (42.0-52.0) L 03/12/25 06:10 MCV 93.0 fL (80.0-100.0) 03/12/25 06:10 MCH 31.7 pg (25.0-34.0) 03/12/25 06:10 MCHC 34.0 g/dL (32.0-36.0) 03/12/25 06:10 RDW Std Deviation 47.8 fL (36.4-46.3) H 03/12/25 06:10 RDW Coeff of Dylan 14.0 % (11.5-14.5) 03/12/25 06:10 Plt Count 198 K/uL (130-400) 03/12/25 06:10 MPV 10.6 fL (9.4-12.4) 03/12/25 06:10 Immature Gran % (Auto) 0.7 % 03/12/25 06:10 Neut % (Auto) 77.5 % 03/12/25 06:10 Lymph % (Auto) 11.6 % 03/12/25 06:10 [place] % (Auto) 8.9 % 03/12/25 06:10 Eos % (Auto) 0.6 % 03/12/25 06:10 Baso % (Auto) 0.7 % 03/12/25 06:10 Neut # (Auto) 7.46 K/uL (1.40-6.50) H 03/12/25 06:10 Lymph # (Auto) 1.12 K/uL (1.20-3.40) L 03/12/25 06:10 [place] # (Auto) 0.86 K/uL (0.11-0.59) H 03/12/25 06:10 Eos # (Auto) 0.06 K/uL (0.00-0.50) 03/12/25 06:10 Baso # (Auto) 0.07 K/uL (0.00-0.20) 03/12/25 06:10 Immature Gran # (Auto) 0.07 K/uL (0.01-0.20) 03/12/25 06:10 Absolute Nucleated RBC Cancelled 03/10/25 06:04 Nucleated RBC % (auto) Cancelled 03/10/25 06:04 Neutrophils % (Manual) Cancelled 03/10/25 06:04 Band Neutrophils % Cancelled 03/10/25 06:04 Lymphocytes % (Manual) Cancelled 03/10/25 06:04 Prolymphocyte % Cancelled 03/10/25 06:04 Reactive Lymphs % (Man) Cancelled 03/10/25 06:04 Monocytes % (Manual) Cancelled 03/10/25 06:04 Eosinophils % (Manual) Cancelled 03/10/25 06:04 Basophils % (Manual) Cancelled 03/10/25 06:04 Metamyelocytes % (Man) Cancelled 03/10/25 06:04 Myelocytes % (Man) Cancelled 03/10/25 06:04 Promyelocytes % (Man) Cancelled 03/10/25 06:04 Blast Cells % (Manual) Cancelled 03/10/25 06:04 Plasma Cell % (Manual) Cancelled 03/10/25 06:04 Other Cells % Cancelled 03/10/25 06:04 Nucleated RBC % Cancelled 03/10/25 06:04 Neutrophils # (Manual) Cancelled 03/10/25 06:04 Band Neutrophils # Cancelled 03/10/25 06:04 Total Absolute Neuts Cancelled 03/10/25 06:04 Lymphocytes # (Manual) Cancelled 03/10/25 06:04 Prolymphocyte # Cancelled 03/10/25 06:04 Reactive Lymphs # Cancelled 03/10/25 06:04 Total Abs Lymphocytes Cancelled 03/10/25 06:04 Monocytes # (Manual) Cancelled 03/10/25 06:04 Eosinophils # (Manual) Cancelled 03/10/25 06:04 Basophils # (Manual) Cancelled 03/10/25 06:04 Metamyelocytes # (Man) Cancelled 03/10/25 06:04 Myelocytes # (Manual) Cancelled 03/10/25 06:04 Promyelocytes # (Man) Cancelled 03/10/25 06:04 Blast Cells # (Man) Cancelled 03/10/25 06:04 Plasma Cell # (Manual) Cancelled 03/10/25 06:04 Other Cells # Cancelled 03/10/25 06:04 Nucleated RBCs # (Man) Cancelled 03/10/25 06:04 Hypersegmented Neuts Cancelled 03/10/25 06:04 Hyposegmented Neuts Cancelled 03/10/25 06:04 Hypogranular Neuts Cancelled 03/10/25 06:04 Large Granular Lymphs Cancelled 03/10/25 06:04 # Lrg Granular Lymphs Cancelled 03/10/25 06:04 Hairy Cells Cancelled 03/10/25 06:04 Smudge Cells Cancelled 03/10/25 06:04 Toxic Granulation Cancelled 03/10/25 06:04 Toxic Vacuolation Cancelled 03/10/25 06:04 Dohle Bodies Cancelled 03/10/25 06:04 Devang Rods Cancelled 03/10/25 06:04 Platelet Estimate Cancelled 03/10/25 06:04 Hypogranular Platelets Cancelled 03/10/25 06:04 Giant Platelets Cancelled 03/10/25 06:04 Platelet Satelliting Cancelled 03/10/25 06:04 RBC Morphology Cancelled 03/10/25 06:04 Polychromasia Cancelled 03/10/25 06:04 Hypochromasia Cancelled 03/10/25 06:04 Poikilocytosis Cancelled 03/10/25 06:04 Basophilic Stippling Cancelled 03/10/25 06:04 Anisocytosis Cancelled 03/10/25 06:04 Microcytosis Cancelled 03/10/25 06:04 Macrocytosis Cancelled 03/10/25 06:04 Spherocytes Cancelled 03/10/25 06:04 Pappenheimer Bodies Cancelled 03/10/25 06:04 Sickle Cells Cancelled 03/10/25 06:04 Target Cells Cancelled 03/10/25 06:04 Tear Drop Cells Cancelled 03/10/25 06:04 Ovalocytes Cancelled 03/10/25 06:04 Stomatocytes Cancelled 03/10/25 06:04 Morgan-Rivers Bodies Cancelled 03/10/25 06:04 Echinocytes Cancelled 03/10/25 06:04 Acanthocytes (Spur) Cancelled 03/10/25 06:04 Rouleaux Cancelled 03/10/25 06:04 RBC Agglutinates Cancelled 03/10/25 06:04 Schistocytes Cancelled 03/10/25 06:04 Sezary Cell Cancelled 03/10/25 06:04 PT 12.4 Seconds (9.0-12.0) H 03/08/25 06:35 INR 1.2 (0.9-1.1) H 03/08/25 06:35 Sodium 138 mmol/L (136-145) 03/13/25 06:33 Potassium 4.4 mmol/L (3.5-5.1) 03/13/25 06:33 Chloride 106 mmol/L (98-107) 03/13/25 06:33 Carbon Dioxide 26 mmol/L (21-32) 03/13/25 06:33 Anion Gap 6 (3-11) 03/13/25 06:33 BUN 39 mg/dl (6-23) H 03/13/25 06:33 Creatinine 0.89 mg/dl (0.6-1.4) 03/13/25 06:33 Est Cr Clr Drug Dosing 49.5 ml/min 03/13/25 06:33 eGFR 84.50 03/13/25 06:33 BUN/Creatinine Ratio 43.8 (10-20) H 03/13/25 06:33 Glucose 163 mg/dl (70-99(Fasting)) H 03/13/25 06:33 POC Glucose 203 mg/dl (70-99) H 03/13/25 16:09 Estimat Average Glucose 143 mg/dl 03/08/25 06:35 Hemoglobin A1c 6.6 % (4.5-5.6) H 03/08/25 06:35 Calcium 8.2 mg/dl (8.6-10.3) L 03/13/25 06:33 Magnesium 2.0 mg/dl (1.7-2.4) 03/13/25 06:33 Iron 41 mcg/dl (35-175) 03/08/25 06:35 TIBC 183 mcg/dl (250-450) L 03/08/25 06:35 Transferrin 131 mg/dl (200-360) L 03/08/25 06:35 Transferrin % Sat 22 % (20-50) 03/08/25 06:35 Ferritin 61.5 ng/ml (8-388) 03/08/25 06:35 Total Bilirubin 0.5 mg/dl (0.2-1.0) 03/06/25 22:45 AST 12 U/L (13-39) L 03/06/25 22:45 ALT 10 U/L (7-52) 03/06/25 22:45 Alkaline Phosphatase 98 U/L (34-104) 03/06/25 22:45 Troponin I High Sens 11.3 pg/ml (0-20) 03/06/25 22:45 Total Protein 6.4 gm/dl (6.0-8.3) 03/06/25 22:45 Albumin 3.4 gm/dl (3.4-5.0) 03/06/25 22:45 Globulin 3.0 gm/dl (2.5-4.0) 03/06/25 22:45 Albumin/Globulin Ratio 1.1 (0.9-2) 03/06/25 22:45 Lipase 14 U/L (11-82) 03/06/25 22:45 Vitamin B12 722 pg/ml (180-914) 03/08/25 06:35 Folate 9.78 ng/ml (>5.38) 03/08/25 06:35 TSH 1.997 uIu/ml (0.300-4.500) 03/06/25 22:45 Urine Color Yellow 03/06/25:35 Urine Appearance Clear (Clear) 03/06/25:35 Urine pH 5.0 (4.5-7.5) 03/06/25 22:35 Ur Specific Clint 1.032 (1.000-1.030) H 03/06/25 22:35 Urine Protein 1+ (Negative) H 03/06/25:35 Urine Glucose (UA) 3+ (Negative) H 03/06/25:35 Urine Ketones Negative (Negative) 03/06/25: Urine Blood 2+ (Negative) H 03/06/25:35 Urine Nitrite Negative (Negative) 03/06/25: Urine Bilirubin Negative (Negative) 03/06/25: Urine Urobilinogen Negative (Negative) 03/06/25: Ur Leukocyte Esterase Trace (Negative) H 03/06/25:35 Urine WBC (Auto) 21-50 /hpf (0-5) H 03/06/25: Urine RBC (Auto) >20 /hpf (0-2) H 03/06/25: U Hyaline Cast (Auto) 0-2 /lpf (0-2) 03/06/25 22:35 U Epithel Cells (Auto) 0-2 /hpf (0-2) 03/06/25:35 Urine Bacteria (Auto) None Seen (None Seen) 03/06/25:35 Urine Yeast Present (None Prsent) A 03/06/25:35 Urine Comment 03/06/25: Blood Parasites ID Cancelled 03/10/25 06:04 Impressions Bladder Ultrasound 03/07/25 12:27 ULTRASOUND OF THE BLADDER CLINICAL HISTORY: Leakage around the Michelle catheter.. COMPARISON STUDY: Abdominal CT dated 04/14/2020 TECHNIQUE: Real-time, grayscale, and color flow sonography of bladder is performed. Images are reviewed in the transverse and longitudinal planes. FINDINGS: The bladder is largely decompressed around a Michelle catheter. The catheter is located within the bladder lumen. The bladder wall appears thickened/trabeculated indicating chronic outlet obstruction. Ureteral jets could not be assessed. IMPRESSION: 1. The bladder is largely decompressed around a Michelle catheter. The catheter appears appropriately positioned. 2. There is evidence of chronic bladder outlet obstruction. ACT 112: Negative or not required by law. Electronically signed by: Hipolito Muller M.D. 03/07/2025 3:10 PM Chest X-Ray 03/10/25 13:30 XR chest 1V portable HISTORY: 84 years-old Male s/p ppm ensure no PTX status post placement of a left subclavian pacer COMPARISON: Chest radiographs 07/09/2024 TECHNIQUE: AP view of the chest FINDINGS: Has been placed in the interval. Left lateral chest wall skin folds are noted without pneumothorax, focal airspace consolidation, pleural effusion or overt pulmonary edema. Degenerative changes of the shoulders and spine. IMPRESSION: Status post placement of a left subclavian pacer. No pneumothorax identified. ACT 112: Negative or not required by law. The above report was generated using voice recognition software. It may contain grammatical, syntax or spelling errors. Electronically signed by: Dominguez Erazo M.D. 03/10/2025 1:31 PM Diagnostic Findings Comprehensive Metabolic Panel 03/13/25 Range/Units 06:33 Sodium 138 (136-145) mmol/L Potassium 4.4 (3.5-5.1) mmol/L Chloride 106 (98-107) mmol/L Carbon Dioxide 26 (21-32) mmol/L BUN 39 H (6-23) mg/dl Creatinine 0.89 (0.6-1.4) mg/dl Glucose 163 H (70-99(Fasting)) mg/dl Calcium 8.2 L (8.6-10.3) mg/dl Intake and Output 03/13/25 03/13/25 03/13/25 06:59 14:59 22:59 Intake Total 600 / 600 Output Total 275 / 1450 575 / 575 Balance -275 / -1125 Intake: Oral 600 / 600 Output: Urine Amount (Catheter) 275 / 1450 575 / 575 Michelle/Indwelling 275 / 1450 575 / 575 Other: Weight 56.6 kg Weight Measurement Method Built in [facility] Medications Administered Home Medications Medication Instructions Recorded Confirmed Last Taken acetaminophen 500 mg tablet 500 mg PO Q4H PRN Pain 01/07/21 03/07/25 07/29/24 04:00 (Tylenol Extra Strength) finasteride 5 mg tablet 5 mg PO QAM 0203/07/25 03/06/25 apixaban 5 mg tablet (Eliquis) 5 mg PO BID #60 tabs 05/07/21 03/07/25 03/06/25 magnesium chloride 64 mg 64 mg PO BID #60 tabs 05/07/21 03/07/25 03/06/25 (magnesium chloride) tablet,delayed release (Mag 64) atorvastatin 20 mg tablet 20 mg PO QAM 09/17/21 03/07/25 03/06/25 amiodarone 200 mg tablet 200 mg PO QAM 07/24/24 03/07/25 03/06/25 solifenacin 10 mg tablet 10 mg PO DAILY #90 tabs 08/28/24 03/07/25 03/06/25 L-Arginine Tabs 850 mg PO DAILY 02/20/25 03/07/25 03/06/25 amino acids 1 tab PO DAILY 02/20/25 03/07/25 03/06/25 aspirin 81 mg tablet,delayed 81 mg PO DAILY 02/20/25 03/07/25 03/06/25 release cyanocobalamin (vitamin B-12) 500 500 mcg PO DAILY 02/20/25 03/07/25 03/06/25 mcg tablet (Vitamin B-12) empagliflozin 25 mg tablet 25 mg PO QAM 02/20/25 03/07/25 03/06/25 (Jardiance) fluticasone propionate 50 2 spray intranasal DAILY 02/20/25 03/07/25 03/06/25 mcg/actuation nasal spray,suspension lisinopril 20 mg tablet 20 mg PO DAILY 02/20/25 03/07/25 03/06/25 metformin 500 mg tablet,extended 1,500 mg PO DAILY 02/20/25 03/07/25 03/06/25 release 24 hr vibegron 75 mg tablet (Gemtesa) 75 mg PO DAILY #30 tabs 03/05/25 03/07/25 Unknown Active Medications Generic Name Dose Route Start Last Admin Trade Name Freq PRN Reason Stop Dose Admin Acetaminophen 650 mg 03/07/25 02:32 03/11/25 05:11 Acetaminophen 325 Mg Tab PO 04/06/25 02:31 650 mg Q4H PRN Administration Pain or Fever Amiodarone HCl 200 mg 03/10/25 13:00 03/13/25 08:06 Amiodarone 200 Mg Tab PO 04/09/25 12:59 200 mg BID YUMIKO Administration Apixaban 5 mg 03/11/25 20:00 03/13/25 08:06 Apixaban 5 Mg Tablet PO 04/10/25 19:59 5 mg BID@0800,2000 YUMIKO Administration Aspirin 81 mg 03/12/25 10:45 03/13/25 08:07 Aspirin 81 Mg Ectab PO 04/11/25 10:44 81 mg DAILY YUMIKO Administration Atorvastatin Calcium 20 mg 03/07/25 09:00 03/13/25 08:07 Atorvastatin 20 Mg Tab PO 04/06/25 08:59 20 mg QAM YUMIKO Administration Cyanocobalamin 500 mcg 03/13/25 09:00 03/13/25 08:07 Cyanocobalamin (B-12) 500 Mcg Tablet PO 04/12/25 08:59 500 mcg DAILY YUMIKO Administration Empagliflozin 25 mg 03/07/25 09:00 03/13/25 08:07 Empagliflozin 25 Mg Tab PO 04/06/25 08:59 25 mg QAM YUMIKO Administration Finasteride 5 mg 03/07/25 09:00 03/13/25 08:07 Finasteride 5 Mg Tab PO 04/06/25 08:59 5 mg QAM YUMIKO Administration Fluticasone Propionate 2 sprays 03/07/25 09:00 03/13/25 08:07 Fluticasone Propionate Na Spr 16 Gm Btl NA 04/06/25 08:59 2 sprays DAILY YUMIKO Administration Insulin Aspart 0 units 03/10/25 21:00 03/13/25 16:50 Insulin Aspart Per Unit Charge SC 04/09/25 05:59 2 units ACHS YUMIKO Administration Magnesium Chloride 64 mg 03/07/25 09:00 03/13/25 08:07 Magnesium Chloride W/Calcium 64mg Delayed Rel Tab PO 04/06/25 08:59 64 mg BID YUMIKO Administration Melatonin 3 mg 03/07/25 02:32 03/12/25 21:31 Melatonin 3 Mg Tab PO 04/06/25 02:31 3 mg HS PRN Administration Sleep Metoprolol Succinate 25 mg 03/11/25 21:00 03/13/25 08:11 Metoprolol Succ 25mg Ext Rel Tab PO 04/10/25 20:59 25 mg BID YUMIKO Administration Multivitamins/Minerals 1 tab 03/09/25 09:00 03/13/25 08:08 Cerovite Adv Formula Tab PO 04/08/25 08:59 1 tab QAM YUMIKO Administration Tamsulosin HCl 0.4 mg 03/09/25 21:00 03/12/25 21:31 Tamsulosin Hcl 0.4 Mg Cap PO 04/08/25 20:59 0.4 mg HS YUMIKO Administration Vibegron 75 mg 03/07/25 09:00 03/13/25 08:09 Vibegron 75 Mg Tab PO 04/06/25 08:59 75 mg DAILY YUMIKO Administration PG Care Time/CCT Total # of Minutes Spent Total Time Spent with Patient: Total time spent is greater than 50% in coordination of care (as documented) at patient's floor/unit and/or counseling patient: Coding Level of Care Code 19622 SUB INP/OBS CARE 3/50MIN Diagnoses Bradycardia R00.1 Nonsustained ventricular tachycardia I47.29 Acute on chronic urinary retention R33.9
--- NOTE | 2025-03-14 09:29 | Cardiology Progress Note ---
Date of Service March 14, 2025 Assessment & Plan (1) Bradycardia: Plan: s/p PPM (2) Nonsustained ventricular tachycardia: (3) Acute on chronic urinary retention: Plan 84-year-old male with longstanding arrhythmic issues including paroxysmal ventricular tachycardia and paroxysmal atrial fibrillation. Patient initially sought ER evaluation for Michelle catheter obstruction and was noted to have salvos of nonsustained ventricular tachycardia on telemetry. Transient course of IV amiodarone following bolus discontinued after bradycardia arrhythmias observed. 1. 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 Usually catecholamine induced and beta-kurtis responsive. Generally not associated with need for defibrillator Recent discontinuation of metoprolol due to bradycardia noted during urologic evaluations LV systolic function normal 2. Paroxysmal atrial fibrillation on chronic amiodarone therapy. 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 Bradycardia arrhythmias more profound following IV amiodarone bolus last evening. Suspect patient will require pacemaker for long-term management. 3. 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 4. s/p Dual chamber PPM PPM interrogation - PPM parameters ok; noted to have slow NSVT -> improved on metoprolol Continue PO Amiodarone Off Lisinopril to give room for metoprolol XL to be uptitrated, now that he has a PPM continue metoprolol xl increase po fluid intake to avoid hypovolemia and associated hypotension and tachycardia, since patient has been leaking urine around Michelle which needs to be addressed by urology avoid hypovolemia cont Eliquis f/u with Urology stable from cardiac standpoint for [facility] f/u with EP post discharge Admission and Anticipated Discharge Date Admission Date: March 07, 2025 Subjective Patient on exam is lying in bed in NAD; no c/o cp, sob, palpitations, dizziness, LOC; c/o leakage of urine around his Michelle catheter; ambulatory with PT Telemetry - paced rhythm; no NSVT Review of Systems Review of Systems: as per hpi Physical Exam Physical Exam: The patient is awake, alert and oriented 3, well developed and well nourished, normocephalic and atraumatic, in no acute distress. Non-toxic appearing. HEENT- EOMI, mucous membranes moist. Hearing grossly intact. Heart-normal S1 and S2. No murmurs, rubs or gallops. Lungs-clear bilaterally, no respiratory distress, no accessory muscle use. Abdomen-normal bowel sounds and soft. No ascites noted. Non-tender. Extremities- no clubbing, cyanosis, or edema. Rheumatologic-normal range of motion. Psychiatric-normal affect. Constitutional: + thin; no acute distress Eyes: PERRL, conjunctivae normal, anicteric sclerae ENMT: Mallampati Class: II Neck: trachea midline, no thyromegaly normal visual inspection and trachea midline Respiratory: normal respiratory effort, lungs clear to auscultation normal respiratory effort Auscultation: + diminished lung sounds (Throughout); no crackles, no rales and no rhonchi Cardiovascular: RRR, no murmur, no edema Rate/Rhythm: regular rate and + b radycardic Heart Sounds: normal S1, normal S2 and + murmur (Grade 1/6 systolic murmur) Vessels: dorsalis pedis pulses present; no JVD Extremities: no edema Chest (Breasts): Chest: + pacemaker (Left anterior chest wall with dressing clean dry and intact) Gastrointestinal (Abdomen): normal bowel sounds, soft, nontender, no hepatosplenomegaly Skin: no rashes, warm and dry + rash (Scrotum and right inguinal region with mild erythematous rash) Psychiatric: A+Ox3, euthymic affect Genitourinary: + penis abnormality (Michelle catheter in p lace) Results & Data Vital Signs (Past 12 Hours) Vital Signs Vital Signs Temp 36.5 C 03/14/25 11:53 Pulse 100 H 03/14/25 11:53 Resp 20 03/14/25 11:53 BP 122/73 03/14/25 11:53 Pulse Ox 96 03/14/25 11:53 O2 Del Method Room Air 03/14/25 11:53 Intake & Output 03/13/25 03/14/25 03/14/25 18:59 06:59 18:59 Intake Total 600 / 1110 510 / 1110 600 / 600 Output Total 575 / 1860 1285 / 1860 700 / 700 Balance 25 / -750 -775 / -750 -100 / -100 Weight 55.8 kg Intake: Oral 600 / 1110 510 / 1110 600 / 600 Output: Urine 700 / 700 Urine Amount (Catheter) 575 / 1860 1285 / 1860 Michelle/Indwelling 575 / 1860 1285 / 1860 Other: Weight Measurement Method Built in [facility] Pulse Pulse Resp BP BP Pulse Ox 03/14/25 09:06 97 H 03/14/25 07:22 36.6 C 88 20 94/60 L 95 03/14/25 03:02 36.3 C L 89 18 92/54 L 97 03/14/25 02:59 03/14/25 02:59 87 03/13/25 22:44 36.6 C 96 H 19 130/66 96 O2 Del Method 03/14/25 09:06 03/14/25 07:22 Room Air 03/14/25 03:02 Room Air 03/14/25 02:59 Room Air 03/14/25 02:59 03/13/25 22:44 Room Air Laboratory Results Laboratory Results WBC 9.64 K/ul (4.8-10.8) 03/12/25 06:10 RBC 4.17 M/uL (4.70-6.10) L 03/12/25 06:10 Hgb 13.2 g/dL (14.0-18.0) L 03/12/25 06:10 Hct 38.8 % (42.0-52.0) L 03/12/25 06:10 MCV 93.0 fL (80.0-100.0) 03/12/25 06:10 MCH 31.7 pg (25.0-34.0) 03/12/25 06:10 MCHC 34.0 g/dL (32.0-36.0) 03/12/25 06:10 RDW Std Deviation 47.8 fL (36.4-46.3) H 03/12/25 06:10 RDW Coeff of Dylan 14.0 % (11.5-14.5) 03/12/25 06:10 Plt Count 198 K/uL (130-400) 03/12/25 06:10 MPV 10.6 fL (9.4-12.4) 03/12/25 06:10 Immature Gran % (Auto) 0.7 % 03/12/25 06:10 Neut % (Auto) 77.5 % 03/12/25 06:10 Lymph % (Auto) 11.6 % 03/12/25 06:10 [place] % (Auto) 8.9 % 03/12/25 06:10 Eos % (Auto) 0.6 % 03/12/25 06:10 Baso % (Auto) 0.7 % 03/12/25 06:10 Neut # (Auto) 7.46 K/uL (1.40-6.50) H 03/12/25 06:10 Lymph # (Auto) 1.12 K/uL (1.20-3.40) L 03/12/25 06:10 [place] # (Auto) 0.86 K/uL (0.11-0.59) H 03/12/25 06:10 Eos # (Auto) 0.06 K/uL (0.00-0.50) 03/12/25 06:10 Baso # (Auto) 0.07 K/uL (0.00-0.20) 03/12/25 06:10 Immature Gran # (Auto) 0.07 K/uL (0.01-0.20) 03/12/25 06:10 Absolute Nucleated RBC Cancelled 03/10/25 06:04 Nucleated RBC % (auto) Cancelled 03/10/25 06:04 Neutrophils % (Manual) Cancelled 03/10/25 06:04 Band Neutrophils % Cancelled 03/10/25 06:04 Lymphocytes % (Manual) Cancelled 03/10/25 06:04 Prolymphocyte % Cancelled 03/10/25 06:04 Reactive Lymphs % (Man) Cancelled 03/10/25 06:04 Monocytes % (Manual) Cancelled 03/10/25 06:04 Eosinophils % (Manual) Cancelled 03/10/25 06:04 Basophils % (Manual) Cancelled 03/10/25 06:04 Metamyelocytes % (Man) Cancelled 03/10/25 06:04 Myelocytes % (Man) Cancelled 03/10/25 06:04 Promyelocytes % (Man) Cancelled 03/10/25 06:04 Blast Cells % (Manual) Cancelled 03/10/25 06:04 Plasma Cell % (Manual) Cancelled 03/10/25 06:04 Other Cells % Cancelled 03/10/25 06:04 Nucleated RBC % Cancelled 03/10/25 06:04 Neutrophils # (Manual) Cancelled 03/10/25 06:04 Band Neutrophils # Cancelled 03/10/25 06:04 Total Absolute Neuts Cancelled 03/10/25 06:04 Lymphocytes # (Manual) Cancelled 03/10/25 06:04 Prolymphocyte # Cancelled 03/10/25 06:04 Reactive Lymphs # Cancelled 03/10/25 06:04 Total Abs Lymphocytes Cancelled 03/10/25 06:04 Monocytes # (Manual) Cancelled 03/10/25 06:04 Eosinophils # (Manual) Cancelled 03/10/25 06:04 Basophils # (Manual) Cancelled 03/10/25 06:04 Metamyelocytes # (Man) Cancelled 03/10/25 06:04 Myelocytes # (Manual) Cancelled 03/10/25 06:04 Promyelocytes # (Man) Cancelled 03/10/25 06:04 Blast Cells # (Man) Cancelled 03/10/25 06:04 Plasma Cell # (Manual) Cancelled 03/10/25 06:04 Other Cells # Cancelled 03/10/25 06:04 Nucleated RBCs # (Man) Cancelled 03/10/25 06:04 Hypersegmented Neuts Cancelled 03/10/25 06:04 Hyposegmented Neuts Cancelled 03/10/25 06:04 Hypogranular Neuts Cancelled 03/10/25 06:04 Large Granular Lymphs Cancelled 03/10/25 06:04 # Lrg Granular Lymphs Cancelled 03/10/25 06:04 Hairy Cells Cancelled 03/10/25 06:04 Smudge Cells Cancelled 03/10/25 06:04 Toxic Granulation Cancelled 03/10/25 06:04 Toxic Vacuolation Cancelled 03/10/25 06:04 Dohle Bodies Cancelled 03/10/25 06:04 Devang Rods Cancelled 03/10/25 06:04 Platelet Estimate Cancelled 03/10/25 06:04 Hypogranular Platelets Cancelled 03/10/25 06:04 Giant Platelets Cancelled 03/10/25 06:04 Platelet Satelliting Cancelled 03/10/25 06:04 RBC Morphology Cancelled 03/10/25 06:04 Polychromasia Cancelled 03/10/25 06:04 Hypochromasia Cancelled 03/10/25 06:04 Poikilocytosis Cancelled 03/10/25 06:04 Basophilic Stippling Cancelled 03/10/25 06:04 Anisocytosis Cancelled 03/10/25 06:04 Microcytosis Cancelled 03/10/25 06:04 Macrocytosis Cancelled 03/10/25 06:04 Spherocytes Cancelled 03/10/25 06:04 Pappenheimer Bodies Cancelled 03/10/25 06:04 Sickle Cells Cancelled 03/10/25 06:04 Target Cells Cancelled 03/10/25 06:04 Tear Drop Cells Cancelled 03/10/25 06:04 Ovalocytes Cancelled 03/10/25 06:04 Stomatocytes Cancelled 03/10/25 06:04 [place] Bodies Cancelled 03/10/25 06:04 Echinocytes Cancelled 03/10/25 06:04 Acanthocytes (Spur) Cancelled 03/10/25 06:04 Rouleaux Cancelled 03/10/25 06:04 RBC Agglutinates Cancelled 03/10/25 06:04 Schistocytes Cancelled 03/10/25 06:04 Sezary Cell Cancelled 03/10/25 06:04 PT 12.4 Seconds (9.0-12.0) H 03/08/25 06:35 INR 1.2 (0.9-1.1) H 03/08/25 06:35 Sodium 138 mmol/L (136-145) 03/13/25 06:33 Potassium 4.4 mmol/L (3.5-5.1) 03/13/25 06:33 Chloride 106 mmol/L (98-107) 03/13/25 06:33 Carbon Dioxide 26 mmol/L (21-32) 03/13/25 06:33 Anion Gap 6 (3-11) 03/13/25 06:33 BUN 39 mg/dl (6-23) H 03/13/25 06:33 Creatinine 0.89 mg/dl (0.6-1.4) 03/13/25 06:33 Est Cr Clr Drug Dosing 49.5 ml/min 03/13/25 06:33 eGFR 84.50 03/13/25 06:33 BUN/Creatinine Ratio 43.8 (10-20) H 03/13/25 06:33 Glucose 163 mg/dl (70-99(Fasting)) H 03/13/25 06:33 POC Glucose 245 mg/dl (70-99) H 03/14/25 11:24 Estimat Average Glucose 143 mg/dl 03/08/25 06:35 Hemoglobin A1c 6.6 % (4.5-5.6) H 03/08/25 06:35 Calcium 8.2 mg/dl (8.6-10.3) L 03/13/25 06:33 Magnesium 2.0 mg/dl (1.7-2.4) 03/13/25 06:33 Iron 41 mcg/dl (35-175) 03/08/25 06:35 TIBC 183 mcg/dl (250-450) L 03/08/25 06:35 Transferrin 131 mg/dl (200-360) L 03/08/25 06:35 Transferrin % Sat 22 % (20-50) 03/08/25 06:35 Ferritin 61.5 ng/ml (8-388) 03/08/25 06:35 Total Bilirubin 0.5 mg/dl (0.2-1.0) 03/06/25 22:45 AST 12 U/L (13-39) L 03/06/25 22:45 ALT 10 U/L (7-52) 03/06/25 22:45 Alkaline Phosphatase 98 U/L (34-104) 03/06/25 22:45 Troponin I High Sens 11.3 pg/ml (0-20) 03/06/25 22:45 Total Protein 6.4 gm/dl (6.0-8.3) 03/06/25 22:45 Albumin 3.4 gm/dl (3.4-5.0) 03/06/25 22:45 Globulin 3.0 gm/dl (2.5-4.0) 03/06/25 22:45 Albumin/Globulin Ratio 1.1 (0.9-2) 03/06/25 22:45 Lipase 14 U/L (11-82) 03/06/25 22:45 Vitamin B12 722 pg/ml (180-914) 03/08/25 06:35 Folate 9.78 ng/ml (>5.38) 03/08/25 06:35 TSH 1.997 uIu/ml (0.300-4.500) 03/06/25 22:45 Urine Color Yellow 03/06/25 22:35 Urine Appearance Clear (Clear) 03/06/25 22:35 Urine pH 5.0 (4.5-7.5) 03/06/25 22:35 Ur Specific [place] 1.032 (1.000-1.030) H 03/06/25 22:35 Urine Protein 1+ (Negative) H 03/06/25 22:35 Urine Glucose (UA) 3+ (Negative) H 03/06/25 22:35 Urine Ketones Negative (Negative) 03/06/25: Urine Blood 2+ (Negative) H 03/06/25:35 Urine Nitrite Negative (Negative) 03/06/25:35 Urine Bilirubin Negative (Negative) 03/06/25:35 Urine Urobilinogen Negative (Negative) 03/06/25:35 Ur Leukocyte Esterase Trace (Negative) H 03/06/25:35 Urine WBC (Auto) 21-50 /hpf (0-5) H 03/06/25:35 Urine RBC (Auto) >20 /hpf (0-2) H 03/06/25: U Hyaline Cast (Auto) 0-2 /lpf (0-2) 03/06/25 22:35 U Epithel Cells (Auto) 0-2 /hpf (0-2) 03/06/25 22:35 Urine Bacteria (Auto) None Seen (None Seen) 03/06/25: Urine Yeast Present (None Prsent) A 03/06/25:35 Urine Comment 03/06/25:35 Blood Parasites ID Cancelled 03/10/25 06:04 Impressions Bladder Ultrasound 03/07/25 12:27 ULTRASOUND OF THE BLADDER CLINICAL HISTORY: Leakage around the Michelle catheter.. COMPARISON STUDY: Abdominal CT dated 04/14/2020 TECHNIQUE: Real-time, grayscale, and color flow sonography of bladder is performed. Images are reviewed in the transverse and longitudinal planes. FINDINGS: The bladder is largely decompressed around a Michelle catheter. The catheter is located within the bladder lumen. The bladder wall appears thickened/trabeculated indicating chronic outlet obstruction. Ureteral jets could not be assessed. IMPRESSION: 1. The bladder is largely decompressed around a Michelle catheter. The catheter appears appropriately positioned. 2. There is evidence of chronic bladder outlet obstruction. ACT 112: Negative or not required by law. Electronically signed by: Hipolito Muller M.D. 03/07/2025 3:10 PM Chest X-Ray 03/10/25 13:30 XR chest 1V portable HISTORY: 84 years-old Male s/p ppm ensure no PTX status post placement of a left subclavian pacer COMPARISON: Chest radiographs 07/09/2024 TECHNIQUE: AP view of the chest FINDINGS: Has been placed in the interval. Left lateral chest wall skin folds are noted without pneumothorax, focal airspace consolidation, pleural effusion or overt pulmonary edema. Degenerative changes of the shoulders and spine. IMPRESSION: Status post placement of a left subclavian pacer. No pneumothorax identified. ACT 112: Negative or not required by law. The above report was generated using voice recognition software. It may contain grammatical, syntax or spelling errors. Electronically signed by: Dominguez Erazo M.D. 03/10/2025 1:31 PM Diagnostic Findings Intake and Output 03/13/25 03/14/25 03/14/25 22:59 06:59 14:59 Intake Total 385 / 1110 125 / 1110 600 / 600 Output Total 635 / 1860 650 / 1860 700 / 700 Balance -250 / -750 -525 / -750 -100 / -100 Intake: Oral 385 / 1110 125 / 1110 600 / 600 Output: Urine 700 / 700 Urine Amount (Catheter) 635 / 1860 650 / 1860 Michelle/Indwelling 635 / 1860 650 / 1860 Other: Weight 55.8 kg Weight Measurement Method Built in [facility] Medications Administered Home Medications Medication Instructions Recorded Confirmed Last Taken acetaminophen 500 mg tablet 500 mg PO Q4H PRN Pain 01/07/21 03/07/25 07/29/24 04:00 (Tylenol Extra Strength) finasteride 5 mg tablet 5 mg PO QAM 05/03/21 03/07/25 03/06/25 apixaban 5 mg tablet (Eliquis) 5 mg PO BID #60 tabs 05/07/21 03/07/25 03/06/25 magnesium chloride 64 mg 64 mg PO BID #60 tabs 05/07/21 03/07/25 03/06/25 (magnesium chloride) tablet,delayed release (Mag 64) atorvastatin 20 mg tablet 20 mg PO QAM 09/17/21 03/07/25 03/06/25 amiodarone 200 mg tablet 200 mg PO QAM 07/24/24 03/07/25 03/06/25 solifenacin 10 mg tablet 10 mg PO DAILY #90 tabs 08/28/24 03/07/25 03/06/25 L-Arginine Tabs 850 mg PO DAILY 02/20/25 03/07/25 03/06/25 amino acids 1 tab PO DAILY 02/20/25 03/07/25 03/06/25 aspirin 81 mg tablet,delayed 81 mg PO DAILY 02/20/25 03/07/25 03/06/25 release cyanocobalamin (vitamin B-12) 500 500 mcg PO DAILY 02/20/25 03/07/25 03/06/25 mcg tablet (Vitamin B-12) empagliflozin 25 mg tablet 25 mg PO QAM 02/20/25 03/07/25 03/06/25 (Jardiance) fluticasone propionate 50 2 spray intranasal DAILY 02/20/25 03/07/25 03/06/25 mcg/actuation nasal spray,suspension lisinopril 20 mg tablet 20 mg PO DAILY 02/20/25 03/07/25 03/06/25 metformin 500 mg tablet,extended 1,500 mg PO DAILY 02/20/25 03/07/25 03/06/25 release 24 hr vibegron 75 mg tablet (Gemtesa) 75 mg PO DAILY #30 tabs 03/05/25 03/07/25 Unknown Active Medications Generic Name Dose Route Start Last Admin Trade Name Curtq PRN Reason Stop Dose Admin Acetaminophen 650 mg 03/07/25 02:32 03/11/25 05:11 Acetaminophen 325 Mg Tab PO 04/06/25 02:31 650 mg Q4H PRN Administration Pain or Fever Amiodarone HCl 200 mg 03/10/25 13:00 03/14/25 08:29 Amiodarone 200 Mg Tab PO 04/09/25 12:59 200 mg BID YUMIKO Administration Apixaban 5 mg 03/11/25 20:00 03/14/25 08:28 Apixaban 5 Mg Tablet PO 04/10/25 19:59 5 mg BID@0800,2000 YUMIKO Administration Aspirin 81 mg 03/12/25 10:45 03/14/25 08:29 Aspirin 81 Mg Ectab PO 04/11/25 10:44 81 mg DAILY YUMIKO Administration Atorvastatin Calcium 20 mg 03/07/25 09:00 03/14/25 08:29 Atorvastatin 20 Mg Tab PO 04/06/25 08:59 20 mg QAM YUMIKO Administration Cyanocobalamin 500 mcg 03/13/25 09:00 03/14/25 08:28 Cyanocobalamin (B-12) 500 Mcg Tablet PO 04/12/25 08:59 500 mcg DAILY YUMIKO Administration Empagliflozin 25 mg 03/07/25 09:00 03/14/25 08:29 Empagliflozin 25 Mg Tab PO 04/06/25 08:59 25 mg QAM YUMIKO Administration Finasteride 5 mg 03/07/25 09:00 03/14/25 08:30 Finasteride 5 Mg Tab PO 04/06/25 08:59 5 mg QAM YUMIKO Administration Fluticasone Propionate 2 sprays 03/07/25 09:00 03/14/25 08:30 Fluticasone Propionate Na Spr 16 Gm Btl NA 04/06/25 08:59 2 sprays DAILY YUMIKO Administration Insulin Aspart 0 units 03/10/25 21:00 03/14/25 12:15 Insulin Aspart Per Unit Charge SC 04/09/25 05:59 4 units ACHS YUMIKO Administration Magnesium Chloride 64 mg 03/07/25 09:00 03/14/25 08:28 Magnesium Chloride W/Calcium 64mg Delayed Rel Tab PO 04/06/25 08:59 64 mg BID YUMIKO Administration Melatonin 3 mg 03/07/25 02:32 03/13/25 21:44 Melatonin 3 Mg Tab PO 04/06/25 02:31 3 mg HS PRN Administration Sleep Metoprolol Succinate 25 mg 03/11/25 21:00 03/14/25 08:24 Metoprolol Succ 25mg Ext Rel Tab PO 04/10/25 20:59 Not Given BID YUMIKO Multivitamins/Minerals 1 tab 03/09/25 09:00 03/14/25 08:28 Cerovite Adv Formula Tab PO 04/08/25 08:59 1 tab QAM YUMIKO Administration Tamsulosin HCl 0.4 mg 03/09/25 21:00 03/13/25 21:44 Tamsulosin Hcl 0.4 Mg Cap PO 04/08/25 20:59 0.4 mg HS YUMIKO Administration Vibegron 75 mg 03/07/25 09:00 03/14/25 08:28 Vibegron 75 Mg Tab PO 04/06/25 08:59 75 mg DAILY YUMIKO Administration PG Care Time/CCT Total # of Minutes Spent Total Time Spent with Patient: Total time spent is greater than 50% in coordination of care (as documented) at patient's floor/unit and/or counseling patient: Coding Level of Care Code 76013 SUB INP/OBS CARE 3/50MIN Diagnoses Bradycardia R00.1 Nonsustained ventricular tachycardia I47.29 Acute on chronic urinary retention R33.9
--- NOTE | 2025-03-14 17:20 | Hospitalist Progress Note ---
Date of Service March 14, 2025 Assessment & Plan (1) Nonsustained ventricular tachycardia: (2) Bradycardia: (3) Severe protein-calorie malnutrition: (4) Incomplete bladder emptying: Plan Patient is an 84-year-old male with a past medical history of RVOT paroxysmal ventricular tachycardia, paroxysmal A-fib, CAD, PVD, type II DM, prostate cancer, LUTS with chronic Michelle. Patient presented to the ED for catheter replacement as his was not draining properly. While in the ED patient was found to have several episodes of nonsustained V. tach lasting 10 to 20 seconds, patient remained completely asymptomatic. He was started on an amiodarone bolus and drip and then had profound bradycardia with the Mobitz 1 second-degree heart block. He is admitted for permanent pacemaker placement. #Nonsustained V. tach/second-degree Mobitz 1 heart block/PAF on Eliquis continued to have repeated episodes of nonsustained V. tach as long as 1 minute, mildly symptomatic with lightheadedness. Also with frequent secondary heart block and possibly third-degree heart block with rates in the 20s to 50s prior to getting pacemaker. No history of syncope. He previously was on a beta-kurtis which controlled his VTE, but this was held due to severe bradycardia hence why he is having more frequent VT. He was placed on IV amiodarone in the ED for repeated V. tach but this was stopped due to heart block and bradycardia. Echocardiogram here with normal LV function. TSH normal. Appreciate cardiology consultation Now s/p permanent pacemaker placement on 03/10 and metoprolol restarted along with p.o. amiodarone. Since metoprolol and amiodarone resumed, the V. tach is significantly reduced in frequency. Pacemaker is functioning properly. - Postoperative care as per cardiology-LUE restrictions, sling in place - Continue telemetry monitoring - Resumed home Eliquis and aspirin postprocedure - Continue amiodarone 200 mg p.o. twice daily - Started Toprol-XL 25 mg p.o. twice daily and titrate up as BP allows, will continue over the short-term. It was held this morning but he has had some overnight hypotension. #Hypomagnesemia-magnesium low on admission and was replaced. Magnesium now optimal at 2.0 -No need to check further magnesium level on a daily basis #Prostate CA/LUTS/chronic indwelling Michelle for urinary retention/bladder spasms Michelle catheter changed in ED for what was thought to be a malfunctioning Michelle catheter. He has been having frequent leakage of urine around the Michelle catheter despite it being in the correct position. Bladder ultrasound here shows the catheter is in the correct place despite leakage. I discussed his care with the urology team-they think he is having leakage due to bladder spasms. He was recently prescribed Gemtesa and was told to stop his Vesicare. UA with 1+ protein, trace LE, 21-50 WBC, >20 RBC no bacteria noted. Urine culture is growing Jennifer albicans which is likely a colonizer. Urology also suggested starting Flomax for bladder spasms - Continue Daily catheter care, flush as needed Continue Gemtesa and added Flomax as per urology recommendation for bladder spasms, still some leakage noted, will continue to monitor, he already had a 20 gauge catheter placed this last exchange with no improvement - continue to follow with urology in outpatient setting within 2 weeks after discharge #Severe protein calorie malnutrition/underweight BMI 18.7-appreciate nutrition consultation. The patient has lost 40% of his body weight in the last year or more unintentionally. He has been dealing with issues with his prostate and has a long history of smoking perhaps contributing? Does have mild anemia but it is not iron deficiency-would not suspect GI malignancy but is a consideration - Follow-up with PCP as an outpatient for referral to GI for EGD and colonoscopy - Added boost supplement shakes twice daily - Liberalize diet-removed heart healthy portion - Added multivitamin with minerals once daily #Anemia-Hgb mildly low at 12.8, normocytic. Iron studies, B12, folate, TSH all normal. Likely anemia of chronic disease. No bleeding from anywhere - Follow CBC periodically #HTN/history of CVA/nonobstructive CAD-cardiac catheterization in 2021 with nonobstructive CAD with 60% proximal small LAD, 40% mid CX, 40% diffuse mid and 30% distal RCA, 80% small high OM1, 40% proximal large D1, 50% proximal medium OM 2. BPs here have been controlled and actually were hypotensive the day after his pacemaker was placed after starting metoprolol with taking lisinopril - Discontinued lisinopril completely to allow room for titration of beta-kurtis -Started Toprol-XL 25 mg p.o. twice daily-titrate up as blood pressure allows for VT -Resumed home aspirin and Eliquis #Type II DM HgbA1c controlled at 6.6%, he has had tremendous amount of weight loss. Is only on Jardiance and metformin at home - Holding home metformin - Continue Jardiance and supp blood sugars have been sporadically elevated but generally within control. Lemental NovoLog as needed - Diabetic diet, BSG's ACHS - Blood sugars been sporadically elevated but generally within goal range. No change at this time DVT prophylaxis-Darryl SCDs Dispo: Okay to downgrade to telemetry, awaiting insurance authorization for long term placement Admission and Anticipated Discharge Date Admission Date: March 07, 2025 Subjective Doing well. Able to work with PT and OT. No problems with appetite or oral intake. Urine and bowel function within normal limits. No dizziness orthostasis. He does report some persistent left arm pain since the pacemaker placement but that is gradually seems to be improving. He has been quite compliant with the sling and postoperative cardiology cares. Physical Exam Constitutional: + thin; no acute distress Respiratory: normal respiratory effort Auscultation: + diminished lung sounds (Throughout); no crackles, no rales and no rhonchi Cardiovascular: Rate/Rhythm: regular rhythm Heart Sounds: + murmur (1/6 systolic murmur at the RUSB) Chest (Breasts): Chest: + pacemaker (Left anterior chest wall with dressing clean dry and intact) Gastrointestinal (Abdomen): normal bowel sounds, soft, nontender, no hepatosplenomegaly Skin: + rash (Scrotum and right inguinal regio n with mild erythematous rash) Psychiatric: A+Ox3, euthymic affect Genitourinary: + penis abnormality (Michelle catheter in p lacjaky) Results & Data Results & Data Vital Signs (Past 12 Hours) Vital Signs Temp Pulse Pulse Resp BP Pulse Ox O2 Del Method 03/14/25 15:37 36.4 C L 92 H 20 111/73 99 Room Air 03/14/25 11:53 36.5 C 100 H 20 122/73 96 Room Air 03/14/25 09:06 97 H 03/14/25 07:22 36.6 C 88 20 94/60 L 95 Room Air Laboratory Results 12/26/25 12/26/25 12/26/25 16:31 11:24 07:12 POC Glucose 126 H 245 H 144 H 03/13/25 20:39 POC Glucose 148 H Complaint. PG Care Time/CCT Total # of Minutes Spent Total Time Spent with Patient: Total time spent is greater than 50% in coordination of care (as documented) at patient's floor/unit and/or counseling patient: Coding Level of Care Code 11525 SUB INP/OBS CARE 2/35MIN Diagnoses Nonsustained ventricular tachycardia I47.29 Bradycardia R00.1 Severe protein-calorie malnutrition E43 Incomplete bladder emptying R33.9
--- NOTE | 2025-03-15 14:24 | Cardiology Progress Note ---
Date of Service March 15, 2025 Assessment & Plan (1) Bradycardia: Plan: s/p PPM (2) Nonsustained ventricular tachycardia: (3) Acute on chronic urinary retention: Plan 84-year-old male with longstanding arrhythmic issues including paroxysmal ventricular tachycardia and paroxysmal atrial fibrillation. Patient initially sought ER evaluation for Michelle catheter obstruction and was noted to have salvos of nonsustained ventricular tachycardia on telemetry. Transient course of IV amiodarone following bolus discontinued after bradycardia arrhythmias observed. 1. 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 Usually catecholamine induced and beta-kurtis responsive. Generally not associated with need for defibrillator Recent discontinuation of metoprolol due to bradycardia noted during urologic evaluations LV systolic function normal 2. Paroxysmal atrial fibrillation on chronic amiodarone therapy. 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 Bradycardia arrhythmias more profound following IV amiodarone bolus last evening. Suspect patient will require pacemaker for long-term management. 3. 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 4. s/p Dual chamber PPM NSVT -> improved on metoprolol Continue PO Amiodarone Off Lisinopril to give room for metoprolol XL to be uptitrated, now that he has a PPM continue metoprolol xl increase po fluid intake to avoid hypovolemia and associated hypotension and tachycardia, since patient has been leaking urine around Michelle which needs to be addressed by urology cont Eliquis f/u with Urology continue PT/OT stable from cardiac standpoint for FREDDY f/u with EP post discharge Admission and Anticipated Discharge Date Admission Date: March 07, 2025 Subjective Patient on exam is lying in bed in NAD; no c/o cp, sob, palpitations, dizziness, LOC; ambulatory with PT Telemetry - paced rhythm; no NSVT awaiting placement Review of Systems Review of Systems: as per hpi Physical Exam Physical Exam: The patient is awake, alert and oriented 3, well developed and well nourished, normocephalic and atraumatic, in no acute distress. Non-toxic appearing. HEENT- EOMI, mucous membranes moist. Hearing grossly intact. Heart-normal S1 and S2. No murmurs, rubs or gallops. Lungs-clear bilaterally, no respiratory distress, no accessory muscle use. Abdomen-normal bowel sounds and soft. No ascites noted. Non-tender. Extremities- no clubbing, cyanosis, or edema. Rheumatologic-normal range of motion. Psychiatric-normal affect. Constitutional: + thin; no acute distress Eyes: PERRL, conjunctivae normal, anicteric sclerae ENMT: Mallampati Class: II Neck: trachea midline, no thyromegaly normal visual inspection and trachea midline Respiratory: normal respiratory effort, lungs clear to auscultation normal respiratory effort Auscultation: + diminished lung sounds (Throughout); no crackles, no rales and no rhonchi Cardiovascular: RRR, no murmur, no edema Rate/Rhythm: regular rate and + bradycardic Heart Sounds: normal S1, normal S2 and + murmur (Grade 1/6 systolic murmur) Vessels: dorsalis pedis pulses present; no JVD Extremities: no edema Chest (Breasts): Chest: + pacemaker (Left anterior chest wall with dressing clean dry and intact) Gastrointestinal (Abdomen): normal bowel sounds, soft, nontender, no hep atosplenomegaly Skin: no rashes, warm and dry + rash (Scrotum and right inguinal region with mild erythematous rash) Psychiatric: A+Ox3, euthymic affect Genitourinary: + penis abnormality (Michelle catheter in p lace) Results & Data Vital Signs (Past 12 Hours) Vital Signs Temp Pulse Pulse Resp BP BP Pulse Ox 03/15/25 10:55 36.5 C 89 17 110/80 96 03/15/25 07:26 36.2 C L 102 H 21 103/70 97 03/15/25 07:21 79 03/15/25 02:54 36.3 C L 98 H 18 101/68 96 O2 Del Method 03/15/25 10:55 Room Air 03/15/25 07:26 Room Air 03/15/25 07:21 03/15/25 02:54 Room Air Laboratory Results Laboratory Results WBC 9.64 K/ul (4.8-10.8) 03/12/25 06:10 RBC 4.17 M/uL (4.70-6.10) L 03/12/25 06:10 Hgb 13.2 g/dL (14.0-18.0) L 03/12/25 06:10 Hct 38.8 % (42.0-52.0) L 03/12/25 06:10 MCV 93.0 fL (80.0-100.0) 03/12/25 06:10 MCH 31.7 pg (25.0-34.0) 03/12/25 06:10 MCHC 34.0 g/dL (32.0-36.0) 03/12/25 06:10 RDW Std Deviation 47.8 fL (36.4-46.3) H 03/12/25 06:10 RDW Coeff of Dylan 14.0 % (11.5-14.5) 03/12/25 06:10 Plt Count 198 K/uL (130-400) 03/12/25 06:10 MPV 10.6 fL (9.4-12.4) 03/12/25 06:10 Immature Gran % (Auto) 0.7 % 03/12/25 06:10 Neut % (Auto) 77.5 % 03/12/25 06:10 Lymph % (Auto) 11.6 % 03/12/25 06:10 [place] % (Auto) 8.9 % 03/12/25 06:10 Eos % (Auto) 0.6 % 03/12/25 06:10 Baso % (Auto) 0.7 % 03/12/25 06:10 Neut # (Auto) 7.46 K/uL (1.40-6.50) H 03/12/25 06:10 Lymph # (Auto) 1.12 K/uL (1.20-3.40) L 03/12/25 06:10 [place] # (Auto) 0.86 K/uL (0.11-0.59) H 03/12/25 06:10 Eos # (Auto) 0.06 K/uL (0.00-0.50) 03/12/25 06:10 Baso # (Auto) 0.07 K/uL (0.00-0.20) 03/12/25 06:10 Immature Gran # (Auto) 0.07 K/uL (0.01-0.20) 03/12/25 06:10 Absolute Nucleated RBC Cancelled 03/10/25 06:04 Nucleated RBC % (auto) Cancelled 03/10/25 06:04 Neutrophils % (Manual) Cancelled 03/10/25 06:04 Band Neutrophils % Cancelled 03/10/25 06:04 Lymphocytes % (Manual) Cancelled 03/10/25 06:04 Prolymphocyte % Cancelled 03/10/25 06:04 Reactive Lymphs % (Man) Cancelled 03/10/25 06:04 Monocytes % (Manual) Cancelled 03/10/25 06:04 Eosinophils % (Manual) Cancelled 03/10/25 06:04 Basophils % (Manual) Cancelled 03/10/25 06:04 Metamyelocytes % (Man) Cancelled 03/10/25 06:04 Myelocytes % (Man) Cancelled 03/10/25 06:04 Promyelocytes % (Man) Cancelled 03/10/25 06:04 Blast Cells % (Manual) Cancelled 03/10/25 06:04 Plasma Cell % (Manual) Cancelled 03/10/25 06:04 Other Cells % Cancelled 03/10/25 06:04 Nucleated RBC % Cancelled 03/10/25 06:04 Neutrophils # (Manual) Cancelled 03/10/25 06:04 Band Neutrophils # Cancelled 03/10/25 06:04 Total Absolute Neuts Cancelled 03/10/25 06:04 Lymphocytes # (Manual) Cancelled 03/10/25 06:04 Prolymphocyte # Cancelled 03/10/25 06:04 Reactive Lymphs # Cancelled 03/10/25 06:04 Total Abs Lymphocytes Cancelled 03/10/25 06:04 Monocytes # (Manual) Cancelled 03/10/25 06:04 Eosinophils # (Manual) Cancelled 03/10/25 06:04 Basophils # (Manual) Cancelled 03/10/25 06:04 Metamyelocytes # (Man) Cancelled 03/10/25 06:04 Myelocytes # (Manual) Cancelled 03/10/25 06:04 Promyelocytes # (Man) Cancelled 03/10/25 06:04 Blast Cells # (Man) Cancelled 03/10/25 06:04 Plasma Cell # (Manual) Cancelled 03/10/25 06:04 Other Cells # Cancelled 03/10/25 06:04 Nucleated RBCs # (Man) Cancelled 03/10/25 06:04 Hypersegmented Neuts Cancelled 03/10/25 06:04 Hyposegmented Neuts Cancelled 03/10/25 06:04 Hypogranular Neuts Cancelled 03/10/25 06:04 Large Granular Lymphs Cancelled 03/10/25 06:04 # Lrg Granular Lymphs Cancelled 03/10/25 06:04 Hairy Cells Cancelled 03/10/25 06:04 Smudge Cells Cancelled 03/10/25 06:04 Toxic Granulation Cancelled 03/10/25 06:04 Toxic Vacuolation Cancelled 03/10/25 06:04 Dohle Bodies Cancelled 03/10/25 06:04 Devang Rods Cancelled 03/10/25 06:04 Platelet Estimate Cancelled 03/10/25 06:04 Hypogranular Platelets Cancelled 03/10/25 06:04 Giant Platelets Cancelled 03/10/25 06:04 Platelet Satelliting Cancelled 03/10/25 06:04 RBC Morphology Cancelled 03/10/25 06:04 Polychromasia Cancelled 03/10/25 06:04 Hypochromasia Cancelled 03/10/25 06:04 Poikilocytosis Cancelled 03/10/25 06:04 Basophilic Stippling Cancelled 03/10/25 06:04 Anisocytosis Cancelled 03/10/25 06:04 Microcytosis Cancelled 03/10/25 06:04 Macrocytosis Cancelled 03/10/25 06:04 Spherocytes Cancelled 03/10/25 06:04 Pappenheimer Bodies Cancelled 03/10/25 06:04 Sickle Cells Cancelled 03/10/25 06:04 Target Cells Cancelled 03/10/25 06:04 Tear Drop Cells Cancelled 03/10/25 06:04 Ovalocytes Cancelled 03/10/25 06:04 Stomatocytes Cancelled 03/10/25 06:04 Morgan-Pamplico Bodies Cancelled 03/10/25 06:04 Echinocytes Cancelled 03/10/25 06:04 Acanthocytes (Spur) Cancelled 03/10/25 06:04 Rouleaux Cancelled 03/10/25 06:04 RBC Agglutinates Cancelled 03/10/25 06:04 Schistocytes Cancelled 03/10/25 06:04 Sezary Cell Cancelled 03/10/25 06:04 PT 12.4 Seconds (9.0-12.0) H 03/08/25 06:35 INR 1.2 (0.9-1.1) H 03/08/25 06:35 Sodium 138 mmol/L (136-145) 03/13/25 06:33 Potassium 4.4 mmol/L (3.5-5.1) 03/13/25 06:33 Chloride 106 mmol/L (98-107) 03/13/25 06:33 Carbon Dioxide 26 mmol/L (21-32) 03/13/25 06:33 Anion Gap 6 (3-11) 03/13/25 06:33 BUN 39 mg/dl (6-23) H 03/13/25 06:33 Creatinine 0.89 mg/dl (0.6-1.4) 03/13/25 06:33 Est Cr Clr Drug Dosing 49.5 ml/min 03/13/25 06:33 eGFR 84.50 03/13/25 06:33 BUN/Creatinine Ratio 43.8 (10-20) H 03/13/25 06:33 Glucose 163 mg/dl (70-99(Fasting)) H 03/13/25 06:33 POC Glucose 186 mg/dl (70-99) H 03/15/25 11:24 Estimat Average Glucose 143 mg/dl 03/08/25 06:35 Hemoglobin A1c 6.6 % (4.5-5.6) H 03/08/25 06:35 Calcium 8.2 mg/dl (8.6-10.3) L 03/13/25 06:33 Magnesium 2.0 mg/dl (1.7-2.4) 03/13/25 06:33 Iron 41 mcg/dl (35-175) 03/08/25 06:35 TIBC 183 mcg/dl (250-450) L 03/08/25 06:35 Transferrin 131 mg/dl (200-360) L 03/08/25 06:35 Transferrin % Sat 22 % (20-50) 03/08/25 06:35 Ferritin 61.5 ng/ml (8-388) 03/08/25 06:35 Total Bilirubin 0.5 mg/dl (0.2-1.0) 03/06/25 22:45 AST 12 U/L (13-39) L 03/06/25 22:45 ALT 10 U/L (7-52) 03/06/25 22:45 Alkaline Phosphatase 98 U/L (34-104) 03/06/25 22:45 Troponin I High Sens 11.3 pg/ml (0-20) 03/06/25 22:45 Total Protein 6.4 gm/dl (6.0-8.3) 03/06/25 22:45 Albumin 3.4 gm/dl (3.4-5.0) 03/06/25 22:45 Globulin 3.0 gm/dl (2.5-4.0) 03/06/25 22:45 Albumin/Globulin Ratio 1.1 (0.9-2) 03/06/25 22:45 Lipase 14 U/L (11-82) 03/06/25 22:45 Vitamin B12 722 pg/ml (180-914) 03/08/25 06:35 Folate 9.78 ng/ml (>5.38) 03/08/25 06:35 TSH 1.997 uIu/ml (0.300-4.500) 03/06/25 22:45 Urine Color Yellow 03/06/25:35 Urine Appearance Clear (Clear) 03/06/25 22:35 Urine pH 5.0 (4.5-7.5) 03/06/25 22:35 Ur Specific [place] 1.032 (1.000-1.030) H 03/06/25 22:35 Urine Protein 1+ (Negative) H 03/06/25:35 Urine Glucose (UA) 3+ (Negative) H 03/06/25 22:35 Urine Ketones Negative (Negative) 03/06/25 22:35 Urine Blood 2+ (Negative) H 03/06/25:35 Urine Nitrite Negative (Negative) 03/06/25:35 Urine Bilirubin Negative (Negative) 03/06/25 22:35 Urine Urobilinogen Negative (Negative) 03/06/25 22:35 Ur Leukocyte Esterase Trace (Negative) H 03/06/25 22:35 Urine WBC (Auto) 21-50 /hpf (0-5) H 03/06/25 22:35 Urine RBC (Auto) >20 /hpf (0-2) H 03/06/25 22:35 U Hyaline Cast (Auto) 0-2 /lpf (0-2) 03/06/25 22:35 U Epithel Cells (Auto) 0-2 /hpf (0-2) 03/06/25 22:35 Urine Bacteria (Auto) None Seen (None Seen) 03/06/25 22:35 Urine Yeast Present (None Prsent) A 03/06/25 22:35 Urine Comment 03/06/25 22:35 Blood Parasites ID Cancelled 03/10/25 06:04 Impressions Bladder Ultrasound 03/07/25 12:27 ULTRASOUND OF THE BLADDER CLINICAL HISTORY: Leakage around the Michelle catheter.. COMPARISON STUDY: Abdominal CT dated 04/14/2020 TECHNIQUE: Real-time, grayscale, and color flow sonography of bladder is performed. Images are reviewed in the transverse and longitudinal planes. FINDINGS: The bladder is largely decompressed around a Michelle catheter. The catheter is located within the bladder lumen. The bladder wall appears thickened/trabeculated indicating chronic outlet obstruction. Ureteral jets could not be assessed. IMPRESSION: 1. The bladder is largely decompressed around a Michelle catheter. The catheter appears appropriately positioned. 2. There is evidence of chronic bladder outlet obstruction. ACT 112: Negative or not required by law. Electronically signed by: Hipolito Muller M.D. 03/07/2025 3:10 PM Chest X-Ray 03/10/25 13:30 XR chest 1V portable HISTORY: 84 years-old Male s/p ppm ensure no PTX status post placement of a left subclavian pacer COMPARISON: Chest radiographs 07/09/2024 TECHNIQUE: AP view of the chest FINDINGS: Has been placed in the interval. Left lateral chest wall skin folds are noted without pneumothorax, focal airspace consolidation, pleural effusion or overt pulmonary edema. Degenerative changes of the shoulders and spine. IMPRESSION: Status post placement of a left subclavian pacer. No pneumothorax identified. ACT 112: Negative or not required by law. The above report was generated using voice recognition software. It may contain grammatical, syntax or spelling errors. Electronically signed by: Dominguez Erazo M.D. 03/10/2025 1:31 PM Diagnostic Findings Intake and Output 03/14/25 03/15/25 03/15/25 22:59 06:59 14:59 Intake Total 300 / 1100 200 / 1100 480 / 480 Output Total 950 / 2400 750 / 2400 800 / 800 Balance -650 / -1300 -550 / -1300 -320 / -320 Intake: Oral 300 / 1100 200 / 1100 480 / 480 Output: Urine Amount (Catheter) 950 / 1700 750 / 1700 800 / 800 Michelle/Indwelling 950 / 1700 750 / 1700 800 / 800 Other: Weight 56.3 kg Weight Measurement Method Built in [facility] Medications Administered Home Medications Medication Instructions Recorded Confirmed Last Taken acetaminophen 500 mg tablet 500 mg PO Q4H PRN Pain 01/07/21 03/07/25 07/29/24 04:00 (Tylenol Extra Strength) finasteride 5 mg tablet 5 mg PO QAM 05/03/21 03/07/25 03/06/25 apixaban 5 mg tablet (Eliquis) 5 mg PO BID #60 tabs 05/07/21 03/07/25 03/06/25 magnesium chloride 64 mg 64 mg PO BID #60 tabs 05/07/21 03/07/25 03/06/25 (magnesium chloride) tablet,delayed release (Mag 64) atorvastatin 20 mg tablet 20 mg PO QAM 09/17/21 03/07/25 03/06/25 amiodarone 200 mg tablet 200 mg PO QAM 07/24/24 03/07/25 03/06/25 solifenacin 10 mg tablet 10 mg PO DAILY #90 tabs 08/28/24 03/07/25 03/06/25 L-Arginine Tabs 850 mg PO DAILY 02/20/25 03/07/25 03/06/25 amino acids 1 tab PO DAILY 02/20/25 03/07/25 03/06/25 aspirin 81 mg tablet,delayed 81 mg PO DAILY 02/20/25 03/07/25 03/06/25 release cyanocobalamin (vitamin B-12) 500 500 mcg PO DAILY 02/20/25 03/07/25 03/06/25 mcg tablet (Vitamin B-12) empagliflozin 25 mg tablet 25 mg PO QAM 02/20/25 03/07/25 03/06/25 (Jardiance) fluticasone propionate 50 2 spray intranasal DAILY 02/20/25 03/07/25 03/06/25 mcg/actuation nasal spray,suspension lisinopril 20 mg tablet 20 mg PO DAILY 02/20/25 03/07/25 03/06/25 metformin 500 mg tablet,extended 1,500 mg PO DAILY 1203/07/25 03/06/25 release 24 hr vibegron 75 mg tablet (Gemtesa) 75 mg PO DAILY #30 tabs 03/05/25 03/07/25 Unknown Active Medications Generic Name Dose Route Start Last Admin Trade Name Freq PRN Reason Stop Dose Admin Acetaminophen 650 mg 03/07/25 02:32 03/11/25 05:11 Acetaminophen 325 Mg Tab PO 04/06/25 02:31 650 mg Q4H PRN Administration Pain or Fever Amiodarone HCl 200 mg 03/10/25 13:00 03/15/25 08:20 Amiodarone 200 Mg Tab PO 04/09/25 12:59 200 mg BID YUMIKO Administration Apixaban 5 mg 03/11/25 20:00 03/15/25 08:20 Apixaban 5 Mg Tablet PO 04/10/25 19:59 5 mg BID@0800,2000 YUMIKO Administration Aspirin 81 mg 03/12/25 10:45 03/15/25 08:20 Aspirin 81 Mg Ectab PO 04/11/25 10:44 81 mg DAILY YUMIKO Administration Atorvastatin Calcium 20 mg 03/07/25 09:00 03/15/25 08:20 Atorvastatin 20 Mg Tab PO 04/06/25 08:59 20 mg QAM YUMIKO Administration Cyanocobalamin 500 mcg 03/13/25 09:00 03/15/25 08:20 Cyanocobalamin (B-12) 500 Mcg Tablet PO 04/12/25 08:59 500 mcg DAILY YUMIKO Administration Empagliflozin 25 mg 03/07/25 09:00 03/15/25 08:20 Empagliflozin 25 Mg Tab PO 04/06/25 08:59 25 mg QAM YUMIKO Administration Finasteride 5 mg 03/07/25 09:00 03/15/25 08:20 Finasteride 5 Mg Tab PO 04/06/25 08:59 5 mg QAM YUMIKO Administration Fluticasone Propionate 2 sprays 03/07/25 09:00 03/15/25 08:20 Fluticasone Propionate Na Spr 16 Gm Btl NA 04/06/25 08:59 2 sprays DAILY YUMIKO Administration Insulin Aspart 0 units 03/10/25 21:00 03/15/25 11:32 Insulin Aspart Per Unit Charge SC 04/09/25 05:59 2 units ACHS YUMIKO Administration Magnesium Chloride 64 mg 03/07/25 09:00 03/15/25 08:20 Magnesium Chloride W/Calcium 64mg Delayed Rel Tab PO 04/06/25 08:59 64 mg BID YUMIKO Administration Melatonin 3 mg 03/07/25 02:32 03/14/25 23:47 Melatonin 3 Mg Tab PO 04/06/25 02:31 3 mg HS PRN Administration Sleep Metoprolol Succinate 25 mg 03/11/25 21:00 03/15/25 08:20 Metoprolol Succ 25mg Ext Rel Tab PO 04/10/25 20:59 25 mg BID YUMIKO Administration Multivitamins/Minerals 1 tab 03/09/25 09:00 03/15/25 08:20 Cerovite Adv Formula Tab PO 04/08/25 08:59 1 tab QAM YUMIKO Administration Tamsulosin HCl 0.4 mg 03/09/25 21:00 03/14/25 20:34 Tamsulosin Hcl 0.4 Mg Cap PO 04/08/25 20:59 0.4 mg HS YUMIKO Administration Vibegron 75 mg 03/07/25 09:00 03/15/25 08:20 Vibegron 75 Mg Tab PO 04/06/25 08:59 75 mg DAILY YUMIKO Administration PG Care Time/CCT Total # of Minutes Spent Total Time Spent with Patient: Total time spent is greater than 50% in coordination of care (as documented) at patient's floor/unit and/or counseling patient: Coding Level of Care Code 92784 SUB INP/OBS CARE 3/50MIN Diagnoses Bradycardia R00.1 Nonsustained ventricular tachycardia I47.29 Acute on chronic urinary retention R33.9
--- NOTE | 2025-03-15 14:57 | Hospitalist Progress Note ---
Date of Service March 15, 2025 Assessment & Plan (1) Nonsustained ventricular tachycardia: (2) Bradycardia: (3) Severe protein-calorie malnutrition: (4) Incomplete bladder emptying: Plan Patient is an 84-year-old male with a past medical history of RVOT paroxysmal ventricular tachycardia, paroxysmal A-fib, CAD, PVD, type II DM, prostate cancer, LUTS with chronic Michelle. Patient presented to the ED for catheter replacement as his was not draining properly. While in the ED patient was found to have several episodes of nonsustained V. tach lasting 10 to 20 seconds, patient remained completely asymptomatic. He was started on an amiodarone bolus and drip and then had profound bradycardia with the Mobitz 1 second-degree heart block. He is admitted for permanent pacemaker placement. #Nonsustained V. tach/second-degree Mobitz 1 heart block/PAF on Eliquis continued to have repeated episodes of nonsustained V. tach as long as 1 minute, mildly symptomatic with lightheadedness. Also with frequent secondary heart block and possibly third-degree heart block with rates in the 20s to 50s prior to getting pacemaker. No history of syncope. He previously was on a beta-kurtis which controlled his VTE, but this was held due to severe bradycardia hence why he is having more frequent VT. He was placed on IV amiodarone in the ED for repeated V. tach but this was stopped due to heart block and bradycardia. Echocardiogram here with normal LV function. TSH normal. Appreciate cardiology consultation Now s/p permanent pacemaker placement on 03/10 and metoprolol restarted along with p.o. amiodarone. Since metoprolol and amiodarone resumed, the V. tach is significantly reduced in frequency. Pacemaker is functioning properly. - Postoperative care as per cardiology-LUE restrictions, sling in place - Continue telemetry monitoring - Resumed home Eliquis and aspirin postprocedure - Continue amiodarone 200 mg p.o. twice daily - Started Toprol-XL 25 mg p.o. twice daily and titrate up as BP allows, will continue over the short-term. It was held this morning but he has had some overnight hypotension. Tolerating well. No change to dose.- - He has been on telemetry since pacemaker placement will maintain that while he is here. No requirement for monitoring on discharge #Hypomagnesemia-magnesium low on admission and was replaced. Magnesium now optimal at 2.0 -No need to check further magnesium level on a daily basis - A.m. recheck #Prostate CA/LUTS/chronic indwelling Michelle for urinary retention/bladder spasms Michelle catheter changed in ED for what was thought to be a malfunctioning Michelle catheter. He has been having frequent leakage of urine around the Michelle catheter despite it being in the correct position. Bladder ultrasound here shows the catheter is in the correct place despite leakage. I discussed his care with the urology team-they think he is having leakage due to bladder spasms. He was recently prescribed Gemtesa and was told to stop his Vesicare. UA with 1+ protein, trace LE, 21-50 WBC, >20 RBC no bacteria noted. Urine culture is growing Jennifer albicans which is likely a colonizer. Urology also suggested starting Flomax for bladder spasms - Continue Daily catheter care, flush as needed Continue Gemtesa and added Flomax as per urology recommendation for bladder spasms, still some leakage noted, will continue to monitor, he already had a 20 gauge catheter placed this last exchange with no improvement - continue to follow with urology in outpatient setting within 2 weeks after discharge #Severe protein calorie malnutrition/underweight BMI 18.7-appreciate nutrition consultation. The patient has lost 40% of his body weight in the last year or more unintentionally. He has been dealing with issues with his prostate and has a long history of smoking perhaps contributing? Does have mild anemia but it is not iron deficiency-would not suspect GI malignancy but is a consideration - Follow-up with PCP as an outpatient for referral to GI for EGD and colonoscopy - Added boost supplement shakes twice daily - Liberalize diet-removed heart healthy portion - Added multivitamin with minerals once daily #Anemia-Hgb mildly low at 12.8, normocytic. Iron studies, B12, folate, TSH all normal. Likely anemia of chronic disease. No bleeding from anywhere - Follow CBC periodically #HTN/history of CVA/nonobstructive CAD-cardiac catheterization in 2021 with nonobstructive CAD with 60% proximal small LAD, 40% mid CX, 40% diffuse mid and 30% distal RCA, 80% small high OM1, 40% proximal large D1, 50% proximal medium OM 2. BPs here have been controlled and actually were hypotensive the day after his pacemaker was placed after starting metoprolol with taking lisinopril - Discontinued lisinopril completely to allow room for titration of beta-kurtis -Started Toprol-XL 25 mg p.o. twice daily-titrate up as blood pressure allows for VT -Resumed home aspirin and Eliquis #Type II DM HgbA1c controlled at 6.6%, he has had tremendous amount of weight loss. Is only on Jardiance and metformin at home - Holding home metformin - Continue Jardiance and supp blood sugars have been sporadically elevated but generally within control. Lemental NovoLog as needed - Diabetic diet, BSG's ACHS - Blood sugars been sporadically elevated but generally within goal range. No change at this time DVT prophylaxis-[facility] Dispo: Okay to downgrade to telemetry, awaiting insurance authorization for [facility] placement Admission and Anticipated Discharge Date Admission Date: March 07, 2025 Subjective Doing very well. Sleeping okay. Eating and drinking okay. Independent is in the room. Working with PT and OT. No new events or concerns per patient or n ursing staff. We discussed follow-up disposition. PT recommends SNF. [facility] does feel that acute rehab stay would be beneficial. Physical Exam Constitutional: + thin; no acute distress Respiratory: normal respiratory effort Auscultation: + diminished lung sounds (Throughout); no crackles, no rales and no rhonchi Cardiovascular: Rate/Rhythm: regular rhythm Heart Sounds: + murmur (1/6 systolic murmur at the RUSB) Chest (Breasts): Chest: + pacemaker (Left anterior chest wall with dressing clean dry and intact) Gastrointestinal (Abdomen): normal bowel sounds, soft, nontender, no hepatosplenomegaly Skin: + rash (Scrotum and right inguinal regio n with mild erythematous rash) Psychiatric: A+Ox3, euthymic affect Genitourinary: + penis abnormality (Michelle catheter in p lace) Results & Data Results & Data Vital Signs (Past 12 Hours) Vital Signs Temp Pulse Pulse Resp BP Pulse Ox O2 Del Method 03/15/25 10:55 36.5 C 89 17 110/80 96 Room Air 03/15/25 07:26 36.2 C L 102 H 21 103/70 97 Room Air 03/15/25 07:21 79 Laboratory Results 03/15/25 03/15/25 03/14/25 11:24 07:23 20:16 POC Glucose 186 H 149 H 163 H 03/14/25 16:31 POC Glucose 126 H PG Care Time/CCT Total # of Minutes Spent Total Time Spent with Patient: Total time spent is greater than 50% in coordination of care (as documented) at patient's floor/unit and/or counseling patient: Coding Level of Care Code 03688 SUB INP/OBS CARE 04/13MIN Diagnoses Nonsustained ventricular tachycardia I47.29 Bradycardia R00.1 Severe protein-calorie malnutrition E43 Incomplete bladder emptying R33.9
[2025-03-15] MEDS: POLYETHYLENE (MIRALAX) 17 GM PACK PO PRN (17:41)
[2025-03-16 06:52] LABS: Hematocrit (blood only) 39.5 % (42.0-52.0); Hemoglobin 13.0 g/dL (14.0-18.0); Immature Granulocytes # (auto) 0.06 K/uL (0.01-0.20); Immature Granulocytes % (auto) 0.7 %; Mean Corpuscular Hemoglobin 30.7 pg (25.0-34.0); Mean Corpuscular Volume 93.4 fL (80.0-100.0); Platelet Count 194 K/uL (130-400); RDW Standard Deviation 48.1 fL (36.4-46.3); Red Blood Count 4.23 M/uL (4.70-6.10); White Blood Count 8.01 K/ul (4.8-10.8)
[2025-03-16 07:22] LABS: Anion Gap 5.0 (3-11); Blood Urea Nitrogen 41.0 mg/dl (6-23); Calcium 8.5 mg/dl (8.6-10.3); Carbon Dioxide 28.0 mmol/L (21-32); Chloride 104.0 mmol/L (98-107); Creatinine Clr Calc Pharmacy 52.5 ml/min; Glucose 144.0 mg/dl (70-99(Fasting)); Magnesium 1.9 mg/dl (1.7-2.4); Potassium 4.4 mmol/L (3.5-5.1); Sodium 137.0 mmol/L (136-145)
--- NOTE | 2025-03-16 16:38 | Cardiology Progress Note ---
Date of Service March 16, 2025 Assessment & Plan (1) Bradycardia: Plan: s/p PPM (2) Nonsustained ventricular tachycardia: (3) Acute on chronic urinary retention: Plan 84-year-old male with longstanding arrhythmic issues including paroxysmal ventricular tachycardia and paroxysmal atrial fibrillation. Patient initially sought ER evaluation for Michelle catheter obstruction and was noted to have salvos of nonsustained ventricular tachycardia on telemetry. Transient course of IV amiodarone following bolus discontinued after bradycardia arrhythmias observed. 1. 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 Usually catecholamine induced and beta-kurtis responsive. Generally not associated with need for defibrillator Recent discontinuation of metoprolol due to bradycardia noted during urologic evaluations LV systolic function normal 2. Paroxysmal atrial fibrillation on chronic amiodarone therapy. 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 Bradycardia arrhythmias more profound following IV amiodarone bolus last evening. Suspect patient will require pacemaker for long-term management. 3. 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 4. s/p Dual chamber PPM NSVT -> improved on metoprolol XL -> continue metoprolol XL Continue PO Amiodarone Off Lisinopril to give room for metoprolol XL to be uptitrated, now that he has a PPM increase po fluid intake to avoid hypovolemia and associated hypotension and tachycardia, since patient has been leaking urine around Michelle which needs to be addressed by urology cont Eliquis f/u with Urology continue PT/OT stable from cardiac standpoint for FREDDY f/u with EP post discharge awaiting placement Admission and Anticipated Discharge Date Admission Date: March 07, 2025 Subjective Patient on exam is lying in bed in NAD; no c/o cp, sob, palpitations, dizziness, LOC ambulatory with PT awaiting placement Tele - - no significant arrhythmias Review of Systems Review of Systems: as per hpi Physical Exam Physical Exam: The patient is awake, alert and oriented 3, well developed and well nourished, normocephalic and atraumatic, in no acute distress. Non-toxic appearing. HEENT- EOMI, mucous membranes moist. Hearing grossly intact. Heart-normal S1 and S2. No murmurs, rubs or gallops. Lungs-clear bilaterally, no respiratory distress, no accessory muscle use. Abdomen-normal bowel sounds and soft. No ascites noted. Non-tender. Extremities- no clubbing, cyanosis, or edema. Rheumatologic-normal range of motion. Psychiatric-normal affect. Constitutional: + thin; no acute distress Eyes: PERRL, conjunctivae normal, anicteric sclerae ENMT: Mallampati Class: II Neck: trachea midline, no thyromegaly normal visual inspection and trachea midline Respiratory: normal respiratory effort, lungs clear to auscultation normal respiratory effort Auscultation: + diminished lung sounds (Throughout); no crackles, no rales and no rhonchi Cardiovascular: RRR, no murmur, no edema Rate/Rhythm: regular rate and + bradycardic Heart Sounds: normal S1, normal S2 and + murmur (Grade 1/6 systolic murmur) Vessels: dorsalis pedis pulses present; no JVD Extremities: no edema Chest (Breasts): Chest: + pacemaker (Left anterior chest wall with dressing clean dry and intact) Gastrointestinal (Abdomen): normal bowel sounds, soft, nontender, no hepatosplenomegaly Skin: no rashes, warm and dry + rash (Scrotum and right inguinal region with mild erythematous rash) Psychiatric: A+Ox3, euthymic affect Genitourinary: + penis abnormality (Michelle catheter in p lace) Results & Data Vital Signs (Past 12 Hours) Vital Signs Vital Signs Temp 36.3 C L 03/16/25 15:41 Pulse 73 03/16/25 15:41 Resp 20 03/16/25 15:41 BP 105/65 03/16/25 15:41 Pulse Ox 97 03/16/25 15:41 O2 Del Method Room Air 03/16/25 15:41 Intake & Output 03/15/25 03/16/25 03/16/25 18:59 06:59 18:59 Intake Total 480 / 1260 780 / 1260 1080 / 1080 Output Total 1999 751 / 751 Balance -320 / -740 -420 / -740 329 / 329 Weight 56.699 kg Intake: Oral 480 / 1260 780 / 1260 1080 / 1080 Output: Urine 750 / 750 Urine Amount (Catheter) 1999 Michelle/Indwelling 1999 # Bowel Movements Other: Weight Measurement Method Built in [facility] Pulse Pulse Pulse Resp BP BP 03/16/25 15:41 36.3 C L 73 20 105/65 03/16/25 12:18 36.6 C 96 H 18 112/74 03/16/25 08:10 93 H 100/63 03/16/25 07:40 36.4 C L 92 H 18 91/59 L 03/16/25 07:30 86 Pulse Ox O2 Del Method 03/16/25 15:41 97 Room Air 03/16/25 12:18 98 Room Air 03/16/25 08:10 03/16/25 07:40 96 Room Air 03/16/25 07:30 Laboratory Results Laboratory Results WBC 8.01 K/ul (4.8-10.8) 03/16/25 06:29 RBC 4.23 M/uL (4.70-6.10) L 03/16/25 06:29 Hgb 13.0 g/dL (14.0-18.0) L 03/16/25 06:29 Hct 39.5 % (42.0-52.0) L 03/16/25 06: MCV 93.4 fL (80.0-100.0) 03/16/25 06: MCH 30.7 pg (25.0-34.0) 03/16/25 06: MCHC 32.9 g/dL (32.0-36.0) 03/16/25 06:29 RDW Std Deviation 48.1 fL (36.4-46.3) H 03/16/25 06:29 RDW Coeff of Dylan 14.0 % (11.5-14.5) 03/16/25 06:29 Plt Count 194 K/uL (130-400) 03/16/25 06:29 MPV 9.9 fL (9.4-12.4) 03/16/25 06: Immature Gran % (Auto) 0.7 % 03/16/25 06: Neut % (Auto) 76.1 % 03/16/25 06: Lymph % (Auto) 14.6 % 03/16/25 06: [place] % (Auto) 7.2 % 03/16/25 06:29 Eos % (Auto) 0.5 % 03/16/25 06:29 Baso % (Auto) 0.9 % 03/16/25 06:29 Neut # (Auto) 6.09 K/uL (1.40-6.50) 03/16/25 06:29 Lymph # (Auto) 1.17 K/uL (1.20-3.40) L 03/16/25 06:29 [place] # (Auto) 0.58 K/uL (0.11-0.59) 03/16/25 06:29 Eos # (Auto) 0.04 K/uL (0.00-0.50) 03/16/25 06:29 Baso # (Auto) 0.07 K/uL (0.00-0.20) 03/16/25 06: Immature Gran # (Auto) 0.06 K/uL (0.01-0.20) 03/16/25 06:29 Absolute Nucleated RBC Cancelled 03/10/25 06:04 Nucleated RBC % (auto) Cancelled 03/10/25 06:04 Neutrophils % (Manual) Cancelled 03/10/25 06:04 Band Neutrophils % Cancelled 03/10/25 06:04 Lymphocytes % (Manual) Cancelled 03/10/25 06:04 Prolymphocyte % Cancelled 03/10/25 06:04 Reactive Lymphs % (Man) Cancelled 03/10/25 06:04 Monocytes % (Manual) Cancelled 03/10/25 06:04 Eosinophils % (Manual) Cancelled 03/10/25 06:04 Basophils % (Manual) Cancelled 03/10/25 06:04 Metamyelocytes % (Man) Cancelled 03/10/25 06:04 Myelocytes % (Man) Cancelled 03/10/25 06:04 Promyelocytes % (Man) Cancelled 03/10/25 06:04 Blast Cells % (Manual) Cancelled 03/10/25 06:04 Plasma Cell % (Manual) Cancelled 03/10/25 06:04 Other Cells % Cancelled 03/10/25 06:04 Nucleated RBC % Cancelled 03/10/25 06:04 Neutrophils # (Manual) Cancelled 03/10/25 06:04 Band Neutrophils # Cancelled 03/10/25 06:04 Total Absolute Neuts Cancelled 03/10/25 06:04 Lymphocytes # (Manual) Cancelled 03/10/25 06:04 Prolymphocyte # Cancelled 03/10/25 06:04 Reactive Lymphs # Cancelled 03/10/25 06:04 Total Abs Lymphocytes Cancelled 03/10/25 06:04 Monocytes # (Manual) Cancelled 03/10/25 06:04 Eosinophils # (Manual) Cancelled 03/10/25 06:04 Basophils # (Manual) Cancelled 03/10/25 06:04 Metamyelocytes # (Man) Cancelled 03/10/25 06:04 Myelocytes # (Manual) Cancelled 03/10/25 06:04 Promyelocytes # (Man) Cancelled 03/10/25 06:04 Blast Cells # (Man) Cancelled 03/10/25 06:04 Plasma Cell # (Manual) Cancelled 03/10/25 06:04 Other Cells # Cancelled 03/10/25 06:04 Nucleated RBCs # (Man) Cancelled 03/10/25 06:04 Hypersegmented Neuts Cancelled 03/10/25 06:04 Hyposegmented Neuts Cancelled 03/10/25 06:04 Hypogranular Neuts Cancelled 03/10/25 06:04 Large Granular Lymphs Cancelled 03/10/25 06:04 # Lrg Granular Lymphs Cancelled 03/10/25 06:04 Hairy Cells Cancelled 03/10/25 06:04 Smudge Cells Cancelled 03/10/25 06:04 Toxic Granulation Cancelled 03/10/25 06:04 Toxic Vacuolation Cancelled 03/10/25 06:04 Dohle Bodies Cancelled 03/10/25 06:04 Devang Rods Cancelled 03/10/25 06:04 Platelet Estimate Cancelled 03/10/25 06:04 Hypogranular Platelets Cancelled 03/10/25 06:04 Giant Platelets Cancelled 03/10/25 06:04 Platelet Satelliting Cancelled 03/10/25 06:04 RBC Morphology Cancelled 03/10/25 06:04 Polychromasia Cancelled 03/10/25 06:04 Hypochromasia Cancelled 03/10/25 06:04 Poikilocytosis Cancelled 03/10/25 06:04 Basophilic Stippling Cancelled 03/10/25 06:04 Anisocytosis Cancelled 03/10/25 06:04 Microcytosis Cancelled 03/10/25 06:04 Macrocytosis Cancelled 03/10/25 06:04 Spherocytes Cancelled 03/10/25 06:04 Pappenheimer Bodies Cancelled 03/10/25 06:04 Sickle Cells Cancelled 03/10/25 06:04 Target Cells Cancelled 03/10/25 06:04 Tear Drop Cells Cancelled 03/10/25 06:04 Ovalocytes Cancelled 03/10/25 06:04 Stomatocytes Cancelled 03/10/25 06:04 Morgan-Spicer Bodies Cancelled 03/10/25 06:04 Echinocytes Cancelled 03/10/25 06:04 Acanthocytes (Spur) Cancelled 03/10/25 06:04 Rouleaux Cancelled 03/10/25 06:04 RBC Agglutinates Cancelled 03/10/25 06:04 Schistocytes Cancelled 03/10/25 06:04 Sezary Cell Cancelled 03/10/25 06:04 PT 12.4 Seconds (9.0-12.0) H 03/08/25 06:35 INR 1.2 (0.9-1.1) H 03/08/25 06:35 Sodium 137 mmol/L (136-145) 03/16/25 06:29 Potassium 4.4 mmol/L (3.5-5.1) 03/16/25 06:29 Chloride 104 mmol/L (98-107) 03/16/25 06:29 Carbon Dioxide 28 mmol/L (21-32) 03/16/25 06:29 Anion Gap 5 (3-11) 03/16/25 06:29 BUN 41 mg/dl (6-23) H 03/16/25 06:29 Creatinine 0.84 mg/dl (0.6-1.4) 03/16/25 06:29 Est Cr Clr Drug Dosing 52.5 ml/min 03/16/25 06:29 eGFR 85.99 03/16/25 06:29 BUN/Creatinine Ratio 48.8 (10-20) H 03/16/25 06:29 Glucose 144 mg/dl (70-99(Fasting)) H 03/16/25 06:29 POC Glucose 229 mg/dl (70-99) H 03/16/25 16:21 Estimat Average Glucose 143 mg/dl 03/08/25 06:35 Hemoglobin A1c 6.6 % (4.5-5.6) H 03/08/25 06:35 Calcium 8.5 mg/dl (8.6-10.3) L 03/16/25 06:29 Magnesium 1.9 mg/dl (1.7-2.4) 03/16/25 06:29 Iron 41 mcg/dl (35-175) 03/08/25 06:35 TIBC 183 mcg/dl (250-450) L 03/08/25 06:35 Transferrin 131 mg/dl (200-360) L 03/08/25 06:35 Transferrin % Sat 22 % (20-50) 03/08/25 06:35 Ferritin 61.5 ng/ml (8-388) 03/08/25 06:35 Total Bilirubin 0.5 mg/dl (0.2-1.0) 03/06/25 22:45 AST 12 U/L (13-39) L 03/06/25 22:45 ALT 10 U/L (7-52) 03/06/25 22:45 Alkaline Phosphatase 98 U/L (34-104) 03/06/25 22:45 Troponin I High Sens 11.3 pg/ml (0-20) 03/06/25 22:45 Total Protein 6.4 gm/dl (6.0-8.3) 03/06/25 22:45 Albumin 3.4 gm/dl (3.4-5.0) 03/06/25 22:45 Globulin 3.0 gm/dl (2.5-4.0) 03/06/25 22:45 Albumin/Globulin Ratio 1.1 (0.9-2) 03/06/25 22:45 Lipase 14 U/L (11-82) 03/06/25 22:45 Vitamin B12 722 pg/ml (180-914) 03/08/25 06:35 Folate 9.78 ng/ml (>5.38) 03/08/25 06:35 TSH 1.997 uIu/ml (0.300-4.500) 03/06/25 22:45 Urine Color Yellow 03/06/25 22:35 Urine Appearance Clear (Clear) 03/06/25 22:35 Urine pH 5.0 (4.5-7.5) 03/06/25 22:35 Ur Specific [place] 1.032 (1.000-1.030) H 03/06/25 22:35 Urine Protein 1+ (Negative) H 03/06/25 22:35 Urine Glucose (UA) 3+ (Negative) H 03/06/25 22:35 Urine Ketones Negative (Negative) 03/06/25 22:35 Urine Blood 2+ (Negative) H 03/06/25 22:35 Urine Nitrite Negative (Negative) 03/06/25:35 Urine Bilirubin Negative (Negative) 03/06/25 22:35 Urine Urobilinogen Negative (Negative) 03/06/25 22:35 Ur Leukocyte Esterase Trace (Negative) H 03/06/25 22:35 Urine WBC (Auto) 21-50 /hpf (0-5) H 03/06/25:35 Urine RBC (Auto) >20 /hpf (0-2) H 03/06/25:35 U Hyaline Cast (Auto) 0-2 /lpf (0-2) 03/06/25 22:35 U Epithel Cells (Auto) 0-2 /hpf (0-2) 03/06/25 22:35 Urine Bacteria (Auto) None Seen (None Seen) 03/06/25:35 Urine Yeast Present (None Prsent) A 03/06/25:35 Urine Comment 03/06/25: Blood Parasites ID Cancelled 03/10/25 06:04 Impressions Bladder Ultrasound 03/07/25 12:27 ULTRASOUND OF THE BLADDER CLINICAL HISTORY: Leakage around the Michelle catheter.. COMPARISON STUDY: Abdominal CT dated 04/14/2020 TECHNIQUE: Real-time, grayscale, and color flow sonography of bladder is performed. Images are reviewed in the transverse and longitudinal planes. FINDINGS: The bladder is largely decompressed around a Michelle catheter. The catheter is located within the bladder lumen. The bladder wall appears thickened/trabeculated indicating chronic outlet obstruction. Ureteral jets could not be assessed. IMPRESSION: 1. The bladder is largely decompressed around a Michelle catheter. The catheter appears appropriately positioned. 2. There is evidence of chronic bladder outlet obstruction. ACT 112: Negative or not required by law. Electronically signed by: Hipolito Muller M.D. 03/07/2025 3:10 PM Chest X-Ray 03/10/25 13:30 XR chest 1V portable HISTORY: 84 years-old Male s/p ppm ensure no PTX status post placement of a left subclavian pacer COMPARISON: Chest radiographs 07/09/2024 TECHNIQUE: AP view of the chest FINDINGS: Has been placed in the interval. Left lateral chest wall skin folds are noted without pneumothorax, focal airspace consolidation, pleural effusion or overt pulmonary edema. Degenerative changes of the shoulders and spine. IMPRESSION: Status post placement of a left subclavian pacer. No pneumothorax identified. ACT 112: Negative or not required by law. The above report was generated using voice recognition software. It may contain grammatical, syntax or spelling errors. Electronically signed by: Dominguez Erazo M.D. 03/10/2025 1:31 PM Diagnostic Findings CBC 03/16/25 Range/Units 06:29 WBC 8.01 (4.8-10.8) K/ul RBC 4.23 L (4.70-6.10) M/uL Hgb 13.0 L (14.0-18.0) g/dL Hct 39.5 L (42.0-52.0) % Plt Count 194 (130-400) K/uL Neut # (Auto) 6.09 (1.40-6.50) K/uL Lymph # (Auto) 1.17 L (1.20-3.40) K/uL [place] # (Auto) 0.58 (0.11-0.59) K/uL Eos # (Auto) 0.04 (0.00-0.50) K/uL Baso # (Auto) 0.07 (0.00-0.20) K/uL Comprehensive Metabolic Panel 03/16/25 Range/Units 06:29 Sodium 137 (136-145) mmol/L Potassium 4.4 (3.5-5.1) mmol/L Chloride 104 (98-107) mmol/L Carbon Dioxide 28 (21-32) mmol/L BUN 41 H (6-23) mg/dl Creatinine 0.84 (0.6-1.4) mg/dl Glucose 144 H (70-99(Fasting)) mg/dl Calcium 8.5 L (8.6-10.3) mg/dl Intake and Output 03/16/25 03/16/25 03/16/25 06:59 14:59 22:59 Intake Total 300 / 1260 1080 / 1080 Output Total 1999 751 / 751 Balance -200 / -740 329 / 329 Intake: Oral 300 / 1260 1080 / 1080 Output: Urine 750 / 750 Urine Amount (Catheter) 1999 Michelle/Indwelling 1999 # Bowel Movements Other: Weight 56.699 kg Weight Measurement Method Built in [facility] Medications Administered Home Medications Medication Instructions Recorded Confirmed Last Taken acetaminophen 500 mg tablet 500 mg PO Q4H PRN Pain 01/07/21 03/07/25 07/29/24 04:00 (Tylenol Extra Strength) finasteride 5 mg tablet 5 mg PO QAM 05/03/21 03/07/25 03/06/25 apixaban 5 mg tablet (Eliquis) 5 mg PO BID #60 tabs 05/07/21 03/07/25 03/06/25 magnesium chloride 64 mg 64 mg PO BID #60 tabs 05/07/21 03/07/25 03/06/25 (magnesium chloride) tablet,delayed release (Mag 64) atorvastatin 20 mg tablet 20 mg PO QAM 09/17/21 03/07/25 03/06/25 amiodarone 200 mg tablet 200 mg PO QAM 07/24/24 03/07/25 03/06/25 solifenacin 10 mg tablet 10 mg PO DAILY #90 tabs 08/28/24 03/07/25 03/06/25 L-Arginine Tabs 850 mg PO DAILY 02/20/25 03/07/25 03/06/25 amino acids 1 tab PO DAILY 02/20/25 03/07/25 03/06/25 aspirin 81 mg tablet,delayed 81 mg PO DAILY 02/20/25 03/07/25 03/06/25 release cyanocobalamin (vitamin B-12) 500 500 mcg PO DAILY 02/20/25 03/07/25 03/06/25 mcg tablet (Vitamin B-12) empagliflozin 25 mg tablet 25 mg PO QAM 02/20/25 03/07/25 03/06/25 (Jardiance) fluticasone propionate 50 2 spray intranasal DAILY 02/20/25 03/07/25 03/06/25 mcg/actuation nasal spray,suspension lisinopril 20 mg tablet 20 mg PO DAILY 02/20/25 03/07/25 03/06/25 metformin 500 mg tablet,extended 1,500 mg PO DAILY 02/20/25 03/07/25 03/06/25 release 24 hr vibegron 75 mg tablet (Gemtesa) 75 mg PO DAILY #30 tabs 03/05/25 03/07/25 Unknown Active Medications Generic Name Dose Route Start Last Admin Trade Name Curtq PRN Reason Stop Dose Admin Acetaminophen 650 mg 03/07/25 02:32 03/11/25 05:11 Acetaminophen 325 Mg Tab PO 04/06/25 02:31 650 mg Q4H PRN Administration Pain or Fever Amiodarone HCl 200 mg 03/10/25 13:00 03/16/25 08:07 Amiodarone 200 Mg Tab PO 04/09/25 12:59 200 mg BID YUMIKO Administration Apixaban 5 mg 03/11/25 20:00 03/16/25 07:47 Apixaban 5 Mg Tablet PO 04/10/25 19:59 5 mg BID@0800,2000 YUMIKO Administration Aspirin 81 mg 03/12/25 10:45 03/16/25 08:07 Aspirin 81 Mg Ectab PO 04/11/25 10:44 81 mg DAILY YUMIKO Administration Atorvastatin Calcium 20 mg 03/07/25 09:00 03/16/25 08:08 Atorvastatin 20 Mg Tab PO 04/06/25 08:59 20 mg QAM YUMIKO Administration Cyanocobalamin 500 mcg 03/13/25 09:00 03/16/25 08:07 Cyanocobalamin (B-12) 500 Mcg Tablet PO 04/12/25 08:59 500 mcg DAILY YUMIKO Administration Empagliflozin 25 mg 03/07/25 09:00 03/16/25 08:11 Empagliflozin 25 Mg Tab PO 04/06/25 08:59 25 mg QAM YUMIKO Administration Finasteride 5 mg 03/07/25 09:00 03/16/25 08:12 Finasteride 5 Mg Tab PO 04/06/25 08:59 5 mg QAM YUMIKO Administration Fluticasone Propionate 2 sprays 03/07/25 09:00 03/16/25 08:12 Fluticasone Propionate Na Spr 16 Gm Btl NA 04/06/25 08:59 2 sprays DAILY YUMIKO Administration Insulin Aspart 0 units 03/10/25 21:00 03/16/25 12:17 Insulin Aspart Per Unit Charge SC 04/09/25 05:59 4 units ACHS YUMIKO Administration Magnesium Chloride 64 mg 03/07/25 09:00 03/16/25 08:08 Magnesium Chloride W/Calcium 64mg Delayed Rel Tab PO 04/06/25 08:59 64 mg BID YUMIKO Administration Melatonin 3 mg 03/07/25 02:32 03/14/25 23:47 Melatonin 3 Mg Tab PO 04/06/25 02:31 3 mg HS PRN Administration Sleep Metoprolol Succinate 25 mg 03/11/25 21:00 03/16/25 08:08 Metoprolol Succ 25mg Ext Rel Tab PO 04/10/25 20:59 25 mg BID YUMIKO Administration Multivitamins/Minerals 1 tab 03/09/25 09:00 03/16/25 08:08 Cerovite Adv Formula Tab PO 04/08/25 08:59 1 tab QAM YUMIKO Administration Polyethylene Glycol 17 gm 03/07/25 02:32 03/16/25 08:05 Polyethylene (Miralax) 17 Gm Pack PO 04/06/25 02:31 17 gm DAILY PRN Administration Constipation Tamsulosin HCl 0.4 mg 03/09/25 21:00 03/15/25 20:34 Tamsulosin Hcl 0.4 Mg Cap PO 04/08/25 20:59 0.4 mg HS YUMIKO Administration Vibegron 75 mg 03/07/25 09:00 03/16/25 08:08 Vibegron 75 Mg Tab PO 04/06/25 08:59 75 mg DAILY YUMIKO Administration PG Care Time/CCT Total # of Minutes Spent Total Time Spent with Patient: Total time spent is greater than 50% in coordination of care (as documented) at patient's floor/unit and/or counseling patient: Coding Level of Care Code 54152 SUB INP/OBS CARE 3/50MIN Diagnoses Bradycardia R00.1 Nonsustained ventricular tachycardia I47.29 Acute on chronic urinary retention R33.9
--- NOTE | 2025-03-16 16:51 | Hospitalist Progress Note ---
Date of Service March 16, 2025 Assessment & Plan (1) Nonsustained ventricular tachycardia: (2) Bradycardia: (3) Severe protein-calorie malnutrition: (4) Incomplete bladder emptying: Plan Patient is an 84-year-old male with a past medical history of RVOT paroxysmal ventricular tachycardia, paroxysmal A-fib, CAD, PVD, type II DM, prostate cancer, LUTS with chronic Michelle. Patient presented to the ED for catheter replacement as his was not draining properly. While in the ED patient was found to have several episodes of nonsustained V. tach lasting 10 to 20 seconds, patient remained completely asymptomatic. He was started on an amiodarone bolus and drip and then had profound bradycardia with the Mobitz 1 second-degree heart block. He is admitted for permanent pacemaker placement. #Nonsustained V. tach/second-degree Mobitz 1 heart block/PAF on Eliquis continued to have repeated episodes of nonsustained V. tach as long as 1 minute, mildly symptomatic with lightheadedness. Also with frequent secondary heart block and possibly third-degree heart block with rates in the 20s to 50s prior to getting pacemaker. No history of syncope. He previously was on a beta-kurtis which controlled his VTE, but this was held due to severe bradycardia hence why he is having more frequent VT. He was placed on IV amiodarone in the ED for repeated V. tach but this was stopped due to heart block and bradycardia. Echocardiogram here with normal LV function. TSH normal. Appreciate cardiology consultation Now s/p permanent pacemaker placement on 03/10 and metoprolol restarted along with p.o. amiodarone. Since metoprolol and amiodarone resumed, the V. tach is significantly reduced in frequency. Pacemaker is functioning properly. - Postoperative care as per cardiology-LUE restrictions, sling in place - Continue telemetry monitoring - Resumed home Eliquis and aspirin postprocedure - Continue amiodarone 200 mg p.o. twice daily - Started Toprol-XL 25 mg p.o. twice daily and titrate up as BP allows, will continue over the short-term. It was held this morning but he has had some overnight hypotension. Tolerating well. No change to dose.- - He has been on telemetry since pacemaker placement will maintain that while he is here. No requirement for monitoring on discharge - Mild hypotension and tachycardia likely volume depletion, encourage reasonable fluid intake - off lisinopril, uptitrate metoprolol as needed once volume status normalizes #Hypomagnesemia-magnesium low on admission and was replaced. Magnesium now optimal at 2.0 -No need to check further magnesium level on a daily basis - A.m. recheck stable #Prostate CA/LUTS/chronic indwelling Michelle for urinary retention/bladder spasms Michelle catheter changed in ED for what was thought to be a malfunctioning Michelle catheter. He has been having frequent leakage of urine around the Michelle catheter despite it being in the correct position. Bladder ultrasound here shows the catheter is in the correct place despite leakage. I discussed his care with the urology team-they think he is having leakage due to bladder spasms. He was recently prescribed Gemtesa and was told to stop his Vesicare. UA with 1+ protein, trace LE, 21-50 WBC, >20 RBC no bacteria noted. Urine culture is growing Jennifer albicans which is likely a colonizer. Urology also suggested starting Flomax for bladder spasms - Continue Daily catheter care, flush as needed Continue Gemtesa and added Flomax as per urology recommendation for bladder spasms, still some leakage noted, will continue to monitor, he already had a 20 gauge catheter placed this last exchange with no improvement - continue to follow with urology in outpatient setting within 2 weeks after discharge #Severe protein calorie malnutrition/underweight BMI 18.7-appreciate nutrition consultation. The patient has lost 40% of his body weight in the last year or more unintentionally. He has been dealing with issues with his prostate and has a long history of smoking perhaps contributing? Does have mild anemia but it is not iron deficiency-would not suspect GI malignancy but is a consideration - Follow-up with PCP as an outpatient for referral to GI for EGD and colonoscopy - Added boost supplement shakes twice daily - Liberalize diet-removed heart healthy portion - Added multivitamin with minerals once daily #Anemia-Hgb mildly low at 12.8, normocytic. Iron studies, B12, folate, TSH all normal. Likely anemia of chronic disease. No bleeding from anywhere - Follow CBC periodically - Stable over last several days #HTN/history of CVA/nonobstructive CAD-cardiac catheterization in 2021 with nonobstructive CAD with 60% proximal small LAD, 40% mid CX, 40% diffuse mid and 30% distal RCA, 80% small high OM1, 40% proximal large D1, 50% proximal medium OM 2. BPs here have been controlled and actually were hypotensive the day after his pacemaker was placed after starting metoprolol with taking lisinopril - Discontinued lisinopril completely to allow room for titration of beta-kurtis -Started Toprol-XL 25 mg p.o. twice daily-titrate up as blood pressure allows for VT -Resumed home aspirin and Eliquis - DC lisinopril #Type II DM HgbA1c controlled at 6.6%, he has had tremendous amount of weight loss. Is only on Jardiance and metformin at home - Holding home metformin - Continue Jardiance and supp blood sugars have been sporadically elevated but generally within control. Lemental NovoLog as needed - Diabetic diet, BSG's ACHS - Blood sugars been sporadically elevated but generally within goal range. No change at this time DVT prophylaxis-Nikolay Andrews Dispo: Okay to downgrade to telemetry, awaiting insurance authorization for fdc placement Admission and Anticipated Discharge Date Admission Date: March 07, 2025 Subjective Doing well this morning. No significant change. His daughter is coming in to visit with him at 11 AM so it was because prior to his this week were to get a sponge bath and to get cleaned up and dressed. He is instructed her to bring close so that when he appropriate for discharge tomorrow hopefully. "He will be ready to go" eating well. No dizziness orthostasis. Mild hypotension . He has been asymptomatic. Telemetry is been unremarkable. Physical Exam Constitutional: + thin; no acute distress Respiratory: normal respiratory effort Auscultation: + diminished lung sounds (Throughout); no crackles, no rales and no rhonchi Cardiovascular: Rate/Rhythm: regular rhythm Heart Sounds: + murmur (1/6 systolic murmur at the RUSB) Chest (Breasts): Chest: + pacemaker (Left anterior chest wall with dressing clean dry and intact) Gastrointestinal (Abdomen): normal bowel sounds, soft, nontender, no hepatosplenomegaly Skin: + rash (Scrotum and right inguinal regio n with mild erythematous rash) Psychiatric: A+Ox3, euthymic affect Genitourinary: + penis abnormality (Michelle catheter in p lace) Results & Data Results & Data Vital Signs (Past 12 Hours) Vital Signs Temp Pulse Pulse Pulse Resp BP BP 03/16/25 15:41 36.3 C L 73 20 105/65 03/16/25 12:18 36.6 C 96 H 18 112/74 03/16/25 08:10 93 H 100/63 03/16/25 07:40 36.4 C L 92 H 18 91/59 L 03/16/25 07:30 86 Pulse Ox O2 Del Method 03/16/25 15:41 97 Room Air 03/16/25 12:18 98 Room Air 03/16/25 08:10 03/16/25 07:40 96 Room Air 03/16/25 07:30 Laboratory Results 03/16/25 03/16/25 03/16/25 16:21 11:43 07:14 WBC RBC Hgb Hct MCV MCH MCHC RDW Std Deviation RDW Coeff of Dylan Plt Count MPV Immature Gran % (Auto) Neut % (Auto) Lymph % (Auto) Walsh % (Auto) Eos % (Auto) Baso % (Auto) Neut # (Auto) Lymph # (Auto) Walsh # (Auto) Eos # (Auto) Baso # (Auto) Immature Gran # (Auto) Sodium Potassium Chloride Carbon Dioxide Anion Gap BUN Creatinine Est Cr Clr Drug Dosing eGFR BUN/Creatinine Ratio Glucose POC Glucose 229 H 252 H 140 H Calcium Magnesium 03/16/25 03/15/25 06:29 20:05 WBC 8.01 RBC 4.23 L Hgb 13.0 L Hct 39.5 L MCV 93.4 MCH 30.7 MCHC 32.9 RDW Std Deviation 48.1 H RDW Coeff of Dylan 14.0 Plt Count 194 MPV 9.9 Immature Gran % (Auto) 0.7 Neut % (Auto) 76.1 Lymph % (Auto) 14.6 Walsh % (Auto) 7.2 Eos % (Auto) 0.5 Baso % (Auto) 0.9 Neut # (Auto) 6.09 Lymph # (Auto) 1.17 L Walsh # (Auto) 0.58 Eos # (Auto) 0.04 Baso # (Auto) 0.07 Immature Gran # (Auto) 0.06 Sodium 137 Potassium 4.4 Chloride 104 Carbon Dioxide 28 Anion Gap 5 BUN 41 H Creatinine 0.84 Est Cr Clr Drug Dosing 52.5 eGFR 85.99 BUN/Creatinine Ratio 48.8 H Glucose 144 H POC Glucose 224 H Calcium 8.5 L Magnesium 1.9 PG Care Time/CCT Total # of Minutes Spent Total Time Spent with Patient: Total time spent is greater than 50% in coordination of care (as documented) at patient's floor/unit and/or counseling patient: Coding Level of Care Code 86909 SUB INP/OBS CARE 25MIN Diagnoses Nonsustained ventricular tachycardia I47.29 Bradycardia R00.1 Severe protein-calorie malnutrition E43 Incomplete bladder emptying R33.9
--- NOTE | 2025-03-17 09:26 | Cardiology Progress Note ---
Date of Service March 17, 2025 Assessment & Plan (1) Nonsustained ventricular tachycardia: (2) Bradycardia: (3) Cardiac pacemaker in situ: (4) Acute on chronic urinary retention: Plan - 84 year old male with a longstanding history of arrhythmic issues including paroxysmal VT and paroxysmal atrial fibrillation initially presented to the ED for Michelle catheter replacement when he was found to have several episodes of NSVT lasting 10-20 seconds and borderline tachy-sumi syndrome with baseline 1st degree AV block with intermittent Mobitz type I. Bradyarrhythmias were more profound following IV amiodarone bolus. Patient was admitted and successful dual chamber permanent pacemaker placement was completed on 03/10/25. - Continue Amiodarone 200 mg BID for 3 weeks, then can reduce to 200 mg once daily thereafter. - Continue metoprolol succinate 25 mg BID, Eliquis 5 mg BID, aspirin 81 mg daily - Advised to not lift left elbow or left shoulder for 1 month and do not lift more than 10 lbs with left arm for 2 weeks. - EP follow up outpatient Case discussed and coordinated with Dr. Bear. Please see Dr. Bear's notes for further recommendations. I spent a total of 50 minutes on the date of service in preparation, delivery, and documentation of the care provided to this patient, excluding any time spent in the performance of separately billed services. Leah Ford PA-C Department of Cardiology, [facility] Admission and Anticipated Discharge Date Admission Date: March 07, 2025 Supervising Physician Co-Signing Physician Notes I have personally performed a history and physical examination on the patient. I have reviewed the advance practitioner's documentation, and I agree with, and take responsibility for the plan of care. 84-year-old male with nonsustained ventricular tachycardia and paroxysmal atrial fibrillation remains in sinus rhythm. 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 Recommend continue amiodarone 200 mg twice daily, metoprolol and apixaban as ordered. Rudy Bear DO, [facility] I spent a total of 30 minutes on the date of service in preparation, delivery, and documentation of the care provided to this patient, excluding any time spent in the performance of separately billed services. Subjective Mayito Kiran is an 84 year old male who initially presented to the ED for Michelle catheter replacement when he was found to have several episodes of NSVT lasting 10-20 seconds and borderline tachy-sumi syndrome with baseline 1st degree AV block with intermittent Mobitz type I. Bradyarrhythmias were more profound following IV amiodarone bolus. Patient was admitted and successful dual chamber permanent pacemaker placement was completed on 03/10/25. Patient states he is feeling well from a cardiac standpoint and offers no complaints today. States he has been ambulating with PT without issue. He is awaiting placement at a senior living facility. Denies chest pain, SOB/NEWELL, palpitations, dizziness/lightheadedness, syncope, abdominal pain, N/V, fever/chills. Review of Systems Review of Systems: All systems reviewed & are unremarkable except as noted in Subjective Physical Exam Constitutional: + thin; no acute distress Neck: trachea midline, no thyromegaly Respiratory: normal respiratory effort, lungs clear to auscultation Cardiovascular: Rate/Rhythm: regular rate and regular rhythm Heart Sounds: normal S1, normal S2 and + murmur (1/6 systolic murmur) Vessels: no JVD Extremities: no edema Chest (Breasts): Chest: + pacemaker (Left anterior chest wall with clean/dry dressing. ) Gastrointestinal (Abdomen): normal bowel sounds, soft, nontender, no hepatosplenomegaly Skin: no rashes, warm and dry Neurologic: PERRL, EOMI, accommodation nl, no face palsy, no dysarthria Psychiatric: A+Ox3, euthymic affect Results & Data Vital Signs (Past 12 Hours) Vital Signs Temp Pulse Pulse Resp BP Pulse Ox O2 Del Method 03/17/25 08:08 36.5 C 76 17 126/68 96 Room Air 03/17/25 07:00 93 H 03/17/25 03:13 36.7 C 90 18 132/83 96 Room Air 03/16/25 23:11 36.7 C 94 H 19 90/61 L 95 Room Air Laboratory Results Laboratory Results WBC 8.01 K/ul (4.8-10.8) 03/16/25 06:29 RBC 4.23 M/uL (4.70-6.10) L 03/16/25 06:29 Hgb 13.0 g/dL (14.0-18.0) L 03/16/25 06:29 Hct 39.5 % (42.0-52.0) L 03/16/25 06:29 MCV 93.4 fL (80.0-100.0) 03/16/25 06: MCH 30.7 pg (25.0-34.0) 03/16/25 06: MCHC 32.9 g/dL (32.0-36.0) 03/16/25 06: RDW Std Deviation 48.1 fL (36.4-46.3) H 03/16/25 06: RDW Coeff of Dylan 14.0 % (11.5-14.5) 03/16/25 06: Plt Count 194 K/uL (130-400) 03/16/25 06: MPV 9.9 fL (9.4-12.4) 03/16/25 06: Immature Gran % (Auto) 0.7 % 03/16/25 06: Neut % (Auto) 76.1 % 03/16/25 06: Lymph % (Auto) 14.6 % 03/16/25 06: [place] % (Auto) 7.2 % 03/16/25 06: Eos % (Auto) 0.5 % 03/16/25 06: Baso % (Auto) 0.9 % 03/16/25 06: Neut # (Auto) 6.09 K/uL (1.40-6.50) 03/16/25 06: Lymph # (Auto) 1.17 K/uL (1.20-3.40) L 03/16/25 06: Brunswick # (Auto) 0.58 K/uL (0.11-0.59) 03/16/25 06: Eos # (Auto) 0.04 K/uL (0.00-0.50) 03/16/25 06: Baso # (Auto) 0.07 K/uL (0.00-0.20) 03/16/25 06: Immature Gran # (Auto) 0.06 K/uL (0.01-0.20) 03/16/25 06:29 Absolute Nucleated RBC Cancelled 03/10/25 06:04 Nucleated RBC % (auto) Cancelled 03/10/25 06:04 Neutrophils % (Manual) Cancelled 03/10/25 06:04 Band Neutrophils % Cancelled 03/10/25 06:04 Lymphocytes % (Manual) Cancelled 03/10/25 06:04 Prolymphocyte % Cancelled 03/10/25 06:04 Reactive Lymphs % (Man) Cancelled 03/10/25 06:04 Monocytes % (Manual) Cancelled 03/10/25 06:04 Eosinophils % (Manual) Cancelled 03/10/25 06:04 Basophils % (Manual) Cancelled 03/10/25 06:04 Metamyelocytes % (Man) Cancelled 03/10/25 06:04 Myelocytes % (Man) Cancelled 03/10/25 06:04 Promyelocytes % (Man) Cancelled 03/10/25 06:04 Blast Cells % (Manual) Cancelled 03/10/25 06:04 Plasma Cell % (Manual) Cancelled 03/10/25 06:04 Other Cells % Cancelled 03/10/25 06:04 Nucleated RBC % Cancelled 03/10/25 06:04 Neutrophils # (Manual) Cancelled 03/10/25 06:04 Band Neutrophils # Cancelled 03/10/25 06:04 Total Absolute Neuts Cancelled 03/10/25 06:04 Lymphocytes # (Manual) Cancelled 03/10/25 06:04 Prolymphocyte # Cancelled 03/10/25 06:04 Reactive Lymphs # Cancelled 03/10/25 06:04 Total Abs Lymphocytes Cancelled 03/10/25 06:04 Monocytes # (Manual) Cancelled 03/10/25 06:04 Eosinophils # (Manual) Cancelled 03/10/25 06:04 Basophils # (Manual) Cancelled 03/10/25 06:04 Metamyelocytes # (Man) Cancelled 03/10/25 06:04 Myelocytes # (Manual) Cancelled 03/10/25 06:04 Promyelocytes # (Man) Cancelled 03/10/25 06:04 Blast Cells # (Man) Cancelled 03/10/25 06:04 Plasma Cell # (Manual) Cancelled 03/10/25 06:04 Other Cells # Cancelled 03/10/25 06:04 Nucleated RBCs # (Man) Cancelled 03/10/25 06:04 Hypersegmented Neuts Cancelled 03/10/25 06:04 Hyposegmented Neuts Cancelled 03/10/25 06:04 Hypogranular Neuts Cancelled 03/10/25 06:04 Large Granular Lymphs Cancelled 03/10/25 06:04 # Lrg Granular Lymphs Cancelled 03/10/25 06:04 Hairy Cells Cancelled 03/10/25 06:04 Smudge Cells Cancelled 03/10/25 06:04 Toxic Granulation Cancelled 03/10/25 06:04 Toxic Vacuolation Cancelled 03/10/25 06:04 Dohle Bodies Cancelled 03/10/25 06:04 Devang Rods Cancelled 03/10/25 06:04 Platelet Estimate Cancelled 03/10/25 06:04 Hypogranular Platelets Cancelled 03/10/25 06:04 Giant Platelets Cancelled 03/10/25 06:04 Platelet Satelliting Cancelled 03/10/25 06:04 RBC Morphology Cancelled 03/10/25 06:04 Polychromasia Cancelled 03/10/25 06:04 Hypochromasia Cancelled 03/10/25 06:04 Poikilocytosis Cancelled 03/10/25 06:04 Basophilic Stippling Cancelled 03/10/25 06:04 Anisocytosis Cancelled 03/10/25 06:04 Microcytosis Cancelled 03/10/25 06:04 Macrocytosis Cancelled 03/10/25 06:04 Spherocytes Cancelled 03/10/25 06:04 Pappenheimer Bodies Cancelled 03/10/25 06:04 Sickle Cells Cancelled 03/10/25 06:04 Target Cells Cancelled 03/10/25 06:04 Tear Drop Cells Cancelled 03/10/25 06:04 Ovalocytes Cancelled 03/10/25 06:04 Stomatocytes Cancelled 03/10/25 06:04 Morgan-Quanah Bodies Cancelled 03/10/25 06:04 Echinocytes Cancelled 03/10/25 06:04 Acanthocytes (Spur) Cancelled 03/10/25 06:04 Rouleaux Cancelled 03/10/25 06:04 RBC Agglutinates Cancelled 03/10/25 06:04 Schistocytes Cancelled 03/10/25 06:04 Sezary Cell Cancelled 03/10/25 06:04 PT 12.4 Seconds (9.0-12.0) H 03/08/25 06:35 INR 1.2 (0.9-1.1) H 03/08/25 06:35 Sodium 137 mmol/L (136-145) 03/16/25 06:29 Potassium 4.4 mmol/L (3.5-5.1) 03/16/25 06:29 Chloride 104 mmol/L (98-107) 03/16/25 06:29 Carbon Dioxide 28 mmol/L (21-32) 03/16/25 06:29 Anion Gap 5 (3-11) 03/16/25 06:29 BUN 41 mg/dl (6-23) H 03/16/25 06:29 Creatinine 0.84 mg/dl (0.6-1.4) 03/16/25 06:29 Est Cr Clr Drug Dosing 52.5 ml/min 03/16/25 06:29 eGFR 85.99 03/16/25 06: BUN/Creatinine Ratio 48.8 (10-20) H 03/16/25 06:29 Glucose 144 mg/dl (70-99(Fasting)) H 03/16/25 06:29 POC Glucose 158 mg/dl (70-99) H 03/17/25 07:23 Estimat Average Glucose 143 mg/dl 03/08/25 06:35 Hemoglobin A1c 6.6 % (4.5-5.6) H 03/08/25 06:35 Calcium 8.5 mg/dl (8.6-10.3) L 03/16/25 06:29 Magnesium 1.9 mg/dl (1.7-2.4) 03/16/25 06:29 Iron 41 mcg/dl (35-175) 03/08/25 06:35 TIBC 183 mcg/dl (250-450) L 03/08/25 06:35 Transferrin 131 mg/dl (200-360) L 03/08/25 06:35 Transferrin % Sat 22 % (20-50) 03/08/25 06:35 Ferritin 61.5 ng/ml (8-388) 03/08/25 06:35 Total Bilirubin 0.5 mg/dl (0.2-1.0) 03/06/25 22:45 AST 12 U/L (13-39) L 03/06/25 22:45 ALT 10 U/L (7-52) 03/06/25 22:45 Alkaline Phosphatase 98 U/L (34-104) 03/06/25 22:45 Troponin I High Sens 11.3 pg/ml (0-20) 03/06/25 22:45 Total Protein 6.4 gm/dl (6.0-8.3) 03/06/25 22:45 Albumin 3.4 gm/dl (3.4-5.0) 03/06/25 22:45 Globulin 3.0 gm/dl (2.5-4.0) 03/06/25 22:45 Albumin/Globulin Ratio 1.1 (0.9-2) 03/06/25 22:45 Lipase 14 U/L (11-82) 03/06/25 22:45 Vitamin B12 722 pg/ml (180-914) 03/08/25 06:35 Folate 9.78 ng/ml (>5.38) 03/08/25 06:35 TSH 1.997 uIu/ml (0.300-4.500) 03/06/25 22:45 Urine Color Yellow 03/06/25 22:35 Urine Appearance Clear (Clear) 03/06/25: Urine pH 5.0 (4.5-7.5) 03/06/25 22:35 Ur Specific Alexander 1.032 (1.000-1.030) H 03/06/25 22:35 Urine Protein 1+ (Negative) H 03/06/25 22:35 Urine Glucose (UA) 3+ (Negative) H 03/06/25:35 Urine Ketones Negative (Negative) 03/06/25:35 Urine Blood 2+ (Negative) H 03/06/25 22:35 Urine Nitrite Negative (Negative) 03/06/25: Urine Bilirubin Negative (Negative) 03/06/25 22:35 Urine Urobilinogen Negative (Negative) 03/06/25 22:35 Ur Leukocyte Esterase Trace (Negative) H 03/06/25 22:35 Urine WBC (Auto) 21-50 /hpf (0-5) H 03/06/25 22:35 Urine RBC (Auto) >20 /hpf (0-2) H 03/06/25 22:35 U Hyaline Cast (Auto) 0-2 /lpf (0-2) 03/06/25 22:35 U Epithel Cells (Auto) 0-2 /hpf (0-2) 03/06/25 22:35 Urine Bacteria (Auto) None Seen (None Seen) 12/18/25 22:35 Urine Yeast Present (None Prsent) A 03/06/25 22:35 Urine Comment 03/06/25 22:35 Blood Parasites ID Cancelled 03/10/25 06:04 Impressions Chest X-Ray 03/10/25 13:30 IMPRESSION: Status post placement of a left subclavian pacer. No pneumothorax identified. Diagnostic Findings ECHO 03/07/25 LV is normal in size. LV wall motion is normal LVEF = 55-60% Moderate concentric LVH Aortic valve leaflets are moderately calcified Mild valvular aortic stenosis Medications Administered Current Inpatient Medications Acetaminophen (Acetaminophen 325 Mg Tab) 650 mg PO Q4H PRN PRN Reason: Pain or Fever Stop: 04/06/25 02:31 Last Admin: 03/11/25 05:11 Dose: 650 mg Amiodarone HCl (Amiodarone 200 Mg Tab) 200 mg PO BID [facility] Stop: 04/09/25 12:59 Last Admin: 03/17/25 08:40 Dose: 200 mg Apixaban (Apixaban 5 Mg Tablet) 5 mg PO BID@0800,1999 [facility] Stop: 04/10/25 19:59 Last Admin: 03/17/25 08:40 Dose: 5 mg Aspirin (Aspirin 81 Mg Ectab) 81 mg PO DAILY [facility] Stop: 04/11/25 10:44 Last Admin: 03/17/25 08:39 Dose: 81 mg Atorvastatin Calcium (Atorvastatin 20 Mg Tab) 20 mg PO QAM [facility] Stop: 04/06/25 08:59 Last Admin: 03/17/25 08:40 Dose: 20 mg Cyanocobalamin (Cyanocobalamin (B-12) 500 Mcg Tablet) 500 mcg PO DAILY [facility] Stop: 04/12/25 08:59 Last Admin: 03/17/25 08:39 Dose: 500 mcg Dextrose (Dextrose 50% 50 Ml Syringe) 25 - 50 ml IV UD PRN; Protocol PRN Reason: Hypoglycemia Protocol Stop: 04/07/25 20:44 Docusate Sodium (Docusate Sodium 100 Mg Cap) 100 mg PO BID PRN PRN Reason: Constipation Stop: 04/06/25 02:31 Empagliflozin (Empagliflozin 25 Mg Tab) 25 mg PO QAM [facility] Stop: 04/06/25 08:59 Last Admin: 03/17/25 08:40 Dose: 25 mg Finasteride (Finasteride 5 Mg Tab) 5 mg PO QAM [facility] Stop: 04/06/25 08:59 Last Admin: 03/17/25 08:40 Dose: 5 mg Fluticasone Propionate (Fluticasone Propionate Na Spr 16 Gm Btl) 2 sprays NA DAILY [facility] Stop: 04/06/25 08:59 Last Admin: 03/17/25 08:40 Dose: 2 sprays Glucagon (Glucagon For Inj 1 Mg Vial) 1 mg SQ UD PRN; Protocol PRN Reason: Hypoglycemia Protocol Stop: 04/07/25 20:44 Glucose (Glucose 40% Gel 15 Gm Tube) 15 - 30 gm PO UD PRN; Protocol PRN Reason: Hypoglycemia Protocol Stop: 04/07/25 20:44 Glucose (Glucose 10 Tab/Tube) 4 - 8 tab PO UD PRN; Protocol PRN Reason: Hypoglycemia Protocol Stop: 04/07/25 20:44 Insulin Aspart (Insulin Aspart Per Unit Charge) 0 units SC ACHS [facility] Stop: 04/09/25 05:59 Last Admin: 03/17/25 08:40 Dose: Not Given Magnesium Chloride (Magnesium Chloride W/Calcium 64mg Delayed Rel Tab) 64 mg PO BID [facility] Stop: 04/06/25 08:59 Last Admin: 03/17/25 08:39 Dose: 64 mg Melatonin (Melatonin 3 Mg Tab) 3 mg PO HS PRN PRN Reason: Sleep Stop: 04/06/25 02:31 Last Admin: 03/14/25 23:47 Dose: 3 mg Metoprolol Succinate (Metoprolol Succ 25mg Ext Rel Tab) 25 mg PO BID [facility] Stop: 04/10/25 20:59 Last Admin: 03/17/25 08:40 Dose: 25 mg Miscellaneous (Carbohydrates For Hypoglycemia ) 15 - 30 gm PO UD PRN PRN Reason: Hypoglycemia Protocol Stop: 04/07/25 20:44 Multivitamins/Minerals (Cerovite Adv Formula Tab) 1 tab PO QAM [facility] Stop: 04/08/25 08:59 Last Admin: 03/17/25 08:40 Dose: 1 tab Ondansetron HCl (Ondansetron Inj 2 Mg/Ml 2 Ml Vial) 4 mg IV Q6H PRN PRN Reason: Nausea And Vomiting Stop: 04/06/25 02:31 Polyethylene Glycol (Polyethylene (Miralax) 17 Gm Pack) 17 gm PO DAILY PRN PRN Reason: Constipation Stop: 04/06/25 02:31 Last Admin: 03/16/25 08:05 Dose: 17 gm Tamsulosin HCl (Tamsulosin Hcl 0.4 Mg Cap) 0.4 mg PO HS YUMIKO Stop: 04/08/25 20:59 Last Admin: 03/16/25 19:46 Dose: 0.4 mg Vibegron (Vibegron 75 Mg Tab) 75 mg PO DAILY YUMIKO Stop: 04/06/25 08:59 Last Admin: 03/17/25 08:39 Dose: 75 mg PG Care Time/CCT Total # of Minutes Spent Total Time Spent with Patient: Total time spent is greater than 50% in coordination of care (as documented) at patient's floor/unit and/or counseling patient: Coding Level of Care Code 55150 SUB INP/OBS CARE 3/50MIN Diagnoses Nonsustained ventricular tachycardia I47.29 Bradycardia R00.1 Cardiac pacemaker in situ Z95.0 Acute on chronic urinary retention R33.9
--- NOTE | 2025-03-17 14:10 | Hospitalist Progress Note ---
Date of Service March 17, 2025 Assessment & Plan (1) Nonsustained ventricular tachycardia: (2) Bradycardia: (3) Severe protein-calorie malnutrition: (4) Incomplete bladder emptying: Plan Patient is an 84-year-old male with a past medical history of RVOT paroxysmal ventricular tachycardia, paroxysmal A-fib, CAD, PVD, type II DM, prostate cancer, LUTS with chronic Michelle. Patient presented to the ED for catheter replacement as his was not draining properly. While in the ED patient was found to have several episodes of nonsustained V. tach lasting 10 to 20 seconds, patient remained completely asymptomatic. He was started on an amiodarone bolus and drip and then had profound bradycardia with the Mobitz 1 second-degree heart block. He is admitted for permanent pacemaker placement. #1. Nonsustained V. tach: Patient presents to the hospital with signs of urinary obstruction and was found to be in nonsustained V. tach. Received some IV amiodarone. Cardiology consulted and amiodarone has been discontinued. Patient has normal left ventricular systolic function His nonsustained V. tach has improved, now started on metoprolol XL Cardiology, will discontinue lisinopril. 2. History of AV conduction disease: Status post dual-chamber pacemaker Also continue Eliquis 3. Urinary obstruction: Patient had a Michelle catheter which was leaking Has been replaced Patient may need to follow-up up urology outpatient #4Hypomagnesemia -magnesium low on admission and was replaced. Magnesium now optimal at 2.0 -No need to check further magnesium level on a daily basis - A.m. recheck stable #5.Prostate CA/LUTS/chronic indwelling Michelle for urinary retention/bladder spasmsFoley catheter changed in ED for what was thought to be a malfunctioning Michelle catheter. He has been having frequent leakage of urine around the Michelle catheter despite it being in the correct position. Bladder ultrasound here shows the catheter is in the correct place despite leakage. I discussed his care with the urology team-they think he is having leakage due to bladder spasms. He was recently prescribed Gemtesa and was told to stop his Vesicare. UA with 1+ protein, trace LE, 21-50 WBC, >20 RBC no bacteria noted. Urine culture is growing Jennifer albicans which is likely a colonizer. Urology also suggested starting Flomax for bladder spasms - Continue Daily catheter care, flush as needed Continue Gemtesa and added Flomax as per urology recommendation for bladder spasms, still some leakage noted, will continue to monitor, he already had a 20 gauge catheter placed this last exchange with no improvement - continue to follow with urology in outpatient setting within 2 weeks after discharge #6.Severe protein calorie malnutrition/underweight BMI 18.7-appreciate nutrition consultation. The patient has lost 40% of his body weight in the last year or more unintentionally. He has been dealing with issues with his prostate and has a long history of smoking perhaps contributing? Does have mild anemia but it is not iron deficiency-would not suspect GI malignancy but is a consideration - Follow-up with PCP as an outpatient for referral to GI for EGD and colonoscopy - Added boost supplement shakes twice daily - Liberalize diet-removed heart healthy portion - Added multivitamin with minerals once daily #Anemia-Hgb mildly low at 12.8, normocytic. Iron studies, B12, folate, TSH all normal. Likely anemia of chronic disease. No bleeding from anywhere - Follow CBC periodically - Stable over last several days #HTN/history of CVA/nonobstructive CAD-cardiac catheterization in 2021 with nonobstructive CAD with 60% proximal small LAD, 40% mid CX, 40% diffuse mid and 30% distal RCA, 80% small high OM1, 40% proximal large D1, 50% proximal medium OM 2. BPs here have been controlled and actually were hypotensive the day after his pacemaker was placed after starting metoprolol with taking lisinopril - Discontinued lisinopril completely to allow room for titration of beta-kurtis -Started Toprol-XL 25 mg p.o. twice daily-titrate up as blood pressure allows for VT -Resumed home aspirin and Eliquis - DC lisinopril #Type II DM HgbA1c controlled at 6.6%, he has had tremendous amount of weight loss. Is only on Jardiance and metformin at home - Holding home metformin - Continue Jardiance and supp blood sugars have been sporadically elevated but generally within control. Lemental NovoLog as needed - Diabetic diet, BSG's ACHS - Blood sugars been sporadically elevated but generally within goal range. No change at this time DVT prophylaxis-Nikolay Andrews Dispo: Disposition: Awaiting placement Admission and Anticipated Discharge Date Admission Date: March 07, 2025 Subjective Patient seen and examined, awaiting placement denies any new complaints. Review of Systems Review of Systems: All systems reviewed are negative, apart from the ones contained in the history. Physical Exam Physical Exam: The patient is awake, alert and oriented 3, thin looking. HEENT--PERRL, EOMI, mucous membranes and oropharynx mildly dry Neck--supple. No JVD. No bruits. Thyroid normal, trachea midline, no adenopathy. Heart--normal S1 and S2. No murmurs, rubs or gallops. Lungs--clear bilaterally, no respiratory distress, no accessory muscle use. Abdomen--normal bowel sounds and soft. Extremities--no cyanosis or clubbing. No edema. Dermatologic--normal skin turgor, normal color, no abnormal lymph nodes, no rash. Neurologic--cranial nerves II through XII grossly intact. Rheumatologic--normal range of motion. Psychiatric--normal affect. Results & Data Results & Data Vital Signs (Past 12 Hours) Vital Signs Temp Pulse Pulse Resp BP Pulse Ox O2 Del Method 03/17/25 11:31 97.2 F L 83 21 94/59 L 97 Room Air 03/17/25 08:08 97.7 F 76 17 126/68 96 Room Air 03/17/25 07:00 93 H 03/17/25 03:13 98.1 F 90 18 132/83 96 Room Air PG Care Time/CCT Total # of Minutes Spent Total Time Spent with Patient: Total time spent is greater than 50% in coordination of care (as documented) at patient's floor/unit and/or counseling patient: Coding Level of Care Code 56334 SUB INP/OBS CARE 2/35MIN Diagnoses Nonsustained ventricular tachycardia I47.29 Bradycardia R00.1 Severe protein-calorie malnutrition E43 Incomplete bladder emptying R33.9 Time Spent (min) 35
[2025-03-18 07:19] LABS: Anion Gap 6.0 (3-11); Blood Urea Nitrogen 38.0 mg/dl (6-23); Calcium 8.6 mg/dl (8.6-10.3); Carbon Dioxide 27.0 mmol/L (21-32); Chloride 105.0 mmol/L (98-107); Creatinine Clr Calc Pharmacy 55.4 ml/min; Glucose 180.0 mg/dl (70-99(Fasting)); Potassium 4.4 mmol/L (3.5-5.1); Sodium 138.0 mmol/L (136-145)
--- NOTE | 2025-03-18 10:12 | Cardiology Progress Note ---
Date of Service March 18, 2025 Assessment & Plan (1) Nonsustained ventricular tachycardia: (2) Bradycardia: (3) Cardiac pacemaker in situ: (4) Acute on chronic urinary retention: Plan - 84 year old male with a longstanding history of arrhythmic issues including paroxysmal VT and paroxysmal atrial fibrillation initially presented to the ED for Michelle catheter replacement when he was found to have several episodes of NSVT lasting 10-20 seconds and borderline tachy-sumi syndrome with baseline 1st degree AV block with intermittent Mobitz type I. Bradyarrhythmias were more profound following IV amiodarone bolus. Patient was admitted and successful dual chamber permanent pacemaker placement was completed on 03/10/25. - Frequent episodes ventricular arrhythmias noted on telemetry and device interrogation. Patient is asymptomatic. Increase amiodarone to 400 mg BID. Rec heck magnesium. - Continue metoprolol succinate, Eliquis, and aspirin as ordered - Advised to not lift left elbow or left shoulder for 1 month and do not lift more than 10 lbs with left arm for 2 weeks. - EP follow up outpatient Case discussed and coordinated with Dr. Bear. Please see Dr. Bear's notes for further recommendations. I spent a total of 50 minutes on the date of service in preparation, delivery, and documentation of the care provided to this patient, excluding any time spent in the performance of separately billed services. Leah Ford PA-C Department of Cardiology, [facility] Admission and Anticipated Discharge Date Admission Date: March 07, 2025 Supervising Physician Co-Signing Physician Notes I have personally performed a history and physical examination on the patient. I have reviewed the advance practitioner's documentation, and I agree with, and take responsibility for the plan of care. 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 Telemetry demonstrating AV paced rhythm and periods of accelerated idioventricular rhythm. Patient remains asymptomatic from a cardiovascular p erspective. Continue amiodarone, apixaban, and metoprolol. Rudy Bear DO, [facility] I spent a total of 40 minutes on the date of service in preparation, delivery, and documentation of the care provided to this patient, excluding any time spent in the performance of separately billed services. Subjective Mayito Kiran is an 84 year old male who initially presented to the ED for Michelle catheter replacement when he was found to have several episodes of NSVT lasting 10-20 seconds and borderline tachy-sumi syndrome with baseline 1st degree AV b lock with intermittent Mobitz type I. Bradyarrhythmias were more profound following IV amiodarone bolus. Patient was admitted and successful dual chamber permanent pacemaker placement was completed on 03/10/25. Patient states he is feeling well from a cardiac standpoint today. He has been up walking with PT without issue. He is still awaiting placement at a senior care facility. Tachyarrhythmias noted on telemetry and device interrogation. Denies chest pain, SOB/NEWELL, palpitations, dizziness/lightheadedness, syncope, abdominal pain, N/V, fever/chills. Review of Systems Review of Systems: All systems reviewed & are unremarkable except as noted in Subjective Physical Exam Constitutional: + thin and comfortable Neck: trachea midline, no thyromegaly Respiratory: normal respiratory effort, lungs clear to auscultation Cardiovascular: Rate/Rhythm: regular rate and regular rhythm Heart Sounds: normal S1, normal S2 and + murmur (1/6 systolic murmur) Vessels: no JVD Extremities: no edema Chest (Breasts): Chest: + pacemaker (Left anterior chest wall with clean/dry dressing.) Gastrointestinal (Abdomen): normal bowel sounds, soft, nontender, no hepatospl enomegaly Skin: no rashes, warm and dry Neurologic: PERRL, EOMI, accommodation nl, no face palsy, no dysarthria Psychiatric: A+Ox3, euthymic affect Results & Data Vital Signs (Past 12 Hours) Vital Signs Temp Pulse Pulse Resp BP Pulse Ox O2 Del Method 03/18/25 07:31 36.4 C L 78 20 105/72 96 Room Air 03/18/25 07:00 93 H 03/18/25 03:50 36.5 C 99 H 16 95/68 L 95 Room Air 03/17/25 23:22 36.5 C 96 H 18 130/88 98 Room Air 03/17/25 22:33 91 H Laboratory Results Laboratory Results WBC 8.01 K/ul (4.8-10.8) 03/16/25 06:29 RBC 4.23 M/uL (4.70-6.10) L 03/16/25 06:29 Hgb 13.0 g/dL (14.0-18.0) L 03/16/25 06: Hct 39.5 % (42.0-52.0) L 03/16/25 06: MCV 93.4 fL (80.0-100.0) 03/16/25 06: MCH 30.7 pg (25.0-34.0) 03/16/25 06: MCHC 32.9 g/dL (32.0-36.0) 03/16/25 06: RDW Std Deviation 48.1 fL (36.4-46.3) H 03/16/25 06: RDW Coeff of Dylan 14.0 % (11.5-14.5) 03/16/25 06: Plt Count 194 K/uL (130-400) 03/16/25 06: MPV 9.9 fL (9.4-12.4) 03/16/25 06: Immature Gran % (Auto) 0.7 % 03/16/25 06: Neut % (Auto) 76.1 % 03/16/25 06: Lymph % (Auto) 14.6 % 03/16/25 06: [place] % (Auto) 7.2 % 03/16/25 06: Eos % (Auto) 0.5 % 03/16/25 06: Baso % (Auto) 0.9 % 03/16/25 06: Neut # (Auto) 6.09 K/uL (1.40-6.50) 03/16/25 06: Lymph # (Auto) 1.17 K/uL (1.20-3.40) L 03/16/25 06:29 [place] # (Auto) 0.58 K/uL (0.11-0.59) 03/16/25 06: Eos # (Auto) 0.04 K/uL (0.00-0.50) 03/16/25 06: Baso # (Auto) 0.07 K/uL (0.00-0.20) 03/16/25 06: Immature Gran # (Auto) 0.06 K/uL (0.01-0.20) 03/16/25 06:29 Absolute Nucleated RBC Cancelled 03/10/25 06:04 Nucleated RBC % (auto) Cancelled 03/10/25 06:04 Neutrophils % (Manual) Cancelled 03/10/25 06:04 Band Neutrophils % Cancelled 03/10/25 06:04 Lymphocytes % (Manual) Cancelled 03/10/25 06:04 Prolymphocyte % Cancelled 03/10/25 06:04 Reactive Lymphs % (Man) Cancelled 03/10/25 06:04 Monocytes % (Manual) Cancelled 03/10/25 06:04 Eosinophils % (Manual) Cancelled 03/10/25 06:04 Basophils % (Manual) Cancelled 03/10/25 06:04 Metamyelocytes % (Man) Cancelled 03/10/25 06:04 Myelocytes % (Man) Cancelled 03/10/25 06:04 Promyelocytes % (Man) Cancelled 03/10/25 06:04 Blast Cells % (Manual) Cancelled 03/10/25 06:04 Plasma Cell % (Manual) Cancelled 03/10/25 06:04 Other Cells % Cancelled 03/10/25 06:04 Nucleated RBC % Cancelled 03/10/25 06:04 Neutrophils # (Manual) Cancelled 03/10/25 06:04 Band Neutrophils # Cancelled 03/10/25 06:04 Total Absolute Neuts Cancelled 03/10/25 06:04 Lymphocytes # (Manual) Cancelled 03/10/25 06:04 Prolymphocyte # Cancelled 03/10/25 06:04 Reactive Lymphs # Cancelled 03/10/25 06:04 Total Abs Lymphocytes Cancelled 03/10/25 06:04 Monocytes # (Manual) Cancelled 03/10/25 06:04 Eosinophils # (Manual) Cancelled 03/10/25 06:04 Basophils # (Manual) Cancelled 03/10/25 06:04 Metamyelocytes # (Man) Cancelled 03/10/25 06:04 Myelocytes # (Manual) Cancelled 03/10/25 06:04 Promyelocytes # (Man) Cancelled 03/10/25 06:04 Blast Cells # (Man) Cancelled 03/10/25 06:04 Plasma Cell # (Manual) Cancelled 03/10/25 06:04 Other Cells # Cancelled 03/10/25 06:04 Nucleated RBCs # (Man) Cancelled 03/10/25 06:04 Hypersegmented Neuts Cancelled 03/10/25 06:04 Hyposegmented Neuts Cancelled 03/10/25 06:04 Hypogranular Neuts Cancelled 03/10/25 06:04 Large Granular Lymphs Cancelled 03/10/25 06:04 # Lrg Granular Lymphs Cancelled 03/10/25 06:04 Hairy Cells Cancelled 03/10/25 06:04 Smudge Cells Cancelled 03/10/25 06:04 Toxic Granulation Cancelled 03/10/25 06:04 Toxic Vacuolation Cancelled 03/10/25 06:04 Dohle Bodies Cancelled 03/10/25 06:04 Devang Rods Cancelled 03/10/25 06:04 Platelet Estimate Cancelled 03/10/25 06:04 Hypogranular Platelets Cancelled 03/10/25 06:04 Giant Platelets Cancelled 03/10/25 06:04 Platelet Satelliting Cancelled 03/10/25 06:04 RBC Morphology Cancelled 03/10/25 06:04 Polychromasia Cancelled 03/10/25 06:04 Hypochromasia Cancelled 03/10/25 06:04 Poikilocytosis Cancelled 03/10/25 06:04 Basophilic Stippling Cancelled 03/10/25 06:04 Anisocytosis Cancelled 03/10/25 06:04 Microcytosis Cancelled 03/10/25 06:04 Macrocytosis Cancelled 03/10/25 06:04 Spherocytes Cancelled 03/10/25 06:04 Pappenheimer Bodies Cancelled 03/10/25 06:04 Sickle Cells Cancelled 03/10/25 06:04 Target Cells Cancelled 03/10/25 06:04 Tear Drop Cells Cancelled 03/10/25 06:04 Ovalocytes Cancelled 03/10/25 06:04 Stomatocytes Cancelled 03/10/25 06:04 [place] Bodies Cancelled 03/10/25 06:04 Echinocytes Cancelled 03/10/25 06:04 Acanthocytes (Spur) Cancelled 03/10/25 06:04 Rouleaux Cancelled 03/10/25 06:04 RBC Agglutinates Cancelled 03/10/25 06:04 Schistocytes Cancelled 03/10/25 06:04 Sezary Cell Cancelled 03/10/25 06:04 PT 12.4 Seconds (9.0-12.0) H 03/08/25 06:35 INR 1.2 (0.9-1.1) H 03/08/25 06:35 Sodium 138 mmol/L (136-145) 03/18/25 06:35 Potassium 4.4 mmol/L (3.5-5.1) 03/18/25 06:35 Chloride 105 mmol/L (98-107) 03/18/25 06:35 Carbon Dioxide 27 mmol/L (21-32) 03/18/25 06:35 Anion Gap 6 (3-11) 03/18/25 06:35 BUN 38 mg/dl (6-23) H 03/18/25 06:35 Creatinine 0.78 mg/dl (0.6-1.4) 03/18/25 06:35 Est Cr Clr Drug Dosing 55.4 ml/min 03/18/25 06:35 eGFR 87.94 03/18/25 06:35 BUN/Creatinine Ratio 48.7 (10-20) H 03/18/25 06:35 Glucose 180 mg/dl (70-99(Fasting)) H 03/18/25 06:35 POC Glucose 181 mg/dl (70-99) H 03/18/25 07:23 Estimat Average Glucose 143 mg/dl 03/08/25 06:35 Hemoglobin A1c 6.6 % (4.5-5.6) H 03/08/25 06:35 Calcium 8.6 mg/dl (8.6-10.3) 03/18/25 06:35 Magnesium 1.9 mg/dl (1.7-2.4) 03/16/25 06:29 Iron 41 mcg/dl (35-175) 03/08/25 06:35 TIBC 183 mcg/dl (250-450) L 03/08/25 06:35 Transferrin 131 mg/dl (200-360) L 03/08/25 06:35 Transferrin % Sat 22 % (20-50) 03/08/25 06:35 Ferritin 61.5 ng/ml (8-388) 03/08/25 06:35 Total Bilirubin 0.5 mg/dl (0.2-1.0) 03/06/25 22:45 AST 12 U/L (13-39) L 03/06/25 22:45 ALT 10 U/L (7-52) 03/06/25 22:45 Alkaline Phosphatase 98 U/L (34-104) 03/06/25 22:45 Troponin I High Sens 11.3 pg/ml (0-20) 03/06/25 22:45 Total Protein 6.4 gm/dl (6.0-8.3) 03/06/25 22:45 Albumin 3.4 gm/dl (3.4-5.0) 03/06/25 22:45 Globulin 3.0 gm/dl (2.5-4.0) 03/06/25 22:45 Albumin/Globulin Ratio 1.1 (0.9-2) 03/06/25 22:45 Lipase 14 U/L (11-82) 03/06/25 22:45 Vitamin B12 722 pg/ml (180-914) 03/08/25 06:35 Folate 9.78 ng/ml (>5.38) 03/08/25 06:35 TSH 1.997 uIu/ml (0.300-4.500) 03/06/25 22:45 Urine Color Yellow 03/06/25 22:35 Urine Appearance Clear (Clear) 03/06/25 22:35 Urine pH 5.0 (4.5-7.5) 03/06/25 22:35 Ur Specific [place] 1.032 (1.000-1.030) H 03/06/25 22:35 Urine Protein 1+ (Negative) H 03/06/25 22:35 Urine Glucose (UA) 3+ (Negative) H 03/06/25 22:35 Urine Ketones Negative (Negative) 03/06/25 22:35 Urine Blood 2+ (Negative) H 03/06/25 22:35 Urine Nitrite Negative (Negative) 03/06/25 22:35 Urine Bilirubin Negative (Negative) 03/06/25 22:35 Urine Urobilinogen Negative (Negative) 03/06/25 22:35 Ur Leukocyte Esterase Trace (Negative) H 03/06/25 22:35 Urine WBC (Auto) 21-50 /hpf (0-5) H 03/06/25 22:35 Urine RBC (Auto) >20 /hpf (0-2) H 03/06/25 22:35 U Hyaline Cast (Auto) 0-2 /lpf (0-2) 03/06/25 22:35 U Epithel Cells (Auto) 0-2 /hpf (0-2) 03/06/25 22:35 Urine Bacteria (Auto) None Seen (None Seen) 03/06/25 22:35 Urine Yeast Present (None Prsent) A 03/06/25 22:35 Urine Comment 03/06/25 22:35 Blood Parasites ID Cancelled 03/10/25 06:04 Chest X-Ray 03/10/25 13:30 IMPRESSION: Status post placement of a left subclavian pacer. No pneumothorax identified. Diagnostic Findings Telemetry AV paced Frequent episodes of tachyarrhythmia overnight and this morning EKG 03/10/25 Idioventricular rhythm with occasional capture/fusion beats LBBB 96 bpm ECHO 03/07/25 LV is normal in size. LV wall motion is normal LVEF = 55-60% Moderate concentric LVH Aortic valve leaflets are moderately calcified Mild valvular aortic stenosis Medications Administered Current Inpatient Medications Acetaminophen (Acetaminophen 325 Mg Tab) 650 mg PO Q4H PRN PRN Reason: Pain or Fever Stop: 04/06/25 02:31 Last Admin: 03/11/25 05:11 Dose: 650 mg Amiodarone HCl (Amiodarone 200 Mg Tab) 200 mg PO BID [facility] Stop: 04/09/25 12:59 Last Admin: 03/18/25 07:37 Dose: 200 mg Apixaban (Apixaban 5 Mg Tablet) 5 mg PO BID@0800,2000 [facility] Stop: 04/10/25 19:59 Last Admin: 03/18/25 07:36 Dose: 5 mg Aspirin (Aspirin 81 Mg Ectab) 81 mg PO DAILY [facility] Stop: 04/11/25 10:44 Last Admin: 03/18/25 07:36 Dose: 81 mg Atorvastatin Calcium (Atorvastatin 20 Mg Tab) 20 mg PO QAM [facility] Stop: 04/06/25 08:59 Last Admin: 03/18/25 07:36 Dose: 20 mg Cyanocobalamin (Cyanocobalamin (B-12) 500 Mcg Tablet) 500 mcg PO DAILY [facility] Stop: 04/12/25 08:59 Last Admin: 03/18/25 07:36 Dose: 500 mcg Dextrose (Dextrose 50% 50 Ml Syringe) 25 - 50 ml IV UD PRN; Protocol PRN Reason: Hypoglycemia Protocol Stop: 04/07/25 20:44 Docusate Sodium (Docusate Sodium 100 Mg Cap) 100 mg PO BID PRN PRN Reason: Constipation Stop: 04/06/25 02:31 Empagliflozin (Empagliflozin 25 Mg Tab) 25 mg PO QAM [facility] Stop: 04/06/25 08:59 Last Admin: 03/18/25 07:37 Dose: 25 mg Finasteride (Finasteride 5 Mg Tab) 5 mg PO QAM [facility] Stop: 04/06/25 08:59 Last Admin: 03/18/25 07:36 Dose: 5 mg Fluticasone Propionate (Fluticasone Propionate Na Spr 16 Gm Btl) 2 sprays NA DAILY [facility] Stop: 04/06/25 08:59 Last Admin: 03/18/25 07:37 Dose: 2 sprays Glucagon (Glucagon For Inj 1 Mg Vial) 1 mg SQ UD PRN; Protocol PRN Reason: Hypoglycemia Protocol Stop: 04/07/25 20:44 Glucose (Glucose 40% Gel 15 Gm Tube) 15 - 30 gm PO UD PRN; Protocol PRN Reason: Hypoglycemia Protocol Stop: 04/07/25 20:44 Glucose (Glucose 10 Tab/Tube) 4 - 8 tab PO UD PRN; Protocol PRN Reason: Hypoglycemia Protocol Stop: 04/07/25 20:44 Insulin Aspart (Insulin Aspart Per Unit Charge) 0 units SC ACHS [facility] Stop: 04/09/25 05:59 Last Admin: 03/18/25 07:35 Dose: 2 units Magnesium Chloride (Magnesium Chloride W/Calcium 64mg Delayed Rel Tab) 64 mg PO BID [facility] Stop: 04/06/25 08:59 Last Admin: 03/18/25 07:36 Dose: 64 mg Melatonin (Melatonin 3 Mg Tab) 3 mg PO HS PRN PRN Reason: Sleep Stop: 04/06/25 02:31 Last Admin: 03/17/25 20:58 Dose: 3 mg Metoprolol Succinate (Metoprolol Succ 25mg Ext Rel Tab) 25 mg PO BID [facility] Stop: 04/10/25 20:59 Last Admin: 03/18/25 07:36 Dose: 25 mg Miscellaneous (Carbohydrates For Hypoglycemia ) 15 - 30 gm PO UD PRN PRN Reason: Hypoglycemia Protocol Stop: 04/07/25 20:44 Multivitamins/Minerals (Cerovite Adv Formula Tab) 1 tab PO QAM [facility] Stop: 04/08/25 08:59 Last Admin: 03/18/25 07:36 Dose: 1 tab Ondansetron HCl (Ondansetron Inj 2 Mg/Ml 2 Ml Vial) 4 mg IV Q6H PRN PRN Reason: Nausea And Vomiting Stop: 04/06/25 02:31 Polyethylene Glycol (Polyethylene (Miralax) 17 Gm Pack) 17 gm PO DAILY PRN PRN Reason: Constipation Stop: 04/06/25 02:31 Last Admin: 03/16/25 08:05 Dose: 17 gm Tamsulosin HCl (Tamsulosin Hcl 0.4 Mg Cap) 0.4 mg PO HS [facility] Stop: 04/08/25 20:59 Last Admin: 03/17/25 20:59 Dose: 0.4 mg Vibegron (Vibegron 75 Mg Tab) 75 mg PO DAILY [facility] Stop: 04/06/25 08:59 Last Admin: 03/18/25 07:37 Dose: 75 mg PG Care Time/CCT Total # of Minutes Spent Total Time Spent with Patient: Total time spent is greater than 50% in coordination of care (as documented) at patient's floor/unit and/or counseling patient: Coding Level of Care Code 57343 SUB INP/OBS CARE 3/50MIN Diagnoses Nonsustained ventricular tachycardia I47.29 Bradycardia R00.1 Cardiac pacemaker in situ Z95.0 Acute on chronic urinary retention R33.9
[2025-03-18 11:40] LABS: Magnesium 1.9 mg/dl (1.7-2.4)
--- NOTE | 2025-03-18 12:05 | Hospitalist Progress Note ---
Date of Service March 18, 2025 Assessment & Plan (1) Nonsustained ventricular tachycardia: (2) Bradycardia: (3) Severe protein-calorie malnutrition: (4) Incomplete bladder emptying: Plan Patient is an 84-year-old male with a past medical history of RVOT paroxysmal ventricular tachycardia, paroxysmal A-fib, CAD, PVD, type II DM, prostate cancer, LUTS with chronic Michelle. Patient presented to the ED for catheter replacement as his was not draining properly. While in the ED patient was found to have several episodes of nonsustained V. tach lasting 10 to 20 seconds, patient remained completely asymptomatic. He was started on an amiodarone bolus and drip and then had profound bradycardia with the Mobitz 1 second-degree heart block. He is admitted for permanent pacemaker placement. #1. Nonsustained V. tach: Patient presents to the hospital with signs of urinary obstruction and was found to be in nonsustained V. tach. Received some IV amiodarone. Now on PO Amiodarone 200mg BID Patient has normal left ventricular systolic function His nonsustained V. tach has improved, now started on metoprolol XL Cardiology, will discontinue lisinopril. 2. History of AV conduction disease: Status post dual-chamber pacemaker Also continue Eliquis 3. Urinary obstruction: Patient had a Michelle catheter which was leaking Has been replaced Patient may need to follow-up up urology outpatient #4Hypomagnesemia -magnesium low on admission and was replaced. Magnesium now optimal at 2.0 -No need to check further magnesium level on a daily basis - A.m. recheck stable #5.Prostate CA/LUTS/chronic indwelling Michelle for urinary retention/bladder spasmsFoley catheter changed in ED for what was thought to be a malfunctioning Michelle catheter. He has been having frequent leakage of urine around the Michelle catheter despite it being in the correct position. Bladder ultrasound here shows the catheter is in the correct place despite leakage. I discussed his care with the urology team-they think he is having leakage due to bladder spasms. He was recently prescribed Gemtesa and was told to stop his Vesicare. UA with 1+ protein, trace LE, 21-50 WBC, >20 RBC no bacteria noted. Urine culture is growing Jennifer albicans which is likely a colonizer. Urology also suggested starting Flomax for bladder spasms - Continue Daily catheter care, flush as needed Continue Gemtesa and added Flomax as per urology recommendation for bladder spasms, still some leakage noted, will continue to monitor, he already had a 20 gauge catheter placed this last exchange with no improvement - continue to follow with urology in outpatient setting within 2 weeks after discharge #6.Severe protein calorie malnutrition/underweight BMI 18.7-appreciate nutrition consultation. The patient has lost 40% of his body weight in the last year or more unintentionally. He has been dealing with issues with his prostate and has a long history of smoking perhaps contributing? Does have mild anemia but it is not iron deficiency-would not suspect GI malignancy but is a consideration - Follow-up with PCP as an outpatient for referral to GI for EGD and colonoscopy - Added boost supplement shakes twice daily - Liberalize diet-removed heart healthy portion - Added multivitamin with minerals once daily #Anemia-Hgb mildly low at 12.8, normocytic. Iron studies, B12, folate, TSH all normal. Likely anemia of chronic disease. No bleeding from anywhere - Follow CBC periodically - Stable over last several days #HTN/history of CVA/nonobstructive CAD-cardiac catheterization in 2021 with nonobstructive CAD with 60% proximal small LAD, 40% mid CX, 40% diffuse mid and 30% distal RCA, 80% small high OM1, 40% proximal large D1, 50% proximal medium OM 2. BPs here have been controlled and actually were hypotensive the day after his pacemaker was placed after starting metoprolol with taking lisinopril - Discontinued lisinopril completely to allow room for titration of beta-kurtis -Started Toprol-XL 25 mg p.o. twice daily-titrate up as blood pressure allows for VT -Resumed home aspirin and Eliquis - DC lisinopril #Type II DM HgbA1c controlled at 6.6%, he has had tremendous amount of weight loss. Is only on Jardiance and metformin at home - Holding home metformin - Continue Jardiance and supp blood sugars have been sporadically elevated but generally within control. Lemental NovoLog as needed - Diabetic diet, BSG's ACHS - Blood sugars been sporadically elevated but generally within goal range. No change at this time DVT prophylaxis-Nikolay Andrews Dispo: Disposition: Awaiting placement Admission and Anticipated Discharge Date Admission Date: March 07, 2025 Subjective patient seen and examined, still complains of his urinary catheter being blocked, although his urine is flowing and cleaar Review of Systems Review of Systems: All systems reviewed are negative, apart from the ones contained in the history. Physical Exam Physical Exam: The patient is awake, alert and oriented 3, thin looking. HEENT--PERRL, EOMI, mucous membranes and oropharynx mildly dry Neck--supple. No JVD. No bruits. Thyroid normal, trachea midline, no adenopathy. Heart--normal S1 and S2. No murmurs, rubs or gallops. Lungs--clear bilaterally, no respiratory distress, no accessory muscle use. Abdomen--normal bowel sounds and soft. Extremities--no cyanosis or clubbing. No edema. Dermatologic--normal skin turgor, normal color, no abnormal lymph nodes, no rash. Neurologic--cranial nerves II through XII grossly intact. Rheumatologic--normal range of motion. Psychiatric--normal affect. Results & Data Results & Data Vital Signs (Past 12 Hours) Vital Signs Temp Pulse Pulse Resp BP BP Pulse Ox 03/18/25 11:29 97.3 F L 86 20 93/60 L 100 03/18/25 07:31 97.5 F L 78 20 105/72 96 03/18/25 07:00 93 H 03/18/25 03:50 97.7 F 99 H 16 95/68 L 95 O2 Del Method 03/18/25 11:29 Room Air 03/18/25 07:31 Room Air 03/18/25 07:00 03/18/25 03:50 Room Air PG Care Time/CCT Total # of Minutes Spent Total Time Spent with Patient: Total time spent is greater than 50% in coordination of care (as documented) at patient's floor/unit and/or counseling patient: Coding Level of Care Code 25228 SUB INP/OBS CARE 2/35MIN Diagnoses Nonsustained ventricular tachycardia I47.29 Bradycardia R00.1 Severe protein-calorie malnutrition E43 Incomplete bladder emptying R33.9 Time Spent (min) 35
[2025-03-18] MEDS: AMIODARONE 200 MG TAB PO ONE (13:35)
--- NOTE | 2025-03-18 15:27 | Electrocardiogram Report ---
Test Reason : Blood Pressure : */* mmHG Vent. Rate : 63 BPM Atrial Rate : 63 BPM P-R Int : 144 ms QRS Dur : 166 ms QT Int : 512 ms P-R-T Axes : * 56 85 degrees QTcB Int : 523 ms AV dual-paced rhythm Abnormal ECG When compared with ECG of 10-Mar-2025 13:40, Vent. rate has decreased by 33 bpm Confirmed by Clarence Santacruz ([id number]) on 03/18/2025 3:27:11 PM Referred By: REFERRED SELF Confirmed By: Clarence Santacruz
[2025-03-18] MEDS: AMIODARONE 200 MG TAB PO SCH (20:28)
[2025-03-19 07:22] LABS: Anion Gap 8.0 (3-11); Blood Urea Nitrogen 38.0 mg/dl (6-23); Calcium 8.6 mg/dl (8.6-10.3); Carbon Dioxide 26.0 mmol/L (21-32); Chloride 105.0 mmol/L (98-107); Creatinine Clr Calc Pharmacy 57.2 ml/min; Glucose 184.0 mg/dl (70-99(Fasting)); Potassium 4.3 mmol/L (3.5-5.1); Sodium 139.0 mmol/L (136-145)
[2025-03-19 07:34] VITALS: TEMP 97.9; O2SAT 92
[2025-03-19 07:45] VITALS: BP 114/72; RESP 18
[2025-03-19 09:09] VITALS: PULSE 73
--- NOTE | 2025-03-19 09:39 | Discharge Summary ---
Date of Service March 19, 2025 Admission HPI Per Admitting Provider Patient is an 84-year-old male with a past medical history of A-fib, CAD, PVD, type II DM, prostate cancer, LUTS with chronic Michelle. Patient presented to the ED for catheter replacement as his was not draining properly. While in the ED patient was found to have several episodes of nonsustained V. tach lasting 10 to 20 seconds, rhythm strip reviewed and questionable V. tach versus aberrancy. Patient remained completely asymptomatic. He was started on an amiodarone bolus and drip. Patient seen at bedside. He stated he is feeling well and denies any chest pain, shortness of breath, dizziness/lightheadedness. His only complaint this evening was that his catheter was not draining properly which was replaced in the ED. Note that patient patient was seen in the ED on 02/28 for catheter replacement and was found to be in Mobitz type I second-degree AV heart block, he was evaluated by cardiology and discontinued off metoprolol succinate 12 5 mg daily. He was to continue with amiodarone 200 mg daily which he endorses doing. He stated he is not due for any evening medications. He wishes to be DNR/DNI. Note the patient is a [facility] PCP however coming to [facility] due to insurance changes. Limited previous medical records. Admission Exam (Per Admitting) Constitutional The patient is awake, alert and oriented 3, well developed and well nourished, normocephalic and atraumatic, lying in bed and in no acute distress. HEENT--PERRL, EOMI, mucous membranes and oropharynx mildly dry Neck--supple. No JVD. No bruits. Thyroid normal, trachea midline, no adenopathy. Heart--normal S1 and S2. No murmurs, rubs or gallops. Lungs--clear bilaterally, no respiratory distress, no accessory muscle use. Abdomen--normal bowel sounds and soft. Extremities--no cyanosis or clubbing. No edema. Dermatologic--normal skin turgor, normal color, no abnormal lymph nodes, no rash. Neurologic--cranial nerves II through XII grossly intact. Rheumatologic--normal range of motion. Psychiatric--normal affect. Discharge Data Consultations 03/07/25 00:39 ED Decision to Admit Stat 03/07/25 08:00 Consult Cardiology Routine 12/30/25 14:30 Consult Urology Routine Procedures Performed Operation Date: 03/10/25 08:30 Actual Procedures p Pacer with A/V Leads (Dual) - Dora Loera DO Hospital Course (1) Nonsustained ventricular tachycardia: (2) Bradycardia: (3) Severe protein-calorie malnutrition: (4) Incomplete bladder emptying: Plan Patient is an 84-year-old male with a past medical history of RVOT paroxysmal ventricular tachycardia, paroxysmal A-fib, CAD, PVD, type II DM, prostate cancer, LUTS with chronic Michelle. Patient presented to the ED for catheter replacement as his was not draining properly. While in the ED patient was found to have several episodes of nonsustained V. tach lasting 10 to 20 seconds, patient remained completely asymptomatic. He was started on an amiodarone bolus and drip and then had profound bradycardia with the Mobitz 1 second-degree heart block. He is admitted for permanent pacemaker placement. #1. Nonsustained V. tach: Patient presents to the hospital with signs of urinary obstruction and was found to be in nonsustained V. tach. Received some IV amiodarone. Now on PO Amiodarone 200mg BID Patient has normal left ventricular systolic function His nonsustained V. tach has improved, now started on metoprolol XL Cardiology, will discontinue lisinopril. 2. History of AV conduction disease: Status post dual-chamber pacemaker Also continue Eliquis 3. Urinary obstruction: Patient had a Michelle catheter which was leaking Has been replaced He follows up with urology outpatient #4Hypomagnesemia -Replaced #5.Prostate CA/LUTS/chronic indwelling Michelle for urinary retention/bladder spasmsFoley catheter changed in ED for what was thought to be a malfunctioning Michelle catheter. He has been having frequent leakage of urine around the Michelle catheter despite it being in the correct position. Bladder ultrasound here shows the catheter is in the correct place despite leakage. I discussed his care with the urology team-they think he is having leakage due to bladder spasms. He was recently prescribed Gemtesa and was told to stop his Vesicare. UA with 1+ protein, trace LE, 21-50 WBC, >20 RBC no bacteria noted. Urine culture is growing Jennifer albicans which is likely a colonizer. Urology also suggested starting Flomax for bladder spasms - Continue Daily catheter care, flush as needed Continue Gemtesa and added Flomax as per urology recommendation for bladder spasms, still some leakage noted, will continue to monitor, he already had a 20 gauge catheter placed this last exchange with no improvement - continue to follow with urology in outpatient setting within 2 weeks after discharge #6.Severe protein calorie malnutrition/underweight BMI 18.7-appreciate nutrition consultation. The patient has lost 40% of his body weight in the last year or more unintentionally. He has been dealing with issues with his prostate and has a long history of smoking perhaps contributing? Does have mild anemia but it is not iron deficiency-would not suspect GI malignancy but is a consideration - Follow-up with PCP as an outpatient for referral to GI for EGD and colonoscopy - Added boost supplement shakes twice daily - Liberalize diet-removed heart healthy portion - Added multivitamin with minerals once daily #Anemia-Hgb mildly low at 12.8, normocytic. Iron studies, B12, folate, TSH all normal. Likely anemia of chronic disease. No bleeding from anywhere - Follow CBC periodically - Stable over last several days #HTN/history of CVA/nonobstructive CAD-cardiac catheterization in 2021 with nonobstructive CAD with 60% proximal small LAD, 40% mid CX, 40% diffuse mid and 30% distal RCA, 80% small high OM1, 40% proximal large D1, 50% proximal medium OM 2. BPs here have been controlled and actually were hypotensive the day after his pacemaker was placed after starting metoprolol with taking lisinopril - Discontinued lisinopril completely to allow room for titration of beta-kurtis -Started Toprol-XL 25 mg p.o. twice daily-titrate up as blood pressure allows for VT -Resumed home aspirin and Eliquis - DC lisinopril #Type II DM HgbA1c controlled at 6.6%, he has had tremendous amount of weight loss. Is only on Jardiance and metformin at home - Holding home metformin - Continue Jardiance and supp blood sugars have been sporadically elevated but generally within control. Lemental NovoLog as needed - Diabetic diet, BSG's ACHS - Blood sugars been sporadically elevated but generally within goal range. No change at this time DVT prophylaxis-Nikolay Andrews Dispo: Disposition: center care Coding Level of Care Code 12074 INP/OBS DISCH >30 MIN Diagnoses Nonsustained ventricular tachycardia I47.29 Bradycardia R00.1 Severe protein-calorie malnutrition E43 Incomplete bladder emptying R33.9 Time Spent (min) 35
== END 2025-03-19 10:17 | DRG 242 ==
LOC: ED 21:15 → SUATTDRO 03-07 01:16 → 2S 03-07 01:16